=== PATIENT | female | born 1955 | race Caucasian/White ===

== ENCOUNTER 2016-12-20 12:43 | Inpatient (IN) | payer OTHER ==
[~2016-12-20] VITALS: Ht 162.6 cm; Wt 118.8 kg
[2016-12-20 13:57] VITALS: BP 135/78
[2016-12-20] MEDS ORDERED: BISACODYL 10 MG SUPP.RECT. PR PRN (14:45)
[2016-12-20] MEDS ORDERED: PROCHLORPERAZINE 10 MG/2 ML VIAL. IV PRN (14:45)
[2016-12-20] MEDS ORDERED: PIP/TAZO PER PHARMACY MC PRN (14:45)
[2016-12-20] MEDS ORDERED: PROCHLORPERAZINE 25 MG SUPP.RECT. PR PRN (14:45)
[2016-12-20] MEDS ORDERED: MAGNESIUM HYDROXIDE 2,400 MG/30 ML ORAL.SUSP. PO PRN (14:45)
[2016-12-20] MEDS ORDERED: ACETAMINOPHEN 325 MG SUPP.RECT. PR PRN (14:45)
[2016-12-20] MEDS ORDERED: ACETAMINOPHEN 325 MG TABLET. PO PRN (14:45)
[2016-12-20] MEDS ORDERED: MORPHINE SULFATE 4 MG/ML DISP.SYRIN. IV PRN (14:45)
--- NOTE | 2016-12-20 14:48 | PDOC1 ---
History and Physical Date of Admission Date of Admission DATE: 12/20/16 TIME: 14:43 Identification/Chief Complaint Chief Complaint abd pain Problems: Source Source: Caregiver, Chart review, Patient History of Present Illness History of Present Illness 61 y.o very pleasant Caucaisan female, obese, hx diverticulitis in past one episode, THAT DId NOT Need any hospitalization, abd pain RLQ few days, febrile at home, nausea but no emesis, went to PCP [facility], CT shows diverticulitis with 6m, abscess hence transferred here. WBC 16, BMP ok, was given flagyl and levaquin at [facility] decent after pain meds Past Medical History Cardiovascular: HTN Past Surgical History Past Surgical History: No pertinent history Family History Family History: No Significant Social History Smoke: No ALCOHOL: none Drugs: None Allergies Allergies: Coded Allergies: No Known Drug Allergies (Unverified , 12/20/16) ROS General: No: Chills, Night Sweats, Fatigue, Malaise, Appetite, Other (efevr) PSYCHOLOGICAL ROS: No: Anxiety, Behavioral Disorder, Concentration difficultie , Decreased libido, Depression, Disorientation, Hallucinations, Hostility, Irritablity, Memory difficulties, Mood Swings, Obsessive thoughts, Physical abuse, Sexual abuse, Sleep disturbances, Suicidal ideation, Other Eyes: No Blurry vision, No Decreased vision, No Double vision, No Dry eyes, No Excessive tearing, No Eye Pain, No Itchy Eyes, No Loss of vision, No Photophobia , No Scotomata, No Uses contacts, No Uses glasses, No Other HEENT: No: Heacaches, Visual Changes, Hearing change, Nasal congestion, Nasal discharge, Oral lesions, Sinus pain, Sore Throat, Epistaxis, Sneezing, Snoring, Tinnitus, Vertigo, Vocal changes, Other ALLERGY AND IMMUNOLOGY: No: Hives, Insect Bite Sensitivity, Itchy/Watery Eyes, Nasal Congestion, Post Nasal Drip, Seasonal Allergies, Other Hematological and Lymphatic: No: Bleeding Problems, Blood Clots, Blood Transfusions, Brusing, Night Sweats, Pallor, Swollen Lymph Nodes, Other ENDOCRINE: No: Breast Changes, Galactorrhea, Hair Pattern Changes, Hot Flashes , Malaise/lethargy, Mood Swings, Palpitations, Polydipsia/polyuria, Skin Changes , Temperature Intolerance, Unexpected Weight Changes, Other Breast: No New/Changing Breast Lumps, No Nipple changes, No Nipple discharge, No Other Respiratory: No: Cough, Hemoptysis, Orthopnea, Pleuritic Pain, Shortness of breath, SOB with excertion, Sputum Changes, Stridor, Tachypnea, Wheezing, Other Cardiovascular: No Chest Pain, No Palpitations, No Orthopnea, No Paroxysmal Noc. Dyspnea, No Edema, No Lt Headedness, No Other Gastrointestinal: Yes Nausea, Yes Vomiting, Yes Abdominal Pain Genitourinary: No Dysuria, No Frequency, No Incontinence, No Hematuria, No Retention, No Discharge, No Urgency, No Pain, No Flank Pain, No Other, No , No , No , No , No , No , No Musculoskeletal: No Gait Disturbance, No Joint Pain, No Joint Stiffness, No Joint Swelling, No Muscle Pain, No Muscular Weakness, No Pain In:, No Swelling In:, No Other Neurological: No Behavorial Changes, No Bowel/Bladder ControlChng, No Confusion , No Dizziness, No Gait Disturbance, No Headaches, No Impaired Coord/balance, No Memory Loss, No Numbness/Tingling, No Seizures, No Speech Problems, No Tremors, No Visual Changes, No Weakness, No Other Skin: No Dry Skin, No Eczema, No Hair Changes, No Lumps, No Mole Changes, No Mottling, No Nail Changes, No Pruritus, No Rash, No Skin Lesion Changes, No Other, No Acne Physical Exam General: Alert, Oriented X3, Cooperative, No acute distress HEENT: Atraumatic, PERRLA, EOMI Lungs: Clear to auscultation, Normal air movement Heart: S1S2, RRR, no thrills, no rubs, no gallops, no murmurs Cardiovascular: S1, S2 Breasts: Normal, Rt breast nml w/o mass, Lt breast nml w/o mass, Nipples normal Abdomen: Other (soft tender mostly RLQ area, no guarding, hypoactive bS) Rectal Exam: not examined PELVIC: Nml ext genitalia Extremities: No clubbing, No cyanosis, No edema, Normal pulses, No tenderness/ swelling Skin: No rashes, No breakdown, No significant lesion Neuro: Normal gait, Normal speech, Strength at 5/5 X4 ext, Normal tone, Sensation intact, Cranial nerves 3-12 NL, Reflexes 2+ Psych/Mental Status: Mental status NL, Mood NL Vitals Vitals Vital Signs Date Time Temp Pulse Resp B/P (MAP) Pulse Ox O2 Delivery O2 Flow Rate FiO2 12/20/16 13:57 97.9 74 18 135/78 (97) 99 Nasal Cannula 97.9 VTE Prophylaxis Ordered VTE Prophylaxis Devices: Yes VTE Pharmacological Prophylaxi: Yes Assessment/Plan Assessment/Plan 1. Sigmoid diverticultuis with [address] 2. SIRS no sepsis, infectious in etiology, no organ dysfcn 3. Leukocytosis 16 4. Obesity 5. HTN pLAN: Admit 2 mN NPO IVF IR consult for abscess drainage IV zosyn per pharmacy GI consult PPI IV while NPO Dw her my plan -agreeable ROSALINA SULLIVAN MD Dec 20, 2016 14:48
[2016-12-20 15:00] VITALS: BP 135/78
--- NOTE | 2016-12-20 15:28 | PDOC2 ---
GI CONSULT Reason For Consult: Diverticulitis with abcess. HPI: HPI: 61 y/o female admitted to [facility] on Wednesday with recurrent diverticulitis. Prior episode treated successfully as outpatient. On this occasion, worse with perisigmoid abcess on CT, hence transferred here. Afebrile currently, but with LLQ pain with motion. States prior colonoscopy >15 years ago, maybe with polyps and maybe done here. Typically no diarrhea, constipation or overt bleeding or melena. Wt/appetite stable. No N, V. Knows of no GIFH issues. No HB, dysphagia, PUD, GB, liver or pancreatic history. No tobacco use. Occasional alcohol. No ASA or NSAID use. No prior EGD. PMH: PMH: HTN, anxiety. No prior surgery. FH: Family History: DM, Hypertension Social History: Smoke: No ALCOHOL: occassional Drugs: None ROS: GEN: Denies fevers, chills, sweats HEENT: Denies blurred vision, sore throat CV: Denies chest pain RESP: Denies shortness of air, cough GI: Per HPI : Denies hematuria, dysuria ENDO: Denies weight changes NEURO: Denies confusion, dizziness MSK: Denies weakness, joint pain/swelling SKIN: Denies jaundice, pruritus Vitals: Vitals: Vital Signs Date Time Temp Pulse Resp B/P (MAP) Pulse Ox O2 Delivery O2 Flow Rate FiO2 12/20/16 13:57 97.9 74 18 135/78 (97) 99 Nasal Cannula 97.9 Labs: Labs: At [facility]: moderate leukocytosis, no anemia, Mildly elevated LFT's with normal bilirubin. Hyperglycemic. Allergies: Coded Allergies: No Known Drug Allergies (Unverified , 12/20/16) Imaging: Imaging: At [facility], diverticulitis with abcess, fatty liver on CT. PE: GEN: looks uncomfortable HEENT: Atraumatic, PERRLA LUNGS: CTAB HEART: RRR, no murmurs ABD: NABS, S/ND. Tender with peritoneal signs/referred pain to LLQ. No mass, organomegaly. EXTREMITY: No edema SKIN: No rashes, no jaundice NEURO/PSYCH: A & O 3 A/P: A/P: IMP: Diverticulitis complicated by perforation/abcess. H/o polyps? Abnormal LFT's; some may be NAFLD/GRIMALDO with contribution from infection. No obstruction by available imaging. REC: continue antibiotics. IR and surgical opinions. Not above clears po for now. May need re-imaging at some point. Thanks. SCHUYLER HERRERA MD Dec 20, 2016 15:28
[2016-12-20] MEDS: fentaNYL PF VIAL 100 MCG/2 ML VIAL IV PRN ×2 (15:30→20:16)
[2016-12-20 15:48] LABS: CALCIUM 9.1 mg/dL (8.5-10.1); CREATININE 0.7 mg/dL (0.6-1.0); GFR 85.4; POTASSIUM 4.5 mmol/L (3.5-5.1)
[2016-12-20] MEDS: IV RINGERS,LACTATED 1000ML 1,000 ML IV SCH (15:52)
[2016-12-20] MEDS ORDERED: ALPR0.25 PO (16:25)
[2016-12-20] MEDS ORDERED: PRAV10TA2 PO (16:25)
[2016-12-20] MEDS ORDERED: MONT10TA9 PO (16:25)
[2016-12-20] MEDS ORDERED: CITA20TA5 PO (16:25)
[2016-12-20] MEDS ORDERED: POTA20TA82 PO (16:25)
[2016-12-20] MEDS ORDERED: LEVO100T5 PO (16:25)
[2016-12-20] MEDS ORDERED: FURO-69 PO (16:25)
[2016-12-20] MEDS ORDERED: TRIA1TAB3 PO (16:25)
[2016-12-20] MEDS ORDERED: IBUP-1060 PO (16:25)
[2016-12-20] MEDS ORDERED: CALC667T PO (16:25)
[2016-12-20] MEDS ORDERED: CELE100C PO (16:25)
[2016-12-20] MEDS ORDERED: LEVO25TA4 PO (16:48)
[2016-12-20] MEDS ORDERED: CELE200C PO (16:50)
[2016-12-20] MEDS ORDERED: PRAV40TA2 PO (16:50)
[2016-12-20] MEDS ORDERED: FURO40TA4 PO (16:50)
[2016-12-20] MEDS: PIPERACILLIN/TAZO IV Push 3.375 GM VIAL. IVP SCH (18:05)
[2016-12-20 19:00] VITALS: BP 135/85
[2016-12-20] MEDS: DOCUSATE SODIUM 100 MG CAPSULE. PO SCH (20:05)
[2016-12-20] MEDS: ONDANSETRON PF 4 MG/2 ML VIAL. IV PRN (22:58)
[2016-12-20 23:00] VITALS: BP 152/96
[2016-12-21] VITALS (22 sets, daily range): BP systolic 138–193; BP diastolic 82–123
[2016-12-21] MEDS: PIPERACILLIN/TAZO IV Push 3.375 GM VIAL. IVP SCH ×4 (00:15→19:32)
[2016-12-21] MEDS: fentaNYL PF VIAL 100 MCG/2 ML VIAL IV PRN (00:23)
[2016-12-21] MEDS: IV RINGERS,LACTATED 1000ML 1,000 ML IV SCH ×3 (00:23→21:57)
[2016-12-21 05:25] LABS: BASO # 0.1 x10^3/uL (0.0-0.2); BASO % 1 % (0-3); EOS % 0 % (0-3); HEMOGLOBIN 11.6 g/dL (12.0-15.5); LYMPH # 0.8 x10^3/uL (1.0-4.8); LYMPH % 8 % (24-48); MEAN CORPUSCULAR HEMOGLOBIN 32 pg (25-35); MEAN CORPUSCULAR HGB CONC 33 g/dL (31-37); MEAN CORPUSCULAR VOLUME 98 fL (79-100); MONO % 6 % (0-9); NEUT % 85 % (31-73); PLATELET COUNT 332 x10^3/uL (140-400); RED BLOOD COUNT 3.59 x10^6/uL (3.50-5.40); RED CELL DISTRIBUTION WIDTH 13.7 % (11.5-14.5); WHITE BLOOD COUNT 10.2 x10^3/uL (4.0-11.0)
[2016-12-21 08:41] LABS: INR 1.2 (0.8-1.1); PROTHROMBIN TIME PATIENT 14.1 SEC (11.7-14.0)
[2016-12-21 08:44] LABS: MAGNESIUM 2.4 mg/dL (1.8-2.4); PHOSPHORUS 1.2 mg/dL (2.6-4.7)
[2016-12-21] MEDS: DOCUSATE SODIUM 100 MG CAPSULE. PO SCH ×2 (09:00→21:57)
[2016-12-21] MEDS: ALBUTEROL SULFATE 2.5 MG/3 ML NEBU. NEB PRN (09:37)
[2016-12-21 10:07] LABS: PLT ESTIMATE ADEQUATE (ADEQUATE)
[2016-12-21] MEDS ORDERED: LIDOCAINE 1% / SOD BICARB 8.4% 20 ML VIAL. IJ ONE ×2 (10:43→11:15)
[2016-12-21] MEDS ORDERED: fentaNYL PF VIAL 100 MCG/2 ML VIAL ONE (10:57)
[2016-12-21] MEDS ORDERED: MIDAZOLAM HCL/PF 2 MG/2 ML VIAL. ONE (10:57)
[2016-12-21] MEDS ORDERED: fentaNYL PF VIAL 100 MCG/2 ML VIAL IV ONE (11:15)
[2016-12-21] MEDS ORDERED: MIDAZOLAM HCL/PF 2 MG/2 ML VIAL. IV ONE (11:15)
[2016-12-21] MEDS ORDERED: SODIUM PHOSPHATE 20 MMOL in IV DEXTROSE 5% 250 ML IV ONE (12:00)
[2016-12-21] MEDS ORDERED: VANCOMYCIN 2 GM in IV DEXTROSE 5% 500 ML IV SCH (15:00)
[2016-12-21] MEDS: oxyCODONE IR 5 MG TABLET PO PRN ×2 (15:02→19:32)
--- NOTE | 2016-12-21 15:03 | PDOC ---
PROGRESS NOTES Chief Complaint Chief Complaint 1. Sigmoid diverticultuis with ?perforation with [address] post abscess drain on 12/21 2 sepsis 3. Leukocytosis 16 4. Obesity 5. HTN hypophophatemia plan: fu with gi, ir, sx post abscess drain on 12/21 cont some home meds, hold lasix ivf clear liquid diet pain control dvt ppx replete HA ADD vanco, zosyn ,fu cx labs tmr History of Present Illness History of Present Illness ROS: no fever, chills, sob or chest pain low ha IR today Vitals Vitals Vital Signs Date Time Temp Pulse Resp B/P (MAP) Pulse Ox O2 Delivery O2 Flow Rate FiO2 12/21/16 12:58 Nasal Cannula 3.0 12/21/16 12:15 16 12/21/16 12:00 97.7 85 147/86 (106) 81 97.7 Physical Exam General: Alert, Oriented X3, Cooperative, No acute distress Heart: Regular rate, Normal S1, Normal S2 Lungs: Clear Abdomen: Soft, Other Extremities: No clubbing, No cyanosis, No edema, Normal pulses, No tenderness/ swelling Skin: No rashes, No breakdown, No significant lesion Labs LABS Laboratory Tests Test 12/21/16 05:02 12/21/16 08:05 White Blood Count 10.2 x10^3/uL (4.0-11.0) Red Blood Count 3.59 x10^6/uL (3.50-5.40) Hemoglobin 11.6 g/dL (12.0-15.5) Hematocrit 35.0 % (36.0-47.0) Mean Corpuscular Volume 98 fL (79-100) Mean Corpuscular Hemoglobin 32 pg (25-35) Mean Corpuscular Hemoglobin Concent 33 g/dL (31-37) Red Cell Distribution Width 13.7 % (11.5-14.5) Platelet Count 332 x10^3/uL (140-400) Neutrophils (%) (Auto) 85 % (31-73) Lymphocytes (%) (Auto) 8 % (24-48) Monocytes (%) (Auto) 6 % (0-9) Eosinophils (%) (Auto) 0 % (0-3) Basophils (%) (Auto) 1 % (0-3) Neutrophils # (Auto) 8.7 x10^3uL (1.8-7.7) Lymphocytes # (Auto) 0.8 x10^3/uL (1.0-4.8) Monocytes # (Auto) 0.6 x10^3/uL (0.0-1.1) Eosinophils # (Auto) 0.0 x10^3/uL (0.0-0.7) Basophils # (Auto) 0.1 x10^3/uL (0.0-0.2) Segmented Neutrophils % 86 % (35-66) Band Neutrophils % 4 % (0-9) Lymphocytes % 9 % (24-48) Monocytes % 1 % (0-10) Platelet Estimate Adequate (ADEQUATE) Prothrombin Time 14.1 SEC (11.7-14.0) Prothromb Time International Ratio 1.2 (0.8-1.1) Phosphorus Level 1.2 mg/dL (2.6-4.7) Magnesium Level 2.4 mg/dL (1.8-2.4) Comment Review of Relevant I have reviewed the following items kevin (where applicable) has been applied. Labs Laboratory Tests Test 12/20/16 14:45 12/21/16 05:02 12/21/16 08:05 Sodium Level 137 mmol/L (136-145) Potassium Level 4.5 mmol/L (3.5-5.1) Chloride Level 103 mmol/L (98-107) Carbon Dioxide Level 29 mmol/L (21-32) Anion Gap 5 (6-14) Blood Urea Nitrogen 14 mg/dL (7-20) Creatinine 0.7 mg/dL (0.6-1.0) Estimated GFR (Cockcroft-Gault) 85.4 Glucose Level 92 mg/dL (70-99) Calcium Level 9.1 mg/dL (8.5-10.1) White Blood Count 10.2 x10^3/uL (4.0-11.0) Red Blood Count 3.59 x10^6/uL (3.50-5.40) Hemoglobin 11.6 g/dL (12.0-15.5) Hematocrit 35.0 % (36.0-47.0) Mean Corpuscular Volume 98 fL (79-100) Mean Corpuscular Hemoglobin 32 pg (25-35) Mean Corpuscular Hemoglobin Concent 33 g/dL (31-37) Red Cell Distribution Width 13.7 % (11.5-14.5) Platelet Count 332 x10^3/uL (140-400) Neutrophils (%) (Auto) 85 % (31-73) Lymphocytes (%) (Auto) 8 % (24-48) Monocytes (%) (Auto) 6 % (0-9) Eosinophils (%) (Auto) 0 % (0-3) Basophils (%) (Auto) 1 % (0-3) Neutrophils # (Auto) 8.7 x10^3uL (1.8-7.7) Lymphocytes # (Auto) 0.8 x10^3/uL (1.0-4.8) Monocytes # (Auto) 0.6 x10^3/uL (0.0-1.1) Eosinophils # (Auto) 0.0 x10^3/uL (0.0-0.7) Basophils # (Auto) 0.1 x10^3/uL (0.0-0.2) Segmented Neutrophils % 86 % (35-66) Band Neutrophils % 4 % (0-9) Lymphocytes % 9 % (24-48) Monocytes % 1 % (0-10) Platelet Estimate Adequate (ADEQUATE) Prothrombin Time 14.1 SEC (11.7-14.0) Prothromb Time International Ratio 1.2 (0.8-1.1) Phosphorus Level 1.2 mg/dL (2.6-4.7) Magnesium Level 2.4 mg/dL (1.8-2.4) Laboratory Tests Test 12/21/16 05:02 12/21/16 08:05 White Blood Count 10.2 x10^3/uL (4.0-11.0) Red Blood Count 3.59 x10^6/uL (3.50-5.40) Hemoglobin 11.6 g/dL (12.0-15.5) Hematocrit 35.0 % (36.0-47.0) Mean Corpuscular Volume 98 fL (79-100) Mean Corpuscular Hemoglobin 32 pg (25-35) Mean Corpuscular Hemoglobin Concent 33 g/dL (31-37) Red Cell Distribution Width 13.7 % (11.5-14.5) Platelet Count 332 x10^3/uL (140-400) Neutrophils (%) (Auto) 85 % (31-73) Lymphocytes (%) (Auto) 8 % (24-48) Monocytes (%) (Auto) 6 % (0-9) Eosinophils (%) (Auto) 0 % (0-3) Basophils (%) (Auto) 1 % (0-3) Neutrophils # (Auto) 8.7 x10^3uL (1.8-7.7) Lymphocytes # (Auto) 0.8 x10^3/uL (1.0-4.8) Monocytes # (Auto) 0.6 x10^3/uL (0.0-1.1) Eosinophils # (Auto) 0.0 x10^3/uL (0.0-0.7) Basophils # (Auto) 0.1 x10^3/uL (0.0-0.2) Segmented Neutrophils % 86 % (35-66) Band Neutrophils % 4 % (0-9) Lymphocytes % 9 % (24-48) Monocytes % 1 % (0-10) Platelet Estimate Adequate (ADEQUATE) Prothrombin Time 14.1 SEC (11.7-14.0) Prothromb Time International Ratio 1.2 (0.8-1.1) Phosphorus Level 1.2 mg/dL (2.6-4.7) Magnesium Level 2.4 mg/dL (1.8-2.4) Microbiology 12/21/16 Gram Stain - Final, Complete Medications Current Medications Ondansetron HCl (Zofran) 4 mg PRN Q6HRS PRN IV NAUSEA/VOMITING Last administered on 12/20/16t 22:58; Start 12/20/16 at 14:45 Prochlorperazine Edisylate (Compazine) 10 mg PRN Q6HRS PRN IV NAUSEA/VOMITING; Start 12/20/16 at 14:45 Prochlorperazine (Compazine) 25 mg PRN Q12HR PRN OR NAUSEA/VOMITING; Start 01/24 at 14:45 Oxycodone HCl (Roxicodone) 5 mg PRN Q3HRS PRN PO BREAKTHROUGH PAIN; Start 01/24 at 14:45 Morphine Sulfate 2 mg PRN Q2HR PRN IV PAIN; Start 12/20/16 at 14:45 Acetaminophen (Tylenol) 650 mg PRN Q6HRS PRN PO Headaches, Temp > 101.5F; Start 12/20/16 at 14:45 Docusate Sodium (Colace) 100 mg BID PO ; Start 12/20/16 at 21:00 Magnesium Hydroxide (Milk Of Magnesia) 2,400 mg PRN Q12HR PRN PO CONSTIPATION; Start 12/20/16 at 14:45 Bisacodyl (Dulcolax Supp) 10 mg PRN DAILY PRN OR CONSTIPATION; Start 12/20/16 at 14:45 Ringer's Solution 1,000 ml @ 100 mls/hr Q10H IV Last administered on 12:00; Start 12/20/16 at 16:00 Piperacillin Sod/ Tazobactam Sod (Zosyn Per Pharmacy) 1 each PRN DAILY PRN MC SEE COMMENTS; Start 12/20/16 at 14:45 Fentanyl Citrate (Fentanyl 2ml Vial) 50 mcg PRN Q2HR PRN IV PAIN Last administered on 12/21/16 00:23; Start 12/20/16 at 14:45 Acetaminophen (Tylenol) 325 mg PRN Q6HRS PRN OR MILD PAIN / TEMP Last administered on 12/20/16 20:16; Start 12/20/16 at 14:45 Piperacillin Sod/ Tazobactam Sod (Zosyn) 3.375 gm Q6HRS IVP Last administered on 12/21/16 12:00; Start 12/20/16 at 18:00 Albuterol Sulfate (Ventolin Neb Soln) 2.5 mg PRN Q2HR PRN NEB SHORTNESS OF BREATH Last administered on 12/21/16 09:37; Start 12/21/16 at 00:45 Lidocaine/Sodium Bicarbonate (Buffered Lidocaine 1%) 20 ml STK-MED ONCE IJ ; Start 12/21/16 at 10:43; Stop 12/21/16 at 10:44; Status DC Fentanyl Citrate (Fentanyl 2ml Vial) 100 mcg STK-MED ONCE .ROUTE ; Start at 10:57; Stop 12/21/16 at 10:58; Status DC Midazolam HCl (Versed) 2 mg STK-MED ONCE .ROUTE ; Start 12/21/16 at 10:57; Stop 12/21/16 at 10:58; Status DC Lidocaine/Sodium Bicarbonate (Buffered Lidocaine 1%) 20 ml 1X ONCE IJ Last administered on 12/21/16 11:44; Start 12/21/16 at 11:15; Stop 12/21/16 at 11 :16; Status DC Midazolam HCl (Versed) 2 mg 1X ONCE IV Last administered on 12/21/16 11:44; Start 12/21/16 at 11:15; Stop 12/21/16 at 11:16; Status DC Fentanyl Citrate (Fentanyl 2ml Vial) 100 mcg 1X ONCE IV Last administered on 12/21/16 11:45; Start 12/21/16 at 11:15; Stop 12/21/16 at 11:16; Status DC Sodium Phosphate 20 mmol/Dextrose 256.6667 ml @ 64.167 m... 1X ONCE IV Last administered on 12/21/16 12:00; Start 12/21/16 at 12:00; Stop 12/21/16 at 15 :59 Active Scripts Active Reported Pravastatin Sodium 40 Mg Tablet 1 Tab PO QHS Celebrex (Celecoxib) 200 Mg Capsule 1 Cap PO DAILY Furosemide 40 Mg Tablet 1 Tab PO DAILY Levothyroxine Sodium 25 Mcg Tablet 1 Tab PO DAILY Triamterene-Hctz 37.5-25 Mg Tb (Triamterene/Hydrochlorothiazid) 1 Each Tablet 1 Tab PO DAILY Potassium Chloride 20 Meq Tablet.er 20 Meq PO DAILY Citalopram Hbr (Citalopram Hydrobromide) 20 Mg Tablet 1 Tab PO DAILY Calcium Acetate 667 Mg Tablet 667 Mg PO DAILY Xanax (Alprazolam) 0.25 Mg Tablet 1 Tab PO PRN BID PRN Vitals/I & O Vital Sign - Last 24 Hours 12/20/16 12/20/16 12/20/16 12/20/16 15:30 19:00 20:00 20:16 Temp 97.2 97.2 Pulse 100 Resp 18 18 22 B/P (MAP) 135/85 (102) Pulse Ox 97 99 O2 Delivery Nasal Cannula Nasal Cannula Nasal Cannula Nasal Cannula O2 Flow Rate 3.0 2.0 2.0 3.0 12/20/16 12/21/16 12/21/16 12/21/16 23:00 00:23 01:00 03:00 Temp 97.3 97.8 97.3 97.8 Pulse 114 95 Resp 24 22 20 18 B/P (MAP) 152/96 (114) 158/85 (109) Pulse Ox 96 96 96 94 O2 Delivery Nasal Cannula Nasal Cannula Nasal Cannula Nasal Cannula O2 Flow Rate 2.0 2.0 2.0 2.0 12/21/16 12/21/16 12/21/16 12/21/16 07:00 09:40 10:55 11:12 Temp 97.5 97.5 Pulse 85 96 96 Resp 18 18 18 B/P (MAP) 152/86 (108) Pulse Ox 96 97 92 92 O2 Delivery Room Air Room Air Nasal Cannula Nasal Cannula O2 Flow Rate 3.0 3.0 12/21/16 12/21/16 12/21/16 12/21/16 11:16 11:25 11:32 11:36 Pulse 82 73 73 73 Resp 18 18 Pulse Ox 99 99 99 99 O2 Delivery Nasal Cannula Nasal Cannula Nasal Cannula Nasal Cannula O2 Flow Rate 3.0 3.0 3.0 3.0 12/21/16 12/21/16 12/21/16 12/21/16 11:39 11:45 12:00 12:15 Temp 97.7 97.7 Pulse 67 85 Resp 18 18 18 16 B/P (MAP) 147/86 (106) Pulse Ox 97 97 81 O2 Delivery Nasal Cannula Nasal Cannula Room Air Room Air O2 Flow Rate 3.0 3.0 12/21/16 12:58 O2 Delivery Nasal Cannula O2 Flow Rate 3.0 Intake and Output 12/20/16 12/20/16 12/21/16 14:59 22:59 06:59 Intake Total 1380 ml Output Total 1000 ml 550 ml Balance -1000 ml 830 ml XOCHILT SAXENA MD Dec 21, 2016 15:03
[2016-12-21] MEDS ORDERED: VANCOMYCIN 2 GM in IV DEXTROSE 5% 500 ML IV ONE (16:00)
--- NOTE | 2016-12-21 16:23 | PDOC2 ---
CONSULT Date of Consult Date of Consult DATE: 12/21/16 TIME: 16:22 Past Medical History Cardiovascular: HTN Past Surgical History Past Surgical History: No pertinent history Family History Family History: No Significant Social History No ALCOHOL: occassional Drugs: None Current Medications Current Medications Current Medications Ondansetron HCl (Zofran) 4 mg PRN Q6HRS PRN IV NAUSEA/VOMITING (1st Choice) Last administered on 12/20/16 22:58; Start 12/20/16 at 14:45 Prochlorperazine Edisylate (Compazine) 10 mg PRN Q6HRS PRN IV NAUSEA/VOMITING ( 2nd Choice); Start 12/20/16 at 14:45 Prochlorperazine (Compazine) 25 mg PRN Q12HR PRN OR NAUSEA/VOMITING; Start 01/24 at 14:45 Oxycodone HCl (Roxicodone) 5 mg PRN Q3HRS PRN PO BREAKTHROUGH PAIN Last administered on 12/21/16 15:02; Start 12/20/16 at 14:45 Morphine Sulfate 2 mg PRN Q2HR PRN IV PAIN; Start 12/20/16 at 14:45 Acetaminophen (Tylenol) 650 mg PRN Q6HRS PRN PO Headaches, Temp > 101.5F; Start 12/20/16 at 14:45 Docusate Sodium (Colace) 100 mg BID PO ; Start 12/20/16 at 21:00 Magnesium Hydroxide (Milk Of Magnesia) 2,400 mg PRN Q12HR PRN PO CONSTIPATION; Start 12/20/16 at 14:45 Bisacodyl (Dulcolax Supp) 10 mg PRN DAILY PRN OR CONSTIPATION; Start 12/20/16 at 14:45 Ringer's Solution 1,000 ml @ 100 mls/hr Q10H IV Last administered on 12:00; Start 12/20/16 at 16:00 Piperacillin Sod/ Tazobactam Sod (Zosyn Per Pharmacy) 1 each PRN DAILY PRN MC SEE COMMENTS; Start 12/20/16 at 14:45 Fentanyl Citrate (Fentanyl 2ml Vial) 50 mcg PRN Q2HR PRN IV PAIN Last administered on 12/21/16 00:23; Start 12/20/16 at 14:45 Acetaminophen (Tylenol) 325 mg PRN Q6HRS PRN OR MILD PAIN / TEMP Last administered on 12/20/16 20:16; Start 12/20/16 at 14:45 Piperacillin Sod/ Tazobactam Sod (Zosyn) 3.375 gm Q6HRS IVP Last administered on 12/21/16 12:00; Start 12/20/16 at 18:00 Albuterol Sulfate (Ventolin Neb Soln) 2.5 mg PRN Q2HR PRN NEB SHORTNESS OF BREATH Last administered on 12/21/16 09:37; Start 12/21/16 at 00:45 Lidocaine/Sodium Bicarbonate (Buffered Lidocaine 1%) 20 ml STK-MED ONCE IJ ; Start 12/21/16 at 10:43; Stop 12/21/16 at 10:44; Status DC Fentanyl Citrate (Fentanyl 2ml Vial) 100 mcg STK-MED ONCE .ROUTE ; Start at 10:57; Stop 12/21/16 at 10:58; Status DC Midazolam HCl (Versed) 2 mg STK-MED ONCE .ROUTE ; Start 12/21/16 at 10:57; Stop 12/21/16 at 10:58; Status DC Lidocaine/Sodium Bicarbonate (Buffered Lidocaine 1%) 20 ml 1X ONCE IJ Last administered on 12/21/16 11:44; Start 12/21/16 at 11:15; Stop 12/21/16 at 11 :16; Status DC Midazolam HCl (Versed) 2 mg 1X ONCE IV Last administered on 12/21/16 11:44; Start 12/21/16 at 11:15; Stop 12/21/16 at 11:16; Status DC Fentanyl Citrate (Fentanyl 2ml Vial) 100 mcg 1X ONCE IV Last administered on 12/21/16 11:45; Start 12/21/16 at 11:15; Stop 12/21/16 at 11:16; Status DC Sodium Phosphate 20 mmol/Dextrose 256.6667 ml @ 64.167 m... 1X ONCE IV Last administered on 12/21/16 12:00; Start 12/21/16 at 12:00; Stop 12/21/16 at 15 :59; Status DC Alprazolam (Xanax) 0.25 mg PRN BID PRN PO ANXIETY / AGITATION; Start 12/21/16 at 15:00 Citalopram Hydrobromide (CeleXA) 20 mg DAILY PO ; Start 12/21/16 at 16:00 Levothyroxine Sodium (Synthroid) 25 mcg DAILY07 PO ; Start 12/21/16 at 16:00 Atorvastatin Calcium (Lipitor) 10 mg QHS PO ; Start 12/21/16 at 21:00 Vancomycin HCl 2 gm/Dextrose 500 ml @ 250 mls/hr Q12H IV ; Start 12/21/16 at 15:00; Status UNV Vancomycin HCl (Vanco Per Pharmacy) 1 each PRN DAILY PRN MC SEE COMMENTS; Start 12/21/16 at 15:00 Heparin Sodium (Porcine) (Heparin Sq) 5,000 unit Q8HRS SQ ; Start 12/21/16 at 22:00 Vancomycin HCl 2 gm/Dextrose 500 ml @ 250 mls/hr 1X ONCE IV ; Start 12/21/16 at 16:00; Stop 12/21/16 at 17:59 Active Scripts Active Reported Pravastatin Sodium 40 Mg Tablet 1 Tab PO QHS Celebrex (Celecoxib) 200 Mg Capsule 1 Cap PO DAILY Furosemide 40 Mg Tablet 1 Tab PO DAILY Levothyroxine Sodium 25 Mcg Tablet 1 Tab PO DAILY Triamterene-Hctz 37.5-25 Mg Tb (Triamterene/Hydrochlorothiazid) 1 Each Tablet 1 Tab PO DAILY Potassium Chloride 20 Meq Tablet.er 20 Meq PO DAILY Citalopram Hbr (Citalopram Hydrobromide) 20 Mg Tablet 1 Tab PO DAILY Calcium Acetate 667 Mg Tablet 667 Mg PO DAILY Xanax (Alprazolam) 0.25 Mg Tablet 1 Tab PO PRN BID PRN Allergies Allergies: Coded Allergies: No Known Drug Allergies (Unverified , 12/20/16) Vitals VITALS Vital Signs Date Time Temp Pulse Resp B/P (MAP) Pulse Ox O2 Delivery O2 Flow Rate FiO2 12/21/16 15:02 16 Room Air 12/21/16 12:58 3.0 12/21/16 12:00 97.7 85 147/86 (106) 81 97.7 Labs Labs Laboratory Tests Test 12/20/16 14:45 12/21/16 05:02 12/21/16 08:05 Sodium Level 137 mmol/L (136-145) Potassium Level 4.5 mmol/L (3.5-5.1) Chloride Level 103 mmol/L (98-107) Carbon Dioxide Level 29 mmol/L (21-32) Anion Gap 5 (6-14) Blood Urea Nitrogen 14 mg/dL (7-20) Creatinine 0.7 mg/dL (0.6-1.0) Estimated GFR (Cockcroft-Gault) 85.4 Glucose Level 92 mg/dL (70-99) Calcium Level 9.1 mg/dL (8.5-10.1) White Blood Count 10.2 x10^3/uL (4.0-11.0) Red Blood Count 3.59 x10^6/uL (3.50-5.40) Hemoglobin 11.6 g/dL (12.0-15.5) Hematocrit 35.0 % (36.0-47.0) Mean Corpuscular Volume 98 fL (79-100) Mean Corpuscular Hemoglobin 32 pg (25-35) Mean Corpuscular Hemoglobin Concent 33 g/dL (31-37) Red Cell Distribution Width 13.7 % (11.5-14.5) Platelet Count 332 x10^3/uL (140-400) Neutrophils (%) (Auto) 85 % (31-73) Lymphocytes (%) (Auto) 8 % (24-48) Monocytes (%) (Auto) 6 % (0-9) Eosinophils (%) (Auto) 0 % (0-3) Basophils (%) (Auto) 1 % (0-3) Neutrophils # (Auto) 8.7 x10^3uL (1.8-7.7) Lymphocytes # (Auto) 0.8 x10^3/uL (1.0-4.8) Monocytes # (Auto) 0.6 x10^3/uL (0.0-1.1) Eosinophils # (Auto) 0.0 x10^3/uL (0.0-0.7) Basophils # (Auto) 0.1 x10^3/uL (0.0-0.2) Segmented Neutrophils % 86 % (35-66) Band Neutrophils % 4 % (0-9) Lymphocytes % 9 % (24-48) Monocytes % 1 % (0-10) Platelet Estimate Adequate (ADEQUATE) Prothrombin Time 14.1 SEC (11.7-14.0) Prothromb Time International Ratio 1.2 (0.8-1.1) Phosphorus Level 1.2 mg/dL (2.6-4.7) Magnesium Level 2.4 mg/dL (1.8-2.4) Laboratory Tests Test 12/21/16 05:02 12/21/16 08:05 White Blood Count 10.2 x10^3/uL (4.0-11.0) Red Blood Count 3.59 x10^6/uL (3.50-5.40) Hemoglobin 11.6 g/dL (12.0-15.5) Hematocrit 35.0 % (36.0-47.0) Mean Corpuscular Volume 98 fL (79-100) Mean Corpuscular Hemoglobin 32 pg (25-35) Mean Corpuscular Hemoglobin Concent 33 g/dL (31-37) Red Cell Distribution Width 13.7 % (11.5-14.5) Platelet Count 332 x10^3/uL (140-400) Neutrophils (%) (Auto) 85 % (31-73) Lymphocytes (%) (Auto) 8 % (24-48) Monocytes (%) (Auto) 6 % (0-9) Eosinophils (%) (Auto) 0 % (0-3) Basophils (%) (Auto) 1 % (0-3) Neutrophils # (Auto) 8.7 x10^3uL (1.8-7.7) Lymphocytes # (Auto) 0.8 x10^3/uL (1.0-4.8) Monocytes # (Auto) 0.6 x10^3/uL (0.0-1.1) Eosinophils # (Auto) 0.0 x10^3/uL (0.0-0.7) Basophils # (Auto) 0.1 x10^3/uL (0.0-0.2) Segmented Neutrophils % 86 % (35-66) Band Neutrophils % 4 % (0-9) Lymphocytes % 9 % (24-48) Monocytes % 1 % (0-10) Platelet Estimate Adequate (ADEQUATE) Prothrombin Time 14.1 SEC (11.7-14.0) Prothromb Time International Ratio 1.2 (0.8-1.1) Phosphorus Level 1.2 mg/dL (2.6-4.7) Magnesium Level 2.4 mg/dL (1.8-2.4) Assessment/Plan Assessment/Plan FNTBD Estella is s/p perc drainage looks comfortable will follow Thanks for consult BRISEIDA CANSECO MD Dec 21, 2016 16:23
[2016-12-21] MEDS: LEVOTHYROXINE 25 MCG TABLET. PO SCH (17:14)
[2016-12-21] MEDS: CITALOPRAM 20 MG TABLET. PO SCH (17:14)
--- NOTE | 2016-12-21 18:35 | PDOC ---
G I PROGRESS NOTE Reason for Follow-up Diverticulitis Subjective Pain improved S?P percutaneous drain Physical Exam Lungs decreased BS CV S1 S2 ABD + hypoactive BS, soft, LLQ tender to palpation Review of Relevant I have reviewed the following items kevin (where applicable) has been applied. Labs Laboratory Tests Test 12/20/16 14:45 12/21/16 05:02 12/21/16 08:05 Sodium Level 137 mmol/L (136-145) Potassium Level 4.5 mmol/L (3.5-5.1) Chloride Level 103 mmol/L (98-107) Carbon Dioxide Level 29 mmol/L (21-32) Anion Gap 5 (6-14) Blood Urea Nitrogen 14 mg/dL (7-20) Creatinine 0.7 mg/dL (0.6-1.0) Estimated GFR (Cockcroft-Gault) 85.4 Glucose Level 92 mg/dL (70-99) Calcium Level 9.1 mg/dL (8.5-10.1) White Blood Count 10.2 x10^3/uL (4.0-11.0) Red Blood Count 3.59 x10^6/uL (3.50-5.40) Hemoglobin 11.6 g/dL (12.0-15.5) Hematocrit 35.0 % (36.0-47.0) Mean Corpuscular Volume 98 fL (79-100) Mean Corpuscular Hemoglobin 32 pg (25-35) Mean Corpuscular Hemoglobin Concent 33 g/dL (31-37) Red Cell Distribution Width 13.7 % (11.5-14.5) Platelet Count 332 x10^3/uL (140-400) Neutrophils (%) (Auto) 85 % (31-73) Lymphocytes (%) (Auto) 8 % (24-48) Monocytes (%) (Auto) 6 % (0-9) Eosinophils (%) (Auto) 0 % (0-3) Basophils (%) (Auto) 1 % (0-3) Neutrophils # (Auto) 8.7 x10^3uL (1.8-7.7) Lymphocytes # (Auto) 0.8 x10^3/uL (1.0-4.8) Monocytes # (Auto) 0.6 x10^3/uL (0.0-1.1) Eosinophils # (Auto) 0.0 x10^3/uL (0.0-0.7) Basophils # (Auto) 0.1 x10^3/uL (0.0-0.2) Segmented Neutrophils % 86 % (35-66) Band Neutrophils % 4 % (0-9) Lymphocytes % 9 % (24-48) Monocytes % 1 % (0-10) Platelet Estimate Adequate (ADEQUATE) Prothrombin Time 14.1 SEC (11.7-14.0) Prothromb Time International Ratio 1.2 (0.8-1.1) Phosphorus Level 1.2 mg/dL (2.6-4.7) Magnesium Level 2.4 mg/dL (1.8-2.4) Laboratory Tests Test 12/21/16 05:02 12/21/16 08:05 White Blood Count 10.2 x10^3/uL (4.0-11.0) Red Blood Count 3.59 x10^6/uL (3.50-5.40) Hemoglobin 11.6 g/dL (12.0-15.5) Hematocrit 35.0 % (36.0-47.0) Mean Corpuscular Volume 98 fL (79-100) Mean Corpuscular Hemoglobin 32 pg (25-35) Mean Corpuscular Hemoglobin Concent 33 g/dL (31-37) Red Cell Distribution Width 13.7 % (11.5-14.5) Platelet Count 332 x10^3/uL (140-400) Neutrophils (%) (Auto) 85 % (31-73) Lymphocytes (%) (Auto) 8 % (24-48) Monocytes (%) (Auto) 6 % (0-9) Eosinophils (%) (Auto) 0 % (0-3) Basophils (%) (Auto) 1 % (0-3) Neutrophils # (Auto) 8.7 x10^3uL (1.8-7.7) Lymphocytes # (Auto) 0.8 x10^3/uL (1.0-4.8) Monocytes # (Auto) 0.6 x10^3/uL (0.0-1.1) Eosinophils # (Auto) 0.0 x10^3/uL (0.0-0.7) Basophils # (Auto) 0.1 x10^3/uL (0.0-0.2) Segmented Neutrophils % 86 % (35-66) Band Neutrophils % 4 % (0-9) Lymphocytes % 9 % (24-48) Monocytes % 1 % (0-10) Platelet Estimate Adequate (ADEQUATE) Prothrombin Time 14.1 SEC (11.7-14.0) Prothromb Time International Ratio 1.2 (0.8-1.1) Phosphorus Level 1.2 mg/dL (2.6-4.7) Magnesium Level 2.4 mg/dL (1.8-2.4) Microbiology 12/21/16 Gram Stain - Final, Complete Medications Current Medications Ondansetron HCl (Zofran) 4 mg PRN Q6HRS PRN IV NAUSEA/VOMITING (1st Choice) Last administered on 12/20/16 22:58; Start 12/20/16 at 14:45 Prochlorperazine Edisylate (Compazine) 10 mg PRN Q6HRS PRN IV NAUSEA/VOMITING ( 2nd Choice); Start 12/20/16 at 14:45 Prochlorperazine (Compazine) 25 mg PRN Q12HR PRN CA NAUSEA/VOMITING; Start 01/24 at 14:45 Oxycodone HCl (Roxicodone) 5 mg PRN Q3HRS PRN PO BREAKTHROUGH PAIN Last administered on 12/21/16 15:02; Start 12/20/16 at 14:45 Morphine Sulfate 2 mg PRN Q2HR PRN IV PAIN; Start 12/20/16 at 14:45 Acetaminophen (Tylenol) 650 mg PRN Q6HRS PRN PO Headaches, Temp > 101.5F; Start 12/20/16 at 14:45 Docusate Sodium (Colace) 100 mg BID PO ; Start 12/20/16 at 21:00 Magnesium Hydroxide (Milk Of Magnesia) 2,400 mg PRN Q12HR PRN PO CONSTIPATION; Start 12/20/16 at 14:45 Bisacodyl (Dulcolax Supp) 10 mg PRN DAILY PRN CA CONSTIPATION; Start 12/20/16 at 14:45 Ringer's Solution 1,000 ml @ 100 mls/hr Q10H IV Last administered on 12:00; Start 12/20/16 at 16:00 Piperacillin Sod/ Tazobactam Sod (Zosyn Per Pharmacy) 1 each PRN DAILY PRN MC SEE COMMENTS; Start 12/20/16 at 14:45 Fentanyl Citrate (Fentanyl 2ml Vial) 50 mcg PRN Q2HR PRN IV PAIN Last administered on 12/21/16 00:23; Start 12/20/16 at 14:45 Acetaminophen (Tylenol) 325 mg PRN Q6HRS PRN CA MILD PAIN / TEMP Last administered on 12/20/16 20:16; Start 12/20/16 at 14:45 Piperacillin Sod/ Tazobactam Sod (Zosyn) 3.375 gm Q6HRS IVP Last administered on 12/21/16 12:00; Start 12/20/16 at 18:00 Albuterol Sulfate (Ventolin Neb Soln) 2.5 mg PRN Q2HR PRN NEB SHORTNESS OF BREATH Last administered on 12/21/16 09:37; Start 12/21/16 at 00:45 Lidocaine/Sodium Bicarbonate (Buffered Lidocaine 1%) 20 ml STK-MED ONCE IJ ; Start 12/21/16 at 10:43; Stop 12/21/16 at 10:44; Status DC Fentanyl Citrate (Fentanyl 2ml Vial) 100 mcg STK-MED ONCE .ROUTE ; Start at 10:57; Stop 12/21/16 at 10:58; Status DC Midazolam HCl (Versed) 2 mg STK-MED ONCE .ROUTE ; Start 12/21/16 at 10:57; Stop 12/21/16 at 10:58; Status DC Lidocaine/Sodium Bicarbonate (Buffered Lidocaine 1%) 20 ml 1X ONCE IJ Last administered on 12/21/16 11:44; Start 12/21/16 at 11:15; Stop 12/21/16 at 11 :16; Status DC Midazolam HCl (Versed) 2 mg 1X ONCE IV Last administered on 12/21/16 11:44; Start 12/21/16 at 11:15; Stop 12/21/16 at 11:16; Status DC Fentanyl Citrate (Fentanyl 2ml Vial) 100 mcg 1X ONCE IV Last administered on 12/21/16 11:45; Start 12/21/16 at 11:15; Stop 12/21/16 at 11:16; Status DC Sodium Phosphate 20 mmol/Dextrose 256.6667 ml @ 64.167 m... 1X ONCE IV Last administered on 12/21/16 12:00; Start 12/21/16 at 12:00; Stop 12/21/16 at 15 :59; Status DC Alprazolam (Xanax) 0.25 mg PRN BID PRN PO ANXIETY / AGITATION; Start 12/21/16 at 15:00 Citalopram Hydrobromide (CeleXA) 20 mg DAILY PO Last administered on 17:14; Start 12/21/16 at 16:00 Levothyroxine Sodium (Synthroid) 25 mcg DAILY07 PO Last administered on 17:14; Start 12/21/16 at 16:00 Atorvastatin Calcium (Lipitor) 10 mg QHS PO ; Start 12/21/16 at 21:00 Vancomycin HCl 2 gm/Dextrose 500 ml @ 250 mls/hr Q12H IV ; Start 12/21/16 at 15:00; Status UNV Vancomycin HCl (Vanco Per Pharmacy) 1 each PRN DAILY PRN MC SEE COMMENTS; Start 12/21/16 at 15:00 Heparin Sodium (Porcine) (Heparin Sq) 5,000 unit Q8HRS SQ ; Start 12/21/16 at 22:00 Vancomycin HCl 2 gm/Dextrose 500 ml @ 250 mls/hr 1X ONCE IV Last administered on 12/21/16 17:15; Start 12/21/16 at 16:00; Stop 12/21/16 at 17 :59; Status DC Active Scripts Active Reported Pravastatin Sodium 40 Mg Tablet 1 Tab PO QHS Celebrex (Celecoxib) 200 Mg Capsule 1 Cap PO DAILY Furosemide 40 Mg Tablet 1 Tab PO DAILY Levothyroxine Sodium 25 Mcg Tablet 1 Tab PO DAILY Triamterene-Hctz 37.5-25 Mg Tb (Triamterene/Hydrochlorothiazid) 1 Each Tablet 1 Tab PO DAILY Potassium Chloride 20 Meq Tablet.er 20 Meq PO DAILY Citalopram Hbr (Citalopram Hydrobromide) 20 Mg Tablet 1 Tab PO DAILY Calcium Acetate 667 Mg Tablet 667 Mg PO DAILY Xanax (Alprazolam) 0.25 Mg Tablet 1 Tab PO PRN BID PRN Vitals/I & O Vital Sign - Last 24 Hours 12/20/16 12/20/16 12/20/16 12/20/16 19:00 20:00 20:16 23:00 Temp 97.2 97.3 97.2 97.3 Pulse 100 114 Resp 18 22 24 B/P (MAP) 135/85 (102) 152/96 (114) Pulse Ox 97 99 96 O2 Delivery Nasal Cannula Nasal Cannula Nasal Cannula Nasal Cannula O2 Flow Rate 2.0 2.0 3.0 2.0 12/21/16 12/21/16 12/21/16 12/21/16 00:23 01:00 03:00 07:00 Temp 97.8 97.5 97.8 97.5 Pulse 95 85 Resp 22 20 18 18 B/P (MAP) 158/85 (109) 152/86 (108) Pulse Ox 96 96 94 96 O2 Delivery Nasal Cannula Nasal Cannula Nasal Cannula Room Air O2 Flow Rate 2.0 2.0 2.0 12/21/16 12/21/16 12/21/16 12/21/16 09:40 10:55 11:12 11:16 Pulse 96 96 82 Resp 18 18 18 Pulse Ox 97 92 92 99 O2 Delivery Room Air Nasal Cannula Nasal Cannula Nasal Cannula O2 Flow Rate 3.0 3.0 3.0 12/21/16 12/21/16 12/21/16 12/21/16 11:25 11:32 11:36 11:39 Pulse 73 73 73 67 Resp 18 18 18 18 Pulse Ox 99 99 99 97 O2 Delivery Nasal Cannula Nasal Cannula Nasal Cannula Nasal Cannula O2 Flow Rate 3.0 3.0 3.0 3.0 12/21/16 12/21/16 12/21/16 12/21/16 11:45 12:00 12:15 12:58 Temp 97.7 97.7 Pulse 85 Resp 18 18 16 B/P (MAP) 147/86 (106) Pulse Ox 97 81 O2 Delivery Nasal Cannula Room Air Room Air Nasal Cannula O2 Flow Rate 3.0 3.0 12/21/16 12/21/16 15:02 16:15 Resp 16 18 O2 Delivery Room Air Room Air Intake and Output 12/20/16 12/20/16 12/21/16 15:00 23:00 07:00 Intake Total 1380 ml Output Total 1000 ml 550 ml Balance -1000 ml 830 ml Assessment LLQ abd pain- with diverticualr abscess, s/p drainage, CPM with antibiotics NORBERTO SANDERS MD Dec 21, 2016 18:35
[2016-12-21] MEDS: VANCOMYCIN PER PHARMACY MC PRN ×2 (18:39→18:45)
[2016-12-21] MEDS ORDERED: ATORVASTATIN CALCIUM 10 MG TABLET. PO SCH (21:00)
[2016-12-21] MEDS: HEPARIN PF for SUB-Q USE 5,000 UNIT/0.5 ML VIAL. SQ SCH (22:01)
[2016-12-22] MEDS: PIPERACILLIN/TAZO IV Push 3.375 GM VIAL. IVP SCH ×4 (00:03→20:11)
[2016-12-22 03:00] VITALS: BP 147/87
[2016-12-22 05:01] LABS: BASO % 0 % (0-3); EOS % 0 % (0-3); HEMATOCRIT 34.3 % (36.0-47.0); HEMOGLOBIN 11.4 g/dL (12.0-15.5); LYMPH # 0.9 x10^3/uL (1.0-4.8); LYMPH % 9 % (24-48); MEAN CORPUSCULAR HEMOGLOBIN 32 pg (25-35); MEAN CORPUSCULAR HGB CONC 33 g/dL (31-37); MEAN CORPUSCULAR VOLUME 97 fL (79-100); MONO % 10 % (0-9); NEUT % 81 % (31-73); PLATELET COUNT 328 x10^3/uL (140-400); RED BLOOD COUNT 3.55 x10^6/uL (3.50-5.40); RED CELL DISTRIBUTION WIDTH 13.9 % (11.5-14.5); WHITE BLOOD COUNT 11.1 x10^3/uL (4.0-11.0)
[2016-12-22] MEDS: VANCOMYCIN 2 GM in IV DEXTROSE 5% 500 ML IV SCH ×2 (05:23→20:10)
[2016-12-22 05:38] LABS: CALCIUM 8.8 mg/dL (8.5-10.1); GFR 56.6; PHOSPHORUS 2.3 mg/dL (2.6-4.7); POTASSIUM 3.4 mmol/L (3.5-5.1)
[2016-12-22 07:00] VITALS: BP 168/88
[2016-12-22] MEDS: LEVOTHYROXINE 25 MCG TABLET. PO SCH (07:45)
[2016-12-22] MEDS: HEPARIN PF for SUB-Q USE 5,000 UNIT/0.5 ML VIAL. SQ SCH ×3 (07:49→22:00)
[2016-12-22] MEDS: ALBUTEROL SULFATE 2.5 MG/3 ML NEBU. NEB PRN (08:02)
[2016-12-22] MEDS: CITALOPRAM 20 MG TABLET. PO SCH (08:44)
[2016-12-22] MEDS: fentaNYL PF VIAL 100 MCG/2 ML VIAL IV PRN ×3 (08:45→22:52)
[2016-12-22] MEDS: DOCUSATE SODIUM 100 MG CAPSULE. PO SCH ×2 (09:00→20:42)
--- NOTE | 2016-12-22 10:40 | PDOC ---
Subjective: Subjective: Drowsy, pain 4/10, on clears. Objective: Vital Signs: Vital Signs Date Time Temp Pulse Resp B/P (MAP) Pulse Ox O2 Delivery O2 Flow Rate FiO2 12/22/16 08:45 12 95 Room Air 12/22/16 07:00 98.4 99 168/88 (114) 98.4 12/21/16 12:58 3.0 Labs: Laboratory Tests Test 12/22/16 04:28 White Blood Count 11.1 x10^3/uL Red Blood Count 3.55 x10^6/uL Hemoglobin 11.4 g/dL Hematocrit 34.3 % Mean Corpuscular Volume 97 fL Mean Corpuscular Hemoglobin 32 pg Mean Corpuscular Hemoglobin Concent 33 g/dL Red Cell Distribution Width 13.9 % Platelet Count 328 x10^3/uL Neutrophils (%) (Auto) 81 % Lymphocytes (%) (Auto) 9 % Monocytes (%) (Auto) 10 % Eosinophils (%) (Auto) 0 % Basophils (%) (Auto) 0 % Neutrophils # (Auto) 9.0 x10^3uL Lymphocytes # (Auto) 0.9 x10^3/uL Monocytes # (Auto) 1.1 x10^3/uL Eosinophils # (Auto) 0.0 x10^3/uL Basophils # (Auto) 0.0 x10^3/uL Sodium Level 142 mmol/L Potassium Level 3.4 mmol/L Chloride Level 104 mmol/L Carbon Dioxide Level 31 mmol/L Anion Gap 7 Blood Urea Nitrogen 11 mg/dL Creatinine 1.0 mg/dL Estimated GFR (Cockcroft-Gault) 56.6 Glucose Level 106 mg/dL Calcium Level 8.8 mg/dL Phosphorus Level 2.3 mg/dL Magnesium Level 2.0 mg/dL PE: GEN: NAD, up to chair LUNGS: CTAB HEART: RRR ABD: quiet, drain purulent NEURO/PSYCH: was asleep, A & O 3 A/P: Perisigmoid abscess on CT -drain in place, on IV atbx -colonoscopy >15 years ago -- Continue same per GI. PACHECO JORGENSEN Dec 22, 2016 10:40
[2016-12-22 11:00] VITALS: BP 131/96
[2016-12-22] MEDS: IV RINGERS,LACTATED 1000ML 1,000 ML IV SCH ×2 (11:14→18:00)
--- NOTE | 2016-12-22 13:07 | PDOC ---
ZAC LEE ADMINISTRATION VICE PRESIDENT 12/22/16 1307: SURGICAL PROGRESS NOTE Subjective taking clears ok no n/v pain improved, does have pain at drain site Vital Signs Vital Signs Date Time Temp Pulse Resp B/P (MAP) Pulse Ox O2 Delivery O2 Flow Rate FiO2 12/22/16 09:15 12 93 Room Air 12/22/16 07:00 98.4 99 168/88 (114) 98.4 12/21/16 12:58 3.0 I&O Intake and Output 12/22/16 06:59 Intake Total 2646 ml Output Total 1900 ml Balance 746 ml Intake Oral 740 ml IV Total 1906 ml Output Urine Total 1800 ml Drainage Total 100 ml General: Alert, Oriented X3, Cooperative, No acute distress Abdomen: Soft, Other (drain in place, purulent) Labs Laboratory Tests Test 12/20/16 14:45 12/21/16 05:02 12/21/16 08:05 12/22/16 04:28 Sodium Level 137 mmol/L (136-145) 142 mmol/L (136-145) Potassium Level 4.5 mmol/L (3.5-5.1) 3.4 mmol/L (3.5-5.1) Chloride Level 103 mmol/L (98-107) 104 mmol/L (98-107) Carbon Dioxide Level 29 mmol/L (21-32) 31 mmol/L (21-32) Anion Gap 5 (6-14) 7 (6-14) Blood Urea Nitrogen 14 mg/dL (7-20) 11 mg/dL (7-20) Creatinine 0.7 mg/dL (0.6-1.0) 1.0 mg/dL (0.6-1.0) Estimated GFR (Cockcroft-Gault) 85.4 56.6 Glucose Level 92 mg/dL (70-99) 106 mg/dL (70-99) Calcium Level 9.1 mg/dL (8.5-10.1) 8.8 mg/dL (8.5-10.1) White Blood Count 10.2 x10^3/uL (4.0-11.0) 11.1 x10^3/uL (4.0-11.0) Red Blood Count 3.59 x10^6/uL (3.50-5.40) 3.55 x10^6/uL (3.50-5.40) Hemoglobin 11.6 g/dL (12.0-15.5) 11.4 g/dL (12.0-15.5) Hematocrit 35.0 % (36.0-47.0) 34.3 % (36.0-47.0) Mean Corpuscular Volume 98 fL (79-100) 97 fL (79-100) Mean Corpuscular Hemoglobin 32 pg (25-35) 32 pg (25-35) Mean Corpuscular Hemoglobin Concent 33 g/dL (31-37) 33 g/dL (31-37) Red Cell Distribution Width 13.7 % (11.5-14.5) 13.9 % (11.5-14.5) Platelet Count 332 x10^3/uL (140-400) 328 x10^3/uL (140-400) Neutrophils (%) (Auto) 85 % (31-73) 81 % (31-73) Lymphocytes (%) (Auto) 8 % (24-48) 9 % (24-48) Monocytes (%) (Auto) 6 % (0-9) 10 % (0-9) Eosinophils (%) (Auto) 0 % (0-3) 0 % (0-3) Basophils (%) (Auto) 1 % (0-3) 0 % (0-3) Neutrophils # (Auto) 8.7 x10^3uL (1.8-7.7) 9.0 x10^3uL (1.8-7.7) Lymphocytes # (Auto) 0.8 x10^3/uL (1.0-4.8) 0.9 x10^3/uL (1.0-4.8) Monocytes # (Auto) 0.6 x10^3/uL (0.0-1.1) 1.1 x10^3/uL (0.0-1.1) Eosinophils # (Auto) 0.0 x10^3/uL (0.0-0.7) 0.0 x10^3/uL (0.0-0.7) Basophils # (Auto) 0.1 x10^3/uL (0.0-0.2) 0.0 x10^3/uL (0.0-0.2) Segmented Neutrophils % 86 % (35-66) Band Neutrophils % 4 % (0-9) Lymphocytes % 9 % (24-48) Monocytes % 1 % (0-10) Platelet Estimate Adequate (ADEQUATE) Prothrombin Time 14.1 SEC (11.7-14.0) Prothromb Time International Ratio 1.2 (0.8-1.1) Phosphorus Level 1.2 mg/dL (2.6-4.7) 2.3 mg/dL (2.6-4.7) Magnesium Level 2.4 mg/dL (1.8-2.4) 2.0 mg/dL (1.8-2.4) Laboratory Tests Test 12/22/16 04:28 White Blood Count 11.1 x10^3/uL (4.0-11.0) Red Blood Count 3.55 x10^6/uL (3.50-5.40) Hemoglobin 11.4 g/dL (12.0-15.5) Hematocrit 34.3 % (36.0-47.0) Mean Corpuscular Volume 97 fL (79-100) Mean Corpuscular Hemoglobin 32 pg (25-35) Mean Corpuscular Hemoglobin Concent 33 g/dL (31-37) Red Cell Distribution Width 13.9 % (11.5-14.5) Platelet Count 328 x10^3/uL (140-400) Neutrophils (%) (Auto) 81 % (31-73) Lymphocytes (%) (Auto) 9 % (24-48) Monocytes (%) (Auto) 10 % (0-9) Eosinophils (%) (Auto) 0 % (0-3) Basophils (%) (Auto) 0 % (0-3) Neutrophils # (Auto) 9.0 x10^3uL (1.8-7.7) Lymphocytes # (Auto) 0.9 x10^3/uL (1.0-4.8) Monocytes # (Auto) 1.1 x10^3/uL (0.0-1.1) Eosinophils # (Auto) 0.0 x10^3/uL (0.0-0.7) Basophils # (Auto) 0.0 x10^3/uL (0.0-0.2) Sodium Level 142 mmol/L (136-145) Potassium Level 3.4 mmol/L (3.5-5.1) Chloride Level 104 mmol/L (98-107) Carbon Dioxide Level 31 mmol/L (21-32) Anion Gap 7 (6-14) Blood Urea Nitrogen 11 mg/dL (7-20) Creatinine 1.0 mg/dL (0.6-1.0) Estimated GFR (Cockcroft-Gault) 56.6 Glucose Level 106 mg/dL (70-99) Calcium Level 8.8 mg/dL (8.5-10.1) Phosphorus Level 2.3 mg/dL (2.6-4.7) Magnesium Level 2.0 mg/dL (1.8-2.4) Problem List diverticulitis, abscess, perc drain continue drain, abx Problems: BRISEIDA CANSECO MD 12/22/16 3924: SURGICAL PROGRESS NOTE Assessment/Plan pt seen and examined agree with above Dr Rojas to follow in my absence Problems: ZAC LEE APRN Dec 22, 2016 13:07 BRISEIDA CANSECO MD Dec 22, 2016 13:54
[2016-12-22] MEDS: POTASSIUM PHOSPHATE DIBASIC 10 MMOL in IV NORMAL SALINE 100ML 100 ML IV SCH ×2 (13:15→14:30)
[2016-12-22] MEDS: oxyCODONE IR 5 MG TABLET PO PRN (13:16)
[2016-12-22 15:00] VITALS: BP 156/83
--- NOTE | 2016-12-22 15:30 | PDOC ---
PROGRESS NOTES Chief Complaint Chief Complaint 1. Sigmoid diverticultuis with ?perforation with [address] post abscess drain on 12/21 2 sepsis 3. Leukocytosis 16 4. Obesity 5. HTN hypophophatemia hypokalemia plan: fu with gi, ir, sx post abscess drain on 12/21 cont some home meds, hold lasix ivf clear liquid diet pain control dvt ppx replete HA, K ADD vanco, zosyn ,fu cx labs tmr History of Present Illness History of Present Illness ROS: no fever, chills, sob or chest pain low ha IR for abscess drain 12/21 Vitals Vitals Vital Signs Date Time Temp Pulse Resp B/P (MAP) Pulse Ox O2 Delivery O2 Flow Rate FiO2 12/22/16 14:16 12 94 Room Air 12/22/16 07:00 98.4 99 168/88 (114) 98.4 12/21/16 12:58 3.0 Physical Exam General: Alert, Oriented X3, Cooperative, No acute distress Heart: Regular rate, Normal S1, Normal S2 Lungs: Clear Abdomen: Normal bowel sounds, Soft, Other (drain in place, purulent) Extremities: No clubbing, No cyanosis, No edema, Normal pulses, No tenderness/ swelling Skin: No rashes, No breakdown, No significant lesion Labs LABS Laboratory Tests Test 12/22/16 04:28 White Blood Count 11.1 x10^3/uL (4.0-11.0) Red Blood Count 3.55 x10^6/uL (3.50-5.40) Hemoglobin 11.4 g/dL (12.0-15.5) Hematocrit 34.3 % (36.0-47.0) Mean Corpuscular Volume 97 fL (79-100) Mean Corpuscular Hemoglobin 32 pg (25-35) Mean Corpuscular Hemoglobin Concent 33 g/dL (31-37) Red Cell Distribution Width 13.9 % (11.5-14.5) Platelet Count 328 x10^3/uL (140-400) Neutrophils (%) (Auto) 81 % (31-73) Lymphocytes (%) (Auto) 9 % (24-48) Monocytes (%) (Auto) 10 % (0-9) Eosinophils (%) (Auto) 0 % (0-3) Basophils (%) (Auto) 0 % (0-3) Neutrophils # (Auto) 9.0 x10^3uL (1.8-7.7) Lymphocytes # (Auto) 0.9 x10^3/uL (1.0-4.8) Monocytes # (Auto) 1.1 x10^3/uL (0.0-1.1) Eosinophils # (Auto) 0.0 x10^3/uL (0.0-0.7) Basophils # (Auto) 0.0 x10^3/uL (0.0-0.2) Sodium Level 142 mmol/L (136-145) Potassium Level 3.4 mmol/L (3.5-5.1) Chloride Level 104 mmol/L (98-107) Carbon Dioxide Level 31 mmol/L (21-32) Anion Gap 7 (6-14) Blood Urea Nitrogen 11 mg/dL (7-20) Creatinine 1.0 mg/dL (0.6-1.0) Estimated GFR (Cockcroft-Gault) 56.6 Glucose Level 106 mg/dL (70-99) Calcium Level 8.8 mg/dL (8.5-10.1) Phosphorus Level 2.3 mg/dL (2.6-4.7) Magnesium Level 2.0 mg/dL (1.8-2.4) Comment Review of Relevant I have reviewed the following items kevin (where applicable) has been applied. Labs Laboratory Tests Test 12/21/16 05:02 12/21/16 08:05 12/22/16 04:28 White Blood Count 10.2 x10^3/uL (4.0-11.0) 11.1 x10^3/uL (4.0-11.0) Red Blood Count 3.59 x10^6/uL (3.50-5.40) 3.55 x10^6/uL (3.50-5.40) Hemoglobin 11.6 g/dL (12.0-15.5) 11.4 g/dL (12.0-15.5) Hematocrit 35.0 % (36.0-47.0) 34.3 % (36.0-47.0) Mean Corpuscular Volume 98 fL (79-100) 97 fL (79-100) Mean Corpuscular Hemoglobin 32 pg (25-35) 32 pg (25-35) Mean Corpuscular Hemoglobin Concent 33 g/dL (31-37) 33 g/dL (31-37) Red Cell Distribution Width 13.7 % (11.5-14.5) 13.9 % (11.5-14.5) Platelet Count 332 x10^3/uL (140-400) 328 x10^3/uL (140-400) Neutrophils (%) (Auto) 85 % (31-73) 81 % (31-73) Lymphocytes (%) (Auto) 8 % (24-48) 9 % (24-48) Monocytes (%) (Auto) 6 % (0-9) 10 % (0-9) Eosinophils (%) (Auto) 0 % (0-3) 0 % (0-3) Basophils (%) (Auto) 1 % (0-3) 0 % (0-3) Neutrophils # (Auto) 8.7 x10^3uL (1.8-7.7) 9.0 x10^3uL (1.8-7.7) Lymphocytes # (Auto) 0.8 x10^3/uL (1.0-4.8) 0.9 x10^3/uL (1.0-4.8) Monocytes # (Auto) 0.6 x10^3/uL (0.0-1.1) 1.1 x10^3/uL (0.0-1.1) Eosinophils # (Auto) 0.0 x10^3/uL (0.0-0.7) 0.0 x10^3/uL (0.0-0.7) Basophils # (Auto) 0.1 x10^3/uL (0.0-0.2) 0.0 x10^3/uL (0.0-0.2) Segmented Neutrophils % 86 % (35-66) Band Neutrophils % 4 % (0-9) Lymphocytes % 9 % (24-48) Monocytes % 1 % (0-10) Platelet Estimate Adequate (ADEQUATE) Prothrombin Time 14.1 SEC (11.7-14.0) Prothromb Time International Ratio 1.2 (0.8-1.1) Phosphorus Level 1.2 mg/dL (2.6-4.7) 2.3 mg/dL (2.6-4.7) Magnesium Level 2.4 mg/dL (1.8-2.4) 2.0 mg/dL (1.8-2.4) Sodium Level 142 mmol/L (136-145) Potassium Level 3.4 mmol/L (3.5-5.1) Chloride Level 104 mmol/L (98-107) Carbon Dioxide Level 31 mmol/L (21-32) Anion Gap 7 (6-14) Blood Urea Nitrogen 11 mg/dL (7-20) Creatinine 1.0 mg/dL (0.6-1.0) Estimated GFR (Cockcroft-Gault) 56.6 Glucose Level 106 mg/dL (70-99) Calcium Level 8.8 mg/dL (8.5-10.1) Laboratory Tests Test 12/22/16 04:28 White Blood Count 11.1 x10^3/uL (4.0-11.0) Red Blood Count 3.55 x10^6/uL (3.50-5.40) Hemoglobin 11.4 g/dL (12.0-15.5) Hematocrit 34.3 % (36.0-47.0) Mean Corpuscular Volume 97 fL (79-100) Mean Corpuscular Hemoglobin 32 pg (25-35) Mean Corpuscular Hemoglobin Concent 33 g/dL (31-37) Red Cell Distribution Width 13.9 % (11.5-14.5) Platelet Count 328 x10^3/uL (140-400) Neutrophils (%) (Auto) 81 % (31-73) Lymphocytes (%) (Auto) 9 % (24-48) Monocytes (%) (Auto) 10 % (0-9) Eosinophils (%) (Auto) 0 % (0-3) Basophils (%) (Auto) 0 % (0-3) Neutrophils # (Auto) 9.0 x10^3uL (1.8-7.7) Lymphocytes # (Auto) 0.9 x10^3/uL (1.0-4.8) Monocytes # (Auto) 1.1 x10^3/uL (0.0-1.1) Eosinophils # (Auto) 0.0 x10^3/uL (0.0-0.7) Basophils # (Auto) 0.0 x10^3/uL (0.0-0.2) Sodium Level 142 mmol/L (136-145) Potassium Level 3.4 mmol/L (3.5-5.1) Chloride Level 104 mmol/L (98-107) Carbon Dioxide Level 31 mmol/L (21-32) Anion Gap 7 (6-14) Blood Urea Nitrogen 11 mg/dL (7-20) Creatinine 1.0 mg/dL (0.6-1.0) Estimated GFR (Cockcroft-Gault) 56.6 Glucose Level 106 mg/dL (70-99) Calcium Level 8.8 mg/dL (8.5-10.1) Phosphorus Level 2.3 mg/dL (2.6-4.7) Magnesium Level 2.0 mg/dL (1.8-2.4) Microbiology 12/21/16 Gram Stain - Final, Complete Medications Current Medications Ondansetron HCl (Zofran) 4 mg PRN Q6HRS PRN IV NAUSEA/VOMITING (1st Choice) Last administered on 12/20/16 22:58; Start 12/20/16 at 14:45 Prochlorperazine Edisylate (Compazine) 10 mg PRN Q6HRS PRN IV NAUSEA/VOMITING ( 2nd Choice); Start 12/20/16 at 14:45 Prochlorperazine (Compazine) 25 mg PRN Q12HR PRN NM NAUSEA/VOMITING; Start 01/24 at 14:45 Oxycodone HCl (Roxicodone) 5 mg PRN Q3HRS PRN PO BREAKTHROUGH PAIN Last administered on 12/22/16 13:16; Start 12/20/16 at 14:45 Morphine Sulfate 2 mg PRN Q2HR PRN IV PAIN; Start 12/20/16 at 14:45 Acetaminophen (Tylenol) 650 mg PRN Q6HRS PRN PO Headaches, Temp > 101.5F Last administered on 12/22/16 00:03; Start 12/20/16 at 14:45 Docusate Sodium (Colace) 100 mg BID PO Last administered on 12/21/16 21:57; Start 12/20/16 at 21:00 Magnesium Hydroxide (Milk Of Magnesia) 2,400 mg PRN Q12HR PRN PO CONSTIPATION; Start 12/20/16 at 14:45 Bisacodyl (Dulcolax Supp) 10 mg PRN DAILY PRN NM CONSTIPATION; Start 12/20/16 at 14:45 Ringer's Solution 1,000 ml @ 100 mls/hr Q10H IV Last administered on 11:14; Start 12/20/16 at 16:00 Piperacillin Sod/ Tazobactam Sod (Zosyn Per Pharmacy) 1 each PRN DAILY PRN MC SEE COMMENTS; Start 12/20/16 at 14:45 Fentanyl Citrate (Fentanyl 2ml Vial) 50 mcg PRN Q2HR PRN IV PAIN Last administered on 12/22/16 08:45; Start 12/20/16 at 14:45 Acetaminophen (Tylenol) 325 mg PRN Q6HRS PRN NM MILD PAIN / TEMP Last administered on 12/20/16 20:16; Start 12/20/16 at 14:45 Piperacillin Sod/ Tazobactam Sod (Zosyn) 3.375 gm Q6HRS IVP Last administered on 12/22/16 14:29; Start 12/20/16 at 18:00 Albuterol Sulfate (Ventolin Neb Soln) 2.5 mg PRN Q2HR PRN NEB SHORTNESS OF BREATH Last administered on 12/22/16 08:02; Start 12/21/16 at 00:45 Lidocaine/Sodium Bicarbonate (Buffered Lidocaine 1%) 20 ml STK-MED ONCE IJ ; Start 12/21/16 at 10:43; Stop 12/21/16 at 10:44; Status DC Fentanyl Citrate (Fentanyl 2ml Vial) 100 mcg STK-MED ONCE .ROUTE ; Start at 10:57; Stop 12/21/16 at 10:58; Status DC Midazolam HCl (Versed) 2 mg STK-MED ONCE .ROUTE ; Start 12/21/16 at 10:57; Stop 12/21/16 at 10:58; Status DC Lidocaine/Sodium Bicarbonate (Buffered Lidocaine 1%) 20 ml 1X ONCE IJ Last administered on 12/21/16 11:44; Start 12/21/16 at 11:15; Stop 12/21/16 at 11 :16; Status DC Midazolam HCl (Versed) 2 mg 1X ONCE IV Last administered on 12/21/16 11:44; Start 12/21/16 at 11:15; Stop 12/21/16 at 11:16; Status DC Fentanyl Citrate (Fentanyl 2ml Vial) 100 mcg 1X ONCE IV Last administered on 12/21/16 11:45; Start 12/21/16 at 11:15; Stop 12/21/16 at 11:16; Status DC Sodium Phosphate 20 mmol/Dextrose 256.6667 ml @ 64.167 m... 1X ONCE IV Last administered on 12/21/16 12:00; Start 12/21/16 at 12:00; Stop 12/21/16 at 15 :59; Status DC Alprazolam (Xanax) 0.25 mg PRN BID PRN PO ANXIETY / AGITATION; Start 12/21/16 at 15:00 Citalopram Hydrobromide (CeleXA) 20 mg DAILY PO Last administered on 08:44; Start 12/21/16 at 16:00 Levothyroxine Sodium (Synthroid) 25 mcg DAILY07 PO Last administered on 07:45; Start 12/21/16 at 16:00 Atorvastatin Calcium (Lipitor) 10 mg QHS PO ; Start 12/21/16 at 21:00; Stop at 22:04; Status DC Vancomycin HCl 2 gm/Dextrose 500 ml @ 250 mls/hr Q12H IV ; Start 12/21/16 at 15:00; Status UNV Vancomycin HCl (Vanco Per Pharmacy) 1 each PRN DAILY PRN MC SEE COMMENTS Last administered on 12/21/16 18:45; Start 12/21/16 at 15:00 Heparin Sodium (Porcine) (Heparin Sq) 5,000 unit Q8HRS SQ Last administered on 12/22/16 14:40; Start 12/21/16 at 22:00 Vancomycin HCl 2 gm/Dextrose 500 ml @ 250 mls/hr 1X ONCE IV Last administered on 12/21/16 17:15; Start 12/21/16 at 16:00; Stop 12/21/16 at 17 :59; Status DC Vancomycin HCl 2 gm/Dextrose 500 ml @ 250 mls/hr Q12H IV Last administered on 12/22/16 05:23; Start 12/22/16 at 05:00 Vancomycin HCl 1 each 1X ONCE MC ; Start 12/23/16 at 04:30; Stop 12/23/16 at 04:31 Potassium Phosphate 10 mmol/ Sodium Chloride 103.3333 ml @ 51.667 m... Q2H IV Last administered on 12/22/16t 14:30; Start 12/22/16 at 09:00; Stop 12/22/16 at 12:59; Status DC Active Scripts Active Reported Pravastatin Sodium 40 Mg Tablet 1 Tab PO QHS Celebrex (Celecoxib) 200 Mg Capsule 1 Cap PO DAILY Furosemide 40 Mg Tablet 1 Tab PO DAILY Levothyroxine Sodium 25 Mcg Tablet 1 Tab PO DAILY Triamterene-Hctz 37.5-25 Mg Tb (Triamterene/Hydrochlorothiazid) 1 Each Tablet 1 Tab PO DAILY Potassium Chloride 20 Meq Tablet.er 20 Meq PO DAILY Citalopram Hbr (Citalopram Hydrobromide) 20 Mg Tablet 1 Tab PO DAILY Calcium Acetate 667 Mg Tablet 667 Mg PO DAILY Xanax (Alprazolam) 0.25 Mg Tablet 1 Tab PO PRN BID PRN Vitals/I & O Vital Sign - Last 24 Hours 12/21/16 12/21/16 12/21/16 12/21/16 15:30 16:30 19:00 19:20 Temp 95.7 95.7 Pulse 70 88 92 Resp 18 18 18 B/P (MAP) 161/86 (111) 167/84 (111) 157/92 (113) Pulse Ox 94 97 95 O2 Delivery Room Air Room Air Room Air Room Air 12/21/16 12/21/16 12/22/16 12/22/16 19:32 23:00 03:00 07:00 Temp 97.5 96.6 98.4 97.5 96.6 98.4 Pulse 91 88 99 Resp 18 18 18 B/P (MAP) 162/85 (110) 147/87 (107) 168/88 (114) Pulse Ox 97 94 91 95 O2 Delivery Room Air Room Air Room Air Room Air 12/22/16 12/22/16 12/22/16 12/22/16 08:02 08:45 09:15 13:16 Resp 12 12 16 Pulse Ox 95 95 93 94 O2 Delivery Room Air Room Air Room Air Room Air 12/22/16 14:16 Resp 12 Pulse Ox 94 O2 Delivery Room Air Intake and Output 12/21/16 12/21/16 12/22/16 15:00 23:00 07:00 Intake Total 120 ml 2526 ml Output Total 360 ml 1540 ml Balance -240 ml 986 ml XOCHILT SAXENA MD Dec 22, 2016 15:30
[2016-12-22 19:00] VITALS: BP 143/84
[2016-12-22 23:00] VITALS: BP 144/80
[2016-12-23] MEDS: PIPERACILLIN/TAZO IV Push 3.375 GM VIAL. IVP SCH ×4 (00:20→17:59)
[2016-12-23] MEDS: oxyCODONE IR 5 MG TABLET PO PRN ×4 (00:59→13:35)
[2016-12-23 03:00] VITALS: BP 142/85
[2016-12-23] MEDS: IV RINGERS,LACTATED 1000ML 1,000 ML IV SCH ×2 (04:31→13:36)
[2016-12-23 04:44] LABS: BASO # 0.1 x10^3/uL (0.0-0.2); BASO % 1 % (0-3); EOS % 1 % (0-3); HEMATOCRIT 37.7 % (36.0-47.0); HEMOGLOBIN 12.9 g/dL (12.0-15.5); LYMPH # 1.2 x10^3/uL (1.0-4.8); LYMPH % 9 % (24-48); MEAN CORPUSCULAR HEMOGLOBIN 33 pg (25-35); MEAN CORPUSCULAR HGB CONC 34 g/dL (31-37); MEAN CORPUSCULAR VOLUME 95 fL (79-100); MONO % 7 % (0-9); NEUT % 83 % (31-73); PLATELET COUNT 369 x10^3/uL (140-400); RED BLOOD COUNT 3.95 x10^6/uL (3.50-5.40); RED CELL DISTRIBUTION WIDTH 14.2 % (11.5-14.5); WHITE BLOOD COUNT 12.8 x10^3/uL (4.0-11.0)
[2016-12-23 05:03] LABS: INR 1.2 (0.8-1.1); PROTHROMBIN TIME PATIENT 14.3 SEC (11.7-14.0)
[2016-12-23 05:09] LABS: CALCIUM 9.5 mg/dL (8.5-10.1); CREATININE 1.3 mg/dL (0.6-1.0); GFR 41.8; MAGNESIUM 2.1 mg/dL (1.8-2.4); PHOSPHORUS 3.1 mg/dL (2.6-4.7); POTASSIUM 3.1 mmol/L (3.5-5.1)
[2016-12-23] MEDS: HEPARIN PF for SUB-Q USE 5,000 UNIT/0.5 ML VIAL. SQ SCH ×3 (06:00→22:00)
[2016-12-23] MEDS: LEVOTHYROXINE 25 MCG TABLET. PO SCH (06:38)
[2016-12-23 07:00] VITALS: BP 139/81
[2016-12-23] MEDS ORDERED: POTASSIUM CHLORIDE 20 MEQ TABLET.ER. PO ONE (08:30)
--- NOTE | 2016-12-23 08:35 | RAD ---
CT-guided perirectal abscess drainage December 21, 2016 Indication: Perirectal abscess Discussion: The risks and benefits of the procedure discussed the patient. Informed consent was obtained. Timeout procedure was performed. The patient was placed in the prone position on CT table. CT imaging confirms a perirectal abscess the pelvis. Once an appropriate site for skin entry been selected 1% lidocaine without epinephrine was administered for local anesthesia. Using right-sided transgluteal approach, and intermittent CT guidance, a 17-gauge guiding needle was advanced into the collection. A guidewire was advanced through this needle into the collection over which, following dilatation, a 10 Syriac drain was advanced into the collection. Purulent aspirate was noted. The catheter was connected to bulb suction. Repeat imaging confirms drain placement within the abscess as well as significant decrease in abscess size following placement of drain. No immediate complications were identified. Procedures performed conscious sedation including continuous cardiopulmonary monitoring via dedicated sedation nurse. Sedation time: 40 minutes Impression: CT-guided drainage of perirectal abscess from a right transgluteal approach PQRS Compliance Statement: One or more of the following individualized dose reduction techniques were utilized for this examination: 1. Automated exposure control 2. Adjustment of the mA and/or kV according to patient size 3. Use of iterative reconstruction technique
[2016-12-23] MEDS: DOCUSATE SODIUM 100 MG CAPSULE. PO SCH ×2 (08:36→21:00)
[2016-12-23] MEDS: CITALOPRAM 20 MG TABLET. PO SCH (09:00)
[2016-12-23 11:00] VITALS: BP 118/75
--- NOTE | 2016-12-23 12:15 | PDOC ---
Infectious Disease Note ROS ROS Vital Sign Vital Signs Vital Signs Date Time Temp Pulse Resp B/P (MAP) Pulse Ox O2 Delivery O2 Flow Rate FiO2 12/23/16 09:45 Room Air 12/23/16 07:00 97.5 76 18 139/81 (100) 96 97.5 Labs Lab Laboratory Tests Test 12/23/16 04:30 White Blood Count 12.8 x10^3/uL (4.0-11.0) Red Blood Count 3.95 x10^6/uL (3.50-5.40) Hemoglobin 12.9 g/dL (12.0-15.5) Hematocrit 37.7 % (36.0-47.0) Mean Corpuscular Volume 95 fL (79-100) Mean Corpuscular Hemoglobin 33 pg (25-35) Mean Corpuscular Hemoglobin Concent 34 g/dL (31-37) Red Cell Distribution Width 14.2 % (11.5-14.5) Platelet Count 369 x10^3/uL (140-400) Neutrophils (%) (Auto) 83 % (31-73) Lymphocytes (%) (Auto) 9 % (24-48) Monocytes (%) (Auto) 7 % (0-9) Eosinophils (%) (Auto) 1 % (0-3) Basophils (%) (Auto) 1 % (0-3) Neutrophils # (Auto) 10.5 x10^3uL (1.8-7.7) Lymphocytes # (Auto) 1.2 x10^3/uL (1.0-4.8) Monocytes # (Auto) 0.9 x10^3/uL (0.0-1.1) Eosinophils # (Auto) 0.1 x10^3/uL (0.0-0.7) Basophils # (Auto) 0.1 x10^3/uL (0.0-0.2) Prothrombin Time 14.3 SEC (11.7-14.0) Prothromb Time International Ratio 1.2 (0.8-1.1) Sodium Level 141 mmol/L (136-145) Potassium Level 3.1 mmol/L (3.5-5.1) Chloride Level 103 mmol/L (98-107) Carbon Dioxide Level 31 mmol/L (21-32) Anion Gap 7 (6-14) Blood Urea Nitrogen 10 mg/dL (7-20) Creatinine 1.3 mg/dL (0.6-1.0) Estimated GFR (Cockcroft-Gault) 41.8 Glucose Level 116 mg/dL (70-99) Calcium Level 9.5 mg/dL (8.5-10.1) Phosphorus Level 3.1 mg/dL (2.6-4.7) Magnesium Level 2.1 mg/dL (1.8-2.4) Objective Assessment Abd abscess s/p drain 12/20 Strep species Leukocytosis MARVEL Plan Plan of Care Agree with Zyvox/Zosyn F/u labs and cults Thank you # [id number] WENDY ORELLANA MD Dec 23, 2016 12:15
--- NOTE | 2016-12-23 12:24 | PDOC ---
SURGICAL PROGRESS NOTE Subjective Pt reports feeling well, irene clears Vital Signs Vital Signs Date Time Temp Pulse Resp B/P (MAP) Pulse Ox O2 Delivery O2 Flow Rate FiO2 12/23/16 09:45 Room Air 12/23/16 07:00 97.5 76 18 139/81 (100) 96 97.5 I&O Intake and Output 12/23/16 07:00 Intake Total 4010 ml Output Total 2125 ml Balance 1885 ml Intake Oral 1830 ml IV Total 2180 ml Output Urine Total 2100 ml Drainage Total 25 ml # Voids 4 # Bowel Movements 2 General: Alert, Oriented X3, Cooperative, No acute distress Abdomen: Soft, No tenderness Labs Laboratory Tests Test 12/22/16 04:28 12/23/16 04:30 White Blood Count 11.1 x10^3/uL (4.0-11.0) 12.8 x10^3/uL (4.0-11.0) Red Blood Count 3.55 x10^6/uL (3.50-5.40) 3.95 x10^6/uL (3.50-5.40) Hemoglobin 11.4 g/dL (12.0-15.5) 12.9 g/dL (12.0-15.5) Hematocrit 34.3 % (36.0-47.0) 37.7 % (36.0-47.0) Mean Corpuscular Volume 97 fL (79-100) 95 fL (79-100) Mean Corpuscular Hemoglobin 32 pg (25-35) 33 pg (25-35) Mean Corpuscular Hemoglobin Concent 33 g/dL (31-37) 34 g/dL (31-37) Red Cell Distribution Width 13.9 % (11.5-14.5) 14.2 % (11.5-14.5) Platelet Count 328 x10^3/uL (140-400) 369 x10^3/uL (140-400) Neutrophils (%) (Auto) 81 % (31-73) 83 % (31-73) Lymphocytes (%) (Auto) 9 % (24-48) 9 % (24-48) Monocytes (%) (Auto) 10 % (0-9) 7 % (0-9) Eosinophils (%) (Auto) 0 % (0-3) 1 % (0-3) Basophils (%) (Auto) 0 % (0-3) 1 % (0-3) Neutrophils # (Auto) 9.0 x10^3uL (1.8-7.7) 10.5 x10^3uL (1.8-7.7) Lymphocytes # (Auto) 0.9 x10^3/uL (1.0-4.8) 1.2 x10^3/uL (1.0-4.8) Monocytes # (Auto) 1.1 x10^3/uL (0.0-1.1) 0.9 x10^3/uL (0.0-1.1) Eosinophils # (Auto) 0.0 x10^3/uL (0.0-0.7) 0.1 x10^3/uL (0.0-0.7) Basophils # (Auto) 0.0 x10^3/uL (0.0-0.2) 0.1 x10^3/uL (0.0-0.2) Sodium Level 142 mmol/L (136-145) 141 mmol/L (136-145) Potassium Level 3.4 mmol/L (3.5-5.1) 3.1 mmol/L (3.5-5.1) Chloride Level 104 mmol/L (98-107) 103 mmol/L (98-107) Carbon Dioxide Level 31 mmol/L (21-32) 31 mmol/L (21-32) Anion Gap 7 (6-14) 7 (6-14) Blood Urea Nitrogen 11 mg/dL (7-20) 10 mg/dL (7-20) Creatinine 1.0 mg/dL (0.6-1.0) 1.3 mg/dL (0.6-1.0) Estimated GFR (Cockcroft-Gault) 56.6 41.8 Glucose Level 106 mg/dL (70-99) 116 mg/dL (70-99) Calcium Level 8.8 mg/dL (8.5-10.1) 9.5 mg/dL (8.5-10.1) Phosphorus Level 2.3 mg/dL (2.6-4.7) 3.1 mg/dL (2.6-4.7) Magnesium Level 2.0 mg/dL (1.8-2.4) 2.1 mg/dL (1.8-2.4) Prothrombin Time 14.3 SEC (11.7-14.0) Prothromb Time International Ratio 1.2 (0.8-1.1) Laboratory Tests Test 12/23/16 04:30 White Blood Count 12.8 x10^3/uL (4.0-11.0) Red Blood Count 3.95 x10^6/uL (3.50-5.40) Hemoglobin 12.9 g/dL (12.0-15.5) Hematocrit 37.7 % (36.0-47.0) Mean Corpuscular Volume 95 fL (79-100) Mean Corpuscular Hemoglobin 33 pg (25-35) Mean Corpuscular Hemoglobin Concent 34 g/dL (31-37) Red Cell Distribution Width 14.2 % (11.5-14.5) Platelet Count 369 x10^3/uL (140-400) Neutrophils (%) (Auto) 83 % (31-73) Lymphocytes (%) (Auto) 9 % (24-48) Monocytes (%) (Auto) 7 % (0-9) Eosinophils (%) (Auto) 1 % (0-3) Basophils (%) (Auto) 1 % (0-3) Neutrophils # (Auto) 10.5 x10^3uL (1.8-7.7) Lymphocytes # (Auto) 1.2 x10^3/uL (1.0-4.8) Monocytes # (Auto) 0.9 x10^3/uL (0.0-1.1) Eosinophils # (Auto) 0.1 x10^3/uL (0.0-0.7) Basophils # (Auto) 0.1 x10^3/uL (0.0-0.2) Prothrombin Time 14.3 SEC (11.7-14.0) Prothromb Time International Ratio 1.2 (0.8-1.1) Sodium Level 141 mmol/L (136-145) Potassium Level 3.1 mmol/L (3.5-5.1) Chloride Level 103 mmol/L (98-107) Carbon Dioxide Level 31 mmol/L (21-32) Anion Gap 7 (6-14) Blood Urea Nitrogen 10 mg/dL (7-20) Creatinine 1.3 mg/dL (0.6-1.0) Estimated GFR (Cockcroft-Gault) 41.8 Glucose Level 116 mg/dL (70-99) Calcium Level 9.5 mg/dL (8.5-10.1) Phosphorus Level 3.1 mg/dL (2.6-4.7) Magnesium Level 2.1 mg/dL (1.8-2.4) Problem List diverticular abscess cont abx advance diet Problems: ANGELO AGGARWAL MD Dec 23, 2016 12:24
--- NOTE | 2016-12-23 13:30 | PDOC ---
PROGRESS NOTES Chief Complaint Chief Complaint 1. Sigmoid diverticultuis with ?perforation with [address] post abscess drain on 12/21 2 sepsis 3. Leukocytosis 4. Obesity 5. HTN hypophophatemia hypokalemia MARVEL, ATN vs. vasomotor plan: fu with gi, ir, sx post abscess drain on 12/21 cont some home meds, hold lasix cont ivf clear liquid diet advance to full liquid as per sx pain control dvt ppx replete JOAN, K dc vanco given Marvel, add zyvox, zosyn ,fu cx. ID consult labs tmr check cdiff History of Present Illness History of Present Illness ROS: no fever, chills, sob or chest pain low joan IR for abscess drain 12/21, ARMOND in, 25cc 24h now higher WBC, HIGHER Cr abd pain Rt side better, new left side abd pain diarrhea yesterday, loose Vitals Vitals Vital Signs Date Time Temp Pulse Resp B/P (MAP) Pulse Ox O2 Delivery O2 Flow Rate FiO2 12/23/16 09:45 Room Air 12/23/16 07:00 97.5 76 18 139/81 (100) 96 97.5 Physical Exam Physical Exam right flank 1 Armond with some sangeous fluid General: Alert, Oriented X3, Cooperative, No acute distress Heart: Regular rate, Normal S1, Normal S2 Lungs: Clear Abdomen: Soft, No tenderness Extremities: No clubbing, No cyanosis, No edema, Normal pulses, No tenderness/ swelling Skin: No rashes, No breakdown, No significant lesion Labs LABS Laboratory Tests Test 12/23/16 04:30 White Blood Count 12.8 x10^3/uL (4.0-11.0) Red Blood Count 3.95 x10^6/uL (3.50-5.40) Hemoglobin 12.9 g/dL (12.0-15.5) Hematocrit 37.7 % (36.0-47.0) Mean Corpuscular Volume 95 fL (79-100) Mean Corpuscular Hemoglobin 33 pg (25-35) Mean Corpuscular Hemoglobin Concent 34 g/dL (31-37) Red Cell Distribution Width 14.2 % (11.5-14.5) Platelet Count 369 x10^3/uL (140-400) Neutrophils (%) (Auto) 83 % (31-73) Lymphocytes (%) (Auto) 9 % (24-48) Monocytes (%) (Auto) 7 % (0-9) Eosinophils (%) (Auto) 1 % (0-3) Basophils (%) (Auto) 1 % (0-3) Neutrophils # (Auto) 10.5 x10^3uL (1.8-7.7) Lymphocytes # (Auto) 1.2 x10^3/uL (1.0-4.8) Monocytes # (Auto) 0.9 x10^3/uL (0.0-1.1) Eosinophils # (Auto) 0.1 x10^3/uL (0.0-0.7) Basophils # (Auto) 0.1 x10^3/uL (0.0-0.2) Prothrombin Time 14.3 SEC (11.7-14.0) Prothromb Time International Ratio 1.2 (0.8-1.1) Sodium Level 141 mmol/L (136-145) Potassium Level 3.1 mmol/L (3.5-5.1) Chloride Level 103 mmol/L (98-107) Carbon Dioxide Level 31 mmol/L (21-32) Anion Gap 7 (6-14) Blood Urea Nitrogen 10 mg/dL (7-20) Creatinine 1.3 mg/dL (0.6-1.0) Estimated GFR (Cockcroft-Gault) 41.8 Glucose Level 116 mg/dL (70-99) Calcium Level 9.5 mg/dL (8.5-10.1) Phosphorus Level 3.1 mg/dL (2.6-4.7) Magnesium Level 2.1 mg/dL (1.8-2.4) Comment Review of Relevant I have reviewed the following items kevin (where applicable) has been applied. Labs Laboratory Tests Test 12/22/16 04:28 12/23/16 04:30 White Blood Count 11.1 x10^3/uL (4.0-11.0) 12.8 x10^3/uL (4.0-11.0) Red Blood Count 3.55 x10^6/uL (3.50-5.40) 3.95 x10^6/uL (3.50-5.40) Hemoglobin 11.4 g/dL (12.0-15.5) 12.9 g/dL (12.0-15.5) Hematocrit 34.3 % (36.0-47.0) 37.7 % (36.0-47.0) Mean Corpuscular Volume 97 fL (79-100) 95 fL (79-100) Mean Corpuscular Hemoglobin 32 pg (25-35) 33 pg (25-35) Mean Corpuscular Hemoglobin Concent 33 g/dL (31-37) 34 g/dL (31-37) Red Cell Distribution Width 13.9 % (11.5-14.5) 14.2 % (11.5-14.5) Platelet Count 328 x10^3/uL (140-400) 369 x10^3/uL (140-400) Neutrophils (%) (Auto) 81 % (31-73) 83 % (31-73) Lymphocytes (%) (Auto) 9 % (24-48) 9 % (24-48) Monocytes (%) (Auto) 10 % (0-9) 7 % (0-9) Eosinophils (%) (Auto) 0 % (0-3) 1 % (0-3) Basophils (%) (Auto) 0 % (0-3) 1 % (0-3) Neutrophils # (Auto) 9.0 x10^3uL (1.8-7.7) 10.5 x10^3uL (1.8-7.7) Lymphocytes # (Auto) 0.9 x10^3/uL (1.0-4.8) 1.2 x10^3/uL (1.0-4.8) Monocytes # (Auto) 1.1 x10^3/uL (0.0-1.1) 0.9 x10^3/uL (0.0-1.1) Eosinophils # (Auto) 0.0 x10^3/uL (0.0-0.7) 0.1 x10^3/uL (0.0-0.7) Basophils # (Auto) 0.0 x10^3/uL (0.0-0.2) 0.1 x10^3/uL (0.0-0.2) Sodium Level 142 mmol/L (136-145) 141 mmol/L (136-145) Potassium Level 3.4 mmol/L (3.5-5.1) 3.1 mmol/L (3.5-5.1) Chloride Level 104 mmol/L (98-107) 103 mmol/L (98-107) Carbon Dioxide Level 31 mmol/L (21-32) 31 mmol/L (21-32) Anion Gap 7 (6-14) 7 (6-14) Blood Urea Nitrogen 11 mg/dL (7-20) 10 mg/dL (7-20) Creatinine 1.0 mg/dL (0.6-1.0) 1.3 mg/dL (0.6-1.0) Estimated GFR (Cockcroft-Gault) 56.6 41.8 Glucose Level 106 mg/dL (70-99) 116 mg/dL (70-99) Calcium Level 8.8 mg/dL (8.5-10.1) 9.5 mg/dL (8.5-10.1) Phosphorus Level 2.3 mg/dL (2.6-4.7) 3.1 mg/dL (2.6-4.7) Magnesium Level 2.0 mg/dL (1.8-2.4) 2.1 mg/dL (1.8-2.4) Prothrombin Time 14.3 SEC (11.7-14.0) Prothromb Time International Ratio 1.2 (0.8-1.1) Laboratory Tests Test 12/23/16 04:30 White Blood Count 12.8 x10^3/uL (4.0-11.0) Red Blood Count 3.95 x10^6/uL (3.50-5.40) Hemoglobin 12.9 g/dL (12.0-15.5) Hematocrit 37.7 % (36.0-47.0) Mean Corpuscular Volume 95 fL (79-100) Mean Corpuscular Hemoglobin 33 pg (25-35) Mean Corpuscular Hemoglobin Concent 34 g/dL (31-37) Red Cell Distribution Width 14.2 % (11.5-14.5) Platelet Count 369 x10^3/uL (140-400) Neutrophils (%) (Auto) 83 % (31-73) Lymphocytes (%) (Auto) 9 % (24-48) Monocytes (%) (Auto) 7 % (0-9) Eosinophils (%) (Auto) 1 % (0-3) Basophils (%) (Auto) 1 % (0-3) Neutrophils # (Auto) 10.5 x10^3uL (1.8-7.7) Lymphocytes # (Auto) 1.2 x10^3/uL (1.0-4.8) Monocytes # (Auto) 0.9 x10^3/uL (0.0-1.1) Eosinophils # (Auto) 0.1 x10^3/uL (0.0-0.7) Basophils # (Auto) 0.1 x10^3/uL (0.0-0.2) Prothrombin Time 14.3 SEC (11.7-14.0) Prothromb Time International Ratio 1.2 (0.8-1.1) Sodium Level 141 mmol/L (136-145) Potassium Level 3.1 mmol/L (3.5-5.1) Chloride Level 103 mmol/L (98-107) Carbon Dioxide Level 31 mmol/L (21-32) Anion Gap 7 (6-14) Blood Urea Nitrogen 10 mg/dL (7-20) Creatinine 1.3 mg/dL (0.6-1.0) Estimated GFR (Cockcroft-Gault) 41.8 Glucose Level 116 mg/dL (70-99) Calcium Level 9.5 mg/dL (8.5-10.1) Phosphorus Level 3.1 mg/dL (2.6-4.7) Magnesium Level 2.1 mg/dL (1.8-2.4) Microbiology 12/21/16 Gram Stain - Final, Complete Medications Current Medications Ondansetron HCl (Zofran) 4 mg PRN Q6HRS PRN IV NAUSEA/VOMITING (1st Choice) Last administered on 12/20/16t 22:58; Start 12/20/16 at 14:45 Prochlorperazine Edisylate (Compazine) 10 mg PRN Q6HRS PRN IV NAUSEA/VOMITING ( 2nd Choice); Start 12/20/16 at 14:45 Prochlorperazine (Compazine) 25 mg PRN Q12HR PRN MN NAUSEA/VOMITING; Start 01/24 at 14:45 Oxycodone HCl (Roxicodone) 5 mg PRN Q3HRS PRN PO BREAKTHROUGH PAIN Last administered on 12/23/16 08:44; Start 12/20/16 at 14:45 Morphine Sulfate 2 mg PRN Q2HR PRN IV PAIN; Start 12/20/16 at 14:45 Acetaminophen (Tylenol) 650 mg PRN Q6HRS PRN PO Headaches, Temp > 101.5F Last administered on 12/22/16 00:03; Start 12/20/16 at 14:45 Docusate Sodium (Colace) 100 mg BID PO Last administered on 12/21/16 21:57; Start 12/20/16 at 21:00 Magnesium Hydroxide (Milk Of Magnesia) 2,400 mg PRN Q12HR PRN PO CONSTIPATION; Start 12/20/16 at 14:45 Bisacodyl (Dulcolax Supp) 10 mg PRN DAILY PRN MN CONSTIPATION; Start 12/20/16 at 14:45 Ringer's Solution 1,000 ml @ 100 mls/hr Q10H IV Last administered on 04:31; Start 12/20/16 at 16:00 Piperacillin Sod/ Tazobactam Sod (Zosyn Per Pharmacy) 1 each PRN DAILY PRN MC SEE COMMENTS; Start 12/20/16 at 14:45 Fentanyl Citrate (Fentanyl 2ml Vial) 50 mcg PRN Q2HR PRN IV PAIN Last administered on 12/22/16 22:52; Start 12/20/16 at 14:45 Acetaminophen (Tylenol) 325 mg PRN Q6HRS PRN MN MILD PAIN / TEMP Last administered on 12/20/16 20:16; Start 12/20/16 at 14:45 Piperacillin Sod/ Tazobactam Sod (Zosyn) 3.375 gm Q6HRS IVP Last administered on 12/23/16 05:58; Start 12/20/16 at 18:00 Albuterol Sulfate (Ventolin Neb Soln) 2.5 mg PRN Q2HR PRN NEB SHORTNESS OF BREATH Last administered on 12/22/16 08:02; Start 12/21/16 at 00:45 Lidocaine/Sodium Bicarbonate (Buffered Lidocaine 1%) 20 ml STK-MED ONCE IJ ; Start 12/21/16 at 10:43; Stop 12/21/16 at 10:44; Status DC Fentanyl Citrate (Fentanyl 2ml Vial) 100 mcg STK-MED ONCE .ROUTE ; Start at 10:57; Stop 12/21/16 at 10:58; Status DC Midazolam HCl (Versed) 2 mg STK-MED ONCE .ROUTE ; Start 12/21/16 at 10:57; Stop 12/21/16 at 10:58; Status DC Lidocaine/Sodium Bicarbonate (Buffered Lidocaine 1%) 20 ml 1X ONCE IJ Last administered on 12/21/16 11:44; Start 12/21/16 at 11:15; Stop 12/21/16 at 11 :16; Status DC Midazolam HCl (Versed) 2 mg 1X ONCE IV Last administered on 12/21/16 11:44; Start 12/21/16 at 11:15; Stop 12/21/16 at 11:16; Status DC Fentanyl Citrate (Fentanyl 2ml Vial) 100 mcg 1X ONCE IV Last administered on 12/21/16 11:45; Start 12/21/16 at 11:15; Stop 12/21/16 at 11:16; Status DC Sodium Phosphate 20 mmol/Dextrose 256.6667 ml @ 64.167 m... 1X ONCE IV Last administered on 12/21/16 12:00; Start 12/21/16 at 12:00; Stop 12/21/16 at 15 :59; Status DC Alprazolam (Xanax) 0.25 mg PRN BID PRN PO ANXIETY / AGITATION; Start 12/21/16 at 15:00 Citalopram Hydrobromide (CeleXA) 20 mg DAILY PO Last administered on 09:00; Start 12/21/16 at 16:00 Levothyroxine Sodium (Synthroid) 25 mcg DAILY07 PO Last administered on 06:38; Start 12/21/16 at 16:00 Atorvastatin Calcium (Lipitor) 10 mg QHS PO ; Start 12/21/16 at 21:00; Stop at 22:04; Status DC Vancomycin HCl 2 gm/Dextrose 500 ml @ 250 mls/hr Q12H IV ; Start 12/21/16 at 15:00; Status UNV Vancomycin HCl (Vanco Per Pharmacy) 1 each PRN DAILY PRN MC SEE COMMENTS Last administered on 12/21/16 18:45; Start 12/21/16 at 15:00; Stop 12/23/16 at 09 :45; Status DC Heparin Sodium (Porcine) (Heparin Sq) 5,000 unit Q8HRS SQ Last administered on 12/22/16 14:40; Start 12/21/16 at 22:00 Vancomycin HCl 2 gm/Dextrose 500 ml @ 250 mls/hr 1X ONCE IV Last administered on 12/21/16 17:15; Start 12/21/16 at 16:00; Stop 12/21/16 at 17 :59; Status DC Vancomycin HCl 2 gm/Dextrose 500 ml @ 250 mls/hr Q12H IV Last administered on 12/22/16 20:10; Start 12/22/16 at 05:00; Stop 12/23/16 at 09:45; Status DC Vancomycin HCl 1 each 1X ONCE MC ; Start 12/23/16 at 09:30; Stop 12/23/16 at 09:31; Status DC Potassium Phosphate 10 mmol/ Sodium Chloride 103.3333 ml @ 51.667 m... Q2H IV Last administered on 12/22/16 14:30; Start 12/22/16 at 09:00; Stop 12/22/16 at 12:59; Status DC Potassium Chloride (Klor-Con) 40 meq 1X ONCE PO Last administered on 08:44; Start 12/23/16 at 08:30; Stop 12/23/16 at 08:31; Status DC Linezolid 300 ml @ 300 mls/hr Q12HR IV Last administered on 12/23/16 11:38; Start 12/23/16 at 10:00 Active Scripts Active Reported Pravastatin Sodium 40 Mg Tablet 1 Tab PO QHS Celebrex (Celecoxib) 200 Mg Capsule 1 Cap PO DAILY Furosemide 40 Mg Tablet 1 Tab PO DAILY Levothyroxine Sodium 25 Mcg Tablet 1 Tab PO DAILY Triamterene-Hctz 37.5-25 Mg Tb (Triamterene/Hydrochlorothiazid) 1 Each Tablet 1 Tab PO DAILY Potassium Chloride 20 Meq Tablet.er 20 Meq PO DAILY Citalopram Hbr (Citalopram Hydrobromide) 20 Mg Tablet 1 Tab PO DAILY Calcium Acetate 667 Mg Tablet 667 Mg PO DAILY Xanax (Alprazolam) 0.25 Mg Tablet 1 Tab PO PRN BID PRN Vitals/I & O Vital Sign - Last 24 Hours 12/22/16 12/22/16 12/22/16 12/22/16 14:16 15:00 19:00 20:10 Temp 97.9 98.3 97.9 98.3 Pulse 81 Resp 18 18 B/P (MAP) 156/83 (107) 143/84 (103) Pulse Ox 94 98 94 O2 Delivery Room Air Room Air Room Air 12/22/16 12/22/16 12/22/16 12/22/16 20:16 22:52 23:00 23:25 Temp 98.2 98.2 Pulse 82 Resp 16 16 18 14 B/P (MAP) 144/80 (101) Pulse Ox 98 O2 Delivery Room Air Room Air Room Air Room Air 12/23/16 12/23/16 12/23/16 12/23/16 00:59 03:00 04:32 05:32 Temp 98.2 98.2 Pulse 72 Resp 14 18 16 14 B/P (MAP) 142/85 (104) Pulse Ox 96 O2 Delivery Room Air Room Air Room Air 12/23/16 12/23/16 12/23/16 12/23/16 07:00 08:00 08:44 09:45 Temp 97.5 97.5 Pulse 76 Resp 18 B/P (MAP) 139/81 (100) Pulse Ox 96 O2 Delivery Room Air Room Air Room Air Room Air Intake and Output 12/22/16 12/22/16 12/23/16 14:59 22:59 06:59 Intake Total 400 ml 200 ml 3410 ml Output Total 1450 ml 675 ml Balance 400 ml -1250 ml 2735 ml XOCHILT SAXENA MD Dec 23, 2016 13:30
--- NOTE | 2016-12-23 13:48 | PDOC ---
Subjective: Subjective: Feeling better, pain 4/10, LLQ. Says passing gas and stool. Tolerating clears, plans to try advancing. Objective: Vital Signs: Vital Signs Date Time Temp Pulse Resp B/P (MAP) Pulse Ox O2 Delivery O2 Flow Rate FiO2 12/23/16 13:35 Room Air 12/23/16 11:00 97.5 79 16 118/75 (89) 96 97.5 Labs: Laboratory Tests Test 12/23/16 04:30 White Blood Count 12.8 x10^3/uL Red Blood Count 3.95 x10^6/uL Hemoglobin 12.9 g/dL Hematocrit 37.7 % Mean Corpuscular Volume 95 fL Mean Corpuscular Hemoglobin 33 pg Mean Corpuscular Hemoglobin Concent 34 g/dL Red Cell Distribution Width 14.2 % Platelet Count 369 x10^3/uL Neutrophils (%) (Auto) 83 % Lymphocytes (%) (Auto) 9 % Monocytes (%) (Auto) 7 % Eosinophils (%) (Auto) 1 % Basophils (%) (Auto) 1 % Neutrophils # (Auto) 10.5 x10^3uL Lymphocytes # (Auto) 1.2 x10^3/uL Monocytes # (Auto) 0.9 x10^3/uL Eosinophils # (Auto) 0.1 x10^3/uL Basophils # (Auto) 0.1 x10^3/uL Prothrombin Time 14.3 SEC Prothromb Time International Ratio 1.2 Sodium Level 141 mmol/L Potassium Level 3.1 mmol/L Chloride Level 103 mmol/L Carbon Dioxide Level 31 mmol/L Anion Gap 7 Blood Urea Nitrogen 10 mg/dL Creatinine 1.3 mg/dL Estimated GFR (Cockcroft-Gault) 41.8 Glucose Level 116 mg/dL Calcium Level 9.5 mg/dL Phosphorus Level 3.1 mg/dL Magnesium Level 2.1 mg/dL PE: GEN: NAD, up to chair LUNGS: CTAB HEART: RRR ABD: LLQ (mild) discomfort NEURO/PSYCH: A & O 3 A/P: Diverticular abscess (sigmoid) -drain in place, on IV atbx -colonoscopy >15 years ago Leukocytosis -- Continue atbx, plans to try full liquids. PACHECO JORGENSEN Dec 23, 2016 13:48
[2016-12-23 15:00] VITALS: BP 146/87
[2016-12-23 19:00] VITALS: BP 129/80
[2016-12-23 23:00] VITALS: BP 129/80
--- NOTE | 2016-12-24 00:22 | CONS ---
DATE OF CONSULTATION: 12/23/2016 INFECTIOUS DISEASE CONSULTATION LOCATION: The patient is in room 444. REQUESTING PHYSICIAN: Dr. Youngblood. REASON FOR CONSULTATION: Abdominal abscess. HISTORY OF PRESENT ILLNESS: The patient is a pleasant 61-year-old female with a history of obesity, does have a history of previous diverticulitis approximately 15 years ago. Recently, she has been taking antibiotics. I start her with Cipro and then levofloxacin for upper respiratory infection. She states several days after stopping the levofloxacin, she began to have abdominal pain that worsen over time. She had subjective fevers and chills and some nausea, but no emesis, no bloody diarrhea or loose stools at home. She presented to [facility] and underwent a CAT scan that showed a 6 cm abscess. She was given levofloxacin and Flagyl at [facility] and subsequently [facility] where she underwent drainage placement on 12/20/2016. Cultures were obtained. She was placed on vancomycin, Zosyn and vancomycin has been added, but her white blood cell count increased to 12.8. Cultures are now showing a potential strep species. Clinically, she is feeling somewhat better. She is still on clear liquids, but her white blood cell counts increasing. No active fevers or chills or sweats. No headaches. She has chronic sinus issues. She has no sore throat. Her cough is improved. No dysuria, frequency, urgency and drain is not causing too much discomfort. PAST MEDICAL HISTORY: Positive for previous diverticulitis and has a history of morbid obesity as well as history of hypertension. REVIEW OF SYSTEMS: Otherwise, negative except as mentioned above. ALLERGIES: Listed as ATORVASTATIN. SOCIAL HISTORY: Negative for any tobacco. Occasional alcohol. Has two dogs at home. FAMILY HISTORY: Noncontributory. CURRENT MEDICATIONS: Include Zyvox, vancomycin has been discontinued, Ventolin, Xanax, Celexa, Colace, fentanyl, Zosyn. Other meds are available and reviewed in the chart. PHYSICAL EXAMINATION: VITAL SIGNS: She is afebrile, temperature 97.5, pulse 76, respirations 18, blood pressure 139/81, satting 96% on room air. CONSTITUTIONAL: She is cooperative. She is in no acute distress. She is morbidly obese. She is sitting in a chair. HEENT: Pupils are equal and reactive. Normal conjunctivae. Oral cavity, pharynx is clear. NECK: Supple, no JVD. LUNGS: Clear to auscultation bilaterally. HEART: S1, S2. ABDOMEN: Morbidly obese, soft, positive bowel sounds. She has a drain in right buttock type area with some serous fluid. EXTREMITIES: Without clubbing, cyanosis, or trace edema. SKIN: Warm to touch without generalized signs of rash. NEUROLOGIC: She is nonfocal, moves all extremities. PSYCHIATRIC: Affect is appropriate. LABORATORY VALUES: White count of 12.8, hemoglobin 12.9, platelets of 369 with neutrophils of 83. Creatinine is 1.3, glucose 116, creatinine was 0.7 at presentation. Cultures reviewed in history of present illness. IMPRESSION: 1. Abdominal abscess, status post drain. 2. Streptococcal species. 3. Leukocytosis. 4. Acute kidney injury. RECOMMENDATIONS: Agree with the change to Zyvox given her acute kidney injury and continue the Zosyn. We will follow up on labs and cultures. Thank you for allowing me to participate in this patient's care. Should you have any further questions, please do not hesitate to contact me. WENDY ORELLANA MD DR: LEONOR/charanjit JOB#: [id number] / [id number]
[2016-12-24] MEDS: PIPERACILLIN/TAZO IV Push 3.375 GM VIAL. IVP SCH ×2 (00:30→06:27)
[2016-12-24] MEDS: oxyCODONE IR 5 MG TABLET PO PRN ×3 (00:54→20:02)
[2016-12-24] MEDS: IV RINGERS,LACTATED 1000ML 1,000 ML IV SCH ×3 (00:55→22:33)
[2016-12-24 03:00] VITALS: BP 126/77
[2016-12-24 05:21] LABS: BASO % 0 % (0-3); EOS % 2 % (0-3); HEMATOCRIT 35.4 % (36.0-47.0); LYMPH # 0.9 x10^3/uL (1.0-4.8); LYMPH % 8 % (24-48); MEAN CORPUSCULAR HEMOGLOBIN 33 pg (25-35); MEAN CORPUSCULAR HGB CONC 34 g/dL (31-37); MEAN CORPUSCULAR VOLUME 97 fL (79-100); MONO % 9 % (0-9); NEUT % 81 % (31-73); PLATELET COUNT 346 x10^3/uL (140-400); RED BLOOD COUNT 3.66 x10^6/uL (3.50-5.40); RED CELL DISTRIBUTION WIDTH 13.9 % (11.5-14.5); WHITE BLOOD COUNT 10.6 x10^3/uL (4.0-11.0)
[2016-12-24 05:57] LABS: CALCIUM 8.8 mg/dL (8.5-10.1); CREATININE 2.4 mg/dL (0.6-1.0); GFR 20.6
[2016-12-24] MEDS: LEVOTHYROXINE 25 MCG TABLET. PO SCH (06:26)
[2016-12-24] MEDS: HEPARIN PF for SUB-Q USE 5,000 UNIT/0.5 ML VIAL. SQ SCH ×3 (06:27→21:25)
[2016-12-24 07:00] VITALS: BP 116/84
[2016-12-24] MEDS ORDERED: POTASSIUM CHLORIDE 20 MEQ TABLET.ER. PO ONE (08:15)
[2016-12-24] MEDS: DOCUSATE SODIUM 100 MG CAPSULE. PO SCH ×2 (09:00→21:00)
--- NOTE | 2016-12-24 09:16 | PDOC ---
Infectious Disease Note Subjective Subjective Doing ok. Disappointed with renal function Diet advanced to fulls Loose stool ROS ROS GEN: Denies fevers, chills, sweats HEENT: Denies blurred vision, sore throat CV: Denies chest pain RESP: Denies shortness of air, cough GI: Denies n/v NEURO: Denies confusion, dizziness MSK: Denies weakness, joint pain/swelling Vital Sign Vital Signs Vital Signs Date Time Temp Pulse Resp B/P (MAP) Pulse Ox O2 Delivery O2 Flow Rate FiO2 12/24/16 03:00 97.7 68 16 126/77 (93) 99 Room Air 97.7 Physical Exam PHYSICAL EXAM GENERAL: NAD, Alert, in chair HEENT: PERRL, OC/OP -clear NECK: Supple, no JVD, no LN LUNGS: Clear HEART: S1S2, no gallop, no murmur ABD: Soft, NT, no organomegaly, no rebound, obese Right upper glut drain - clean EXT: 1 to 2 edema, no cyanosis HUMAN RESOURCES COORDINATOR: Alert, 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, no focal neurologic deficit SKIN: No rash IV: ok Labs Lab Laboratory Tests Test 12/24/16 03:55 White Blood Count 10.6 x10^3/uL (4.0-11.0) Red Blood Count 3.66 x10^6/uL (3.50-5.40) Hemoglobin 12.0 g/dL (12.0-15.5) Hematocrit 35.4 % (36.0-47.0) Mean Corpuscular Volume 97 fL (79-100) Mean Corpuscular Hemoglobin 33 pg (25-35) Mean Corpuscular Hemoglobin Concent 34 g/dL (31-37) Red Cell Distribution Width 13.9 % (11.5-14.5) Platelet Count 346 x10^3/uL (140-400) Neutrophils (%) (Auto) 81 % (31-73) Lymphocytes (%) (Auto) 8 % (24-48) Monocytes (%) (Auto) 9 % (0-9) Eosinophils (%) (Auto) 2 % (0-3) Basophils (%) (Auto) 0 % (0-3) Neutrophils # (Auto) 8.5 x10^3uL (1.8-7.7) Lymphocytes # (Auto) 0.9 x10^3/uL (1.0-4.8) Monocytes # (Auto) 0.9 x10^3/uL (0.0-1.1) Eosinophils # (Auto) 0.2 x10^3/uL (0.0-0.7) Basophils # (Auto) 0.0 x10^3/uL (0.0-0.2) Sodium Level 141 mmol/L (136-145) Potassium Level 3.0 mmol/L (3.5-5.1) Chloride Level 104 mmol/L (98-107) Carbon Dioxide Level 27 mmol/L (21-32) Anion Gap 10 (6-14) Blood Urea Nitrogen 13 mg/dL (7-20) Creatinine 2.4 mg/dL (0.6-1.0) Estimated GFR (Cockcroft-Gault) 20.6 Glucose Level 108 mg/dL (70-99) Calcium Level 8.8 mg/dL (8.5-10.1) Magnesium Level 2.2 mg/dL (1.8-2.4) Objective Assessment Abd abscess s/p drain 12/20 Enterococcus Avium - per micro this am (12/24) amp/Vanc sens Leukocytosis -better MARVEL - worse Plan Plan of Care D/c Zyvox Cont Zosyn - adjust dose F/u labs and cults Await Renal evWENDY Gama MD Dec 24, 2016 09:16
[2016-12-24] MEDS: CITALOPRAM 20 MG TABLET. PO SCH (10:12)
[2016-12-24 11:00] VITALS: BP 127/88
--- NOTE | 2016-12-24 11:37 | PDOC2 ---
CONSULT Date of Consult Date of Consult DATE: 12/24/16 TIME: 11:31 Reason for Consult Reason for Consult: MARVEL Referring Physician Referring Physician: LAURIE Identification/Chief Complaint Chief Complaint ABD PAIN Problems: Source Source: Chart review, Patient History of Present Illness Reason for Visit: THIS IS A 61 YR OLD ADMITTED WITH ABD PAIN. SHE HAS SINCE BEEN DIAGNOSED WITH A PERIRECTAL ABSCESS. SHE HAS HAD A DRAIN PLACED BY IR AND IS NOW ON ANTIBIOTICS. CR HAS INCREASED FROM 1.0 TO 2.4. STATES THAT SHE HAS NOT BEEN EATING WELL AND FOR THE LAST COUPLE DAYS SHE HAS HAD DIARRHEA ABOUT 3 TIMES A DAY. HOME MEDS INCLUDED A REYES 2 INHIBITOR, LASIX, KCL AND MAXZIDE. NO CKD HX IS NOTED. NO HX OF ANY KIDNEY OR BLADDER SURGERIES HEMATURIA DYSURIA OR FREQUENCY NOTED. NO FREQUENT UTI HX Past Medical History Cardiovascular: HTN Pulmonary: No pertinent hx GI: Constipation Heme/Onc: No pertinent hx Hepatobiliary: No pertinent hx Psych: No pertinent hx Rheumatologic: No pertinent hx Infectious disease: No pertinent hx ENT: No pertinent hx Renal/: No pertinent hx Endocrine: No pertinent hx Dermatology: No pertinent hx Past Surgical History Past Surgical History: No pertinent history Family History Family History: No Significant Social History No ALCOHOL: occassional Drugs: None Current Medications Current Medications Current Medications Ondansetron HCl (Zofran) 4 mg PRN Q6HRS PRN IV NAUSEA/VOMITING (1st Choice) Last administered on 12/20/16 22:58; Start 12/20/16 at 14:45 Prochlorperazine Edisylate (Compazine) 10 mg PRN Q6HRS PRN IV NAUSEA/VOMITING ( 2nd Choice); Start 12/20/16 at 14:45 Prochlorperazine (Compazine) 25 mg PRN Q12HR PRN PA NAUSEA/VOMITING; Start 01/24 at 14:45 Oxycodone HCl (Roxicodone) 5 mg PRN Q3HRS PRN PO BREAKTHROUGH PAIN Last administered on 12/24/16 10:17; Start 12/20/16 at 14:45 Morphine Sulfate 2 mg PRN Q2HR PRN IV PAIN; Start 12/20/16 at 14:45 Acetaminophen (Tylenol) 650 mg PRN Q6HRS PRN PO Headaches, Temp > 101.5F Last administered on 12/22/16 00:03; Start 12/20/16 at 14:45 Docusate Sodium (Colace) 100 mg BID PO Last administered on 12/21/16 21:57; Start 12/20/16 at 21:00 Magnesium Hydroxide (Milk Of Magnesia) 2,400 mg PRN Q12HR PRN PO CONSTIPATION; Start 12/20/16 at 14:45 Bisacodyl (Dulcolax Supp) 10 mg PRN DAILY PRN PA CONSTIPATION; Start 12/20/16 at 14:45 Ringer's Solution 1,000 ml @ 100 mls/hr Q10H IV Last administered on 00:55; Start 12/20/16 at 16:00 Piperacillin Sod/ Tazobactam Sod (Zosyn Per Pharmacy) 1 each PRN DAILY PRN MC SEE COMMENTS; Start 12/20/16 at 14:45 Fentanyl Citrate (Fentanyl 2ml Vial) 50 mcg PRN Q2HR PRN IV PAIN Last administered on 12/22/16 22:52; Start 12/20/16 at 14:45 Acetaminophen (Tylenol) 325 mg PRN Q6HRS PRN PA MILD PAIN / TEMP Last administered on 12/20/16 20:16; Start 12/20/16 at 14:45 Piperacillin Sod/ Tazobactam Sod (Zosyn) 3.375 gm Q6HRS IVP Last administered on 12/24/16 06:27; Start 12/20/16 at 18:00; Stop 12/24/16 at 09:25; Status DC Albuterol Sulfate (Ventolin Neb Soln) 2.5 mg PRN Q2HR PRN NEB SHORTNESS OF BREATH Last administered on 12/22/16 08:02; Start 12/21/16 at 00:45 Lidocaine/Sodium Bicarbonate (Buffered Lidocaine 1%) 20 ml STK-MED ONCE IJ ; Start 12/21/16 at 10:43; Stop 12/21/16 at 10:44; Status DC Fentanyl Citrate (Fentanyl 2ml Vial) 100 mcg STK-MED ONCE .ROUTE ; Start at 10:57; Stop 12/21/16 at 10:58; Status DC Midazolam HCl (Versed) 2 mg STK-MED ONCE .ROUTE ; Start 12/21/16 at 10:57; Stop 12/21/16 at 10:58; Status DC Lidocaine/Sodium Bicarbonate (Buffered Lidocaine 1%) 20 ml 1X ONCE IJ Last administered on 12/21/16 11:44; Start 12/21/16 at 11:15; Stop 12/21/16 at 11 :16; Status DC Midazolam HCl (Versed) 2 mg 1X ONCE IV Last administered on 12/21/16 11:44; Start 12/21/16 at 11:15; Stop 12/21/16 at 11:16; Status DC Fentanyl Citrate (Fentanyl 2ml Vial) 100 mcg 1X ONCE IV Last administered on 12/21/16 11:45; Start 12/21/16 at 11:15; Stop 12/21/16 at 11:16; Status DC Sodium Phosphate 20 mmol/Dextrose 256.6667 ml @ 64.167 m... 1X ONCE IV Last administered on 12/21/16 12:00; Start 12/21/16 at 12:00; Stop 12/21/16 at 15 :59; Status DC Alprazolam (Xanax) 0.25 mg PRN BID PRN PO ANXIETY / AGITATION; Start 12/21/16 at 15:00 Citalopram Hydrobromide (CeleXA) 20 mg DAILY PO Last administered on 10:12; Start 12/21/16 at 16:00 Levothyroxine Sodium (Synthroid) 25 mcg DAILY07 PO Last administered on 06:26; Start 12/21/16 at 16:00 Atorvastatin Calcium (Lipitor) 10 mg QHS PO ; Start 12/21/16 at 21:00; Stop at 22:04; Status DC Vancomycin HCl 2 gm/Dextrose 500 ml @ 250 mls/hr Q12H IV ; Start 12/21/16 at 15:00; Status UNV Vancomycin HCl (Vanco Per Pharmacy) 1 each PRN DAILY PRN MC SEE COMMENTS Last administered on 12/21/16 18:45; Start 12/21/16 at 15:00; Stop 12/23/16 at 09 :45; Status DC Heparin Sodium (Porcine) (Heparin Sq) 5,000 unit Q8HRS SQ Last administered on 12/22/16 14:40; Start 12/21/16 at 22:00 Vancomycin HCl 2 gm/Dextrose 500 ml @ 250 mls/hr 1X ONCE IV Last administered on 12/21/16 17:15; Start 12/21/16 at 16:00; Stop 12/21/16 at 17 :59; Status DC Vancomycin HCl 2 gm/Dextrose 500 ml @ 250 mls/hr Q12H IV Last administered on 12/22/16 20:10; Start 12/22/16 at 05:00; Stop 12/23/16 at 09:45; Status DC Vancomycin HCl 1 each 1X ONCE MC ; Start 12/23/16 at 09:30; Stop 12/23/16 at 09:31; Status DC Potassium Phosphate 10 mmol/ Sodium Chloride 103.3333 ml @ 51.667 m... Q2H IV Last administered on 12/22/16 14:30; Start 12/22/16 at 09:00; Stop 12/22/16 at 12:59; Status DC Potassium Chloride (Klor-Con) 40 meq 1X ONCE PO Last administered on 08:44; Start 12/23/16 at 08:30; Stop 12/23/16 at 08:31; Status DC Linezolid 300 ml @ 300 mls/hr Q12HR IV Last administered on 12/23/16 22:12; Start 12/23/16 at 10:00; Stop 12/24/16 at 09:25; Status DC Potassium Chloride (Klor-Con) 40 meq 1X ONCE PO Last administered on 10:13; Start 12/24/16 at 08:15; Stop 12/24/16 at 08:41; Status DC Piperacillin Sod/ Tazobactam Sod 2.25 gm/Dextrose 50 ml @ 100 mls/hr Q6HRS IV ; Start 12/24/16 at 12:00; Stop 12/24/16 at 12:00; Status DC Piperacillin Sod/ Tazobactam Sod (Zosyn) 2.25 gm Q6HRS IVP ; Start 12/24/16 at 12:00 Active Scripts Active Reported Pravastatin Sodium 40 Mg Tablet 1 Tab PO QHS Celebrex (Celecoxib) 200 Mg Capsule 1 Cap PO DAILY Furosemide 40 Mg Tablet 1 Tab PO DAILY Levothyroxine Sodium 25 Mcg Tablet 1 Tab PO DAILY Triamterene-Hctz 37.5-25 Mg Tb (Triamterene/Hydrochlorothiazid) 1 Each Tablet 1 Tab PO DAILY Potassium Chloride 20 Meq Tablet.er 20 Meq PO DAILY Citalopram Hbr (Citalopram Hydrobromide) 20 Mg Tablet 1 Tab PO DAILY Calcium Acetate 667 Mg Tablet 667 Mg PO DAILY Xanax (Alprazolam) 0.25 Mg Tablet 1 Tab PO PRN BID PRN Allergies Allergies: Coded Allergies: atorvastatin (Verified Allergy, Intermediate, 12/21/16) Pt refused. Give terrible body aches and cramps ROS General: YES: Fatigue, Malaise, Appetite PSYCHOLOGICAL ROS: YES: Anxiety Eyes: Yes Decreased vision HEENT: YES: Heacaches ALLERGY AND IMMUNOLOGY: YES: Nasal Congestion, Seasonal Allergies Respiratory: YES: Cough Gastrointestinal: Yes Abdominal Pain, Yes Diarrhea Genitourinary: YES Other (NOCTURIA) Musculoskeletal: Yes Muscular Weakness Neurological: Yes Weakness Skin: Yes Dry Skin Physical Exam General: Alert, Oriented X3, Cooperative, No acute distress HEENT: Atraumatic, PERRLA Lungs: Clear to auscultation Heart: Regular rate, Normal S1, Normal S2 Abdomen: Normal bowel sounds, Soft, No tenderness Extremities: No clubbing Skin: No breakdown Neuro: Normal speech, Cranial nerves 3-12 NL Psych/Mental Status: Mental status NL, Mood NL MUSCULOSKELETAL: No deformity, No swelling Vitals VITALS Vital Signs Date Time Temp Pulse Resp B/P (MAP) Pulse Ox O2 Delivery O2 Flow Rate FiO2 12/24/16 10:17 12 95 Room Air 12/24/16 07:00 97.7 82 116/84 (95) 97.7 Labs Labs Laboratory Tests Test 12/23/16 04:30 12/24/16 03:55 White Blood Count 12.8 x10^3/uL (4.0-11.0) 10.6 x10^3/uL (4.0-11.0) Red Blood Count 3.95 x10^6/uL (3.50-5.40) 3.66 x10^6/uL (3.50-5.40) Hemoglobin 12.9 g/dL (12.0-15.5) 12.0 g/dL (12.0-15.5) Hematocrit 37.7 % (36.0-47.0) 35.4 % (36.0-47.0) Mean Corpuscular Volume 95 fL (79-100) 97 fL (79-100) Mean Corpuscular Hemoglobin 33 pg (25-35) 33 pg (25-35) Mean Corpuscular Hemoglobin Concent 34 g/dL (31-37) 34 g/dL (31-37) Red Cell Distribution Width 14.2 % (11.5-14.5) 13.9 % (11.5-14.5) Platelet Count 369 x10^3/uL (140-400) 346 x10^3/uL (140-400) Neutrophils (%) (Auto) 83 % (31-73) 81 % (31-73) Lymphocytes (%) (Auto) 9 % (24-48) 8 % (24-48) Monocytes (%) (Auto) 7 % (0-9) 9 % (0-9) Eosinophils (%) (Auto) 1 % (0-3) 2 % (0-3) Basophils (%) (Auto) 1 % (0-3) 0 % (0-3) Neutrophils # (Auto) 10.5 x10^3uL (1.8-7.7) 8.5 x10^3uL (1.8-7.7) Lymphocytes # (Auto) 1.2 x10^3/uL (1.0-4.8) 0.9 x10^3/uL (1.0-4.8) Monocytes # (Auto) 0.9 x10^3/uL (0.0-1.1) 0.9 x10^3/uL (0.0-1.1) Eosinophils # (Auto) 0.1 x10^3/uL (0.0-0.7) 0.2 x10^3/uL (0.0-0.7) Basophils # (Auto) 0.1 x10^3/uL (0.0-0.2) 0.0 x10^3/uL (0.0-0.2) Prothrombin Time 14.3 SEC (11.7-14.0) Prothromb Time International Ratio 1.2 (0.8-1.1) Sodium Level 141 mmol/L (136-145) 141 mmol/L (136-145) Potassium Level 3.1 mmol/L (3.5-5.1) 3.0 mmol/L (3.5-5.1) Chloride Level 103 mmol/L (98-107) 104 mmol/L (98-107) Carbon Dioxide Level 31 mmol/L (21-32) 27 mmol/L (21-32) Anion Gap 7 (6-14) 10 (6-14) Blood Urea Nitrogen 10 mg/dL (7-20) 13 mg/dL (7-20) Creatinine 1.3 mg/dL (0.6-1.0) 2.4 mg/dL (0.6-1.0) Estimated GFR (Cockcroft-Gault) 41.8 20.6 Glucose Level 116 mg/dL (70-99) 108 mg/dL (70-99) Calcium Level 9.5 mg/dL (8.5-10.1) 8.8 mg/dL (8.5-10.1) Phosphorus Level 3.1 mg/dL (2.6-4.7) Magnesium Level 2.1 mg/dL (1.8-2.4) 2.2 mg/dL (1.8-2.4) Laboratory Tests Test 12/24/16 03:55 White Blood Count 10.6 x10^3/uL (4.0-11.0) Red Blood Count 3.66 x10^6/uL (3.50-5.40) Hemoglobin 12.0 g/dL (12.0-15.5) Hematocrit 35.4 % (36.0-47.0) Mean Corpuscular Volume 97 fL (79-100) Mean Corpuscular Hemoglobin 33 pg (25-35) Mean Corpuscular Hemoglobin Concent 34 g/dL (31-37) Red Cell Distribution Width 13.9 % (11.5-14.5) Platelet Count 346 x10^3/uL (140-400) Neutrophils (%) (Auto) 81 % (31-73) Lymphocytes (%) (Auto) 8 % (24-48) Monocytes (%) (Auto) 9 % (0-9) Eosinophils (%) (Auto) 2 % (0-3) Basophils (%) (Auto) 0 % (0-3) Neutrophils # (Auto) 8.5 x10^3uL (1.8-7.7) Lymphocytes # (Auto) 0.9 x10^3/uL (1.0-4.8) Monocytes # (Auto) 0.9 x10^3/uL (0.0-1.1) Eosinophils # (Auto) 0.2 x10^3/uL (0.0-0.7) Basophils # (Auto) 0.0 x10^3/uL (0.0-0.2) Sodium Level 141 mmol/L (136-145) Potassium Level 3.0 mmol/L (3.5-5.1) Chloride Level 104 mmol/L (98-107) Carbon Dioxide Level 27 mmol/L (21-32) Anion Gap 10 (6-14) Blood Urea Nitrogen 13 mg/dL (7-20) Creatinine 2.4 mg/dL (0.6-1.0) Estimated GFR (Cockcroft-Gault) 20.6 Glucose Level 108 mg/dL (70-99) Calcium Level 8.8 mg/dL (8.5-10.1) Magnesium Level 2.2 mg/dL (1.8-2.4) Assessment/Plan Assessment/Plan IMP MARVEL-ATN-NO CKD PERIRECTAL ABSCESS DEHYDRATION PLAN HOLD LASIX, CELEBREX, MAXZIDE AND KCL CONT WITH IVF'S CONT ANTIBIOTICS RENAL SONO DONE AT BEDSIDE REVIEWED-NO HYDRONEPHROSIS AND RENAL PARENCHYMA IS PRESERVED WILL ALSO CHECK HER UA ARINA LAUREANO MD Dec 24, 2016 11:37
[2016-12-24] MEDS ORDERED: PIPERACILLIN/TAZOBACTAM 2.25 GM in IV DEXTROSE 5% 50 ML IV SCH (12:00)
--- NOTE | 2016-12-24 12:36 | PDOC ---
SURGICAL PROGRESS NOTE Subjective Pt feels better, irene PO, passing stools Vital Signs Vital Signs Date Time Temp Pulse Resp B/P (MAP) Pulse Ox O2 Delivery O2 Flow Rate FiO2 12/24/16 10:17 12 95 Room Air 12/24/16 07:00 97.7 82 116/84 (95) 97.7 I&O Intake and Output 12/24/16 07:00 Intake Total 3900 ml Output Total 20 ml Balance 3880 ml Intake Oral 1200 ml IV Total 2700 ml Drainage Total 20 ml # Voids 6 General: Alert, Oriented X3, Cooperative, No acute distress Abdomen: Soft, No tenderness, Other (drain with bilious output, small amount) Labs Laboratory Tests Test 12/23/16 04:30 12/24/16 03:55 White Blood Count 12.8 x10^3/uL (4.0-11.0) 10.6 x10^3/uL (4.0-11.0) Red Blood Count 3.95 x10^6/uL (3.50-5.40) 3.66 x10^6/uL (3.50-5.40) Hemoglobin 12.9 g/dL (12.0-15.5) 12.0 g/dL (12.0-15.5) Hematocrit 37.7 % (36.0-47.0) 35.4 % (36.0-47.0) Mean Corpuscular Volume 95 fL (79-100) 97 fL (79-100) Mean Corpuscular Hemoglobin 33 pg (25-35) 33 pg (25-35) Mean Corpuscular Hemoglobin Concent 34 g/dL (31-37) 34 g/dL (31-37) Red Cell Distribution Width 14.2 % (11.5-14.5) 13.9 % (11.5-14.5) Platelet Count 369 x10^3/uL (140-400) 346 x10^3/uL (140-400) Neutrophils (%) (Auto) 83 % (31-73) 81 % (31-73) Lymphocytes (%) (Auto) 9 % (24-48) 8 % (24-48) Monocytes (%) (Auto) 7 % (0-9) 9 % (0-9) Eosinophils (%) (Auto) 1 % (0-3) 2 % (0-3) Basophils (%) (Auto) 1 % (0-3) 0 % (0-3) Neutrophils # (Auto) 10.5 x10^3uL (1.8-7.7) 8.5 x10^3uL (1.8-7.7) Lymphocytes # (Auto) 1.2 x10^3/uL (1.0-4.8) 0.9 x10^3/uL (1.0-4.8) Monocytes # (Auto) 0.9 x10^3/uL (0.0-1.1) 0.9 x10^3/uL (0.0-1.1) Eosinophils # (Auto) 0.1 x10^3/uL (0.0-0.7) 0.2 x10^3/uL (0.0-0.7) Basophils # (Auto) 0.1 x10^3/uL (0.0-0.2) 0.0 x10^3/uL (0.0-0.2) Prothrombin Time 14.3 SEC (11.7-14.0) Prothromb Time International Ratio 1.2 (0.8-1.1) Sodium Level 141 mmol/L (136-145) 141 mmol/L (136-145) Potassium Level 3.1 mmol/L (3.5-5.1) 3.0 mmol/L (3.5-5.1) Chloride Level 103 mmol/L (98-107) 104 mmol/L (98-107) Carbon Dioxide Level 31 mmol/L (21-32) 27 mmol/L (21-32) Anion Gap 7 (6-14) 10 (6-14) Blood Urea Nitrogen 10 mg/dL (7-20) 13 mg/dL (7-20) Creatinine 1.3 mg/dL (0.6-1.0) 2.4 mg/dL (0.6-1.0) Estimated GFR (Cockcroft-Gault) 41.8 20.6 Glucose Level 116 mg/dL (70-99) 108 mg/dL (70-99) Calcium Level 9.5 mg/dL (8.5-10.1) 8.8 mg/dL (8.5-10.1) Phosphorus Level 3.1 mg/dL (2.6-4.7) Magnesium Level 2.1 mg/dL (1.8-2.4) 2.2 mg/dL (1.8-2.4) Laboratory Tests Test 12/24/16 03:55 White Blood Count 10.6 x10^3/uL (4.0-11.0) Red Blood Count 3.66 x10^6/uL (3.50-5.40) Hemoglobin 12.0 g/dL (12.0-15.5) Hematocrit 35.4 % (36.0-47.0) Mean Corpuscular Volume 97 fL (79-100) Mean Corpuscular Hemoglobin 33 pg (25-35) Mean Corpuscular Hemoglobin Concent 34 g/dL (31-37) Red Cell Distribution Width 13.9 % (11.5-14.5) Platelet Count 346 x10^3/uL (140-400) Neutrophils (%) (Auto) 81 % (31-73) Lymphocytes (%) (Auto) 8 % (24-48) Monocytes (%) (Auto) 9 % (0-9) Eosinophils (%) (Auto) 2 % (0-3) Basophils (%) (Auto) 0 % (0-3) Neutrophils # (Auto) 8.5 x10^3uL (1.8-7.7) Lymphocytes # (Auto) 0.9 x10^3/uL (1.0-4.8) Monocytes # (Auto) 0.9 x10^3/uL (0.0-1.1) Eosinophils # (Auto) 0.2 x10^3/uL (0.0-0.7) Basophils # (Auto) 0.0 x10^3/uL (0.0-0.2) Sodium Level 141 mmol/L (136-145) Potassium Level 3.0 mmol/L (3.5-5.1) Chloride Level 104 mmol/L (98-107) Carbon Dioxide Level 27 mmol/L (21-32) Anion Gap 10 (6-14) Blood Urea Nitrogen 13 mg/dL (7-20) Creatinine 2.4 mg/dL (0.6-1.0) Estimated GFR (Cockcroft-Gault) 20.6 Glucose Level 108 mg/dL (70-99) Calcium Level 8.8 mg/dL (8.5-10.1) Magnesium Level 2.2 mg/dL (1.8-2.4) Problem List diverticular abscess, clinically improving cont drain and abx Problems: ANGELO AGGARWAL MD Dec 24, 2016 12:36
--- NOTE | 2016-12-24 12:52 | PDOC ---
Subjective: Subjective: Doing better, still some LLQ pain. Tolerating diet, passing stool. Objective: Objective: ANAEROBIC-AEROBIC CULTURE Final Final report ANAEROBIC RES 1 Final Comment Bacteroides species, B. fragilis group Light growth Studies at [facility] have confirmed the observations of others who have demonstrated that Bacteroides fragilis group are routinely susceptible to Cefoxitin, Chloramphenicol, and Metronidazole and are usually resistant to Penicillin, and variably in resistance to Clindamycin. AEROBIC CULT Final Final report AEROBIC RES 1 Final Enterococcus avium Heavy growth ANTIMICROBIAL SUSCEPTIBILITY Final Comment S = Susceptible; I = Intermediate; R = Resistant P = Positive; N = Negative MICS are expressed in micrograms per mL Antibiotic RSLT#1 RSLT#2 RSLT#3 RSLT#4 Penicillin S Vancomycin S Performed at: [address] [id number] Returned Goods Inspector: Mary Joyce MD, Phone: [phone] Vital Signs: Vital Signs Date Time Temp Pulse Resp B/P (MAP) Pulse Ox O2 Delivery O2 Flow Rate FiO2 12/24/16 10:17 12 95 Room Air 12/24/16 07:00 97.7 82 116/84 (95) 97.7 Labs: Laboratory Tests Test 12/24/16 03:55 White Blood Count 10.6 x10^3/uL Red Blood Count 3.66 x10^6/uL Hemoglobin 12.0 g/dL Hematocrit 35.4 % Mean Corpuscular Volume 97 fL Mean Corpuscular Hemoglobin 33 pg Mean Corpuscular Hemoglobin Concent 34 g/dL Red Cell Distribution Width 13.9 % Platelet Count 346 x10^3/uL Neutrophils (%) (Auto) 81 % Lymphocytes (%) (Auto) 8 % Monocytes (%) (Auto) 9 % Eosinophils (%) (Auto) 2 % Basophils (%) (Auto) 0 % Neutrophils # (Auto) 8.5 x10^3uL Lymphocytes # (Auto) 0.9 x10^3/uL Monocytes # (Auto) 0.9 x10^3/uL Eosinophils # (Auto) 0.2 x10^3/uL Basophils # (Auto) 0.0 x10^3/uL Sodium Level 141 mmol/L Potassium Level 3.0 mmol/L Chloride Level 104 mmol/L Carbon Dioxide Level 27 mmol/L Anion Gap 10 Blood Urea Nitrogen 13 mg/dL Creatinine 2.4 mg/dL Estimated GFR (Cockcroft-Gault) 20.6 Glucose Level 108 mg/dL Calcium Level 8.8 mg/dL Magnesium Level 2.2 mg/dL Imaging: Renal US PENDING PE: GEN: NAD, up to chair LUNGS: CTAB HEART: RRR ABD: LLQ discomfort NEURO/PSYCH: A & O 3 A/P: Diverticular abscess (sigmoid) s/p drain placement -colonoscopy >15 years ago Leukocytosis, MARVEL -- Continue atbx per ID. PACHECO JORGENSEN Dec 24, 2016 12:52 NORBERTO SANDERS MD Dec 24, 2016 13:25
--- NOTE | 2016-12-24 13:09 | PDOC ---
PROGRESS NOTES Chief Complaint Chief Complaint 1. Sigmoid diverticultuis with ?perforation with [address] post abscess drain on 12/21 2 sepsis 3. Leukocytosis 4. Obesity 5. HTN hypophophatemia hypokalemia MARVEL, ATN with contrast, vanco plan: fu with gi, ir, sx post abscess drain on 12/21 cont some home meds, hold lasix cont ivf clear liquid diet advance to full liquid as per sx pain control dvt ppx replete JOAN, K dc vanco given Marvel, dc zyvox, cont zosyn ,fu cx. ID consult labs tmr check cdiff renal consult renal US History of Present Illness History of Present Illness ROS: no fever, chills, sob or chest pain low joan IR for abscess drain 12/21, ARMOND in, 20cc 24h now higher WBC, then down to 10.6 today HIGHER Cr abd pain Rt side better, new left side abd pain also better diarrhea 12/22 loose abscess cx+ enteroccocus, bacteroids, sens to vanco , PCN Vitals Vitals Vital Signs Date Time Temp Pulse Resp B/P (MAP) Pulse Ox O2 Delivery O2 Flow Rate FiO2 12/24/16 10:17 12 95 Room Air 12/24/16 07:00 97.7 82 116/84 (95) 97.7 Physical Exam Physical Exam right flank 1 Armond with some sangeous fluid General: Alert, Oriented X3, Cooperative, No acute distress Heart: Regular rate, Normal S1, Normal S2 Lungs: Clear Abdomen: Soft, No tenderness, Other (drain with bilious output, small amount) Extremities: No clubbing Skin: No breakdown Labs LABS Laboratory Tests Test 12/24/16 03:55 White Blood Count 10.6 x10^3/uL (4.0-11.0) Red Blood Count 3.66 x10^6/uL (3.50-5.40) Hemoglobin 12.0 g/dL (12.0-15.5) Hematocrit 35.4 % (36.0-47.0) Mean Corpuscular Volume 97 fL (79-100) Mean Corpuscular Hemoglobin 33 pg (25-35) Mean Corpuscular Hemoglobin Concent 34 g/dL (31-37) Red Cell Distribution Width 13.9 % (11.5-14.5) Platelet Count 346 x10^3/uL (140-400) Neutrophils (%) (Auto) 81 % (31-73) Lymphocytes (%) (Auto) 8 % (24-48) Monocytes (%) (Auto) 9 % (0-9) Eosinophils (%) (Auto) 2 % (0-3) Basophils (%) (Auto) 0 % (0-3) Neutrophils # (Auto) 8.5 x10^3uL (1.8-7.7) Lymphocytes # (Auto) 0.9 x10^3/uL (1.0-4.8) Monocytes # (Auto) 0.9 x10^3/uL (0.0-1.1) Eosinophils # (Auto) 0.2 x10^3/uL (0.0-0.7) Basophils # (Auto) 0.0 x10^3/uL (0.0-0.2) Sodium Level 141 mmol/L (136-145) Potassium Level 3.0 mmol/L (3.5-5.1) Chloride Level 104 mmol/L (98-107) Carbon Dioxide Level 27 mmol/L (21-32) Anion Gap 10 (6-14) Blood Urea Nitrogen 13 mg/dL (7-20) Creatinine 2.4 mg/dL (0.6-1.0) Estimated GFR (Cockcroft-Gault) 20.6 Glucose Level 108 mg/dL (70-99) Calcium Level 8.8 mg/dL (8.5-10.1) Magnesium Level 2.2 mg/dL (1.8-2.4) Comment Review of Relevant I have reviewed the following items kevin (where applicable) has been applied. Labs Laboratory Tests Test 12/23/16 04:30 12/24/16 03:55 White Blood Count 12.8 x10^3/uL (4.0-11.0) 10.6 x10^3/uL (4.0-11.0) Red Blood Count 3.95 x10^6/uL (3.50-5.40) 3.66 x10^6/uL (3.50-5.40) Hemoglobin 12.9 g/dL (12.0-15.5) 12.0 g/dL (12.0-15.5) Hematocrit 37.7 % (36.0-47.0) 35.4 % (36.0-47.0) Mean Corpuscular Volume 95 fL (79-100) 97 fL (79-100) Mean Corpuscular Hemoglobin 33 pg (25-35) 33 pg (25-35) Mean Corpuscular Hemoglobin Concent 34 g/dL (31-37) 34 g/dL (31-37) Red Cell Distribution Width 14.2 % (11.5-14.5) 13.9 % (11.5-14.5) Platelet Count 369 x10^3/uL (140-400) 346 x10^3/uL (140-400) Neutrophils (%) (Auto) 83 % (31-73) 81 % (31-73) Lymphocytes (%) (Auto) 9 % (24-48) 8 % (24-48) Monocytes (%) (Auto) 7 % (0-9) 9 % (0-9) Eosinophils (%) (Auto) 1 % (0-3) 2 % (0-3) Basophils (%) (Auto) 1 % (0-3) 0 % (0-3) Neutrophils # (Auto) 10.5 x10^3uL (1.8-7.7) 8.5 x10^3uL (1.8-7.7) Lymphocytes # (Auto) 1.2 x10^3/uL (1.0-4.8) 0.9 x10^3/uL (1.0-4.8) Monocytes # (Auto) 0.9 x10^3/uL (0.0-1.1) 0.9 x10^3/uL (0.0-1.1) Eosinophils # (Auto) 0.1 x10^3/uL (0.0-0.7) 0.2 x10^3/uL (0.0-0.7) Basophils # (Auto) 0.1 x10^3/uL (0.0-0.2) 0.0 x10^3/uL (0.0-0.2) Prothrombin Time 14.3 SEC (11.7-14.0) Prothromb Time International Ratio 1.2 (0.8-1.1) Sodium Level 141 mmol/L (136-145) 141 mmol/L (136-145) Potassium Level 3.1 mmol/L (3.5-5.1) 3.0 mmol/L (3.5-5.1) Chloride Level 103 mmol/L (98-107) 104 mmol/L (98-107) Carbon Dioxide Level 31 mmol/L (21-32) 27 mmol/L (21-32) Anion Gap 7 (6-14) 10 (6-14) Blood Urea Nitrogen 10 mg/dL (7-20) 13 mg/dL (7-20) Creatinine 1.3 mg/dL (0.6-1.0) 2.4 mg/dL (0.6-1.0) Estimated GFR (Cockcroft-Gault) 41.8 20.6 Glucose Level 116 mg/dL (70-99) 108 mg/dL (70-99) Calcium Level 9.5 mg/dL (8.5-10.1) 8.8 mg/dL (8.5-10.1) Phosphorus Level 3.1 mg/dL (2.6-4.7) Magnesium Level 2.1 mg/dL (1.8-2.4) 2.2 mg/dL (1.8-2.4) Laboratory Tests Test 12/24/16 03:55 White Blood Count 10.6 x10^3/uL (4.0-11.0) Red Blood Count 3.66 x10^6/uL (3.50-5.40) Hemoglobin 12.0 g/dL (12.0-15.5) Hematocrit 35.4 % (36.0-47.0) Mean Corpuscular Volume 97 fL (79-100) Mean Corpuscular Hemoglobin 33 pg (25-35) Mean Corpuscular Hemoglobin Concent 34 g/dL (31-37) Red Cell Distribution Width 13.9 % (11.5-14.5) Platelet Count 346 x10^3/uL (140-400) Neutrophils (%) (Auto) 81 % (31-73) Lymphocytes (%) (Auto) 8 % (24-48) Monocytes (%) (Auto) 9 % (0-9) Eosinophils (%) (Auto) 2 % (0-3) Basophils (%) (Auto) 0 % (0-3) Neutrophils # (Auto) 8.5 x10^3uL (1.8-7.7) Lymphocytes # (Auto) 0.9 x10^3/uL (1.0-4.8) Monocytes # (Auto) 0.9 x10^3/uL (0.0-1.1) Eosinophils # (Auto) 0.2 x10^3/uL (0.0-0.7) Basophils # (Auto) 0.0 x10^3/uL (0.0-0.2) Sodium Level 141 mmol/L (136-145) Potassium Level 3.0 mmol/L (3.5-5.1) Chloride Level 104 mmol/L (98-107) Carbon Dioxide Level 27 mmol/L (21-32) Anion Gap 10 (6-14) Blood Urea Nitrogen 13 mg/dL (7-20) Creatinine 2.4 mg/dL (0.6-1.0) Estimated GFR (Cockcroft-Gault) 20.6 Glucose Level 108 mg/dL (70-99) Calcium Level 8.8 mg/dL (8.5-10.1) Magnesium Level 2.2 mg/dL (1.8-2.4) Microbiology 12/21/16 Gram Stain - Final, Complete Medications Current Medications Ondansetron HCl (Zofran) 4 mg PRN Q6HRS PRN IV NAUSEA/VOMITING (1st Choice) Last administered on 12/20/16 22:58; Start 12/20/16 at 14:45 Prochlorperazine Edisylate (Compazine) 10 mg PRN Q6HRS PRN IV NAUSEA/VOMITING ( 2nd Choice); Start 12/20/16 at 14:45 Prochlorperazine (Compazine) 25 mg PRN Q12HR PRN AL NAUSEA/VOMITING; Start 01/24 at 14:45 Oxycodone HCl (Roxicodone) 5 mg PRN Q3HRS PRN PO BREAKTHROUGH PAIN Last administered on 12/24/16 10:17; Start 12/20/16 at 14:45 Morphine Sulfate 2 mg PRN Q2HR PRN IV PAIN; Start 12/20/16 at 14:45 Acetaminophen (Tylenol) 650 mg PRN Q6HRS PRN PO Headaches, Temp > 101.5F Last administered on 12/22/16 00:03; Start 12/20/16 at 14:45 Docusate Sodium (Colace) 100 mg BID PO Last administered on 12/21/16 21:57; Start 12/20/16 at 21:00 Magnesium Hydroxide (Milk Of Magnesia) 2,400 mg PRN Q12HR PRN PO CONSTIPATION; Start 12/20/16 at 14:45 Bisacodyl (Dulcolax Supp) 10 mg PRN DAILY PRN AL CONSTIPATION; Start 12/20/16 at 14:45 Ringer's Solution 1,000 ml @ 100 mls/hr Q10H IV Last administered on 00:55; Start 12/20/16 at 16:00 Piperacillin Sod/ Tazobactam Sod (Zosyn Per Pharmacy) 1 each PRN DAILY PRN MC SEE COMMENTS; Start 12/20/16 at 14:45 Fentanyl Citrate (Fentanyl 2ml Vial) 50 mcg PRN Q2HR PRN IV PAIN Last administered on 12/22/16 22:52; Start 12/20/16 at 14:45 Acetaminophen (Tylenol) 325 mg PRN Q6HRS PRN AL MILD PAIN / TEMP Last administered on 12/20/16 20:16; Start 12/20/16 at 14:45 Piperacillin Sod/ Tazobactam Sod (Zosyn) 3.375 gm Q6HRS IVP Last administered on 12/24/16 06:27; Start 12/20/16 at 18:00; Stop 12/24/16 at 09:25; Status DC Albuterol Sulfate (Ventolin Neb Soln) 2.5 mg PRN Q2HR PRN NEB SHORTNESS OF BREATH Last administered on 12/22/16 08:02; Start 12/21/16 at 00:45 Lidocaine/Sodium Bicarbonate (Buffered Lidocaine 1%) 20 ml STK-MED ONCE IJ ; Start 12/21/16 at 10:43; Stop 12/21/16 at 10:44; Status DC Fentanyl Citrate (Fentanyl 2ml Vial) 100 mcg STK-MED ONCE .ROUTE ; Start at 10:57; Stop 12/21/16 at 10:58; Status DC Midazolam HCl (Versed) 2 mg STK-MED ONCE .ROUTE ; Start 12/21/16 at 10:57; Stop 12/21/16 at 10:58; Status DC Lidocaine/Sodium Bicarbonate (Buffered Lidocaine 1%) 20 ml 1X ONCE IJ Last administered on 12/21/16 11:44; Start 12/21/16 at 11:15; Stop 12/21/16 at 11 :16; Status DC Midazolam HCl (Versed) 2 mg 1X ONCE IV Last administered on 12/21/16 11:44; Start 12/21/16 at 11:15; Stop 12/21/16 at 11:16; Status DC Fentanyl Citrate (Fentanyl 2ml Vial) 100 mcg 1X ONCE IV Last administered on 12/21/16 11:45; Start 12/21/16 at 11:15; Stop 12/21/16 at 11:16; Status DC Sodium Phosphate 20 mmol/Dextrose 256.6667 ml @ 64.167 m... 1X ONCE IV Last administered on 12/21/16 12:00; Start 12/21/16 at 12:00; Stop 12/21/16 at 15 :59; Status DC Alprazolam (Xanax) 0.25 mg PRN BID PRN PO ANXIETY / AGITATION; Start 12/21/16 at 15:00 Citalopram Hydrobromide (CeleXA) 20 mg DAILY PO Last administered on 10:12; Start 12/21/16 at 16:00 Levothyroxine Sodium (Synthroid) 25 mcg DAILY07 PO Last administered on 06:26; Start 12/21/16 at 16:00 Atorvastatin Calcium (Lipitor) 10 mg QHS PO ; Start 12/21/16 at 21:00; Stop at 22:04; Status DC Vancomycin HCl 2 gm/Dextrose 500 ml @ 250 mls/hr Q12H IV ; Start 12/21/16 at 15:00; Status UNV Vancomycin HCl (Vanco Per Pharmacy) 1 each PRN DAILY PRN MC SEE COMMENTS Last administered on 12/21/16 18:45; Start 12/21/16 at 15:00; Stop 12/23/16 at 09 :45; Status DC Heparin Sodium (Porcine) (Heparin Sq) 5,000 unit Q8HRS SQ Last administered on 12/22/16 14:40; Start 12/21/16 at 22:00 Vancomycin HCl 2 gm/Dextrose 500 ml @ 250 mls/hr 1X ONCE IV Last administered on 12/21/16 17:15; Start 12/21/16 at 16:00; Stop 12/21/16 at 17 :59; Status DC Vancomycin HCl 2 gm/Dextrose 500 ml @ 250 mls/hr Q12H IV Last administered on 12/22/16 20:10; Start 12/22/16 at 05:00; Stop 12/23/16 at 09:45; Status DC Vancomycin HCl 1 each 1X ONCE MC ; Start 12/23/16 at 09:30; Stop 12/23/16 at 09:31; Status DC Potassium Phosphate 10 mmol/ Sodium Chloride 103.3333 ml @ 51.667 m... Q2H IV Last administered on 12/22/16 14:30; Start 12/22/16 at 09:00; Stop 12/22/16 at 12:59; Status DC Potassium Chloride (Klor-Con) 40 meq 1X ONCE PO Last administered on 08:44; Start 12/23/16 at 08:30; Stop 12/23/16 at 08:31; Status DC Linezolid 300 ml @ 300 mls/hr Q12HR IV Last administered on 12/23/16 22:12; Start 12/23/16 at 10:00; Stop 12/24/16 at 09:25; Status DC Potassium Chloride (Klor-Con) 40 meq 1X ONCE PO Last administered on 10:13; Start 12/24/16 at 08:15; Stop 12/24/16 at 08:41; Status DC Piperacillin Sod/ Tazobactam Sod 2.25 gm/Dextrose 50 ml @ 100 mls/hr Q6HRS IV ; Start 12/24/16 at 12:00; Stop 12/24/16 at 12:00; Status DC Piperacillin Sod/ Tazobactam Sod (Zosyn) 2.25 gm Q6HRS IVP ; Start 12/24/16 at 12:00 Active Scripts Active Reported Pravastatin Sodium 40 Mg Tablet 1 Tab PO QHS Celebrex (Celecoxib) 200 Mg Capsule 1 Cap PO DAILY Furosemide 40 Mg Tablet 1 Tab PO DAILY Levothyroxine Sodium 25 Mcg Tablet 1 Tab PO DAILY Triamterene-Hctz 37.5-25 Mg Tb (Triamterene/Hydrochlorothiazid) 1 Each Tablet 1 Tab PO DAILY Potassium Chloride 20 Meq Tablet.er 20 Meq PO DAILY Citalopram Hbr (Citalopram Hydrobromide) 20 Mg Tablet 1 Tab PO DAILY Calcium Acetate 667 Mg Tablet 667 Mg PO DAILY Xanax (Alprazolam) 0.25 Mg Tablet 1 Tab PO PRN BID PRN Vitals/I & O Vital Sign - Last 24 Hours 12/23/16 12/23/16 12/23/16 12/23/16 13:35 15:00 19:00 19:35 Temp 97.5 97.7 97.5 97.7 Pulse 74 81 Resp 16 16 B/P (MAP) 146/87 (106) 129/80 (96) Pulse Ox 96 96 O2 Delivery Room Air Room Air Room Air Room Air 12/23/16 12/24/16 12/24/16 12/24/16 23:00 00:54 01:55 03:00 Temp 97.7 97.7 97.7 97.7 Pulse 81 68 Resp 16 18 16 16 B/P (MAP) 129/80 (96) 126/77 (93) Pulse Ox 96 99 O2 Delivery Room Air Room Air Room Air Room Air 12/24/16 12/24/16 07:00 10:17 Temp 97.7 97.7 Pulse 82 Resp 18 12 B/P (MAP) 116/84 (95) Pulse Ox 96 95 O2 Delivery Room Air Room Air Intake and Output 12/23/16 12/23/16 12/24/16 15:00 23:00 07:00 Intake Total 360 ml 360 ml 3180 ml Output Total 20 ml Balance 360 ml 360 ml 3160 ml XOCHILT SAXENA MD Dec 24, 2016 13:09
--- NOTE | 2016-12-24 14:36 | RAD ---
Renal ultrasound, 12/24/2016: History: Acute renal insufficiency The right kidney measures 13.1 cm in length while the left kidney measures 11.5 cm. There is no evidence of hydronephrosis or a renal mass. The renal parenchymal echogenicity is within normal limits. No abnormal perinephric process is seen. Limited views of urinary bladder show no abnormality. IMPRESSION: No significant renal abnormality is detected.
[2016-12-24 15:00] VITALS: BP 142/88
[2016-12-24] MEDS: PIPERACILLIN/TAZO IV Push 2.25 GM VIAL. IVP SCH ×2 (16:30→20:02)
[2016-12-24 19:30] VITALS: BP 139/80
[2016-12-24] MEDS: ONDANSETRON PF 4 MG/2 ML VIAL. IV PRN (20:02)
[2016-12-24] MEDS: LACTOBACILLUS RHAMNOSUS GG 1 CAPSULE. PO SCH (21:25)
[2016-12-24 23:07] VITALS: BP 140/85
[2016-12-25 03:15] VITALS: BP 139/78
[2016-12-25 05:38] LABS: BASO # 0.1 x10^3/uL (0.0-0.2); BASO % 1 % (0-3); EOS % 3 % (0-3); HEMATOCRIT 35.7 % (36.0-47.0); LYMPH # 0.8 x10^3/uL (1.0-4.8); LYMPH % 8 % (24-48); MEAN CORPUSCULAR HEMOGLOBIN 33 pg (25-35); MEAN CORPUSCULAR HGB CONC 34 g/dL (31-37); MEAN CORPUSCULAR VOLUME 97 fL (79-100); MONO % 9 % (0-9); NEUT % 79 % (31-73); PLATELET COUNT 365 x10^3/uL (140-400); RED CELL DISTRIBUTION WIDTH 14.2 % (11.5-14.5); WHITE BLOOD COUNT 9.6 x10^3/uL (4.0-11.0)
[2016-12-25 05:55] LABS: CALCIUM 9.4 mg/dL (8.5-10.1); CREATININE 2.7 mg/dL (0.6-1.0); POTASSIUM 3.5 mmol/L (3.5-5.1)
[2016-12-25] MEDS: IV RINGERS,LACTATED 1000ML 1,000 ML IV SCH ×3 (06:00→18:17)
[2016-12-25] MEDS: HEPARIN PF for SUB-Q USE 5,000 UNIT/0.5 ML VIAL. SQ SCH ×3 (06:00→22:00)
[2016-12-25] MEDS: PIPERACILLIN/TAZO IV Push 2.25 GM VIAL. IVP SCH ×4 (06:32→17:26)
[2016-12-25] MEDS: LEVOTHYROXINE 25 MCG TABLET. PO SCH (06:32)
[2016-12-25 07:00] VITALS: BP 115/78
--- NOTE | 2016-12-25 08:30 | PDOC ---
SURGICAL PROGRESS NOTE Subjective Pt without c/o, irene PO well Vital Signs Vital Signs Date Time Temp Pulse Resp B/P (MAP) Pulse Ox O2 Delivery O2 Flow Rate FiO2 12/25/16 03:15 98.4 76 18 139/78 (98) 97 Room Air 98.4 12/24/16 08:00 3.0 I&O Intake and Output 12/25/16 07:00 Intake Total 450 ml Output Total 36 ml Balance 414 ml Intake Oral 450 ml Drainage Total 36 ml # Voids 9 # Bowel Movements 4 General: Alert, Oriented X3, Cooperative, No acute distress Abdomen: Soft, No tenderness, Other (GURVINDER with bilious output) Labs Laboratory Tests Test 12/24/16 03:55 12/25/16 04:28 White Blood Count 10.6 x10^3/uL (4.0-11.0) 9.6 x10^3/uL (4.0-11.0) Red Blood Count 3.66 x10^6/uL (3.50-5.40) 3.70 x10^6/uL (3.50-5.40) Hemoglobin 12.0 g/dL (12.0-15.5) 12.0 g/dL (12.0-15.5) Hematocrit 35.4 % (36.0-47.0) 35.7 % (36.0-47.0) Mean Corpuscular Volume 97 fL (79-100) 97 fL (79-100) Mean Corpuscular Hemoglobin 33 pg (25-35) 33 pg (25-35) Mean Corpuscular Hemoglobin Concent 34 g/dL (31-37) 34 g/dL (31-37) Red Cell Distribution Width 13.9 % (11.5-14.5) 14.2 % (11.5-14.5) Platelet Count 346 x10^3/uL (140-400) 365 x10^3/uL (140-400) Neutrophils (%) (Auto) 81 % (31-73) 79 % (31-73) Lymphocytes (%) (Auto) 8 % (24-48) 8 % (24-48) Monocytes (%) (Auto) 9 % (0-9) 9 % (0-9) Eosinophils (%) (Auto) 2 % (0-3) 3 % (0-3) Basophils (%) (Auto) 0 % (0-3) 1 % (0-3) Neutrophils # (Auto) 8.5 x10^3uL (1.8-7.7) 7.6 x10^3uL (1.8-7.7) Lymphocytes # (Auto) 0.9 x10^3/uL (1.0-4.8) 0.8 x10^3/uL (1.0-4.8) Monocytes # (Auto) 0.9 x10^3/uL (0.0-1.1) 0.9 x10^3/uL (0.0-1.1) Eosinophils # (Auto) 0.2 x10^3/uL (0.0-0.7) 0.3 x10^3/uL (0.0-0.7) Basophils # (Auto) 0.0 x10^3/uL (0.0-0.2) 0.1 x10^3/uL (0.0-0.2) Sodium Level 141 mmol/L (136-145) 146 mmol/L (136-145) Potassium Level 3.0 mmol/L (3.5-5.1) 3.5 mmol/L (3.5-5.1) Chloride Level 104 mmol/L (98-107) 108 mmol/L (98-107) Carbon Dioxide Level 27 mmol/L (21-32) 29 mmol/L (21-32) Anion Gap 10 (6-14) 9 (6-14) Blood Urea Nitrogen 13 mg/dL (7-20) 16 mg/dL (7-20) Creatinine 2.4 mg/dL (0.6-1.0) 2.7 mg/dL (0.6-1.0) Estimated GFR (Cockcroft-Gault) 20.6 18.0 Glucose Level 108 mg/dL (70-99) 88 mg/dL (70-99) Calcium Level 8.8 mg/dL (8.5-10.1) 9.4 mg/dL (8.5-10.1) Magnesium Level 2.2 mg/dL (1.8-2.4) Laboratory Tests Test 12/25/16 04:28 White Blood Count 9.6 x10^3/uL (4.0-11.0) Red Blood Count 3.70 x10^6/uL (3.50-5.40) Hemoglobin 12.0 g/dL (12.0-15.5) Hematocrit 35.7 % (36.0-47.0) Mean Corpuscular Volume 97 fL (79-100) Mean Corpuscular Hemoglobin 33 pg (25-35) Mean Corpuscular Hemoglobin Concent 34 g/dL (31-37) Red Cell Distribution Width 14.2 % (11.5-14.5) Platelet Count 365 x10^3/uL (140-400) Neutrophils (%) (Auto) 79 % (31-73) Lymphocytes (%) (Auto) 8 % (24-48) Monocytes (%) (Auto) 9 % (0-9) Eosinophils (%) (Auto) 3 % (0-3) Basophils (%) (Auto) 1 % (0-3) Neutrophils # (Auto) 7.6 x10^3uL (1.8-7.7) Lymphocytes # (Auto) 0.8 x10^3/uL (1.0-4.8) Monocytes # (Auto) 0.9 x10^3/uL (0.0-1.1) Eosinophils # (Auto) 0.3 x10^3/uL (0.0-0.7) Basophils # (Auto) 0.1 x10^3/uL (0.0-0.2) Sodium Level 146 mmol/L (136-145) Potassium Level 3.5 mmol/L (3.5-5.1) Chloride Level 108 mmol/L (98-107) Carbon Dioxide Level 29 mmol/L (21-32) Anion Gap 9 (6-14) Blood Urea Nitrogen 16 mg/dL (7-20) Creatinine 2.7 mg/dL (0.6-1.0) Estimated GFR (Cockcroft-Gault) 18.0 Glucose Level 88 mg/dL (70-99) Calcium Level 9.4 mg/dL (8.5-10.1) Problem List complicated diverticulitis cont abx and drain OK to d/c from surg POV, if cleared by others would send home with drain, given output consider output repeat CT to evaluate, but would hold for now given renal concerns Problems: ANGELO AGGARWAL MD Dec 25, 2016 08:30
[2016-12-25] MEDS: LACTOBACILLUS RHAMNOSUS GG 1 CAPSULE. PO SCH ×2 (08:36→22:00)
[2016-12-25] MEDS: CITALOPRAM 20 MG TABLET. PO SCH (08:36)
[2016-12-25] MEDS: DOCUSATE SODIUM 100 MG CAPSULE. PO SCH ×2 (08:37→21:00)
[2016-12-25 10:09] LABS: BILIRUBIN,URINE NEGATIVE (NEG); GLUCOSE,URINE NEGATIVE (NEG); NITRITE,URINE NEGATIVE (NEG); PROTEIN,URINE NEGATIVE (NEG-TRACE); UROBILINOGEN,URINE 0.2 mg/dL (0.2 mg/dL)
--- NOTE | 2016-12-25 10:36 | PDOC ---
Subjective: Subjective: No pain, wants to go home. Objective: Vital Signs: Vital Signs Date Time Temp Pulse Resp B/P (MAP) Pulse Ox O2 Delivery O2 Flow Rate FiO2 12/25/16 03:15 98.4 76 18 139/78 (98) 97 Room Air 98.4 12/24/16 08:00 3.0 Labs: Laboratory Tests Test 12/25/16 04:28 White Blood Count 9.6 x10^3/uL Red Blood Count 3.70 x10^6/uL Hemoglobin 12.0 g/dL Hematocrit 35.7 % Mean Corpuscular Volume 97 fL Mean Corpuscular Hemoglobin 33 pg Mean Corpuscular Hemoglobin Concent 34 g/dL Red Cell Distribution Width 14.2 % Platelet Count 365 x10^3/uL Neutrophils (%) (Auto) 79 % Lymphocytes (%) (Auto) 8 % Monocytes (%) (Auto) 9 % Eosinophils (%) (Auto) 3 % Basophils (%) (Auto) 1 % Neutrophils # (Auto) 7.6 x10^3uL Lymphocytes # (Auto) 0.8 x10^3/uL Monocytes # (Auto) 0.9 x10^3/uL Eosinophils # (Auto) 0.3 x10^3/uL Basophils # (Auto) 0.1 x10^3/uL Sodium Level 146 mmol/L Potassium Level 3.5 mmol/L Chloride Level 108 mmol/L Carbon Dioxide Level 29 mmol/L Anion Gap 9 Blood Urea Nitrogen 16 mg/dL Creatinine 2.7 mg/dL Estimated GFR (Cockcroft-Gault) 18.0 Glucose Level 88 mg/dL Calcium Level 9.4 mg/dL PE: GEN: NAD, up to chair LUNGS: CTAB HEART: RRR ABD: nontender NEURO/PSYCH: A & O 3 A/P: Diverticular abscess (sigmoid) s/p drain placement -colonoscopy >15 years ago MARVEL -- DC per primary, drain per surg. Discussion of repeat CT, currently holding w/ elevated Cr. PACHECO JORGENSEN Dec 25, 2016 10:36
[2016-12-25 11:00] VITALS: BP 160/84
[2016-12-25 11:21] LABS: BACTERIA,URINE 0 /HPF (0-FEW); RBC,URINE OCC /HPF (0-2); SQUAMOUS EPITHELIAL CELL,UR MOD /LPF
--- NOTE | 2016-12-25 11:48 | PDOC ---
Renal-Progress Notes Subjective Notes Notes FEELS WELL History of Present Illness Hx of present illness STABLE Vitals Vitals Vital Signs Date Time Temp Pulse Resp B/P (MAP) Pulse Ox O2 Delivery O2 Flow Rate FiO2 12/25/16 08:00 Room Air 12/25/16 07:00 96.6 86 18 115/78 (90) 93 96.6 12/24/16 08:00 3.0 Weight Weight [ ] I.O. Intake and Output Intake and Output 12/25/16 07:00 Intake Total 450 ml Output Total 36 ml Balance 414 ml Intake Oral 450 ml Drainage Total 36 ml # Voids 9 # Bowel Movements 4 Labs Labs Laboratory Tests Test 12/25/16 04:28 12/25/16 06:00 White Blood Count 9.6 x10^3/uL (4.0-11.0) Red Blood Count 3.70 x10^6/uL (3.50-5.40) Hemoglobin 12.0 g/dL (12.0-15.5) Hematocrit 35.7 % (36.0-47.0) Mean Corpuscular Volume 97 fL (79-100) Mean Corpuscular Hemoglobin 33 pg (25-35) Mean Corpuscular Hemoglobin Concent 34 g/dL (31-37) Red Cell Distribution Width 14.2 % (11.5-14.5) Platelet Count 365 x10^3/uL (140-400) Neutrophils (%) (Auto) 79 % (31-73) Lymphocytes (%) (Auto) 8 % (24-48) Monocytes (%) (Auto) 9 % (0-9) Eosinophils (%) (Auto) 3 % (0-3) Basophils (%) (Auto) 1 % (0-3) Neutrophils # (Auto) 7.6 x10^3uL (1.8-7.7) Lymphocytes # (Auto) 0.8 x10^3/uL (1.0-4.8) Monocytes # (Auto) 0.9 x10^3/uL (0.0-1.1) Eosinophils # (Auto) 0.3 x10^3/uL (0.0-0.7) Basophils # (Auto) 0.1 x10^3/uL (0.0-0.2) Sodium Level 146 mmol/L (136-145) Potassium Level 3.5 mmol/L (3.5-5.1) Chloride Level 108 mmol/L (98-107) Carbon Dioxide Level 29 mmol/L (21-32) Anion Gap 9 (6-14) Blood Urea Nitrogen 16 mg/dL (7-20) Creatinine 2.7 mg/dL (0.6-1.0) Estimated GFR (Cockcroft-Gault) 18.0 Glucose Level 88 mg/dL (70-99) Calcium Level 9.4 mg/dL (8.5-10.1) Urine Collection Type Unknown Urine Color Yellow Urine Clarity Clear Urine pH 6.0 Urine Specific [place] <=1.005 Urine Protein Negative mg/dL (NEG-TRACE) Urine Glucose (UA) Negative mg/dL (NEG) Urine Ketones (Stick) Negative mg/dL (NEG) Urine Blood Moderate (NEG) Urine Nitrite Negative (NEG) Urine Bilirubin Negative (NEG) Urine Urobilinogen Dipstick 0.2 mg/dL (0.2 mg/dL) Urine Leukocyte Esterase Negative (NEG) Urine RBC Occ /HPF (0-2) Urine WBC 1-4 /HPF (0-4) Urine Squamous Epithelial Cells Mod /LPF Urine Bacteria 0 /HPF (0-FEW) Micro Micro Microbiology 12/21/16 Gram Stain - Final, Complete Review of Systems Constitutional: yes: alert, oriented Ears/Nose/Throat: Yes: no symptom reported Eyes: Yes: no symptom reported Pulmonary: Yes no symptom reported Cardiovascular: Yes no symptom reported Gastrointestional: Yes: constipation Genitourinary: Yes: no symptom reported Musculoskeletal: Yes: muscle stiffness Skin: Yes no symptom reported Psychiatric/Neurological: Yes: no symptom reported Endocrine: Yes: no symptom reported Hematologic/Lymphatic: Yes: no symptom reported Physical Exam General Appearance: no apparent distress Skin: warm, dry Respiratory: bilateral CTA Heart: S1S2, RRR Abdomen: soft, bowel sounds present Genitourinary: bladder flat Extremities: pulses present, no edema Neurology: alert, oriented Assessment Assessment IMP PERIRECTAL ABSCESS S/P DRAIN BY IR MARVEL-ATN-CR UP TO 2.7-NO CKD HX HYPOKALEMIA - RESOLVED PLAN ANTIBIOTICS CONT WITH IVF'S UA NEG FOR NEPHRITIS ARINA LAUREANO MD Dec 25, 2016 11:48
[2016-12-25 15:00] VITALS: BP 158/85
--- NOTE | 2016-12-25 15:26 | PDOC ---
PROGRESS NOTES Chief Complaint Chief Complaint 1. Sigmoid diverticultuis with ?perforation with [address] post abscess drain on 12/21 2 sepsis 3. Leukocytosis 4. Obesity 5. HTN hypophophatemia hypokalemia MARVEL, ATN with contrast, vanco plan: fu with gi, ir, sx post abscess drain on 12/21 cont some home meds, hold lasix cont ivf clear liquid diet advance to full liquid as per sx pain control dvt ppx replete JOAN, K dc vanco given Marvel, dc zyvox, cont zosyn ,fu cx. ID consult labs tmr check cdiff renal consulted renal US normal dc when Cr better, keep ARMOND drainage as per sx History of Present Illness History of Present Illness ROS: no fever, chills, sob or chest pain low joan IR for abscess drain 12/21, ARMOND in, 20cc 24h now higher WBC, then down to 9.6 today HIGHER Cr from 1 to 2.7 now abd pain Rt side better, new left side abd pain also better diarrhea 12/22 loose abscess cx+ enteroccocus, bacteroids, sens to vanco , PCN Vitals Vitals Vital Signs Date Time Temp Pulse Resp B/P (MAP) Pulse Ox O2 Delivery O2 Flow Rate FiO2 12/25/16 11:00 98.1 86 18 160/84 (109) 92 Room Air 98.1 12/24/16 08:00 3.0 Physical Exam Physical Exam right flank 1 Armond with some sangeous fluid General: Alert, Oriented X3, Cooperative, No acute distress Heart: Regular rate, Normal S1, Normal S2 Lungs: Clear Abdomen: Soft, No tenderness, Other (ARMOND with bilious output) Extremities: No clubbing Skin: No breakdown Labs LABS Laboratory Tests Test 12/25/16 04:28 12/25/16 06:00 White Blood Count 9.6 x10^3/uL (4.0-11.0) Red Blood Count 3.70 x10^6/uL (3.50-5.40) Hemoglobin 12.0 g/dL (12.0-15.5) Hematocrit 35.7 % (36.0-47.0) Mean Corpuscular Volume 97 fL (79-100) Mean Corpuscular Hemoglobin 33 pg (25-35) Mean Corpuscular Hemoglobin Concent 34 g/dL (31-37) Red Cell Distribution Width 14.2 % (11.5-14.5) Platelet Count 365 x10^3/uL (140-400) Neutrophils (%) (Auto) 79 % (31-73) Lymphocytes (%) (Auto) 8 % (24-48) Monocytes (%) (Auto) 9 % (0-9) Eosinophils (%) (Auto) 3 % (0-3) Basophils (%) (Auto) 1 % (0-3) Neutrophils # (Auto) 7.6 x10^3uL (1.8-7.7) Lymphocytes # (Auto) 0.8 x10^3/uL (1.0-4.8) Monocytes # (Auto) 0.9 x10^3/uL (0.0-1.1) Eosinophils # (Auto) 0.3 x10^3/uL (0.0-0.7) Basophils # (Auto) 0.1 x10^3/uL (0.0-0.2) Sodium Level 146 mmol/L (136-145) Potassium Level 3.5 mmol/L (3.5-5.1) Chloride Level 108 mmol/L (98-107) Carbon Dioxide Level 29 mmol/L (21-32) Anion Gap 9 (6-14) Blood Urea Nitrogen 16 mg/dL (7-20) Creatinine 2.7 mg/dL (0.6-1.0) Estimated GFR (Cockcroft-Gault) 18.0 Glucose Level 88 mg/dL (70-99) Calcium Level 9.4 mg/dL (8.5-10.1) Urine Collection Type Unknown Urine Color Yellow Urine Clarity Clear Urine pH 6.0 Urine Specific [place] <=1.005 Urine Protein Negative mg/dL (NEG-TRACE) Urine Glucose (UA) Negative mg/dL (NEG) Urine Ketones (Stick) Negative mg/dL (NEG) Urine Blood Moderate (NEG) Urine Nitrite Negative (NEG) Urine Bilirubin Negative (NEG) Urine Urobilinogen Dipstick 0.2 mg/dL (0.2 mg/dL) Urine Leukocyte Esterase Negative (NEG) Urine RBC Occ /HPF (0-2) Urine WBC 1-4 /HPF (0-4) Urine Squamous Epithelial Cells Mod /LPF Urine Bacteria 0 /HPF (0-FEW) Comment Review of Relevant I have reviewed the following items kevin (where applicable) has been applied. Labs Laboratory Tests Test 12/24/16 03:55 12/25/16 04:28 12/25/16 06:00 White Blood Count 10.6 x10^3/uL (4.0-11.0) 9.6 x10^3/uL (4.0-11.0) Red Blood Count 3.66 x10^6/uL (3.50-5.40) 3.70 x10^6/uL (3.50-5.40) Hemoglobin 12.0 g/dL (12.0-15.5) 12.0 g/dL (12.0-15.5) Hematocrit 35.4 % (36.0-47.0) 35.7 % (36.0-47.0) Mean Corpuscular Volume 97 fL (79-100) 97 fL (79-100) Mean Corpuscular Hemoglobin 33 pg (25-35) 33 pg (25-35) Mean Corpuscular Hemoglobin Concent 34 g/dL (31-37) 34 g/dL (31-37) Red Cell Distribution Width 13.9 % (11.5-14.5) 14.2 % (11.5-14.5) Platelet Count 346 x10^3/uL (140-400) 365 x10^3/uL (140-400) Neutrophils (%) (Auto) 81 % (31-73) 79 % (31-73) Lymphocytes (%) (Auto) 8 % (24-48) 8 % (24-48) Monocytes (%) (Auto) 9 % (0-9) 9 % (0-9) Eosinophils (%) (Auto) 2 % (0-3) 3 % (0-3) Basophils (%) (Auto) 0 % (0-3) 1 % (0-3) Neutrophils # (Auto) 8.5 x10^3uL (1.8-7.7) 7.6 x10^3uL (1.8-7.7) Lymphocytes # (Auto) 0.9 x10^3/uL (1.0-4.8) 0.8 x10^3/uL (1.0-4.8) Monocytes # (Auto) 0.9 x10^3/uL (0.0-1.1) 0.9 x10^3/uL (0.0-1.1) Eosinophils # (Auto) 0.2 x10^3/uL (0.0-0.7) 0.3 x10^3/uL (0.0-0.7) Basophils # (Auto) 0.0 x10^3/uL (0.0-0.2) 0.1 x10^3/uL (0.0-0.2) Sodium Level 141 mmol/L (136-145) 146 mmol/L (136-145) Potassium Level 3.0 mmol/L (3.5-5.1) 3.5 mmol/L (3.5-5.1) Chloride Level 104 mmol/L (98-107) 108 mmol/L (98-107) Carbon Dioxide Level 27 mmol/L (21-32) 29 mmol/L (21-32) Anion Gap 10 (6-14) 9 (6-14) Blood Urea Nitrogen 13 mg/dL (7-20) 16 mg/dL (7-20) Creatinine 2.4 mg/dL (0.6-1.0) 2.7 mg/dL (0.6-1.0) Estimated GFR (Cockcroft-Gault) 20.6 18.0 Glucose Level 108 mg/dL (70-99) 88 mg/dL (70-99) Calcium Level 8.8 mg/dL (8.5-10.1) 9.4 mg/dL (8.5-10.1) Magnesium Level 2.2 mg/dL (1.8-2.4) Urine Collection Type Unknown Urine Color Yellow Urine Clarity Clear Urine pH 6.0 Urine Specific [place] <=1.005 Urine Protein Negative mg/dL (NEG-TRACE) Urine Glucose (UA) Negative mg/dL (NEG) Urine Ketones (Stick) Negative mg/dL (NEG) Urine Blood Moderate (NEG) Urine Nitrite Negative (NEG) Urine Bilirubin Negative (NEG) Urine Urobilinogen Dipstick 0.2 mg/dL (0.2 mg/dL) Urine Leukocyte Esterase Negative (NEG) Urine RBC Occ /HPF (0-2) Urine WBC 1-4 /HPF (0-4) Urine Squamous Epithelial Cells Mod /LPF Urine Bacteria 0 /HPF (0-FEW) Laboratory Tests Test 12/25/16 04:28 12/25/16 06:00 White Blood Count 9.6 x10^3/uL (4.0-11.0) Red Blood Count 3.70 x10^6/uL (3.50-5.40) Hemoglobin 12.0 g/dL (12.0-15.5) Hematocrit 35.7 % (36.0-47.0) Mean Corpuscular Volume 97 fL (79-100) Mean Corpuscular Hemoglobin 33 pg (25-35) Mean Corpuscular Hemoglobin Concent 34 g/dL (31-37) Red Cell Distribution Width 14.2 % (11.5-14.5) Platelet Count 365 x10^3/uL (140-400) Neutrophils (%) (Auto) 79 % (31-73) Lymphocytes (%) (Auto) 8 % (24-48) Monocytes (%) (Auto) 9 % (0-9) Eosinophils (%) (Auto) 3 % (0-3) Basophils (%) (Auto) 1 % (0-3) Neutrophils # (Auto) 7.6 x10^3uL (1.8-7.7) Lymphocytes # (Auto) 0.8 x10^3/uL (1.0-4.8) Monocytes # (Auto) 0.9 x10^3/uL (0.0-1.1) Eosinophils # (Auto) 0.3 x10^3/uL (0.0-0.7) Basophils # (Auto) 0.1 x10^3/uL (0.0-0.2) Sodium Level 146 mmol/L (136-145) Potassium Level 3.5 mmol/L (3.5-5.1) Chloride Level 108 mmol/L (98-107) Carbon Dioxide Level 29 mmol/L (21-32) Anion Gap 9 (6-14) Blood Urea Nitrogen 16 mg/dL (7-20) Creatinine 2.7 mg/dL (0.6-1.0) Estimated GFR (Cockcroft-Gault) 18.0 Glucose Level 88 mg/dL (70-99) Calcium Level 9.4 mg/dL (8.5-10.1) Urine Collection Type Unknown Urine Color Yellow Urine Clarity Clear Urine pH 6.0 Urine Specific [place] <=1.005 Urine Protein Negative mg/dL (NEG-TRACE) Urine Glucose (UA) Negative mg/dL (NEG) Urine Ketones (Stick) Negative mg/dL (NEG) Urine Blood Moderate (NEG) Urine Nitrite Negative (NEG) Urine Bilirubin Negative (NEG) Urine Urobilinogen Dipstick 0.2 mg/dL (0.2 mg/dL) Urine Leukocyte Esterase Negative (NEG) Urine RBC Occ /HPF (0-2) Urine WBC 1-4 /HPF (0-4) Urine Squamous Epithelial Cells Mod /LPF Urine Bacteria 0 /HPF (0-FEW) Microbiology 12/21/16 Gram Stain - Final, Complete Medications Current Medications Ondansetron HCl (Zofran) 4 mg PRN Q6HRS PRN IV NAUSEA/VOMITING (1st Choice) Last administered on 12/24/16 20:02; Start 12/20/16 at 14:45 Prochlorperazine Edisylate (Compazine) 10 mg PRN Q6HRS PRN IV NAUSEA/VOMITING ( 2nd Choice); Start 12/20/16 at 14:45 Prochlorperazine (Compazine) 25 mg PRN Q12HR PRN IN NAUSEA/VOMITING; Start 01/24 at 14:45 Oxycodone HCl (Roxicodone) 5 mg PRN Q3HRS PRN PO BREAKTHROUGH PAIN Last administered on 12/24/16 20:02; Start 12/20/16 at 14:45 Morphine Sulfate 2 mg PRN Q2HR PRN IV MODERATE PAIN; Start 12/20/16 at 14:45 Acetaminophen (Tylenol) 650 mg PRN Q6HRS PRN PO Headaches, Temp > 101.5F Last administered on 12/22/16 00:03; Start 12/20/16 at 14:45 Docusate Sodium (Colace) 100 mg BID PO Last administered on 12/21/16 21:57; Start 12/20/16 at 21:00 Magnesium Hydroxide (Milk Of Magnesia) 2,400 mg PRN Q12HR PRN PO CONSTIPATION; Start 12/20/16 at 14:45 Bisacodyl (Dulcolax Supp) 10 mg PRN DAILY PRN IN CONSTIPATION; Start 12/20/16 at 14:45 Ringer's Solution 1,000 ml @ 100 mls/hr Q10H IV Last administered on 08:37; Start 12/20/16 at 16:00 Piperacillin Sod/ Tazobactam Sod (Zosyn Per Pharmacy) 1 each PRN DAILY PRN MC SEE COMMENTS; Start 12/20/16 at 14:45 Fentanyl Citrate (Fentanyl 2ml Vial) 50 mcg PRN Q2HR PRN IV SEVERE PAIN Last administered on 12/22/16 22:52; Start 12/20/16 at 14:45 Acetaminophen (Tylenol) 325 mg PRN Q6HRS PRN IN MILD PAIN / TEMP Last administered on 12/20/16 20:16; Start 12/20/16 at 14:45 Piperacillin Sod/ Tazobactam Sod (Zosyn) 3.375 gm Q6HRS IVP Last administered on 12/24/16 06:27; Start 12/20/16 at 18:00; Stop 12/24/16 at 09:25; Status DC Albuterol Sulfate (Ventolin Neb Soln) 2.5 mg PRN Q2HR PRN NEB SHORTNESS OF BREATH Last administered on 12/22/16 08:02; Start 12/21/16 at 00:45 Lidocaine/Sodium Bicarbonate (Buffered Lidocaine 1%) 20 ml STK-MED ONCE IJ ; Start 12/21/16 at 10:43; Stop 12/21/16 at 10:44; Status DC Fentanyl Citrate (Fentanyl 2ml Vial) 100 mcg STK-MED ONCE .ROUTE ; Start at 10:57; Stop 12/21/16 at 10:58; Status DC Midazolam HCl (Versed) 2 mg STK-MED ONCE .ROUTE ; Start 12/21/16 at 10:57; Stop 12/21/16 at 10:58; Status DC Lidocaine/Sodium Bicarbonate (Buffered Lidocaine 1%) 20 ml 1X ONCE IJ Last administered on 12/21/16 11:44; Start 12/21/16 at 11:15; Stop 12/21/16 at 11 :16; Status DC Midazolam HCl (Versed) 2 mg 1X ONCE IV Last administered on 12/21/16 11:44; Start 12/21/16 at 11:15; Stop 12/21/16 at 11:16; Status DC Fentanyl Citrate (Fentanyl 2ml Vial) 100 mcg 1X ONCE IV Last administered on 12/21/16 11:45; Start 12/21/16 at 11:15; Stop 12/21/16 at 11:16; Status DC Sodium Phosphate 20 mmol/Dextrose 256.6667 ml @ 64.167 m... 1X ONCE IV Last administered on 12/21/16 12:00; Start 12/21/16 at 12:00; Stop 12/21/16 at 15 :59; Status DC Alprazolam (Xanax) 0.25 mg PRN BID PRN PO ANXIETY / AGITATION; Start 12/21/16 at 15:00 Citalopram Hydrobromide (CeleXA) 20 mg DAILY PO Last administered on 08:36; Start 12/21/16 at 16:00 Levothyroxine Sodium (Synthroid) 25 mcg DAILY07 PO Last administered on 06:32; Start 12/21/16 at 16:00 Atorvastatin Calcium (Lipitor) 10 mg QHS PO ; Start 12/21/16 at 21:00; Stop at 22:04; Status DC Vancomycin HCl 2 gm/Dextrose 500 ml @ 250 mls/hr Q12H IV ; Start 12/21/16 at 15:00; Status UNV Vancomycin HCl (Vanco Per Pharmacy) 1 each PRN DAILY PRN MC SEE COMMENTS Last administered on 12/21/16 18:45; Start 12/21/16 at 15:00; Stop 12/23/16 at 09 :45; Status DC Heparin Sodium (Porcine) (Heparin Sq) 5,000 unit Q8HRS SQ Last administered on 12/22/16 14:40; Start 12/21/16 at 22:00 Vancomycin HCl 2 gm/Dextrose 500 ml @ 250 mls/hr 1X ONCE IV Last administered on 12/21/16 17:15; Start 12/21/16 at 16:00; Stop 12/21/16 at 17 :59; Status DC Vancomycin HCl 2 gm/Dextrose 500 ml @ 250 mls/hr Q12H IV Last administered on 12/22/16 20:10; Start 12/22/16 at 05:00; Stop 12/23/16 at 09:45; Status DC Vancomycin HCl 1 each 1X ONCE MC ; Start 12/23/16 at 09:30; Stop 12/23/16 at 09:31; Status DC Potassium Phosphate 10 mmol/ Sodium Chloride 103.3333 ml @ 51.667 m... Q2H IV Last administered on 12/22/16 14:30; Start 12/22/16 at 09:00; Stop 12/22/16 at 12:59; Status DC Potassium Chloride (Klor-Con) 40 meq 1X ONCE PO Last administered on 08:44; Start 12/23/16 at 08:30; Stop 12/23/16 at 08:31; Status DC Linezolid 300 ml @ 300 mls/hr Q12HR IV Last administered on 12/23/16 22:12; Start 12/23/16 at 10:00; Stop 12/24/16 at 09:25; Status DC Potassium Chloride (Klor-Con) 40 meq 1X ONCE PO Last administered on 10:13; Start 12/24/16 at 08:15; Stop 12/24/16 at 08:41; Status DC Piperacillin Sod/ Tazobactam Sod 2.25 gm/Dextrose 50 ml @ 100 mls/hr Q6HRS IV ; Start 12/24/16 at 12:00; Stop 12/24/16 at 12:00; Status DC Piperacillin Sod/ Tazobactam Sod (Zosyn) 2.25 gm Q6HRS IVP Last administered on 12/25/16 12:28; Start 12/24/16 at 12:00 Lactobacillus Rhamnosus (Culturelle) 1 cap BID PO Last administered on 08:36; Start 12/24/16 at 21:00 Active Scripts Active Reported Pravastatin Sodium 40 Mg Tablet 1 Tab PO QHS Celebrex (Celecoxib) 200 Mg Capsule 1 Cap PO DAILY Furosemide 40 Mg Tablet 1 Tab PO DAILY Levothyroxine Sodium 25 Mcg Tablet 1 Tab PO DAILY Triamterene-Hctz 37.5-25 Mg Tb (Triamterene/Hydrochlorothiazid) 1 Each Tablet 1 Tab PO DAILY Potassium Chloride 20 Meq Tablet.er 20 Meq PO DAILY Citalopram Hbr (Citalopram Hydrobromide) 20 Mg Tablet 1 Tab PO DAILY Calcium Acetate 667 Mg Tablet 667 Mg PO DAILY Xanax (Alprazolam) 0.25 Mg Tablet 1 Tab PO PRN BID PRN Vitals/I & O Vital Sign - Last 24 Hours 12/24/16 12/24/16 12/24/16 12/24/16 15:57 19:30 20:02 20:30 Temp 97.7 97.7 Pulse 79 Resp 18 12 B/P (MAP) 139/80 (99) Pulse Ox 97 95 95 O2 Delivery Room Air Room Air Room Air Room Air 12/24/16 12/24/16 12/25/16 12/25/16 21:10 23:07 03:15 07:00 Temp 98.4 98.4 96.6 98.4 98.4 96.6 Pulse 88 76 86 Resp 18 18 18 18 B/P (MAP) 140/85 (103) 139/78 (98) 115/78 (90) Pulse Ox 95 96 97 93 O2 Delivery Room Air Room Air Room Air Room Air 12/25/16 12/25/16 08:00 11:00 Temp 98.1 98.1 Pulse 86 Resp 18 B/P (MAP) 160/84 (109) Pulse Ox 92 O2 Delivery Room Air Room Air Intake and Output 12/24/16 12/24/16 12/25/16 15:00 23:00 07:00 Intake Total 450 ml Output Total 35 ml 1 ml Balance -35 ml 449 ml XOCHILT SAXENA MD Dec 25, 2016 15:25
[2016-12-25 20:10] VITALS: BP 166/92
[2016-12-25 23:00] VITALS: BP 143/93
[2016-12-25] MEDS: ALPRAZolam 0.25 MG TABLET PO PRN (23:10)
[2016-12-26 03:00] VITALS: BP 162/89
[2016-12-26] MEDS: IV RINGERS,LACTATED 1000ML 1,000 ML IV SCH (03:44)
[2016-12-26] MEDS: PIPERACILLIN/TAZO IV Push 2.25 GM VIAL. IVP SCH ×4 (05:38→17:57)
[2016-12-26] MEDS: HEPARIN PF for SUB-Q USE 5,000 UNIT/0.5 ML VIAL. SQ SCH ×3 (05:40→22:00)
[2016-12-26 05:52] LABS: BASO % 1 % (0-3); EOS % 3 % (0-3); HEMATOCRIT 32.7 % (36.0-47.0); HEMOGLOBIN 10.9 g/dL (12.0-15.5); LYMPH # 0.8 x10^3/uL (1.0-4.8); LYMPH % 9 % (24-48); MEAN CORPUSCULAR HEMOGLOBIN 32 pg (25-35); MEAN CORPUSCULAR HGB CONC 33 g/dL (31-37); MEAN CORPUSCULAR VOLUME 96 fL (79-100); MONO % 9 % (0-9); NEUT % 79 % (31-73); PLATELET COUNT 329 x10^3/uL (140-400); RED CELL DISTRIBUTION WIDTH 13.8 % (11.5-14.5)
[2016-12-26] MEDS: LEVOTHYROXINE 25 MCG TABLET. PO SCH (06:06)
[2016-12-26 06:28] LABS: CALCIUM 9.2 mg/dL (8.5-10.1); CREATININE 3.1 mg/dL (0.6-1.0); GFR 15.3; POTASSIUM 3.3 mmol/L (3.5-5.1)
[2016-12-26 08:02] VITALS: BP 158/92
--- NOTE | 2016-12-26 08:34 | PDOC ---
ZAC LEE [employer] 12/26/16 0834: SURGICAL PROGRESS NOTE Subjective denies pain food bland Vital Signs Vital Signs Date Time Temp Pulse Resp B/P (MAP) Pulse Ox O2 Delivery O2 Flow Rate FiO2 12/26/16 08:02 98.1 67 16 158/92 (114) 95 Room Air 98.1 I&O Intake and Output 12/26/16 06:59 Intake Total 4671 ml Output Total 2815 ml Balance 1856 ml Intake Oral 3040 ml IV Total 1631 ml Output Urine Total 2800 ml Drainage Total 15 ml General: Alert, Oriented X3, Cooperative, No acute distress Abdomen: Soft, Other (drain purulent ) Labs Laboratory Tests Test 12/25/16 04:28 12/25/16 06:00 12/26/16 05:15 White Blood Count 9.6 x10^3/uL (4.0-11.0) 9.0 x10^3/uL (4.0-11.0) Red Blood Count 3.70 x10^6/uL (3.50-5.40) 3.40 x10^6/uL (3.50-5.40) Hemoglobin 12.0 g/dL (12.0-15.5) 10.9 g/dL (12.0-15.5) Hematocrit 35.7 % (36.0-47.0) 32.7 % (36.0-47.0) Mean Corpuscular Volume 97 fL (79-100) 96 fL (79-100) Mean Corpuscular Hemoglobin 33 pg (25-35) 32 pg (25-35) Mean Corpuscular Hemoglobin Concent 34 g/dL (31-37) 33 g/dL (31-37) Red Cell Distribution Width 14.2 % (11.5-14.5) 13.8 % (11.5-14.5) Platelet Count 365 x10^3/uL (140-400) 329 x10^3/uL (140-400) Neutrophils (%) (Auto) 79 % (31-73) 79 % (31-73) Lymphocytes (%) (Auto) 8 % (24-48) 9 % (24-48) Monocytes (%) (Auto) 9 % (0-9) 9 % (0-9) Eosinophils (%) (Auto) 3 % (0-3) 3 % (0-3) Basophils (%) (Auto) 1 % (0-3) 1 % (0-3) Neutrophils # (Auto) 7.6 x10^3uL (1.8-7.7) 7.0 x10^3uL (1.8-7.7) Lymphocytes # (Auto) 0.8 x10^3/uL (1.0-4.8) 0.8 x10^3/uL (1.0-4.8) Monocytes # (Auto) 0.9 x10^3/uL (0.0-1.1) 0.8 x10^3/uL (0.0-1.1) Eosinophils # (Auto) 0.3 x10^3/uL (0.0-0.7) 0.3 x10^3/uL (0.0-0.7) Basophils # (Auto) 0.1 x10^3/uL (0.0-0.2) 0.0 x10^3/uL (0.0-0.2) Sodium Level 146 mmol/L (136-145) 146 mmol/L (136-145) Potassium Level 3.5 mmol/L (3.5-5.1) 3.3 mmol/L (3.5-5.1) Chloride Level 108 mmol/L (98-107) 108 mmol/L (98-107) Carbon Dioxide Level 29 mmol/L (21-32) 29 mmol/L (21-32) Anion Gap 9 (6-14) 9 (6-14) Blood Urea Nitrogen 16 mg/dL (7-20) 17 mg/dL (7-20) Creatinine 2.7 mg/dL (0.6-1.0) 3.1 mg/dL (0.6-1.0) Estimated GFR (Cockcroft-Gault) 18.0 15.3 Glucose Level 88 mg/dL (70-99) 89 mg/dL (70-99) Calcium Level 9.4 mg/dL (8.5-10.1) 9.2 mg/dL (8.5-10.1) Urine Collection Type Unknown Urine Color Yellow Urine Clarity Clear Urine pH 6.0 Urine Specific [place] <=1.005 Urine Protein Negative mg/dL (NEG-TRACE) Urine Glucose (UA) Negative mg/dL (NEG) Urine Ketones (Stick) Negative mg/dL (NEG) Urine Blood Moderate (NEG) Urine Nitrite Negative (NEG) Urine Bilirubin Negative (NEG) Urine Urobilinogen Dipstick 0.2 mg/dL (0.2 mg/dL) Urine Leukocyte Esterase Negative (NEG) Urine RBC Occ /HPF (0-2) Urine WBC 1-4 /HPF (0-4) Urine Squamous Epithelial Cells Mod /LPF Urine Bacteria 0 /HPF (0-FEW) Laboratory Tests Test 12/26/16 05:15 White Blood Count 9.0 x10^3/uL (4.0-11.0) Red Blood Count 3.40 x10^6/uL (3.50-5.40) Hemoglobin 10.9 g/dL (12.0-15.5) Hematocrit 32.7 % (36.0-47.0) Mean Corpuscular Volume 96 fL (79-100) Mean Corpuscular Hemoglobin 32 pg (25-35) Mean Corpuscular Hemoglobin Concent 33 g/dL (31-37) Red Cell Distribution Width 13.8 % (11.5-14.5) Platelet Count 329 x10^3/uL (140-400) Neutrophils (%) (Auto) 79 % (31-73) Lymphocytes (%) (Auto) 9 % (24-48) Monocytes (%) (Auto) 9 % (0-9) Eosinophils (%) (Auto) 3 % (0-3) Basophils (%) (Auto) 1 % (0-3) Neutrophils # (Auto) 7.0 x10^3uL (1.8-7.7) Lymphocytes # (Auto) 0.8 x10^3/uL (1.0-4.8) Monocytes # (Auto) 0.8 x10^3/uL (0.0-1.1) Eosinophils # (Auto) 0.3 x10^3/uL (0.0-0.7) Basophils # (Auto) 0.0 x10^3/uL (0.0-0.2) Sodium Level 146 mmol/L (136-145) Potassium Level 3.3 mmol/L (3.5-5.1) Chloride Level 108 mmol/L (98-107) Carbon Dioxide Level 29 mmol/L (21-32) Anion Gap 9 (6-14) Blood Urea Nitrogen 17 mg/dL (7-20) Creatinine 3.1 mg/dL (0.6-1.0) Estimated GFR (Cockcroft-Gault) 15.3 Glucose Level 89 mg/dL (70-99) Calcium Level 9.2 mg/dL (8.5-10.1) Problem List abscess continue drain advance diet as per renal and medicine Problems: ANGELO AGGARWAL MD 12/26/16 1103: SURGICAL PROGRESS NOTE Problem List PT seen and examined. Agree with Ms. Lee's note Pt denies complaints abd soft, NTTP, drain with clearing green serous output cont abx and drain OK to d/c when cleared by others with drain and f/u CT Problems: ZAC LEE APRN Dec 26, 2016 08:34 ANGELO AGGARWAL MD Dec 26, 2016 11:03
[2016-12-26] MEDS: DOCUSATE SODIUM 100 MG CAPSULE. PO SCH ×2 (09:00→21:00)
[2016-12-26] MEDS: CITALOPRAM 20 MG TABLET. PO SCH (09:08)
[2016-12-26] MEDS: LACTOBACILLUS RHAMNOSUS GG 1 CAPSULE. PO SCH ×2 (09:09→21:00)
[2016-12-26 11:40] VITALS: BP 160/81
--- NOTE | 2016-12-26 11:42 | PDOC ---
SUBJECTIVE ROS MARVEL Feels good enough to go home CVS: no Orthopnea, no CP RESP: no SOB, no LEACH GI: no Nausea, no Vomiting : no Dysuria, no Urgency OBJECTIVE Vital Signs Vital Signs Date Time Temp Pulse Resp B/P (MAP) Pulse Ox O2 Delivery O2 Flow Rate FiO2 12/26/16 08:02 98.1 67 16 158/92 (114) 95 Room Air 98.1 I & 0 Intake and Output 12/26/16 06:59 Intake Total 4671 ml Output Total 2815 ml Balance 1856 ml Intake Oral 3040 ml IV Total 1631 ml Output Urine Total 2800 ml Drainage Total 15 ml PHYSICAL EXAM Physical Exam GEN: Awake, Oriented x 3, In no distress EYES: Vision Unchanged, Conjunctiva Normal EN: No EN Drainage, Mucous Membranes moist NECK: no JVD, no JVP, Supple, no Thyromegaly CVS: S1S2, no Murmur, No Gallop, No Rub,no pitting Edema RESP: no Rales, no Rhonchi,no Acc. Muscle Use GI: BS + ve, NO Bruit, Non Tender, Non Distended : n CVA tenderness, calli Suprapubic Tenderness DIAGNOSIS/ASSESSMENT Assessment & Plan MARVEL/ ATN: Current fluid and E-lyte status does not necessitate emergent need for dialysis. Will re-evaluate for dialysis in the am ? Oliguria as documented - pt claims sheis going more today - ct IVF ^ed Na - PPN added to make IVF hypotonic since I cannot order 0.45 NS due to national shortage Low k - Remains on replacment; check Mag Problems: COMMENT/RELEVANT DATA Meds Current Medications Medications (Trade) Dose Ordered Sig/Evert Start Time Stop Time Status Last Admin Dose Admin Acetaminophen (Tylenol) 325 mg PRN Q6HRS PRN 12/20/16 14:45 12/20/16 20:16 325 MG Albuterol Sulfate (Ventolin Neb Soln) 2.5 mg PRN Q2HR PRN 12/21/16 00:45 12/22/16 08:02 2.5 MG Alprazolam (Xanax) 0.25 mg PRN BID PRN 12/21/16 15:00 12/25/16 23:10 0.25 MG Atorvastatin Calcium (Lipitor) 10 mg QHS 12/21/16 21:00 12/21/16 22:04 DC Bisacodyl (Dulcolax Supp) 10 mg PRN DAILY PRN 12/20/16 14:45 Citalopram Hydrobromide (CeleXA) 20 mg DAILY 12/21/16 16:00 12/26/16 09:08 20 MG Docusate Sodium (Colace) 100 mg BID 12/20/16 21:00 12/21/16 21:57 100 MG Fentanyl Citrate (Fentanyl 2ml Vial) 100 mcg 1X ONCE 12/21/16 11:15 12/21/16 11:16 DC 12/21/16 11:45 100 MCG Heparin Sodium (Porcine) (Heparin Sq) 5,000 unit Q8HRS 12/21/16 22:00 12/22/16 14:40 5,000 UNIT Lactobacillus Rhamnosus (Culturelle) 1 cap BID 12/24/16 21:00 12/26/16 09:09 1 CAP Levothyroxine Sodium (Synthroid) 25 mcg DAILY07 12/21/16 16:00 12/26/16 06:06 25 MCG Lidocaine/Sodium Bicarbonate (Buffered Lidocaine 1%) 20 ml 1X ONCE 12/21/16 11:15 12/21/16 11:16 DC 12/21/16 11:44 20 ML Linezolid 300 ml @ 300 mls/hr Q12HR 12/23/16 10:00 12/24/16 09:25 DC 12/23/16 22:12 300 MLS/HR Magnesium Hydroxide (Milk Of Magnesia) 2,400 mg PRN Q12HR PRN 12/20/16 14:45 Midazolam HCl (Versed) 2 mg 1X ONCE 12/21/16 11:15 12/21/16 11:16 DC 12/21/16 11:44 2 MG Morphine Sulfate 2 mg PRN Q2HR PRN 12/20/16 14:45 Ondansetron HCl (Zofran) 4 mg PRN Q6HRS PRN 12/20/16 14:45 12/24/16 20:02 4 MG Oxycodone HCl (Roxicodone) 5 mg PRN Q3HRS PRN 12/20/16 14:45 12/24/16 20:02 5 MG Piperacillin Sod/ Tazobactam Sod (Zosyn Per Pharmacy) 1 each PRN DAILY PRN 12/20/16 14:45 Piperacillin Sod/ Tazobactam Sod (Zosyn) 2.25 gm Q6HRS 12/24/16 12:00 12/26/16 05:38 2.25 GM Piperacillin Sod/ Tazobactam Sod 2.25 gm/Dextrose 50 ml @ 100 mls/hr Q6HRS 12/24/16 12:00 12/24/16 12:00 DC Potassium Phosphate 10 mmol/ Sodium Chloride 103.3333 ml @ 51.667 m... Q2H 12/22/16 09:00 12/22/16 12:59 DC 12/22/16 14:30 51.667 MLS/HR Potassium Chloride (Klor-Con) 40 meq 1X ONCE 12/24/16 08:15 12/24/16 08:41 DC 12/24/16 10:13 40 MEQ Prochlorperazine (Compazine) 25 mg PRN Q12HR PRN 12/20/16 14:45 Prochlorperazine Edisylate (Compazine) 10 mg PRN Q6HRS PRN 12/20/16 14:45 Ringer's Solution 1,000 ml @ 100 mls/hr Q10H 12/20/16 16:00 12/26/16 03:44 100 MLS/HR Sodium Phosphate 20 mmol/Dextrose 256.6667 ml @ 64.167 m... 1X ONCE 12/21/16 12:00 12/21/16 15:59 DC 12/21/16 12:00 64.167 MLS/HR Vancomycin HCl 1 each 1X ONCE 12/23/16 09:30 12/23/16 09:31 DC Vancomycin HCl (Vanco Per Pharmacy) 1 each PRN DAILY PRN 12/21/16 15:00 12/23/16 09:45 DC 12/21/16 18:45 1 EACH Vancomycin HCl 2 gm/Dextrose 500 ml @ 250 mls/hr Q12H 12/22/16 05:00 12/23/16 09:45 DC 12/22/16 20:10 250 MLS/HR Lab Laboratory Tests Test 12/26/16 05:15 White Blood Count 9.0 x10^3/uL (4.0-11.0) Red Blood Count 3.40 x10^6/uL (3.50-5.40) Hemoglobin 10.9 g/dL (12.0-15.5) Hematocrit 32.7 % (36.0-47.0) Mean Corpuscular Volume 96 fL (79-100) Mean Corpuscular Hemoglobin 32 pg (25-35) Mean Corpuscular Hemoglobin Concent 33 g/dL (31-37) Red Cell Distribution Width 13.8 % (11.5-14.5) Platelet Count 329 x10^3/uL (140-400) Neutrophils (%) (Auto) 79 % (31-73) Lymphocytes (%) (Auto) 9 % (24-48) Monocytes (%) (Auto) 9 % (0-9) Eosinophils (%) (Auto) 3 % (0-3) Basophils (%) (Auto) 1 % (0-3) Neutrophils # (Auto) 7.0 x10^3uL (1.8-7.7) Lymphocytes # (Auto) 0.8 x10^3/uL (1.0-4.8) Monocytes # (Auto) 0.8 x10^3/uL (0.0-1.1) Eosinophils # (Auto) 0.3 x10^3/uL (0.0-0.7) Basophils # (Auto) 0.0 x10^3/uL (0.0-0.2) Sodium Level 146 mmol/L (136-145) Potassium Level 3.3 mmol/L (3.5-5.1) Chloride Level 108 mmol/L (98-107) Carbon Dioxide Level 29 mmol/L (21-32) Anion Gap 9 (6-14) Blood Urea Nitrogen 17 mg/dL (7-20) Creatinine 3.1 mg/dL (0.6-1.0) Estimated GFR (Cockcroft-Gault) 15.3 Glucose Level 89 mg/dL (70-99) Calcium Level 9.2 mg/dL (8.5-10.1) JOSIE HERNANDEZ MD Dec 26, 2016 11:41
[2016-12-26] MEDS ORDERED: MAGNESIUM SULFATE 2GM 50 ML IV PRN (11:45)
[2016-12-26] MEDS: AMINO AC 3%/ELECTROLYTE/GLYCER 1,000 ML IV SCH (12:25)
[2016-12-26] MEDS ORDERED: POTASSIUM CHLORIDE 20 MEQ TABLET.ER. PO ONE (12:30)
--- NOTE | 2016-12-26 12:47 | PDOC ---
Infectious Disease Note Subjective Subjective Tolerating regular diet, taking it slow though Denies pain, N/V/D ROS ROS GEN: Denies fevers, chills, sweats CV: Denies chest pain RESP: Denies shortness of air, cough Vital Sign Vital Signs Vital Signs Date Time Temp Pulse Resp B/P (MAP) Pulse Ox O2 Delivery O2 Flow Rate FiO2 12/26/16 11:40 97.9 74 16 160/81 (107) 95 Room Air 97.9 Physical Exam PHYSICAL EXAM GENERAL: Sitting in the chair, smiling LUNGS: Clear HEART: S1S2, no gallop, no murmur ABD: Obese, Soft, NT, BS active. Right gluteal GURVINDER intact EXT: BLE trace edema, no cyanosis [employer]ING [employer]ER: Alert, 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, no focal neurologic deficit SKIN: No rash IV: ok Labs Lab Laboratory Tests Test 12/26/16 05:15 White Blood Count 9.0 x10^3/uL (4.0-11.0) Red Blood Count 3.40 x10^6/uL (3.50-5.40) Hemoglobin 10.9 g/dL (12.0-15.5) Hematocrit 32.7 % (36.0-47.0) Mean Corpuscular Volume 96 fL (79-100) Mean Corpuscular Hemoglobin 32 pg (25-35) Mean Corpuscular Hemoglobin Concent 33 g/dL (31-37) Red Cell Distribution Width 13.8 % (11.5-14.5) Platelet Count 329 x10^3/uL (140-400) Neutrophils (%) (Auto) 79 % (31-73) Lymphocytes (%) (Auto) 9 % (24-48) Monocytes (%) (Auto) 9 % (0-9) Eosinophils (%) (Auto) 3 % (0-3) Basophils (%) (Auto) 1 % (0-3) Neutrophils # (Auto) 7.0 x10^3uL (1.8-7.7) Lymphocytes # (Auto) 0.8 x10^3/uL (1.0-4.8) Monocytes # (Auto) 0.8 x10^3/uL (0.0-1.1) Eosinophils # (Auto) 0.3 x10^3/uL (0.0-0.7) Basophils # (Auto) 0.0 x10^3/uL (0.0-0.2) Sodium Level 146 mmol/L (136-145) Potassium Level 3.3 mmol/L (3.5-5.1) Chloride Level 108 mmol/L (98-107) Carbon Dioxide Level 29 mmol/L (21-32) Anion Gap 9 (6-14) Blood Urea Nitrogen 17 mg/dL (7-20) Creatinine 3.1 mg/dL (0.6-1.0) Estimated GFR (Cockcroft-Gault) 15.3 Glucose Level 89 mg/dL (70-99) Calcium Level 9.2 mg/dL (8.5-10.1) Micro ANAEROBIC RES 1 Final Bacteroides species, B. fragilis group AEROBIC RES 1 Final Enterococcus avium Antibiotic RSLT#1 RSLT#2 Penicillin S Vancomycin S Objective Assessment Abd abscess s/p drain 12/20 Enterococcus Avium - amp/Vanc sens; bacteroides Leukocytosis -better MARVEL - worse Plan Plan of Care Zosyn F/u labs Supportive care KENNY VILCHIS APRN Dec 26, 2016 12:47
--- NOTE | 2016-12-26 12:57 | PDOC ---
PROGRESS NOTES Chief Complaint Chief Complaint 1. Sigmoid diverticultuis with perforation with [address] post abscess drain on 12/21 2. sepsis 3. Leukocytosis 4. Obesity 5. HTN hypophophatemia hypokalemia MARVEL, acute renal failure, w. ATN with contrast, vanco History of Present Illness History of Present Illness ROS: no fever, chills, sob or chest pain low ha IR for abscess drain 12/21, ARMOND in, 20cc 24h now higher WBC, then down to 9.6 today HIGHER Cr from 1 to 2.7 now abd pain Rt side better, new left side abd pain also better diarrhea 12/22 loose abscess cx+ enteroccocus, bacteroids, sens to vanco , PCN Vitals Vitals Vital Signs Date Time Temp Pulse Resp B/P (MAP) Pulse Ox O2 Delivery O2 Flow Rate FiO2 12/26/16 11:40 97.9 74 16 160/81 (107) 95 Room Air 97.9 Physical Exam Physical Exam right flank 1 Armond with some sanguinous fluid General: Alert, Oriented X3, Cooperative, No acute distress Heart: Regular rate, Normal S1, Normal S2 Lungs: Clear Abdomen: Soft, Other (drain purulent ) Extremities: No clubbing Skin: No breakdown Labs LABS Laboratory Tests Test 12/26/16 05:15 White Blood Count 9.0 x10^3/uL (4.0-11.0) Red Blood Count 3.40 x10^6/uL (3.50-5.40) Hemoglobin 10.9 g/dL (12.0-15.5) Hematocrit 32.7 % (36.0-47.0) Mean Corpuscular Volume 96 fL (79-100) Mean Corpuscular Hemoglobin 32 pg (25-35) Mean Corpuscular Hemoglobin Concent 33 g/dL (31-37) Red Cell Distribution Width 13.8 % (11.5-14.5) Platelet Count 329 x10^3/uL (140-400) Neutrophils (%) (Auto) 79 % (31-73) Lymphocytes (%) (Auto) 9 % (24-48) Monocytes (%) (Auto) 9 % (0-9) Eosinophils (%) (Auto) 3 % (0-3) Basophils (%) (Auto) 1 % (0-3) Neutrophils # (Auto) 7.0 x10^3uL (1.8-7.7) Lymphocytes # (Auto) 0.8 x10^3/uL (1.0-4.8) Monocytes # (Auto) 0.8 x10^3/uL (0.0-1.1) Eosinophils # (Auto) 0.3 x10^3/uL (0.0-0.7) Basophils # (Auto) 0.0 x10^3/uL (0.0-0.2) Sodium Level 146 mmol/L (136-145) Potassium Level 3.3 mmol/L (3.5-5.1) Chloride Level 108 mmol/L (98-107) Carbon Dioxide Level 29 mmol/L (21-32) Anion Gap 9 (6-14) Blood Urea Nitrogen 17 mg/dL (7-20) Creatinine 3.1 mg/dL (0.6-1.0) Estimated GFR (Cockcroft-Gault) 15.3 Glucose Level 89 mg/dL (70-99) Calcium Level 9.2 mg/dL (8.5-10.1) Review of Systems Review of Systems no Comment Review of Relevant I have reviewed the following items kevin (where applicable) has been applied. Labs Laboratory Tests Test 12/25/16 04:28 12/25/16 06:00 12/26/16 05:15 White Blood Count 9.6 x10^3/uL (4.0-11.0) 9.0 x10^3/uL (4.0-11.0) Red Blood Count 3.70 x10^6/uL (3.50-5.40) 3.40 x10^6/uL (3.50-5.40) Hemoglobin 12.0 g/dL (12.0-15.5) 10.9 g/dL (12.0-15.5) Hematocrit 35.7 % (36.0-47.0) 32.7 % (36.0-47.0) Mean Corpuscular Volume 97 fL (79-100) 96 fL (79-100) Mean Corpuscular Hemoglobin 33 pg (25-35) 32 pg (25-35) Mean Corpuscular Hemoglobin Concent 34 g/dL (31-37) 33 g/dL (31-37) Red Cell Distribution Width 14.2 % (11.5-14.5) 13.8 % (11.5-14.5) Platelet Count 365 x10^3/uL (140-400) 329 x10^3/uL (140-400) Neutrophils (%) (Auto) 79 % (31-73) 79 % (31-73) Lymphocytes (%) (Auto) 8 % (24-48) 9 % (24-48) Monocytes (%) (Auto) 9 % (0-9) 9 % (0-9) Eosinophils (%) (Auto) 3 % (0-3) 3 % (0-3) Basophils (%) (Auto) 1 % (0-3) 1 % (0-3) Neutrophils # (Auto) 7.6 x10^3uL (1.8-7.7) 7.0 x10^3uL (1.8-7.7) Lymphocytes # (Auto) 0.8 x10^3/uL (1.0-4.8) 0.8 x10^3/uL (1.0-4.8) Monocytes # (Auto) 0.9 x10^3/uL (0.0-1.1) 0.8 x10^3/uL (0.0-1.1) Eosinophils # (Auto) 0.3 x10^3/uL (0.0-0.7) 0.3 x10^3/uL (0.0-0.7) Basophils # (Auto) 0.1 x10^3/uL (0.0-0.2) 0.0 x10^3/uL (0.0-0.2) Sodium Level 146 mmol/L (136-145) 146 mmol/L (136-145) Potassium Level 3.5 mmol/L (3.5-5.1) 3.3 mmol/L (3.5-5.1) Chloride Level 108 mmol/L (98-107) 108 mmol/L (98-107) Carbon Dioxide Level 29 mmol/L (21-32) 29 mmol/L (21-32) Anion Gap 9 (6-14) 9 (6-14) Blood Urea Nitrogen 16 mg/dL (7-20) 17 mg/dL (7-20) Creatinine 2.7 mg/dL (0.6-1.0) 3.1 mg/dL (0.6-1.0) Estimated GFR (Cockcroft-Gault) 18.0 15.3 Glucose Level 88 mg/dL (70-99) 89 mg/dL (70-99) Calcium Level 9.4 mg/dL (8.5-10.1) 9.2 mg/dL (8.5-10.1) Urine Collection Type Unknown Urine Color Yellow Urine Clarity Clear Urine pH 6.0 Urine Specific [place] <=1.005 Urine Protein Negative mg/dL (NEG-TRACE) Urine Glucose (UA) Negative mg/dL (NEG) Urine Ketones (Stick) Negative mg/dL (NEG) Urine Blood Moderate (NEG) Urine Nitrite Negative (NEG) Urine Bilirubin Negative (NEG) Urine Urobilinogen Dipstick 0.2 mg/dL (0.2 mg/dL) Urine Leukocyte Esterase Negative (NEG) Urine RBC Occ /HPF (0-2) Urine WBC 1-4 /HPF (0-4) Urine Squamous Epithelial Cells Mod /LPF Urine Bacteria 0 /HPF (0-FEW) Laboratory Tests Test 12/26/16 05:15 White Blood Count 9.0 x10^3/uL (4.0-11.0) Red Blood Count 3.40 x10^6/uL (3.50-5.40) Hemoglobin 10.9 g/dL (12.0-15.5) Hematocrit 32.7 % (36.0-47.0) Mean Corpuscular Volume 96 fL (79-100) Mean Corpuscular Hemoglobin 32 pg (25-35) Mean Corpuscular Hemoglobin Concent 33 g/dL (31-37) Red Cell Distribution Width 13.8 % (11.5-14.5) Platelet Count 329 x10^3/uL (140-400) Neutrophils (%) (Auto) 79 % (31-73) Lymphocytes (%) (Auto) 9 % (24-48) Monocytes (%) (Auto) 9 % (0-9) Eosinophils (%) (Auto) 3 % (0-3) Basophils (%) (Auto) 1 % (0-3) Neutrophils # (Auto) 7.0 x10^3uL (1.8-7.7) Lymphocytes # (Auto) 0.8 x10^3/uL (1.0-4.8) Monocytes # (Auto) 0.8 x10^3/uL (0.0-1.1) Eosinophils # (Auto) 0.3 x10^3/uL (0.0-0.7) Basophils # (Auto) 0.0 x10^3/uL (0.0-0.2) Sodium Level 146 mmol/L (136-145) Potassium Level 3.3 mmol/L (3.5-5.1) Chloride Level 108 mmol/L (98-107) Carbon Dioxide Level 29 mmol/L (21-32) Anion Gap 9 (6-14) Blood Urea Nitrogen 17 mg/dL (7-20) Creatinine 3.1 mg/dL (0.6-1.0) Estimated GFR (Cockcroft-Gault) 15.3 Glucose Level 89 mg/dL (70-99) Calcium Level 9.2 mg/dL (8.5-10.1) Microbiology 12/21/16 Gram Stain - Final, Complete Medications Current Medications Ondansetron HCl (Zofran) 4 mg PRN Q6HRS PRN IV NAUSEA/VOMITING (1st Choice) Last administered on 12/24/16 20:02; Start 12/20/16 at 14:45 Prochlorperazine Edisylate (Compazine) 10 mg PRN Q6HRS PRN IV NAUSEA/VOMITING ( 2nd Choice); Start 12/20/16 at 14:45 Prochlorperazine (Compazine) 25 mg PRN Q12HR PRN TN NAUSEA/VOMITING; Start 01/24 at 14:45 Oxycodone HCl (Roxicodone) 5 mg PRN Q3HRS PRN PO BREAKTHROUGH PAIN Last administered on 12/24/16 20:02; Start 12/20/16 at 14:45 Morphine Sulfate 2 mg PRN Q2HR PRN IV MODERATE PAIN; Start 12/20/16 at 14:45 Acetaminophen (Tylenol) 650 mg PRN Q6HRS PRN PO Headaches, Temp > 101.5F Last administered on 12/22/16 00:03; Start 12/20/16 at 14:45 Docusate Sodium (Colace) 100 mg BID PO Last administered on 12/21/16 21:57; Start 12/20/16 at 21:00 Magnesium Hydroxide (Milk Of Magnesia) 2,400 mg PRN Q12HR PRN PO CONSTIPATION; Start 12/20/16 at 14:45 Bisacodyl (Dulcolax Supp) 10 mg PRN DAILY PRN TN CONSTIPATION; Start 12/20/16 at 14:45 Ringer's Solution 1,000 ml @ 70 mls/hr [id number] IV Last administered on 03:44; Start 12/20/16 at 16:00 Piperacillin Sod/ Tazobactam Sod (Zosyn Per Pharmacy) 1 each PRN DAILY PRN MC SEE COMMENTS; Start 12/20/16 at 14:45 Fentanyl Citrate (Fentanyl 2ml Vial) 50 mcg PRN Q2HR PRN IV SEVERE PAIN Last administered on 12/22/16 22:52; Start 12/20/16 at 14:45 Acetaminophen (Tylenol) 325 mg PRN Q6HRS PRN TN MILD PAIN / TEMP Last administered on 12/20/16 20:16; Start 12/20/16 at 14:45 Piperacillin Sod/ Tazobactam Sod (Zosyn) 3.375 gm Q6HRS IVP Last administered on 12/24/16 06:27; Start 12/20/16 at 18:00; Stop 12/24/16 at 09:25; Status DC Albuterol Sulfate (Ventolin Neb Soln) 2.5 mg PRN Q2HR PRN NEB SHORTNESS OF BREATH Last administered on 12/22/16 08:02; Start 12/21/16 at 00:45 Lidocaine/Sodium Bicarbonate (Buffered Lidocaine 1%) 20 ml STK-MED ONCE IJ ; Start 12/21/16 at 10:43; Stop 12/21/16 at 10:44; Status DC Fentanyl Citrate (Fentanyl 2ml Vial) 100 mcg STK-MED ONCE .ROUTE ; Start at 10:57; Stop 12/21/16 at 10:58; Status DC Midazolam HCl (Versed) 2 mg STK-MED ONCE .ROUTE ; Start 12/21/16 at 10:57; Stop 12/21/16 at 10:58; Status DC Lidocaine/Sodium Bicarbonate (Buffered Lidocaine 1%) 20 ml 1X ONCE IJ Last administered on 12/21/16 11:44; Start 12/21/16 at 11:15; Stop 12/21/16 at 11 :16; Status DC Midazolam HCl (Versed) 2 mg 1X ONCE IV Last administered on 12/21/16 11:44; Start 12/21/16 at 11:15; Stop 12/21/16 at 11:16; Status DC Fentanyl Citrate (Fentanyl 2ml Vial) 100 mcg 1X ONCE IV Last administered on 12/21/16 11:45; Start 12/21/16 at 11:15; Stop 12/21/16 at 11:16; Status DC Sodium Phosphate 20 mmol/Dextrose 256.6667 ml @ 64.167 m... 1X ONCE IV Last administered on 12/21/16 12:00; Start 12/21/16 at 12:00; Stop 12/21/16 at 15 :59; Status DC Alprazolam (Xanax) 0.25 mg PRN BID PRN PO ANXIETY / AGITATION Last administered on 12/25/16 23:10; Start 12/21/16 at 15:00 Citalopram Hydrobromide (CeleXA) 20 mg DAILY PO Last administered on 09:08; Start 12/21/16 at 16:00 Levothyroxine Sodium (Synthroid) 25 mcg DAILY07 PO Last administered on 06:06; Start 12/21/16 at 16:00 Atorvastatin Calcium (Lipitor) 10 mg QHS PO ; Start 12/21/16 at 21:00; Stop at 22:04; Status DC Vancomycin HCl 2 gm/Dextrose 500 ml @ 250 mls/hr Q12H IV ; Start 12/21/16 at 15:00; Status UNV Vancomycin HCl (Vanco Per Pharmacy) 1 each PRN DAILY PRN MC SEE COMMENTS Last administered on 12/21/16 18:45; Start 12/21/16 at 15:00; Stop 12/23/16 at 09 :45; Status DC Heparin Sodium (Porcine) (Heparin Sq) 5,000 unit Q8HRS SQ Last administered on 12/22/16 14:40; Start 12/21/16 at 22:00 Vancomycin HCl 2 gm/Dextrose 500 ml @ 250 mls/hr 1X ONCE IV Last administered on 12/21/16 17:15; Start 12/21/16 at 16:00; Stop 12/21/16 at 17 :59; Status DC Vancomycin HCl 2 gm/Dextrose 500 ml @ 250 mls/hr Q12H IV Last administered on 12/22/16 20:10; Start 12/22/16 at 05:00; Stop 12/23/16 at 09:45; Status DC Vancomycin HCl 1 each 1X ONCE MC ; Start 12/23/16 at 09:30; Stop 12/23/16 at 09:31; Status DC Potassium Phosphate 10 mmol/ Sodium Chloride 103.3333 ml @ 51.667 m... Q2H IV Last administered on 12/22/16 14:30; Start 12/22/16 at 09:00; Stop 12/22/16 at 12:59; Status DC Potassium Chloride (Klor-Con) 40 meq 1X ONCE PO Last administered on 08:44; Start 12/23/16 at 08:30; Stop 12/23/16 at 08:31; Status DC Linezolid 300 ml @ 300 mls/hr Q12HR IV Last administered on 12/23/16 22:12; Start 12/23/16 at 10:00; Stop 12/24/16 at 09:25; Status DC Potassium Chloride (Klor-Con) 40 meq 1X ONCE PO Last administered on 10:13; Start 12/24/16 at 08:15; Stop 12/24/16 at 08:41; Status DC Piperacillin Sod/ Tazobactam Sod 2.25 gm/Dextrose 50 ml @ 100 mls/hr Q6HRS IV ; Start 12/24/16 at 12:00; Stop 12/24/16 at 12:00; Status DC Piperacillin Sod/ Tazobactam Sod (Zosyn) 2.25 gm Q6HRS IVP Last administered on 12/26/16 12:25; Start 12/24/16 at 12:00 Lactobacillus Rhamnosus (Culturelle) 1 cap BID PO Last administered on 09:09; Start 12/24/16 at 21:00 Amino Acids/ Glycerin/ Electrolytes 1,000 ml @ 80 mls/hr [id number] IV Last administered on 12/26/16 12:25; Start 12/26/16 at 11:45 Magnesium Sulfate/ Dextrose 50 ml @ 25 mls/hr PRN DAILY PRN IV for Mag < 1.7 on am labs; Start 12/26/16 at 11:45 Potassium Chloride (Klor-Con) 40 meq 1X ONCE PO Last administered on t 12:21; Start 12/26/16 at 12:30; Stop 12/26/16 at 12:31; Status DC Active Scripts Active Reported Pravastatin Sodium 40 Mg Tablet 1 Tab PO QHS Celebrex (Celecoxib) 200 Mg Capsule 1 Cap PO DAILY Furosemide 40 Mg Tablet 1 Tab PO DAILY Levothyroxine Sodium 25 Mcg Tablet 1 Tab PO DAILY Triamterene-Hctz 37.5-25 Mg Tb (Triamterene/Hydrochlorothiazid) 1 Each Tablet 1 Tab PO DAILY Potassium Chloride 20 Meq Tablet.er 20 Meq PO DAILY Citalopram Hbr (Citalopram Hydrobromide) 20 Mg Tablet 1 Tab PO DAILY Calcium Acetate 667 Mg Tablet 667 Mg PO DAILY Xanax (Alprazolam) 0.25 Mg Tablet 1 Tab PO PRN BID PRN Vitals/I & O Vital Sign - Last 24 Hours 12/25/16 12/25/16 12/25/16 12/25/16 15:00 19:00 19:15 20:10 Temp 98.1 98.4 98.1 98.4 Pulse 67 76 Resp 18 16 B/P (MAP) 158/85 (109) 166/92 (116) Pulse Ox 96 96 O2 Delivery Room Air Room Air Room Air Room Air 12/25/16 12/26/16 12/26/16 12/26/16 23:00 03:00 08:02 11:40 Temp 98.7 97.9 98.1 97.9 98.7 97.9 98.1 97.9 Pulse 78 66 67 74 Resp 16 18 16 B/P (MAP) 143/93 (110) 162/89 (113) 158/92 (114) 160/81 (107) Pulse Ox 95 94 95 95 O2 Delivery Room Air Room Air Room Air Room Air Intake and Output 12/25/16 12/25/16 12/26/16 15:00 23:00 07:00 Intake Total 120 ml 2136 ml 2415 ml Output Total 1400 ml 1415 ml Balance 120 ml 736 ml 1000 ml YAZMIN OCONNOR MD Dec 26, 2016 12:57
[2016-12-26] MEDS: NYSTATIN 100,000 UNITS/ML 5 ML ORAL.SUSP. SWSW SCH ×3 (14:37→21:28)
[2016-12-26 15:19] VITALS: BP 144/82
[2016-12-26 19:30] VITALS: BP 157/76
[2016-12-26] MEDS: ALPRAZolam 0.25 MG TABLET PO PRN (22:29)
[2016-12-26 23:19] VITALS: BP 138/77
[2016-12-27] VITALS (9 sets, daily range): BP systolic 142–188; BP diastolic 74–100
[2016-12-27] MEDS: AMINO AC 3%/ELECTROLYTE/GLYCER 1,000 ML IV SCH ×2 (00:06→12:34)
[2016-12-27] MEDS: IV RINGERS,LACTATED 1000ML 1,000 ML IV SCH (02:17)
[2016-12-27] MEDS: HEPARIN PF for SUB-Q USE 5,000 UNIT/0.5 ML VIAL. SQ SCH ×3 (05:54→22:00)
[2016-12-27] MEDS: PIPERACILLIN/TAZO IV Push 2.25 GM VIAL. IVP SCH ×4 (06:00→17:42)
[2016-12-27] MEDS: LEVOTHYROXINE 25 MCG TABLET. PO SCH (06:18)
[2016-12-27 06:19] LABS: ALBUMIN 2.2 g/dL (3.4-5.0); CALCIUM 8.9 mg/dL (8.5-10.1); CREATININE 3.3 mg/dL (0.6-1.0); GFR 14.3; PHOSPHORUS 3.9 mg/dL (2.6-4.7); POTASSIUM 3.6 mmol/L (3.5-5.1)
--- NOTE | 2016-12-27 08:45 | PDOC ---
ZAC LEE APPLIANCE SERVICE REPRESENTATIVE 12/27/16 0844: SURGICAL PROGRESS NOTE Subjective no complaints of pain tolerating diet Vital Signs Vital Signs Date Time Temp Pulse Resp B/P (MAP) Pulse Ox O2 Delivery O2 Flow Rate FiO2 12/27/16 07:25 Room Air 12/27/16 03:05 98.5 68 18 142/95 (111) 94 98.5 I&O Intake and Output 12/27/16 07:00 Intake Total 4140 ml Output Total 5561 ml Balance -1421 ml Intake Oral 2220 ml IV Total 960 ml Other 960 ml Output Urine Total 5550 ml Drainage Total 11 ml # Bowel Movements 3 General: Alert, Oriented X3, Cooperative, No acute distress Abdomen: Soft, Other (scant drainage in drain) Labs Laboratory Tests Test 12/26/16 05:15 12/27/16 05:25 White Blood Count 9.0 x10^3/uL (4.0-11.0) Red Blood Count 3.40 x10^6/uL (3.50-5.40) Hemoglobin 10.9 g/dL (12.0-15.5) 11.3 g/dL (12.0-15.5) Hematocrit 32.7 % (36.0-47.0) Mean Corpuscular Volume 96 fL (79-100) Mean Corpuscular Hemoglobin 32 pg (25-35) Mean Corpuscular Hemoglobin Concent 33 g/dL (31-37) Red Cell Distribution Width 13.8 % (11.5-14.5) Platelet Count 329 x10^3/uL (140-400) Neutrophils (%) (Auto) 79 % (31-73) Lymphocytes (%) (Auto) 9 % (24-48) Monocytes (%) (Auto) 9 % (0-9) Eosinophils (%) (Auto) 3 % (0-3) Basophils (%) (Auto) 1 % (0-3) Neutrophils # (Auto) 7.0 x10^3uL (1.8-7.7) Lymphocytes # (Auto) 0.8 x10^3/uL (1.0-4.8) Monocytes # (Auto) 0.8 x10^3/uL (0.0-1.1) Eosinophils # (Auto) 0.3 x10^3/uL (0.0-0.7) Basophils # (Auto) 0.0 x10^3/uL (0.0-0.2) Sodium Level 146 mmol/L (136-145) 142 mmol/L (136-145) Potassium Level 3.3 mmol/L (3.5-5.1) 3.6 mmol/L (3.5-5.1) Chloride Level 108 mmol/L (98-107) 105 mmol/L (98-107) Carbon Dioxide Level 29 mmol/L (21-32) 28 mmol/L (21-32) Anion Gap 9 (6-14) 9 (6-14) Blood Urea Nitrogen 17 mg/dL (7-20) 21 mg/dL (7-20) Creatinine 3.1 mg/dL (0.6-1.0) 3.3 mg/dL (0.6-1.0) Estimated GFR (Cockcroft-Gault) 15.3 14.3 Glucose Level 89 mg/dL (70-99) 91 mg/dL (70-99) Calcium Level 9.2 mg/dL (8.5-10.1) 8.9 mg/dL (8.5-10.1) Phosphorus Level 3.9 mg/dL (2.6-4.7) Magnesium Level 2.4 mg/dL (1.8-2.4) Creatine Kinase 25 U/L (26-192) Albumin 2.2 g/dL (3.4-5.0) Laboratory Tests Test 12/27/16 05:25 Hemoglobin 11.3 g/dL (12.0-15.5) Sodium Level 142 mmol/L (136-145) Potassium Level 3.6 mmol/L (3.5-5.1) Chloride Level 105 mmol/L (98-107) Carbon Dioxide Level 28 mmol/L (21-32) Anion Gap 9 (6-14) Blood Urea Nitrogen 21 mg/dL (7-20) Creatinine 3.3 mg/dL (0.6-1.0) Estimated GFR (Cockcroft-Gault) 14.3 Glucose Level 91 mg/dL (70-99) Calcium Level 8.9 mg/dL (8.5-10.1) Phosphorus Level 3.9 mg/dL (2.6-4.7) Magnesium Level 2.4 mg/dL (1.8-2.4) Creatine Kinase 25 U/L (26-192) Albumin 2.2 g/dL (3.4-5.0) Problem List abscess renal following continue drain, FU CT when cr stable Problems: ANGELO AGGARWAL MD 12/27/16 1419: SURGICAL PROGRESS NOTE Assessment/Plan Pt seen and examined. Agree with Ms. Lee's note Pt reports doing well abd soft, GURVINDER with green tinge cont drain and abx will need repeat imaging at some point Problems: ZAC LEE APRN Dec 27, 2016 08:44 ANGELO AGGARWAL MD Dec 27, 2016 14:19
[2016-12-27] MEDS: DOCUSATE SODIUM 100 MG CAPSULE. PO SCH ×2 (09:00→20:46)
[2016-12-27] MEDS: LACTOBACILLUS RHAMNOSUS GG 1 CAPSULE. PO SCH ×2 (09:09→20:41)
[2016-12-27] MEDS: NYSTATIN 100,000 UNITS/ML 5 ML ORAL.SUSP. SWSW SCH ×4 (09:09→20:41)
[2016-12-27] MEDS: CITALOPRAM 20 MG TABLET. PO SCH (09:10)
--- NOTE | 2016-12-27 10:52 | PDOC ---
PROGRESS NOTES Chief Complaint Chief Complaint Acute renal failure 1. Sigmoid diverticultuis with perforation with [address] post abscess drain on 12/21 2. sepsis 3. Leukocytosis 4. Obesity, morbid BMI 47 5. HTN 6. hypophophatemia 7. hypokalemia 8. MARVEL, acute renal failure, w. ATN s/p IV contrast, vanco History of Present Illness History of Present Illness ROS: no fever, chills, sob or chest pain low ha IR for abscess drain 12/21, ARMOND in, 20cc 24h now higher WBC, then down to 9.6 today HIGHER Cr from 1 to 2.7 now abd pain Rt side better, new left side abd pain also better diarrhea 12/22 loose abscess cx+ enteroccocus, bacteroids, sens to vanco , PCN Vitals Vitals Vital Signs Date Time Temp Pulse Resp B/P (MAP) Pulse Ox O2 Delivery O2 Flow Rate FiO2 12/27/16 07:59 97.9 75 18 158/93 (114) 97 Room Air 97.9 Physical Exam Physical Exam right flank 1 Armond with some sanguinous fluid General: Alert, Oriented X3, Cooperative, No acute distress Heart: Regular rate, Normal S1, Normal S2 Lungs: Clear Abdomen: Soft, Other (scant drainage in drain) Extremities: No clubbing Skin: No breakdown Labs LABS Laboratory Tests Test 12/27/16 05:25 Hemoglobin 11.3 g/dL (12.0-15.5) Sodium Level 142 mmol/L (136-145) Potassium Level 3.6 mmol/L (3.5-5.1) Chloride Level 105 mmol/L (98-107) Carbon Dioxide Level 28 mmol/L (21-32) Anion Gap 9 (6-14) Blood Urea Nitrogen 21 mg/dL (7-20) Creatinine 3.3 mg/dL (0.6-1.0) Estimated GFR (Cockcroft-Gault) 14.3 Glucose Level 91 mg/dL (70-99) Calcium Level 8.9 mg/dL (8.5-10.1) Phosphorus Level 3.9 mg/dL (2.6-4.7) Magnesium Level 2.4 mg/dL (1.8-2.4) Creatine Kinase 25 U/L (26-192) Albumin 2.2 g/dL (3.4-5.0) Review of Systems Review of Systems non n.v some loose stools overnight, improving some no pain LE edema is worse, she normally wears ROSA hose at home Assessment and Plan Assessmemt and Plan ROSA hose echo cont current IV fluid, abx Problems: Comment Review of Relevant I have reviewed the following items kevin (where applicable) has been applied. Labs Laboratory Tests Test 12/26/16 05:15 12/27/16 05:25 White Blood Count 9.0 x10^3/uL (4.0-11.0) Red Blood Count 3.40 x10^6/uL (3.50-5.40) Hemoglobin 10.9 g/dL (12.0-15.5) 11.3 g/dL (12.0-15.5) Hematocrit 32.7 % (36.0-47.0) Mean Corpuscular Volume 96 fL (79-100) Mean Corpuscular Hemoglobin 32 pg (25-35) Mean Corpuscular Hemoglobin Concent 33 g/dL (31-37) Red Cell Distribution Width 13.8 % (11.5-14.5) Platelet Count 329 x10^3/uL (140-400) Neutrophils (%) (Auto) 79 % (31-73) Lymphocytes (%) (Auto) 9 % (24-48) Monocytes (%) (Auto) 9 % (0-9) Eosinophils (%) (Auto) 3 % (0-3) Basophils (%) (Auto) 1 % (0-3) Neutrophils # (Auto) 7.0 x10^3uL (1.8-7.7) Lymphocytes # (Auto) 0.8 x10^3/uL (1.0-4.8) Monocytes # (Auto) 0.8 x10^3/uL (0.0-1.1) Eosinophils # (Auto) 0.3 x10^3/uL (0.0-0.7) Basophils # (Auto) 0.0 x10^3/uL (0.0-0.2) Sodium Level 146 mmol/L (136-145) 142 mmol/L (136-145) Potassium Level 3.3 mmol/L (3.5-5.1) 3.6 mmol/L (3.5-5.1) Chloride Level 108 mmol/L (98-107) 105 mmol/L (98-107) Carbon Dioxide Level 29 mmol/L (21-32) 28 mmol/L (21-32) Anion Gap 9 (6-14) 9 (6-14) Blood Urea Nitrogen 17 mg/dL (7-20) 21 mg/dL (7-20) Creatinine 3.1 mg/dL (0.6-1.0) 3.3 mg/dL (0.6-1.0) Estimated GFR (Cockcroft-Gault) 15.3 14.3 Glucose Level 89 mg/dL (70-99) 91 mg/dL (70-99) Calcium Level 9.2 mg/dL (8.5-10.1) 8.9 mg/dL (8.5-10.1) Phosphorus Level 3.9 mg/dL (2.6-4.7) Magnesium Level 2.4 mg/dL (1.8-2.4) Creatine Kinase 25 U/L (26-192) Albumin 2.2 g/dL (3.4-5.0) Laboratory Tests Test 12/27/16 05:25 Hemoglobin 11.3 g/dL (12.0-15.5) Sodium Level 142 mmol/L (136-145) Potassium Level 3.6 mmol/L (3.5-5.1) Chloride Level 105 mmol/L (98-107) Carbon Dioxide Level 28 mmol/L (21-32) Anion Gap 9 (6-14) Blood Urea Nitrogen 21 mg/dL (7-20) Creatinine 3.3 mg/dL (0.6-1.0) Estimated GFR (Cockcroft-Gault) 14.3 Glucose Level 91 mg/dL (70-99) Calcium Level 8.9 mg/dL (8.5-10.1) Phosphorus Level 3.9 mg/dL (2.6-4.7) Magnesium Level 2.4 mg/dL (1.8-2.4) Creatine Kinase 25 U/L (26-192) Albumin 2.2 g/dL (3.4-5.0) Microbiology 12/21/16 Gram Stain - Final, Complete Medications Current Medications Ondansetron HCl (Zofran) 4 mg PRN Q6HRS PRN IV NAUSEA/VOMITING (1st Choice) Last administered on 12/24/16t 20:02; Start 12/20/16 at 14:45 Prochlorperazine Edisylate (Compazine) 10 mg PRN Q6HRS PRN IV NAUSEA/VOMITING ( 2nd Choice); Start 12/20/16 at 14:45 Prochlorperazine (Compazine) 25 mg PRN Q12HR PRN [place] NAUSEA/VOMITING; Start 01/24 at 14:45 Oxycodone HCl (Roxicodone) 5 mg PRN Q3HRS PRN PO BREAKTHROUGH PAIN Last administered on 12/24/16 20:02; Start 12/20/16 at 14:45 Morphine Sulfate 2 mg PRN Q2HR PRN IV MODERATE PAIN; Start 12/20/16 at 14:45 Acetaminophen (Tylenol) 650 mg PRN Q6HRS PRN PO Headaches, Temp > 101.5F Last administered on 12/22/16 00:03; Start 12/20/16 at 14:45 Docusate Sodium (Colace) 100 mg BID PO Last administered on 12/21/16 21:57; Start 12/20/16 at 21:00 Magnesium Hydroxide (Milk Of Magnesia) 2,400 mg PRN Q12HR PRN PO CONSTIPATION; Start 12/20/16 at 14:45 Bisacodyl (Dulcolax Supp) 10 mg PRN DAILY PRN [place] CONSTIPATION; Start 12/20/16 at 14:45 Ringer's Solution 1,000 ml @ 70 mls/hr [id number] IV Last administered on 03:44; Start 12/20/16 at 16:00 Piperacillin Sod/ Tazobactam Sod (Zosyn Per Pharmacy) 1 each PRN DAILY PRN MC SEE COMMENTS; Start 12/20/16 at 14:45 Fentanyl Citrate (Fentanyl 2ml Vial) 50 mcg PRN Q2HR PRN IV SEVERE PAIN Last administered on 12/22/16 22:52; Start 12/20/16 at 14:45 Acetaminophen (Tylenol) 325 mg PRN Q6HRS PRN [place] MILD PAIN / TEMP Last administered on 12/20/16 20:16; Start 12/20/16 at 14:45 Piperacillin Sod/ Tazobactam Sod (Zosyn) 3.375 gm Q6HRS IVP Last administered on 12/24/16 06:27; Start 12/20/16 at 18:00; Stop 12/24/16 at 09:25; Status DC Albuterol Sulfate (Ventolin Neb Soln) 2.5 mg PRN Q2HR PRN NEB SHORTNESS OF BREATH Last administered on 12/22/16 08:02; Start 12/21/16 at 00:45 Lidocaine/Sodium Bicarbonate (Buffered Lidocaine 1%) 20 ml STK-MED ONCE IJ ; Start 12/21/16 at 10:43; Stop 12/21/16 at 10:44; Status DC Fentanyl Citrate (Fentanyl 2ml Vial) 100 mcg STK-MED ONCE .ROUTE ; Start at 10:57; Stop 12/21/16 at 10:58; Status DC Midazolam HCl (Versed) 2 mg STK-MED ONCE .ROUTE ; Start 12/21/16 at 10:57; Stop 12/21/16 at 10:58; Status DC Lidocaine/Sodium Bicarbonate (Buffered Lidocaine 1%) 20 ml 1X ONCE IJ Last administered on 12/21/16 11:44; Start 12/21/16 at 11:15; Stop 12/21/16 at 11 :16; Status DC Midazolam HCl (Versed) 2 mg 1X ONCE IV Last administered on 12/21/16 11:44; Start 12/21/16 at 11:15; Stop 12/21/16 at 11:16; Status DC Fentanyl Citrate (Fentanyl 2ml Vial) 100 mcg 1X ONCE IV Last administered on 12/21/16 11:45; Start 12/21/16 at 11:15; Stop 12/21/16 at 11:16; Status DC Sodium Phosphate 20 mmol/Dextrose 256.6667 ml @ 64.167 m... 1X ONCE IV Last administered on 12/21/16 12:00; Start 12/21/16 at 12:00; Stop 12/21/16 at 15 :59; Status DC Alprazolam (Xanax) 0.25 mg PRN BID PRN PO ANXIETY / AGITATION Last administered on 12/26/16 22:29; Start 12/21/16 at 15:00 Citalopram Hydrobromide (CeleXA) 20 mg DAILY PO Last administered on 09:10; Start 12/21/16 at 16:00 Levothyroxine Sodium (Synthroid) 25 mcg DAILY07 PO Last administered on 06:18; Start 12/21/16 at 16:00 Atorvastatin Calcium (Lipitor) 10 mg QHS PO ; Start 12/21/16 at 21:00; Stop at 22:04; Status DC Vancomycin HCl 2 gm/Dextrose 500 ml @ 250 mls/hr Q12H IV ; Start 12/21/16 at 15:00; Status UNV Vancomycin HCl (Vanco Per Pharmacy) 1 each PRN DAILY PRN MC SEE COMMENTS Last administered on 12/21/16 18:45; Start 12/21/16 at 15:00; Stop 12/23/16 at 09 :45; Status DC Heparin Sodium (Porcine) (Heparin Sq) 5,000 unit Q8HRS SQ Last administered on 12/22/16 14:40; Start 12/21/16 at 22:00 Vancomycin HCl 2 gm/Dextrose 500 ml @ 250 mls/hr 1X ONCE IV Last administered on 12/21/16 17:15; Start 12/21/16 at 16:00; Stop 12/21/16 at 17 :59; Status DC Vancomycin HCl 2 gm/Dextrose 500 ml @ 250 mls/hr Q12H IV Last administered on 12/22/16 20:10; Start 12/22/16 at 05:00; Stop 12/23/16 at 09:45; Status DC Vancomycin HCl 1 each 1X ONCE MC ; Start 12/23/16 at 09:30; Stop 12/23/16 at 09:31; Status DC Potassium Phosphate 10 mmol/ Sodium Chloride 103.3333 ml @ 51.667 m... Q2H IV Last administered on 12/22/16 14:30; Start 12/22/16 at 09:00; Stop 12/22/16 at 12:59; Status DC Potassium Chloride (Klor-Con) 40 meq 1X ONCE PO Last administered on 08:44; Start 12/23/16 at 08:30; Stop 12/23/16 at 08:31; Status DC Linezolid 300 ml @ 300 mls/hr Q12HR IV Last administered on 12/23/16 22:12; Start 12/23/16 at 10:00; Stop 12/24/16 at 09:25; Status DC Potassium Chloride (Klor-Con) 40 meq 1X ONCE PO Last administered on 10:13; Start 12/24/16 at 08:15; Stop 12/24/16 at 08:41; Status DC Piperacillin Sod/ Tazobactam Sod 2.25 gm/Dextrose 50 ml @ 100 mls/hr Q6HRS IV ; Start 12/24/16 at 12:00; Stop 12/24/16 at 12:00; Status DC Piperacillin Sod/ Tazobactam Sod (Zosyn) 2.25 gm Q6HRS IVP Last administered on 12/27/16 06:00; Start 12/24/16 at 12:00 Lactobacillus Rhamnosus (Culturelle) 1 cap BID PO Last administered on 09:09; Start 12/24/16 at 21:00 Amino Acids/ Glycerin/ Electrolytes 1,000 ml @ 80 mls/hr [id number] IV Last administered on 12/27/16 00:06; Start 12/26/16 at 11:45 Magnesium Sulfate/ Dextrose 50 ml @ 25 mls/hr PRN DAILY PRN IV for Mag < 1.7 on am labs; Start 12/26/16 at 11:45 Potassium Chloride (Klor-Con) 40 meq 1X ONCE PO Last administered on 12:21; Start 12/26/16 at 12:30; Stop 12/26/16 at 12:31; Status DC Nystatin 5 ml [id number] Last administered on 12/27/16 09:09; Start at 13:00 Active Scripts Active Reported Pravastatin Sodium 40 Mg Tablet 1 Tab PO QHS Celebrex (Celecoxib) 200 Mg Capsule 1 Cap PO DAILY Furosemide 40 Mg Tablet 1 Tab PO DAILY Levothyroxine Sodium 25 Mcg Tablet 1 Tab PO DAILY Triamterene-Hctz 37.5-25 Mg Tb (Triamterene/Hydrochlorothiazid) 1 Each Tablet 1 Tab PO DAILY Potassium Chloride 20 Meq Tablet.er 20 Meq PO DAILY Citalopram Hbr (Citalopram Hydrobromide) 20 Mg Tablet 1 Tab PO DAILY Calcium Acetate 667 Mg Tablet 667 Mg PO DAILY Xanax (Alprazolam) 0.25 Mg Tablet 1 Tab PO PRN BID PRN Vitals/I & O Vital Sign - Last 24 Hours 12/26/16 12/26/16 12/26/16 12/26/16 11:40 15:19 19:30 20:10 Temp 97.9 98.4 98.7 97.9 98.4 98.7 Pulse 74 70 74 Resp 16 18 18 B/P (MAP) 160/81 (107) 144/82 (102) 157/76 (103) Pulse Ox 95 96 97 O2 Delivery Room Air Room Air Room Air Room Air 12/26/16 12/27/16 12/27/16 12/27/16 23:19 03:05 07:25 07:59 Temp 98.3 98.5 97.9 98.3 98.5 97.9 Pulse 74 68 75 Resp 18 B/P (MAP) 138/77 (97) 142/95 (111) 158/93 (114) Pulse Ox 94 94 97 O2 Delivery Room Air Room Air Room Air Room Air Intake and Output 12/26/16 12/26/16 12/27/16 15:00 23:00 07:00 Intake Total 120 ml 980 ml 3040 ml Output Total 1000 ml 1110 ml 3451 ml Balance -880 ml -130 ml -411 ml YAZMIN OCONNOR MD Dec 27, 2016 10:52
[2016-12-27] MEDS ORDERED: NYSTATIN TOPICAL POWDER 15GM BOTTLE. TP SCH (12:00)
[2016-12-27] MEDS: LABETALOL 20 MG/4 ML DISP.SYRIN. IVP PRN (12:52)
--- NOTE | 2016-12-27 14:38 | PDOC ---
Infectious Disease Note Subjective Subjective Tolerating regular diet, taking it slow though Denies pain, N/V/D ROS ROS GEN: Denies fevers, chills, sweats HEENT: Denies blurred vision, sore throat CV: Denies chest pain RESP: Denies shortness of air, cough GI: Denies n/v/d NEURO: Denies confusion, dizziness MSK: Denies weakness, joint pain/swelling Vital Sign Vital Signs Vital Signs Date Time Temp Pulse Resp B/P (MAP) Pulse Ox O2 Delivery O2 Flow Rate FiO2 12/27/16 12:52 79 173/81 12/27/16 12:03 97.5 20 96 Room Air 97.5 Physical Exam PHYSICAL EXAM GENERAL: Sitting in the chair, NAD LUNGS: Clear HEART: S1S2, no gallop, no murmur ABD: Obese, Soft, NT, BS active. Right gluteal GURVINDER intact EXT: Generalized edema, no cyanosis COWLMAN: Alert, 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, no focal neurologic deficit SKIN: No rash IV: ok Labs Lab Laboratory Tests Test 12/27/16 05:25 Hemoglobin 11.3 g/dL (12.0-15.5) Sodium Level 142 mmol/L (136-145) Potassium Level 3.6 mmol/L (3.5-5.1) Chloride Level 105 mmol/L (98-107) Carbon Dioxide Level 28 mmol/L (21-32) Anion Gap 9 (6-14) Blood Urea Nitrogen 21 mg/dL (7-20) Creatinine 3.3 mg/dL (0.6-1.0) Estimated GFR (Cockcroft-Gault) 14.3 Glucose Level 91 mg/dL (70-99) Calcium Level 8.9 mg/dL (8.5-10.1) Phosphorus Level 3.9 mg/dL (2.6-4.7) Magnesium Level 2.4 mg/dL (1.8-2.4) Creatine Kinase 25 U/L (26-192) Albumin 2.2 g/dL (3.4-5.0) Micro ANAEROBIC RES 1 Final Bacteroides species, B. 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
--- NOTE | 2016-12-27 15:16 | PDOC ---
SUBJECTIVE ROS MARVEL "I feel fine" CVS: no Orthopnea, no CP RESP: no SOB, no LEACH GI: no Nausea, n Vomiting : no Dysuria, no Urgency OBJECTIVE Vital Signs Vital Signs Date Time Temp Pulse Resp B/P (MAP) Pulse Ox O2 Delivery O2 Flow Rate FiO2 12/27/16 12:52 79 173/81 12/27/16 12:03 97.5 20 96 Room Air 97.5 I & 0 Intake and Output 12/27/16 07:00 Intake Total 4140 ml Output Total 5561 ml Balance -1421 ml Intake Oral 2220 ml IV Total 960 ml Other 960 ml Output Urine Total 5550 ml Drainage Total 11 ml # Bowel Movements 3 PHYSICAL EXAM Physical Exam GEN: Awake, Oriented x 3, In no distress EYES: Vision Unchanged, Conjunctiva Normal EN: No EN Drainage, Mucous Membranes moist NECK: no JVD, no JVP, Supple, no Thyromegaly CVS: S1S2, no Murmur, No Gallop, No Rub,no pitting Edema RESP: no Rales, no Rhonchi,no Acc. Muscle Use GI: BS + ve, NO Bruit, Non Tender, Non Distended : n CVA tenderness, calli Suprapubic Tenderness DIAGNOSIS/ASSESSMENT Assessment & Plan MARVEL/ ATN: Current fluid and E-lyte status does not necessitate emergent need for dialysis. Will re-evaluate for dialysis in the am. Discussed potential need for HD. She claims she feels fine ? Oliguria - now resolved ^ed Na - resolved with PPN as added; watch off of IVF Low k - Remains on replacement; Mag is OK COMMENT/RELEVANT DATA Meds Current Medications Medications (Trade) Dose Ordered Sig/Evert Start Time Stop Time Status Last Admin Dose Admin Acetaminophen (Tylenol) 325 mg PRN Q6HRS PRN 12/20/16 14:45 12/20/16 20:16 325 MG Albuterol Sulfate (Ventolin Neb Soln) 2.5 mg PRN Q2HR PRN 12/21/16 00:45 12/22/16 08:02 2.5 MG Alprazolam (Xanax) 0.25 mg PRN BID PRN 12/21/16 15:00 12/26/16 22:29 0.25 MG Amino Acids/ Glycerin/ Electrolytes 1,000 ml @ 80 mls/hr [id number] 12/26/16 11:45 12/27/16 12:34 80 MLS/HR Atorvastatin Calcium (Lipitor) 10 mg QHS 12/21/16 21:00 12/21/16 22:04 DC Bisacodyl (Dulcolax Supp) 10 mg PRN DAILY PRN 12/20/16 14:45 Citalopram Hydrobromide (CeleXA) 20 mg DAILY 12/21/16 16:00 12/27/16 09:10 20 MG Docusate Sodium (Colace) 100 mg BID 12/20/16 21:00 12/21/16 21:57 100 MG Fentanyl Citrate (Fentanyl 2ml Vial) 100 mcg 1X ONCE 12/21/16 11:15 12/21/16 11:16 DC 12/21/16 11:45 100 MCG Heparin Sodium (Porcine) (Heparin Sq) 5,000 unit Q8HRS 12/21/16 22:00 12/22/16 14:40 5,000 UNIT Labetalol HCl (Normodyne) 20 mg PRN Q2HR PRN 12/27/16 11:00 12/27/16 12:52 20 MG Lactobacillus Rhamnosus (Culturelle) 1 cap BID 12/24/16 21:00 12/27/16 09:09 1 CAP Levothyroxine Sodium (Synthroid) 25 mcg DAILY07 12/21/16 16:00 12/27/16 06:18 25 MCG Lidocaine/Sodium Bicarbonate (Buffered Lidocaine 1%) 20 ml 1X ONCE 12/21/16 11:15 12/21/16 11:16 DC 12/21/16 11:44 20 ML Linezolid 300 ml @ 300 mls/hr Q12HR 12/23/16 10:00 12/24/16 09:25 DC 12/23/16 22:12 300 MLS/HR Magnesium Hydroxide (Milk Of Magnesia) 2,400 mg PRN Q12HR PRN 12/20/16 14:45 Magnesium Sulfate/ Dextrose 50 ml @ 25 mls/hr PRN DAILY PRN 12/26/16 11:45 Midazolam HCl (Versed) 2 mg 1X ONCE 12/21/16 11:15 12/21/16 11:16 DC 12/21/16 11:44 2 MG Morphine Sulfate 2 mg PRN Q2HR PRN 12/20/16 14:45 Nystatin (Nystop) 1 tierra BID 12/27/16 12:00 12/27/16 12:32 1 TIERRA Ondansetron HCl (Zofran) 4 mg PRN Q6HRS PRN 12/20/16 14:45 12/24/16 20:02 4 MG Oxycodone HCl (Roxicodone) 5 mg PRN Q3HRS PRN 12/20/16 14:45 12/24/16 20:02 5 MG Piperacillin Sod/ Tazobactam Sod (Zosyn Per Pharmacy) 1 each PRN DAILY PRN 12/20/16 14:45 Piperacillin Sod/ Tazobactam Sod (Zosyn) 2.25 gm Q6HRS 12/24/16 12:00 12/27/16 12:34 2.25 GM Piperacillin Sod/ Tazobactam Sod 2.25 gm/Dextrose 50 ml @ 100 mls/hr Q6HRS 12/24/16 12:00 12/24/16 12:00 DC Potassium Phosphate 10 mmol/ Sodium Chloride 103.3333 ml @ 51.667 m... Q2H 12/22/16 09:00 12/22/16 12:59 DC 12/22/16 14:30 51.667 MLS/HR Potassium Chloride (Klor-Con) 40 meq 1X ONCE 12/26/16 12:30 12/26/16 12:31 DC 12/26/16 12:21 40 MEQ Prochlorperazine (Compazine) 25 mg PRN Q12HR PRN 12/20/16 14:45 Prochlorperazine Edisylate (Compazine) 10 mg PRN Q6HRS PRN 12/20/16 14:45 Ringer's Solution 1,000 ml @ 70 mls/hr [id number] 12/20/16 16:00 12/27/16 13:00 DC 12/26/16 03:44 100 MLS/HR Sodium Phosphate 20 mmol/Dextrose 256.6667 ml @ 64.167 m... 1X ONCE 12/21/16 12:00 12/21/16 15:59 DC 12/21/16 12:00 64.167 MLS/HR Vancomycin HCl 1 each 1X ONCE 12/23/16 09:30 12/23/16 09:31 DC Vancomycin HCl (Vanco Per Pharmacy) 1 each PRN DAILY PRN 12/21/16 15:00 12/23/16 09:45 DC 12/21/16 18:45 1 EACH Vancomycin HCl 2 gm/Dextrose 500 ml @ 250 mls/hr Q12H 12/22/16 05:00 12/23/16 09:45 DC 12/22/16 20:10 250 MLS/HR Lab Laboratory Tests Test 12/27/16 05:25 Hemoglobin 11.3 g/dL (12.0-15.5) Sodium Level 142 mmol/L (136-145) Potassium Level 3.6 mmol/L (3.5-5.1) Chloride Level 105 mmol/L (98-107) Carbon Dioxide Level 28 mmol/L (21-32) Anion Gap 9 (6-14) Blood Urea Nitrogen 21 mg/dL (7-20) Creatinine 3.3 mg/dL (0.6-1.0) Estimated GFR (Cockcroft-Gault) 14.3 Glucose Level 91 mg/dL (70-99) Calcium Level 8.9 mg/dL (8.5-10.1) Phosphorus Level 3.9 mg/dL (2.6-4.7) Magnesium Level 2.4 mg/dL (1.8-2.4) Creatine Kinase 25 U/L (26-192) Albumin 2.2 g/dL (3.4-5.0) JOSIE HERNANDEZ MD Dec 27, 2016 15:16
[2016-12-28 03:38] VITALS: BP 150/79
[2016-12-28 05:30] LABS: ALBUMIN 2.3 g/dL (3.4-5.0); CALCIUM 9.4 mg/dL (8.5-10.1); CREATININE 3.5 mg/dL (0.6-1.0); GFR 13.3; MAGNESIUM 2.5 mg/dL (1.8-2.4); PHOSPHORUS 4.8 mg/dL (2.6-4.7); POTASSIUM 3.5 mmol/L (3.5-5.1)
[2016-12-28] MEDS: HEPARIN PF for SUB-Q USE 5,000 UNIT/0.5 ML VIAL. SQ SCH ×3 (05:54→20:24)
[2016-12-28] MEDS: PIPERACILLIN/TAZO IV Push 2.25 GM VIAL. IVP SCH ×4 (06:00→18:08)
[2016-12-28] MEDS: LEVOTHYROXINE 25 MCG TABLET. PO SCH (06:01)
[2016-12-28 07:15] VITALS: BP 161/82
[2016-12-28] MEDS: NYSTATIN 100,000 UNITS/ML 5 ML ORAL.SUSP. SWSW SCH ×4 (08:20→20:24)
[2016-12-28] MEDS: CITALOPRAM 20 MG TABLET. PO SCH (08:20)
[2016-12-28] MEDS: DOCUSATE SODIUM 100 MG CAPSULE. PO SCH ×2 (08:20→20:24)
[2016-12-28] MEDS: LACTOBACILLUS RHAMNOSUS GG 1 CAPSULE. PO SCH ×2 (08:20→21:07)
[2016-12-28] MEDS: LABETALOL 20 MG/4 ML DISP.SYRIN. IVP PRN (08:22)
--- NOTE | 2016-12-28 09:20 | PDOC ---
SURGICAL PROGRESS NOTE Subjective hoping to go home soon loose stools Vital Signs Vital Signs Date Time Temp Pulse Resp B/P (MAP) Pulse Ox O2 Delivery O2 Flow Rate FiO2 12/28/16 08:22 92 161/82 12/28/16 07:15 97.7 18 97 Room Air 97.7 I&O Intake and Output 12/28/16 07:00 Intake Total 3330 ml Output Total 5435 ml Balance -2105 ml Intake Oral 3330 ml Output Urine Total 5425 ml Drainage Total 10 ml # Bowel Movements 1 General: Alert, Oriented X3, Cooperative, No acute distress Abdomen: Soft, Other (drain scant greenish drainage) Labs Laboratory Tests Test 12/26/16 18:10 12/27/16 05:25 12/28/16 04:00 Clostridium difficile Toxin (PCR) Negative (Negative) Hemoglobin 11.3 g/dL (12.0-15.5) Sodium Level 142 mmol/L (136-145) 146 mmol/L (136-145) Potassium Level 3.6 mmol/L (3.5-5.1) 3.5 mmol/L (3.5-5.1) Chloride Level 105 mmol/L (98-107) 107 mmol/L (98-107) Carbon Dioxide Level 28 mmol/L (21-32) 29 mmol/L (21-32) Anion Gap 9 (6-14) 10 (6-14) Blood Urea Nitrogen 21 mg/dL (7-20) 24 mg/dL (7-20) Creatinine 3.3 mg/dL (0.6-1.0) 3.5 mg/dL (0.6-1.0) Estimated GFR (Cockcroft-Gault) 14.3 13.3 Glucose Level 91 mg/dL (70-99) 90 mg/dL (70-99) Calcium Level 8.9 mg/dL (8.5-10.1) 9.4 mg/dL (8.5-10.1) Phosphorus Level 3.9 mg/dL (2.6-4.7) 4.8 mg/dL (2.6-4.7) Magnesium Level 2.4 mg/dL (1.8-2.4) 2.5 mg/dL (1.8-2.4) Creatine Kinase 25 U/L (26-192) 17 U/L (26-192) Albumin 2.2 g/dL (3.4-5.0) 2.3 g/dL (3.4-5.0) Laboratory Tests Test 12/28/16 04:00 Sodium Level 146 mmol/L (136-145) Potassium Level 3.5 mmol/L (3.5-5.1) Chloride Level 107 mmol/L (98-107) Carbon Dioxide Level 29 mmol/L (21-32) Anion Gap 10 (6-14) Blood Urea Nitrogen 24 mg/dL (7-20) Creatinine 3.5 mg/dL (0.6-1.0) Estimated GFR (Cockcroft-Gault) 13.3 Glucose Level 90 mg/dL (70-99) Calcium Level 9.4 mg/dL (8.5-10.1) Phosphorus Level 4.8 mg/dL (2.6-4.7) Magnesium Level 2.5 mg/dL (1.8-2.4) Creatine Kinase 17 U/L (26-192) Albumin 2.3 g/dL (3.4-5.0) Problem List abscess renal following continue drain/abx-- FU CT when cr stable if working toward discharge can go with drain and FU in clinic next week with Dr Flores Problems: ZAC LEE APRN Dec 28, 2016 09:20
--- NOTE | 2016-12-28 09:31 | PDOC ---
Infectious Disease Note Subjective Subjective Tolerating regular diet, feeling good, swelling of legs is the only complaint Denies pain, N/V/D ROS ROS GEN: Denies fevers, chills, sweats HEENT: Denies blurred vision, sore throat CV: Denies chest pain RESP: Denies shortness of air, cough GI: Denies n/v/d NEURO: Denies confusion, dizziness MSK: Denies weakness, joint pain/swelling Vital Sign Vital Signs Vital Signs Date Time Temp Pulse Resp B/P (MAP) Pulse Ox O2 Delivery O2 Flow Rate FiO2 12/28/16 08:22 92 161/82 12/28/16 07:15 97.7 18 97 Room Air 97.7 Physical Exam PHYSICAL EXAM GENERAL: NAD, Alert HEENT: PERRL, OC/OP NECK: Supple, no JVD, no LN LUNGS: Clear HEART: S1S2, no gallop, no murmur ABD: Soft, NT, no organomegaly, no rebound EXT: 2 + edema, no cyanosis 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, 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, no focal neurologic deficit SKIN: No rash IV: ok Labs Lab Laboratory Tests Test 12/28/16 04:00 Sodium Level 146 mmol/L (136-145) Potassium Level 3.5 mmol/L (3.5-5.1) Chloride Level 107 mmol/L (98-107) Carbon Dioxide Level 29 mmol/L (21-32) Anion Gap 10 (6-14) Blood Urea Nitrogen 24 mg/dL (7-20) Creatinine 3.5 mg/dL (0.6-1.0) Estimated GFR (Cockcroft-Gault) 13.3 Glucose Level 90 mg/dL (70-99) Calcium Level 9.4 mg/dL (8.5-10.1) Phosphorus Level 4.8 mg/dL (2.6-4.7) Magnesium Level 2.5 mg/dL (1.8-2.4) Creatine Kinase 17 U/L (26-192) Albumin 2.3 g/dL (3.4-5.0) Objective Assessment Abd abscess s/p drain 12/20 Enterococcus Avium - amp/Vanc sens; bacteroides Leukocytosis -better MARVEL - worse Plan Plan of Care Zosyn F/u labs Supportive care leg elevation pt/ot VAHID HERNANDEZ MD Dec 28, 2016 09:31
--- NOTE | 2016-12-28 09:37 | PDOC ---
PROGRESS NOTES Chief Complaint Chief Complaint Acute renal failure 1. Sigmoid diverticultuis with perforation with [address] post abscess drain on 12/21 2. sepsis 3. Leukocytosis 4. Obesity, morbid BMI 47 5. HTN 6. hypophophatemia 7. hypokalemia 8. MARVEL, acute renal failure, w. ATN s/p IV contrast, vanco History of Present Illness History of Present Illness Creat 3.5 from 3.3 Good UO FEels well ARMOND drain clear, maybe 10-20cc only GS mentions need for re imaging at some point could be done as OP or in house, when creat better PLAN:Await Renal rounds NO nephrotoxins Renal panel daily Dw her and John Vitals Vitals Vital Signs Date Time Temp Pulse Resp B/P (MAP) Pulse Ox O2 Delivery O2 Flow Rate FiO2 12/28/16 08:22 92 161/82 12/28/16 07:15 97.7 18 97 Room Air 97.7 Physical Exam Physical Exam right flank 1 Armond with some sanguinous fluid General: Alert, Oriented X3, Cooperative, No acute distress Heart: Regular rate, Normal S1, Normal S2 Lungs: Clear Abdomen: Soft, Other (drain scant greenish drainage) Extremities: No clubbing Skin: No breakdown Labs LABS Laboratory Tests Test 12/28/16 04:00 Sodium Level 146 mmol/L (136-145) Potassium Level 3.5 mmol/L (3.5-5.1) Chloride Level 107 mmol/L (98-107) Carbon Dioxide Level 29 mmol/L (21-32) Anion Gap 10 (6-14) Blood Urea Nitrogen 24 mg/dL (7-20) Creatinine 3.5 mg/dL (0.6-1.0) Estimated GFR (Cockcroft-Gault) 13.3 Glucose Level 90 mg/dL (70-99) Calcium Level 9.4 mg/dL (8.5-10.1) Phosphorus Level 4.8 mg/dL (2.6-4.7) Magnesium Level 2.5 mg/dL (1.8-2.4) Creatine Kinase 17 U/L (26-192) Albumin 2.3 g/dL (3.4-5.0) Review of Systems Review of Systems denies 14 pt reviewed Comment Review of Relevant I have reviewed the following items kevin (where applicable) has been applied. Labs Laboratory Tests Test 12/26/16 18:10 12/27/16 05:25 12/28/16 04:00 Clostridium difficile Toxin (PCR) Negative (Negative) Hemoglobin 11.3 g/dL (12.0-15.5) Sodium Level 142 mmol/L (136-145) 146 mmol/L (136-145) Potassium Level 3.6 mmol/L (3.5-5.1) 3.5 mmol/L (3.5-5.1) Chloride Level 105 mmol/L (98-107) 107 mmol/L (98-107) Carbon Dioxide Level 28 mmol/L (21-32) 29 mmol/L (21-32) Anion Gap 9 (6-14) 10 (6-14) Blood Urea Nitrogen 21 mg/dL (7-20) 24 mg/dL (7-20) Creatinine 3.3 mg/dL (0.6-1.0) 3.5 mg/dL (0.6-1.0) Estimated GFR (Cockcroft-Gault) 14.3 13.3 Glucose Level 91 mg/dL (70-99) 90 mg/dL (70-99) Calcium Level 8.9 mg/dL (8.5-10.1) 9.4 mg/dL (8.5-10.1) Phosphorus Level 3.9 mg/dL (2.6-4.7) 4.8 mg/dL (2.6-4.7) Magnesium Level 2.4 mg/dL (1.8-2.4) 2.5 mg/dL (1.8-2.4) Creatine Kinase 25 U/L (26-192) 17 U/L (26-192) Albumin 2.2 g/dL (3.4-5.0) 2.3 g/dL (3.4-5.0) Laboratory Tests Test 12/28/16 04:00 Sodium Level 146 mmol/L (136-145) Potassium Level 3.5 mmol/L (3.5-5.1) Chloride Level 107 mmol/L (98-107) Carbon Dioxide Level 29 mmol/L (21-32) Anion Gap 10 (6-14) Blood Urea Nitrogen 24 mg/dL (7-20) Creatinine 3.5 mg/dL (0.6-1.0) Estimated GFR (Cockcroft-Gault) 13.3 Glucose Level 90 mg/dL (70-99) Calcium Level 9.4 mg/dL (8.5-10.1) Phosphorus Level 4.8 mg/dL (2.6-4.7) Magnesium Level 2.5 mg/dL (1.8-2.4) Creatine Kinase 17 U/L (26-192) Albumin 2.3 g/dL (3.4-5.0) Microbiology 12/21/16 Gram Stain - Final, Complete Medications Current Medications Ondansetron HCl (Zofran) 4 mg PRN Q6HRS PRN IV NAUSEA/VOMITING (1st Choice) Last administered on 12/24/16 20:02; Start 12/20/16 at 14:45 Prochlorperazine Edisylate (Compazine) 10 mg PRN Q6HRS PRN IV NAUSEA/VOMITING ( 2nd Choice); Start 12/20/16 at 14:45 Prochlorperazine (Compazine) 25 mg PRN Q12HR PRN TX NAUSEA/VOMITING; Start 01/24 at 14:45 Oxycodone HCl (Roxicodone) 5 mg PRN Q3HRS PRN PO BREAKTHROUGH PAIN Last administered on 12/24/16 20:02; Start 12/20/16 at 14:45 Morphine Sulfate 2 mg PRN Q2HR PRN IV MODERATE PAIN; Start 12/20/16 at 14:45 Acetaminophen (Tylenol) 650 mg PRN Q6HRS PRN PO Headaches, Temp > 101.5F Last administered on 12/22/16 00:03; Start 12/20/16 at 14:45 Docusate Sodium (Colace) 100 mg BID PO Last administered on 12/21/16 21:57; Start 12/20/16 at 21:00 Magnesium Hydroxide (Milk Of Magnesia) 2,400 mg PRN Q12HR PRN PO CONSTIPATION; Start 12/20/16 at 14:45 Bisacodyl (Dulcolax Supp) 10 mg PRN DAILY PRN [place] CONSTIPATION; Start 12/20/16 at 14:45 Ringer's Solution 1,000 ml @ 70 mls/hr [id number] IV Last administered on 03:44; Start 12/20/16 at 16:00; Stop 12/27/16 at 13:00; Status DC Piperacillin Sod/ Tazobactam Sod (Zosyn Per Pharmacy) 1 each PRN DAILY PRN MC SEE COMMENTS; Start 12/20/16 at 14:45 Fentanyl Citrate (Fentanyl 2ml Vial) 50 mcg PRN Q2HR PRN IV SEVERE PAIN Last administered on 12/22/16 22:52; Start 12/20/16 at 14:45 Acetaminophen (Tylenol) 325 mg PRN Q6HRS PRN TX MILD PAIN / TEMP Last administered on 12/20/16 20:16; Start 12/20/16 at 14:45 Piperacillin Sod/ Tazobactam Sod (Zosyn) 3.375 gm Q6HRS IVP Last administered on 12/24/16 06:27; Start 12/20/16 at 18:00; Stop 12/24/16 at 09:25; Status DC Albuterol Sulfate (Ventolin Neb Soln) 2.5 mg PRN Q2HR PRN NEB SHORTNESS OF BREATH Last administered on 12/22/16 08:02; Start 12/21/16 at 00:45 Lidocaine/Sodium Bicarbonate (Buffered Lidocaine 1%) 20 ml STK-MED ONCE IJ ; Start 12/21/16 at 10:43; Stop 12/21/16 at 10:44; Status DC Fentanyl Citrate (Fentanyl 2ml Vial) 100 mcg STK-MED ONCE .ROUTE ; Start at 10:57; Stop 12/21/16 at 10:58; Status DC Midazolam HCl (Versed) 2 mg STK-MED ONCE .ROUTE ; Start 12/21/16 at 10:57; Stop 12/21/16 at 10:58; Status DC Lidocaine/Sodium Bicarbonate (Buffered Lidocaine 1%) 20 ml 1X ONCE IJ Last administered on 12/21/16 11:44; Start 12/21/16 at 11:15; Stop 12/21/16 at 11 :16; Status DC Midazolam HCl (Versed) 2 mg 1X ONCE IV Last administered on 12/21/16 11:44; Start 12/21/16 at 11:15; Stop 12/21/16 at 11:16; Status DC Fentanyl Citrate (Fentanyl 2ml Vial) 100 mcg 1X ONCE IV Last administered on 12/21/16 11:45; Start 12/21/16 at 11:15; Stop 12/21/16 at 11:16; Status DC Sodium Phosphate 20 mmol/Dextrose 256.6667 ml @ 64.167 m... 1X ONCE IV Last administered on 12/21/16 12:00; Start 12/21/16 at 12:00; Stop 12/21/16 at 15 :59; Status DC Alprazolam (Xanax) 0.25 mg PRN BID PRN PO ANXIETY / AGITATION Last administered on 12/26/16 22:29; Start 12/21/16 at 15:00 Citalopram Hydrobromide (CeleXA) 20 mg DAILY PO Last administered on 08:20; Start 12/21/16 at 16:00 Levothyroxine Sodium (Synthroid) 25 mcg DAILY07 PO Last administered on 06:01; Start 12/21/16 at 16:00 Atorvastatin Calcium (Lipitor) 10 mg QHS PO ; Start 12/21/16 at 21:00; Stop at 22:04; Status DC Vancomycin HCl 2 gm/Dextrose 500 ml @ 250 mls/hr Q12H IV ; Start 12/21/16 at 15:00; Status UNV Vancomycin HCl (Vanco Per Pharmacy) 1 each PRN DAILY PRN MC SEE COMMENTS Last administered on 12/21/16 18:45; Start 12/21/16 at 15:00; Stop 12/23/16 at 09 :45; Status DC Heparin Sodium (Porcine) (Heparin Sq) 5,000 unit Q8HRS SQ Last administered on 12/22/16 14:40; Start 12/21/16 at 22:00 Vancomycin HCl 2 gm/Dextrose 500 ml @ 250 mls/hr 1X ONCE IV Last administered on 12/21/16 17:15; Start 12/21/16 at 16:00; Stop 12/21/16 at 17 :59; Status DC Vancomycin HCl 2 gm/Dextrose 500 ml @ 250 mls/hr Q12H IV Last administered on 12/22/16 20:10; Start 12/22/16 at 05:00; Stop 12/23/16 at 09:45; Status DC Vancomycin HCl 1 each 1X ONCE MC ; Start 12/23/16 at 09:30; Stop 12/23/16 at 09:31; Status DC Potassium Phosphate 10 mmol/ Sodium Chloride 103.3333 ml @ 51.667 m... Q2H IV Last administered on 12/22/16 14:30; Start 12/22/16 at 09:00; Stop 12/22/16 at 12:59; Status DC Potassium Chloride (Klor-Con) 40 meq 1X ONCE PO Last administered on 08:44; Start 12/23/16 at 08:30; Stop 12/23/16 at 08:31; Status DC Linezolid 300 ml @ 300 mls/hr Q12HR IV Last administered on 12/23/16 22:12; Start 12/23/16 at 10:00; Stop 12/24/16 at 09:25; Status DC Potassium Chloride (Klor-Con) 40 meq 1X ONCE PO Last administered on 10:13; Start 12/24/16 at 08:15; Stop 12/24/16 at 08:41; Status DC Piperacillin Sod/ Tazobactam Sod 2.25 gm/Dextrose 50 ml @ 100 mls/hr Q6HRS IV ; Start 12/24/16 at 12:00; Stop 12/24/16 at 12:00; Status DC Piperacillin Sod/ Tazobactam Sod (Zosyn) 2.25 gm Q6HRS IVP Last administered on 12/28/16 06:00; Start 12/24/16 at 12:00 Lactobacillus Rhamnosus (Culturelle) 1 cap BID PO Last administered on 08:20; Start 12/24/16 at 21:00 Amino Acids/ Glycerin/ Electrolytes 1,000 ml @ 80 mls/hr [id number] IV Last administered on 12/27/16 12:34; Start 12/26/16 at 11:45; Stop 12/27/16 at 15 :41; Status DC Magnesium Sulfate/ Dextrose 50 ml @ 25 mls/hr PRN DAILY PRN IV for Mag < 1.7 on am labs; Start 12/26/16 at 11:45 Potassium Chloride (Klor-Con) 40 meq 1X ONCE PO Last administered on 12:21; Start 12/26/16 at 12:30; Stop 12/26/16 at 12:31; Status DC Nystatin 5 ml [id number] Last administered on 12/28/16 08:20; Start at 13:00 Nystatin (Nystop) 1 tierra BID TP Last administered on 12/27/16 12:32; Start at 12:00; Stop 12/27/16 at 17:03; Status DC Labetalol HCl (Normodyne) 20 mg PRN Q2HR PRN IVP HYPERTENSION, SEE COMMENTS Last administered on 12/28/16 08:22; Start 12/27/16 at 11:00 Nystatin (Nystop) 1 tierra PRN BID PRN TP RASH; Start 12/28/16 at 12:00 Active Scripts Active Reported Pravastatin Sodium 40 Mg Tablet 1 Tab PO QHS Celebrex (Celecoxib) 200 Mg Capsule 1 Cap PO DAILY Furosemide 40 Mg Tablet 1 Tab PO DAILY Levothyroxine Sodium 25 Mcg Tablet 1 Tab PO DAILY Triamterene-Hctz 37.5-25 Mg Tb (Triamterene/Hydrochlorothiazid) 1 Each Tablet 1 Tab PO DAILY Potassium Chloride 20 Meq Tablet.er 20 Meq PO DAILY Citalopram Hbr (Citalopram Hydrobromide) 20 Mg Tablet 1 Tab PO DAILY Calcium Acetate 667 Mg Tablet 667 Mg PO DAILY Xanax (Alprazolam) 0.25 Mg Tablet 1 Tab PO PRN BID PRN Vitals/I & O Vital Sign - Last 24 Hours 12/27/16 12/27/16 12/27/16 12/27/16 12:03 12:05 12:52 15:00 Temp 97.5 98.1 97.5 98.1 Pulse 79 79 72 Resp 20 16 B/P (MAP) 188/91 (123) 173/83 (113) 173/81 177/81 (113) Pulse Ox 96 97 O2 Delivery Room Air Room Air 12/27/16 12/27/16 12/27/16 12/27/16 17:59 19:00 20:10 23:33 Temp 98.3 98.0 98.3 98.0 Pulse 77 70 80 Resp 20 20 B/P (MAP) 152/74 (100) 143/100 (114) 146/84 (104) Pulse Ox 97 95 O2 Delivery Room Air Room Air Room Air 12/28/16 12/28/1612/28/17 03:38 07:15 08:22 Temp 98.0 97.7 98.0 97.7 Pulse 71 92 92 Resp 20 18 B/P (MAP) 150/79 (102) 161/82 (108) 161/82 Pulse Ox 94 97 O2 Delivery Room Air Room Air Intake and Output 12/27/16 12/27/16 12/28/16 14:59 22:59 06:59 Intake Total 120 ml 1150 ml 2060 ml Output Total 1700 ml 710 ml 3025 ml Balance -1580 ml 440 ml -965 ml ROSALINA SULLIVAN MD Dec 28, 2016 09:37
--- NOTE | 2016-12-28 10:14 | PDOC ---
Objective: Objective: Out of room for echo, having leg swelling. Per RN - no abd pain, having loose stools. Vital Signs: Vital Signs Date Time Temp Pulse Resp B/P (MAP) Pulse Ox O2 Delivery O2 Flow Rate FiO2 12/28/16 08:22 92 161/82 12/28/16 07:15 97.7 18 97 Room Air 97.7 Labs: Laboratory Tests Test 12/28/16 04:00 Sodium Level 146 mmol/L Potassium Level 3.5 mmol/L Chloride Level 107 mmol/L Carbon Dioxide Level 29 mmol/L Anion Gap 10 Blood Urea Nitrogen 24 mg/dL Creatinine 3.5 mg/dL Estimated GFR (Cockcroft-Gault) 13.3 Glucose Level 90 mg/dL Calcium Level 9.4 mg/dL Phosphorus Level 4.8 mg/dL Magnesium Level 2.5 mg/dL Creatine Kinase 17 U/L Albumin 2.3 g/dL C diff neg. PE: no exam A/P: Diverticular abscess s/p drain placement MARVEL - Cr worse -- Continue per renal, ID, surg. PACHECO JORGENSEN Dec 28, 2016 10:14
--- NOTE | 2016-12-28 10:36 | CARD ---
APPROVED REPORT EXAM: Two-dimensional and M-mode echocardiogram with Doppler and color Doppler. Other Information Quality : Good INDICATION Dyspnea 2D DIMENSIONS Left Atrium(2D)3.8 (1.6-4.0cm)IVSd1.3 (0.7-1.1cm) Aortic Root(2D)3.0 (2.0-3.7cm)LVDd4.1 (3.9-5.9cm) LVOT Diameter2.0 (1.8-2.4cm)PWd1.2 (0.7-1.1cm) LVDs2.9 (2.5-4.0cm)FS (%) 28.5 % SV41.3 mlLVEF(%)55.4 (>50%) Aortic Valve AoV Peak Tani.149.1cm/sAoV VTI31.8cm AO Peak GR.8.9mmHgLVOT Peak Tani.140.8cm/s AO Mean GR.5mmHgAVA (VMAX)2.97cm2 DESIREE (VTI)2.90cm2 Mitral Valve MV E Xgtxucto136.2cm/sMV DECEL [id number] MV A Ltuftknj75.5cm/sE/A Ratio1.4 Tricuspid Valve TR P. [id number]/sRAP GRFLNYEL4lbLo TR Peak Gr.12hrCrUUSR57sbFg LEFT VENTRICLE The left ventricle is normal size. There is mild concentric left ventricular hypertrophy. The left ve ntricular systolic function is normal. The ejection fraction is estimated at 60%. There is normal LV segmental wall motion. The left ventricular diastolic function and filling is normal for age. RIGHT VENTRICLE The right ventricle is normal size. The right ventricular systolic function is normal. ATRIA The left atrium size is normal. The right atrium size is normal. The interatrial septum is intact wit h no evidence for an atrial septal defect or patent foramen ovale as noted on 2-D or Doppler imaging. AORTIC VALVE The aortic valve is normal in structure and function. Doppler and Color Flow revealed no significant aortic regurgitation. There is no significant aortic valvular stenosis. MITRAL VALVE The mitral valve is mildly thickened. There is no evidence of mitral valve prolapse. There is no mitr al valve stenosis. Doppler and Color-flow revealed trace mitral regurgitation. TRICUSPID VALVE The tricuspid valve is normal in structure. Doppler and Color Flow revealed mild tricuspid regurgitat ion. There is no pulmonary hypertension. The PA pressure was estimated at 25 mmHg. There is no tricus pid valve prolapse or vegetation. There is no tricuspid valve stenosis. PULMONIC VALVE The pulmonary valve is normal in structure and function. Doppler and Color Flow revealed no pulmonic valvular regurgitation. There is no pulmonic valvular stenosis. GREAT VESSELS The aortic root is normal in size. The ascending aorta is normal in size. The IVC is normal in size a nd collapses >50% with inspiration. PERICARDIAL EFFUSION There is no pleural effusion. There is no evidence of significant pericardial effusion. Critical Notification Critical Value: No <Conclusion> The left ventricular systolic function is normal. The ejection fraction is estimated at 60%. There is normal LV segmental wall motion. Trace mitral regurgitation. Mild tricuspid regurgitation. The PA pressure was estimated at 25 mmHg. There is no evidence of significant pericardial effusion.
[2016-12-28 11:00] VITALS: BP 162/79
[2016-12-28] MEDS ORDERED: NYSTATIN TOPICAL POWDER 15GM BOTTLE. TP PRN (12:00)
--- NOTE | 2016-12-28 12:24 | PDOC ---
SUBJECTIVE ROS MARVEL/ ATN Doing OK overall CVS: no Orthopnea, no CP RESP: no SOB, no LEACH GI: no Nausea, no Vomiting : no Dysuria, no Urgency OBJECTIVE Vital Signs Vital Signs Date Time Temp Pulse Resp B/P (MAP) Pulse Ox O2 Delivery O2 Flow Rate FiO2 12/28/16 11:20 Room Air 12/28/16 08:22 92 161/82 12/28/16 07:15 97.7 18 97 97.7 I & 0 Intake and Output 12/28/16 06:59 Intake Total 3330 ml Output Total 5435 ml Balance -2105 ml Intake Oral 3330 ml Output Urine Total 5425 ml Drainage Total 10 ml # Bowel Movements 1 PHYSICAL EXAM Physical Exam GEN: Awake, Oriented x 3, In no distress EYES: Vision Unchanged, Conjunctiva Normal EN: No EN Drainage, Mucous Membranes moist NECK: no JVD, no JVP, Supple, no Thyromegaly CVS: S1S2, no Murmur, No Gallop, No Rub,no pitting Edema RESP: no Rales, no Rhonchi,no Acc. Muscle Use GI: BS + ve, NO Bruit, Non Tender, Non Distended : n CVA tenderness, calli Suprapubic Tenderness DIAGNOSIS/ASSESSMENT Assessment & Plan MARVEL/ ATN: Creat worse. Current fluid and E-lyte status does not necessitate emergent need for dialysis. Will re-evaluate for dialysis in the am. Discussed potential need for HD. She claims she feels fine. Discussed option of Kidney Bx to ascertain etio and she declined. Wants to hold off of HD unless she " feels bad" ? Oliguria - now resolved; infact she is now polyuric - ? from recovering ATN ^ed Na - ^ free water intake encouraged Low k - Remains on replacement . will be cautious with rising creat COMMENT/RELEVANT DATA Meds Current Medications Medications (Trade) Dose Ordered Sig/Evert Start Time Stop Time Status Last Admin Dose Admin Acetaminophen (Tylenol) 325 mg PRN Q6HRS PRN 12/20/16 14:45 12/20/16 20:16 325 MG Albuterol Sulfate (Ventolin Neb Soln) 2.5 mg PRN Q2HR PRN 12/21/16 00:45 12/22/16 08:02 2.5 MG Alprazolam (Xanax) 0.25 mg PRN BID PRN 12/21/16 15:00 12/26/16 22:29 0.25 MG Amino Acids/ Glycerin/ Electrolytes 1,000 ml @ 80 mls/hr [id number] 12/26/16 11:45 12/27/16 15:41 DC 12/27/16 12:34 80 MLS/HR Atorvastatin Calcium (Lipitor) 10 mg QHS 12/21/16 21:00 12/21/16 22:04 DC Bisacodyl (Dulcolax Supp) 10 mg PRN DAILY PRN 12/20/16 14:45 Citalopram Hydrobromide (CeleXA) 20 mg DAILY 12/21/16 16:00 12/28/16 08:20 20 MG Docusate Sodium (Colace) 100 mg BID 12/20/16 21:00 12/21/16 21:57 100 MG Fentanyl Citrate (Fentanyl 2ml Vial) 100 mcg 1X ONCE 12/21/16 11:15 12/21/16 11:16 DC 12/21/16 11:45 100 MCG Heparin Sodium (Porcine) (Heparin Sq) 5,000 unit Q8HRS 12/21/16 22:00 12/22/16 14:40 5,000 UNIT Labetalol HCl (Normodyne) 20 mg PRN Q2HR PRN 12/27/16 11:00 12/28/16 08:22 20 MG Lactobacillus Rhamnosus (Culturelle) 1 cap BID 12/24/16 21:00 12/28/16 08:20 1 CAP Levothyroxine Sodium (Synthroid) 25 mcg DAILY07 12/21/16 16:00 12/28/16 06:01 25 MCG Lidocaine/Sodium Bicarbonate (Buffered Lidocaine 1%) 20 ml 1X ONCE 12/21/16 11:15 12/21/16 11:16 DC 12/21/16 11:44 20 ML Linezolid 300 ml @ 300 mls/hr Q12HR 12/23/16 10:00 12/24/16 09:25 DC 12/23/16 22:12 300 MLS/HR Magnesium Hydroxide (Milk Of Magnesia) 2,400 mg PRN Q12HR PRN 12/20/16 14:45 Magnesium Sulfate/ Dextrose 50 ml @ 25 mls/hr PRN DAILY PRN 12/26/16 11:45 Midazolam HCl (Versed) 2 mg 1X ONCE 12/21/16 11:15 12/21/16 11:16 DC 12/21/16 11:44 2 MG Morphine Sulfate 2 mg PRN Q2HR PRN 12/20/16 14:45 Nystatin (Nystop) 1 tierra PRN BID PRN 12/28/16 12:00 Ondansetron HCl (Zofran) 4 mg PRN Q6HRS PRN 12/20/16 14:45 12/24/16 20:02 4 MG Oxycodone HCl (Roxicodone) 5 mg PRN Q3HRS PRN 12/20/16 14:45 12/24/16 20:02 5 MG Piperacillin Sod/ Tazobactam Sod (Zosyn Per Pharmacy) 1 each PRN DAILY PRN 12/20/16 14:45 Piperacillin Sod/ Tazobactam Sod (Zosyn) 2.25 gm Q6HRS 12/24/16 12:00 12/28/16 06:00 2.25 GM Piperacillin Sod/ Tazobactam Sod 2.25 gm/Dextrose 50 ml @ 100 mls/hr Q6HRS 12/24/16 12:00 12/24/16 12:00 DC Potassium Phosphate 10 mmol/ Sodium Chloride 103.3333 ml @ 51.667 m... Q2H 12/22/16 09:00 12/22/16 12:59 DC 12/22/16 14:30 51.667 MLS/HR Potassium Chloride (Klor-Con) 40 meq 1X ONCE 12/26/16 12:30 12/26/16 12:31 DC 12/26/16 12:21 40 MEQ Prochlorperazine (Compazine) 25 mg PRN Q12HR PRN 12/20/16 14:45 Prochlorperazine Edisylate (Compazine) 10 mg PRN Q6HRS PRN 12/20/16 14:45 Ringer's Solution 1,000 ml @ 70 mls/hr [id number] 12/20/16 16:00 12/27/16 13:00 DC 12/26/16 03:44 100 MLS/HR Sodium Phosphate 20 mmol/Dextrose 256.6667 ml @ 64.167 m... 1X ONCE 12/21/16 12:00 12/21/16 15:59 DC 12/21/16 12:00 64.167 MLS/HR Vancomycin HCl 1 each 1X ONCE 12/23/16 09:30 12/23/16 09:31 DC Vancomycin HCl (Vanco Per Pharmacy) 1 each PRN DAILY PRN 12/21/16 15:00 12/23/16 09:45 DC 12/21/16 18:45 1 EACH Vancomycin HCl 2 gm/Dextrose 500 ml @ 250 mls/hr Q12H 12/22/16 05:00 12/23/16 09:45 DC 12/22/16 20:10 250 MLS/HR Lab Laboratory Tests Test 12/28/16 04:00 Sodium Level 146 mmol/L (136-145) Potassium Level 3.5 mmol/L (3.5-5.1) Chloride Level 107 mmol/L (98-107) Carbon Dioxide Level 29 mmol/L (21-32) Anion Gap 10 (6-14) Blood Urea Nitrogen 24 mg/dL (7-20) Creatinine 3.5 mg/dL (0.6-1.0) Estimated GFR (Cockcroft-Gault) 13.3 Glucose Level 90 mg/dL (70-99) Calcium Level 9.4 mg/dL (8.5-10.1) Phosphorus Level 4.8 mg/dL (2.6-4.7) Magnesium Level 2.5 mg/dL (1.8-2.4) Creatine Kinase 17 U/L (26-192) Albumin 2.3 g/dL (3.4-5.0) JOSIE HERNANDEZ MD Dec 28, 2016 12:24
[2016-12-28 15:00] VITALS: BP 169/90
[2016-12-28 19:00] VITALS: BP 157/85
[2016-12-28] MEDS: ALPRAZolam 0.25 MG TABLET PO PRN (21:07)
[2016-12-28 23:00] VITALS: BP 151/96
[2016-12-29] MEDS: HEPARIN PF for SUB-Q USE 5,000 UNIT/0.5 ML VIAL. SQ SCH ×3 (00:01→20:40)
[2016-12-29] MEDS: PIPERACILLIN/TAZO IV Push 2.25 GM VIAL. IVP SCH ×4 (00:07→20:17)
[2016-12-29 03:00] VITALS: BP 158/89
[2016-12-29 05:49] LABS: ALBUMIN 2.4 g/dL (3.4-5.0); CALCIUM 8.9 mg/dL (8.5-10.1); CREATININE 3.6 mg/dL (0.6-1.0); GFR 12.9; MAGNESIUM 2.3 mg/dL (1.8-2.4); PHOSPHORUS 4.8 mg/dL (2.6-4.7); POTASSIUM 3.2 mmol/L (3.5-5.1)
[2016-12-29] MEDS: LEVOTHYROXINE 25 MCG TABLET. PO SCH (05:52)
[2016-12-29 07:00] VITALS: BP 166/81
[2016-12-29] MEDS: NYSTATIN 100,000 UNITS/ML 5 ML ORAL.SUSP. SWSW SCH ×4 (09:00→20:39)
[2016-12-29] MEDS: LACTOBACILLUS RHAMNOSUS GG 1 CAPSULE. PO SCH ×2 (09:00→21:52)
[2016-12-29] MEDS: DOCUSATE SODIUM 100 MG CAPSULE. PO SCH ×2 (09:00→20:39)
[2016-12-29] MEDS: CITALOPRAM 20 MG TABLET. PO SCH (09:00)
[2016-12-29] MEDS ORDERED: IOHEXOL 240 MG/ML 50ML VIAL. PO ONE (09:45)
[2016-12-29] MEDS ORDERED: CONTRAST GIVEN MC PRN (09:45)
--- NOTE | 2016-12-29 10:27 | PDOC ---
Infectious Disease Note Subjective Subjective Tolerating regular diet, feeling good, swelling of legs is the only complaint Denies pain, N/V/D ROS ROS GEN: Denies fevers, chills, sweats HEENT: Denies blurred vision, sore throat CV: Denies chest pain RESP: Denies shortness of air, cough GI: Denies n/v/d NEURO: Denies confusion, dizziness MSK: Denies weakness, joint pain/swelling Vital Sign Vital Signs Vital Signs Date Time Temp Pulse Resp B/P (MAP) Pulse Ox O2 Delivery O2 Flow Rate FiO2 12/29/16 07:00 97.9 56 18 166/81 (109) 93 Room Air 97.9 Physical Exam PHYSICAL EXAM GENERAL: NAD, Alert HEENT: PERRL, OC/OP NECK: Supple, no JVD, no LN LUNGS: Clear HEART: S1S2, no gallop, no murmur ABD: Soft, NT, no organomegaly, no rebound EXT: No edema, no cyanosis 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, 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, no focal neurologic deficit SKIN: No rash IV: ok Labs Lab Laboratory Tests Test 12/29/16 04:50 Sodium Level 145 mmol/L (136-145) Potassium Level 3.2 mmol/L (3.5-5.1) Chloride Level 108 mmol/L (98-107) Carbon Dioxide Level 29 mmol/L (21-32) Anion Gap 8 (6-14) Blood Urea Nitrogen 21 mg/dL (7-20) Creatinine 3.6 mg/dL (0.6-1.0) Estimated GFR (Cockcroft-Gault) 12.9 Glucose Level 88 mg/dL (70-99) Calcium Level 8.9 mg/dL (8.5-10.1) Phosphorus Level 4.8 mg/dL (2.6-4.7) Magnesium Level 2.3 mg/dL (1.8-2.4) Creatine Kinase 15 U/L (26-192) Albumin 2.4 g/dL (3.4-5.0) Objective Assessment Abd abscess s/p drain 12/20 Enterococcus Avium - amp/Vanc sens; bacteroides Leukocytosis -better MARVEL - worse Plan Plan of Care Zosyn F/u labs Supportive care leg elevation pt/ot ct today VAHID HERNANDEZ MD Dec 29, 2016 10:27
--- NOTE | 2016-12-29 10:59 | PDOC ---
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 1059: SURGICAL PROGRESS NOTE Subjective drinking contrast for CT no complaints Vital Signs Vital Signs Date Time Temp Pulse Resp B/P (MAP) Pulse Ox O2 Delivery O2 Flow Rate FiO2 12/29/16 07:00 97.9 56 18 166/81 (109) 93 Room Air 97.9 I&O Intake and Output 12/29/16 07:00 Intake Total 3550 ml Output Total 5730 ml Balance -2180 ml Intake Oral 3550 ml Output Urine Total 5700 ml Drainage Total 30 ml General: Alert, Oriented X3, Cooperative, No acute distress Abdomen: Soft, Other (drain scant greenish drainage) Labs Laboratory Tests Test 12/28/16 04:00 12/29/16 04:50 Sodium Level 146 mmol/L (136-145) 145 mmol/L (136-145) Potassium Level 3.5 mmol/L (3.5-5.1) 3.2 mmol/L (3.5-5.1) Chloride Level 107 mmol/L (98-107) 108 mmol/L (98-107) Carbon Dioxide Level 29 mmol/L (21-32) 29 mmol/L (21-32) Anion Gap 10 (6-14) 8 (6-14) Blood Urea Nitrogen 24 mg/dL (7-20) 21 mg/dL (7-20) Creatinine 3.5 mg/dL (0.6-1.0) 3.6 mg/dL (0.6-1.0) Estimated GFR (Cockcroft-Gault) 13.3 12.9 Glucose Level 90 mg/dL (70-99) 88 mg/dL (70-99) Calcium Level 9.4 mg/dL (8.5-10.1) 8.9 mg/dL (8.5-10.1) Phosphorus Level 4.8 mg/dL (2.6-4.7) 4.8 mg/dL (2.6-4.7) Magnesium Level 2.5 mg/dL (1.8-2.4) 2.3 mg/dL (1.8-2.4) Creatine Kinase 17 U/L (26-192) 15 U/L (26-192) Albumin 2.3 g/dL (3.4-5.0) 2.4 g/dL (3.4-5.0) Laboratory Tests Test 12/29/16 04:50 Sodium Level 145 mmol/L (136-145) Potassium Level 3.2 mmol/L (3.5-5.1) Chloride Level 108 mmol/L (98-107) Carbon Dioxide Level 29 mmol/L (21-32) Anion Gap 8 (6-14) Blood Urea Nitrogen 21 mg/dL (7-20) Creatinine 3.6 mg/dL (0.6-1.0) Estimated GFR (Cockcroft-Gault) 12.9 Glucose Level 88 mg/dL (70-99) Calcium Level 8.9 mg/dL (8.5-10.1) Phosphorus Level 4.8 mg/dL (2.6-4.7) Magnesium Level 2.3 mg/dL (1.8-2.4) Creatine Kinase 15 U/L (26-192) Albumin 2.4 g/dL (3.4-5.0) Problem List ct today Problems: BRISEIDA CANSECO MD 12/29/16 1700: SURGICAL PROGRESS NOTE Assessment/Plan pt seen and examined CT reviewed could have drain out and go home from surgery standpoint will follow Problems: ZAC LEE APRN Dec 29, 2016 10:59 BRISEIDA CANSECO MD Dec 29, 2016 17:00
[2016-12-29 11:00] VITALS: BP 167/86
--- NOTE | 2016-12-29 11:30 | PDOC ---
Subjective: Subjective: No GI complaints. Objective: Vital Signs: Vital Signs Date Time Temp Pulse Resp B/P (MAP) Pulse Ox O2 Delivery O2 Flow Rate FiO2 12/29/16 07:00 97.9 56 18 166/81 (109) 93 Room Air 97.9 Labs: Laboratory Tests Test 12/29/16 04:50 Sodium Level 145 mmol/L Potassium Level 3.2 mmol/L Chloride Level 108 mmol/L Carbon Dioxide Level 29 mmol/L Anion Gap 8 Blood Urea Nitrogen 21 mg/dL Creatinine 3.6 mg/dL Estimated GFR (Cockcroft-Gault) 12.9 Glucose Level 88 mg/dL Calcium Level 8.9 mg/dL Phosphorus Level 4.8 mg/dL Magnesium Level 2.3 mg/dL Creatine Kinase 15 U/L Albumin 2.4 g/dL Imaging: CT A/P PENDING Echo <Conclusion> The left ventricular systolic function is normal. The ejection fraction is estimated at 60%. There is normal LV segmental wall motion. Trace mitral regurgitation. Mild tricuspid regurgitation. The PA pressure was estimated at 25 mmHg. There is no evidence of significant pericardial effusion. PE: GEN: NAD, up to chair LUNGS: clear HEART: bradycardic ABD: non-tender EXTREMITY: BLE edema NEURO/PSYCH: A & O 3, smiling A/P: Diverticular abscess (drain in place), MARVEL -- Await interval CT. PACHECO JORGENSEN Dec 29, 2016 11:30
--- NOTE | 2016-12-29 12:03 | PDOC ---
SUBJECTIVE ROS MARVEL/ ATN feels OK CVS: no Orthopnea, no CP RESP: no SOB, no LEACH GI: no Nausea, no Vomiting : no Dysuria, no Urgency OBJECTIVE Vital Signs Vital Signs Date Time Temp Pulse Resp B/P (MAP) Pulse Ox O2 Delivery O2 Flow Rate FiO2 12/29/16 07:00 97.9 56 18 166/81 (109) 93 Room Air 97.9 I & 0 Intake and Output 12/29/16 07:00 Intake Total 3550 ml Output Total 5730 ml Balance -2180 ml Intake Oral 3550 ml Output Urine Total 5700 ml Drainage Total 30 ml PHYSICAL EXAM Physical Exam GEN: Awake, Oriented x 3, In no distress EYES: Vision Unchanged, Conjunctiva Normal EN: No EN Drainage, Mucous Membranes moist NECK: no JVD, no JVP, Supple, no Thyromegaly CVS: S1S2, no Murmur, No Gallop, No Rub,no pitting Edema RESP: no Rales, no Rhonchi,no Acc. Muscle Use GI: BS + ve, NO Bruit, Non Tender, Non Distended : n CVA tenderness, calli Suprapubic Tenderness DIAGNOSIS/ASSESSMENT Assessment & Plan MARVEL/ ATN: Creat worse but rate of rise is min currently. Current fluid and E- lyte status does not necessitate emergent need for dialysis. Will re-evaluate for dialysis in the am. Discussed potential need for HD. She claims she feels fine. polyuria - ? from recovering ATN ^ed Na - better after ^ free water intake as encouraged Low k - Remains on replacement . will be cautious with rising creat; mag is OK COMMENT/RELEVANT DATA Meds Current Medications Medications (Trade) Dose Ordered Sig/Evert Start Time Stop Time Status Last Admin Dose Admin Acetaminophen (Tylenol) 325 mg PRN Q6HRS PRN 12/20/16 14:45 12/20/16 20:16 325 MG Albuterol Sulfate (Ventolin Neb Soln) 2.5 mg PRN Q2HR PRN 12/21/16 00:45 12/22/16 08:02 2.5 MG Alprazolam (Xanax) 0.25 mg PRN BID PRN 12/21/16 15:00 12/28/16 21:07 0.25 MG Amino Acids/ Glycerin/ Electrolytes 1,000 ml @ 80 mls/hr [id number] 12/26/16 11:45 12/27/16 15:41 DC 12/27/16 12:34 80 MLS/HR Atorvastatin Calcium (Lipitor) 10 mg QHS 12/21/16 21:00 12/21/16 22:04 DC Bisacodyl (Dulcolax Supp) 10 mg PRN DAILY PRN 12/20/16 14:45 Citalopram Hydrobromide (CeleXA) 20 mg DAILY 12/21/16 16:00 12/28/16 08:20 20 MG Docusate Sodium (Colace) 100 mg BID 12/20/16 21:00 12/21/16 21:57 100 MG Fentanyl Citrate (Fentanyl 2ml Vial) 100 mcg 1X ONCE 12/21/16 11:15 12/21/16 11:16 DC 12/21/16 11:45 100 MCG Heparin Sodium (Porcine) (Heparin Sq) 5,000 unit Q8HRS 12/21/16 22:00 12/22/16 14:40 5,000 UNIT Info (Do NOT chart on this entry -- for MONITORING) 1 each PRN DAILY PRN 12/29/16 09:45 12/31/16 09:44 Iohexol (Omnipaque 240 Mg/ml) 30 ml 1X ONCE 12/29/16 09:45 12/29/16 09:46 DC 12/29/16 11:19 30 ML Labetalol HCl (Normodyne) 20 mg PRN Q2HR PRN 12/27/16 11:00 12/28/16 08:22 20 MG Lactobacillus Rhamnosus (Culturelle) 1 cap BID 12/24/16 21:00 12/28/16 21:07 1 CAP Levothyroxine Sodium (Synthroid) 25 mcg DAILY07 12/21/16 16:00 12/29/16 05:52 25 MCG Lidocaine/Sodium Bicarbonate (Buffered Lidocaine 1%) 20 ml 1X ONCE 12/21/16 11:15 12/21/16 11:16 DC 12/21/16 11:44 20 ML Linezolid 300 ml @ 300 mls/hr Q12HR 12/23/16 10:00 12/24/16 09:25 DC 12/23/16 22:12 300 MLS/HR Magnesium Hydroxide (Milk Of Magnesia) 2,400 mg PRN Q12HR PRN 12/20/16 14:45 Magnesium Sulfate/ Dextrose 50 ml @ 25 mls/hr PRN DAILY PRN 12/26/16 11:45 Midazolam HCl (Versed) 2 mg 1X ONCE 12/21/16 11:15 12/21/16 11:16 DC 12/21/16 11:44 2 MG Morphine Sulfate 2 mg PRN Q2HR PRN 12/20/16 14:45 Nystatin (Nystop) 1 tierra PRN BID PRN 12/28/16 12:00 Ondansetron HCl (Zofran) 4 mg PRN Q6HRS PRN 12/20/16 14:45 12/24/16 20:02 4 MG Oxycodone HCl (Roxicodone) 5 mg PRN Q3HRS PRN 12/20/16 14:45 12/24/16 20:02 5 MG Piperacillin Sod/ Tazobactam Sod (Zosyn Per Pharmacy) 1 each PRN DAILY PRN 12/20/16 14:45 Piperacillin Sod/ Tazobactam Sod (Zosyn) 2.25 gm Q6HRS 12/24/16 12:00 12/29/16 05:52 2.25 GM Piperacillin Sod/ Tazobactam Sod 2.25 gm/Dextrose 50 ml @ 100 mls/hr Q6HRS 12/24/16 12:00 12/24/16 12:00 DC Potassium Phosphate 10 mmol/ Sodium Chloride 103.3333 ml @ 51.667 m... Q2H 12/22/16 09:00 12/22/16 12:59 DC 12/22/16 14:30 51.667 MLS/HR Potassium Chloride (Klor-Con) 40 meq 1X ONCE 12/26/16 12:30 12/26/16 12:31 DC 12/26/16 12:21 40 MEQ Prochlorperazine (Compazine) 25 mg PRN Q12HR PRN 12/20/16 14:45 Prochlorperazine Edisylate (Compazine) 10 mg PRN Q6HRS PRN 12/20/16 14:45 Ringer's Solution 1,000 ml @ 70 mls/hr [id number] 12/20/16 16:00 12/27/16 13:00 DC 12/26/16 03:44 100 MLS/HR Sodium Phosphate 20 mmol/Dextrose 256.6667 ml @ 64.167 m... 1X ONCE 12/21/16 12:00 12/21/16 15:59 DC 12/21/16 12:00 64.167 MLS/HR Vancomycin HCl 1 each 1X ONCE 12/23/16 09:30 12/23/16 09:31 DC Vancomycin HCl (Vanco Per Pharmacy) 1 each PRN DAILY PRN 12/21/16 15:00 12/23/16 09:45 DC 12/21/16 18:45 1 EACH Vancomycin HCl 2 gm/Dextrose 500 ml @ 250 mls/hr Q12H 12/22/16 05:00 12/23/16 09:45 DC 12/22/16 20:10 250 MLS/HR Lab Laboratory Tests Test 12/29/16 04:50 Sodium Level 145 mmol/L (136-145) Potassium Level 3.2 mmol/L (3.5-5.1) Chloride Level 108 mmol/L (98-107) Carbon Dioxide Level 29 mmol/L (21-32) Anion Gap 8 (6-14) Blood Urea Nitrogen 21 mg/dL (7-20) Creatinine 3.6 mg/dL (0.6-1.0) Estimated GFR (Cockcroft-Gault) 12.9 Glucose Level 88 mg/dL (70-99) Calcium Level 8.9 mg/dL (8.5-10.1) Phosphorus Level 4.8 mg/dL (2.6-4.7) Magnesium Level 2.3 mg/dL (1.8-2.4) Creatine Kinase 15 U/L (26-192) Albumin 2.4 g/dL (3.4-5.0) JOSIE HERNANDEZ MD Dec 29, 2016 12:03
--- NOTE | 2016-12-29 13:12 | PDOC ---
PROGRESS NOTES Chief Complaint Chief Complaint Acute renal failure 1. Sigmoid diverticultuis with perforation with [address] post abscess drain on 12/21 2. sepsis 3. Leukocytosis 4. Obesity, morbid BMI 47 5. HTN 6. hypophophatemia 7. hypokalemia 8. MARVEL, acute renal failure, w. ATN s/p IV contrast, vanco History of Present Illness History of Present Illness Creat 3.6 from 3.5 Good UO FEels well ARMOND drain clear, maybe 10-cc only JUst had CT scan today PLAN:Await CTresults NO nephrotoxins Renal panel daily Dw her and John Vitals Vitals Vital Signs Date Time Temp Pulse Resp B/P (MAP) Pulse Ox O2 Delivery O2 Flow Rate FiO2 12/29/16 11:00 97.5 65 18 167/86 (113) 94 Room Air 97.5 Physical Exam Physical Exam right flank 1 Armond with some sanguinous fluid General: Alert, Oriented X3, Cooperative, No acute distress Heart: Regular rate, Normal S1, Normal S2 Lungs: Clear Abdomen: Soft, Other (drain scant greenish drainage) Extremities: No clubbing Skin: No breakdown Labs LABS Laboratory Tests Test 12/29/16 04:50 Sodium Level 145 mmol/L (136-145) Potassium Level 3.2 mmol/L (3.5-5.1) Chloride Level 108 mmol/L (98-107) Carbon Dioxide Level 29 mmol/L (21-32) Anion Gap 8 (6-14) Blood Urea Nitrogen 21 mg/dL (7-20) Creatinine 3.6 mg/dL (0.6-1.0) Estimated GFR (Cockcroft-Gault) 12.9 Glucose Level 88 mg/dL (70-99) Calcium Level 8.9 mg/dL (8.5-10.1) Phosphorus Level 4.8 mg/dL (2.6-4.7) Magnesium Level 2.3 mg/dL (1.8-2.4) Creatine Kinase 15 U/L (26-192) Albumin 2.4 g/dL (3.4-5.0) Review of Systems Review of Systems neg 14 pt reviewed Comment Review of Relevant I have reviewed the following items kevin (where applicable) has been applied. Labs Laboratory Tests Test 12/28/16 04:00 12/29/16 04:50 Sodium Level 146 mmol/L (136-145) 145 mmol/L (136-145) Potassium Level 3.5 mmol/L (3.5-5.1) 3.2 mmol/L (3.5-5.1) Chloride Level 107 mmol/L (98-107) 108 mmol/L (98-107) Carbon Dioxide Level 29 mmol/L (21-32) 29 mmol/L (21-32) Anion Gap 10 (6-14) 8 (6-14) Blood Urea Nitrogen 24 mg/dL (7-20) 21 mg/dL (7-20) Creatinine 3.5 mg/dL (0.6-1.0) 3.6 mg/dL (0.6-1.0) Estimated GFR (Cockcroft-Gault) 13.3 12.9 Glucose Level 90 mg/dL (70-99) 88 mg/dL (70-99) Calcium Level 9.4 mg/dL (8.5-10.1) 8.9 mg/dL (8.5-10.1) Phosphorus Level 4.8 mg/dL (2.6-4.7) 4.8 mg/dL (2.6-4.7) Magnesium Level 2.5 mg/dL (1.8-2.4) 2.3 mg/dL (1.8-2.4) Creatine Kinase 17 U/L (26-192) 15 U/L (26-192) Albumin 2.3 g/dL (3.4-5.0) 2.4 g/dL (3.4-5.0) Laboratory Tests Test 12/29/16 04:50 Sodium Level 145 mmol/L (136-145) Potassium Level 3.2 mmol/L (3.5-5.1) Chloride Level 108 mmol/L (98-107) Carbon Dioxide Level 29 mmol/L (21-32) Anion Gap 8 (6-14) Blood Urea Nitrogen 21 mg/dL (7-20) Creatinine 3.6 mg/dL (0.6-1.0) Estimated GFR (Cockcroft-Gault) 12.9 Glucose Level 88 mg/dL (70-99) Calcium Level 8.9 mg/dL (8.5-10.1) Phosphorus Level 4.8 mg/dL (2.6-4.7) Magnesium Level 2.3 mg/dL (1.8-2.4) Creatine Kinase 15 U/L (26-192) Albumin 2.4 g/dL (3.4-5.0) Microbiology 12/21/16 Gram Stain - Final, Complete Medications Current Medications Ondansetron HCl (Zofran) 4 mg PRN Q6HRS PRN IV NAUSEA/VOMITING (1st Choice) Last administered on 12/24/16 20:02; Start 12/20/16 at 14:45 Prochlorperazine Edisylate (Compazine) 10 mg PRN Q6HRS PRN IV NAUSEA/VOMITING ( 2nd Choice); Start 12/20/16 at 14:45 Prochlorperazine (Compazine) 25 mg PRN Q12HR PRN [place] NAUSEA/VOMITING; Start 01/24 at 14:45 Oxycodone HCl (Roxicodone) 5 mg PRN Q3HRS PRN PO BREAKTHROUGH PAIN Last administered on 12/24/16 20:02; Start 12/20/16 at 14:45 Morphine Sulfate 2 mg PRN Q2HR PRN IV MODERATE PAIN; Start 12/20/16 at 14:45 Acetaminophen (Tylenol) 650 mg PRN Q6HRS PRN PO Headaches, Temp > 101.5F Last administered on 12/22/16 00:03; Start 12/20/16 at 14:45 Docusate Sodium (Colace) 100 mg BID PO Last administered on 12/21/16 21:57; Start 12/20/16 at 21:00 Magnesium Hydroxide (Milk Of Magnesia) 2,400 mg PRN Q12HR PRN PO CONSTIPATION; Start 12/20/16 at 14:45 Bisacodyl (Dulcolax Supp) 10 mg PRN DAILY PRN [place] CONSTIPATION; Start 12/20/16 at 14:45 Ringer's Solution 1,000 ml @ 70 mls/hr [id number] IV Last administered on 03:44; Start 12/20/16 at 16:00; Stop 12/27/16 at 13:00; Status DC Piperacillin Sod/ Tazobactam Sod (Zosyn Per Pharmacy) 1 each PRN DAILY PRN MC SEE COMMENTS; Start 12/20/16 at 14:45 Fentanyl Citrate (Fentanyl 2ml Vial) 50 mcg PRN Q2HR PRN IV SEVERE PAIN Last administered on 12/22/16 22:52; Start 12/20/16 at 14:45 Acetaminophen (Tylenol) 325 mg PRN Q6HRS PRN NJ MILD PAIN / TEMP Last administered on 12/20/16 20:16; Start 12/20/16 at 14:45 Piperacillin Sod/ Tazobactam Sod (Zosyn) 3.375 gm Q6HRS IVP Last administered on 12/24/16 06:27; Start 12/20/16 at 18:00; Stop 12/24/16 at 09:25; Status DC Albuterol Sulfate (Ventolin Neb Soln) 2.5 mg PRN Q2HR PRN NEB SHORTNESS OF BREATH Last administered on 12/22/16 08:02; Start 12/21/16 at 00:45 Lidocaine/Sodium Bicarbonate (Buffered Lidocaine 1%) 20 ml STK-MED ONCE IJ ; Start 12/21/16 at 10:43; Stop 12/21/16 at 10:44; Status DC Fentanyl Citrate (Fentanyl 2ml Vial) 100 mcg STK-MED ONCE .ROUTE ; Start at 10:57; Stop 12/21/16 at 10:58; Status DC Midazolam HCl (Versed) 2 mg STK-MED ONCE .ROUTE ; Start 12/21/16 at 10:57; Stop 12/21/16 at 10:58; Status DC Lidocaine/Sodium Bicarbonate (Buffered Lidocaine 1%) 20 ml 1X ONCE IJ Last administered on 12/21/16 11:44; Start 12/21/16 at 11:15; Stop 12/21/16 at 11 :16; Status DC Midazolam HCl (Versed) 2 mg 1X ONCE IV Last administered on 12/21/16 11:44; Start 12/21/16 at 11:15; Stop 12/21/16 at 11:16; Status DC Fentanyl Citrate (Fentanyl 2ml Vial) 100 mcg 1X ONCE IV Last administered on 12/21/16 11:45; Start 12/21/16 at 11:15; Stop 12/21/16 at 11:16; Status DC Sodium Phosphate 20 mmol/Dextrose 256.6667 ml @ 64.167 m... 1X ONCE IV Last administered on 12/21/16 12:00; Start 12/21/16 at 12:00; Stop 12/21/16 at 15 :59; Status DC Alprazolam (Xanax) 0.25 mg PRN BID PRN PO ANXIETY / AGITATION Last administered on 12/28/16 21:07; Start 12/21/16 at 15:00 Citalopram Hydrobromide (CeleXA) 20 mg DAILY PO Last administered on 08:20; Start 12/21/16 at 16:00 Levothyroxine Sodium (Synthroid) 25 mcg DAILY07 PO Last administered on 05:52; Start 12/21/16 at 16:00 Atorvastatin Calcium (Lipitor) 10 mg QHS PO ; Start 12/21/16 at 21:00; Stop at 22:04; Status DC Vancomycin HCl 2 gm/Dextrose 500 ml @ 250 mls/hr Q12H IV ; Start 12/21/16 at 15:00; Status UNV Vancomycin HCl (Vanco Per Pharmacy) 1 each PRN DAILY PRN MC SEE COMMENTS Last administered on 12/21/16 18:45; Start 12/21/16 at 15:00; Stop 12/23/16 at 09 :45; Status DC Heparin Sodium (Porcine) (Heparin Sq) 5,000 unit Q8HRS SQ Last administered on 12/22/16 14:40; Start 12/21/16 at 22:00 Vancomycin HCl 2 gm/Dextrose 500 ml @ 250 mls/hr 1X ONCE IV Last administered on 12/21/16 17:15; Start 12/21/16 at 16:00; Stop 12/21/16 at 17 :59; Status DC Vancomycin HCl 2 gm/Dextrose 500 ml @ 250 mls/hr Q12H IV Last administered on 12/22/16 20:10; Start 12/22/16 at 05:00; Stop 12/23/16 at 09:45; Status DC Vancomycin HCl 1 each 1X ONCE MC ; Start 12/23/16 at 09:30; Stop 12/23/16 at 09:31; Status DC Potassium Phosphate 10 mmol/ Sodium Chloride 103.3333 ml @ 51.667 m... Q2H IV Last administered on 12/22/16 14:30; Start 12/22/16 at 09:00; Stop 12/22/16 at 12:59; Status DC Potassium Chloride (Klor-Con) 40 meq 1X ONCE PO Last administered on 08:44; Start 12/23/16 at 08:30; Stop 12/23/16 at 08:31; Status DC Linezolid 300 ml @ 300 mls/hr Q12HR IV Last administered on 12/23/16 22:12; Start 12/23/16 at 10:00; Stop 12/24/16 at 09:25; Status DC Potassium Chloride (Klor-Con) 40 meq 1X ONCE PO Last administered on 10:13; Start 12/24/16 at 08:15; Stop 12/24/16 at 08:41; Status DC Piperacillin Sod/ Tazobactam Sod 2.25 gm/Dextrose 50 ml @ 100 mls/hr Q6HRS IV ; Start 12/24/16 at 12:00; Stop 12/24/16 at 12:00; Status DC Piperacillin Sod/ Tazobactam Sod (Zosyn) 2.25 gm Q6HRS IVP Last administered on 12/29/16 05:52; Start 12/24/16 at 12:00 Lactobacillus Rhamnosus (Culturelle) 1 cap BID PO Last administered on 21:07; Start 12/24/16 at 21:00 Amino Acids/ Glycerin/ Electrolytes 1,000 ml @ 80 mls/hr [id number] IV Last administered on 12/27/16 12:34; Start 12/26/16 at 11:45; Stop 12/27/16 at 15 :41; Status DC Magnesium Sulfate/ Dextrose 50 ml @ 25 mls/hr PRN DAILY PRN IV for Mag < 1.7 on am labs; Start 12/26/16 at 11:45 Potassium Chloride (Klor-Con) 40 meq 1X ONCE PO Last administered on 12:21; Start 12/26/16 at 12:30; Stop 12/26/16 at 12:31; Status DC Nystatin 5 ml [id number] Last administered on 12/28/16 08:20; Start at 13:00 Nystatin (Nystop) 1 tierra BID TP Last administered on 12/27/16 12:32; Start at 12:00; Stop 12/27/16 at 17:03; Status DC Labetalol HCl (Normodyne) 20 mg PRN Q2HR PRN IVP HYPERTENSION, SEE COMMENTS Last administered on 12/28/16 08:22; Start 12/27/16 at 11:00 Nystatin (Nystop) 1 tierra PRN BID PRN TP RASH; Start 12/28/16 at 12:00 Iohexol (Omnipaque 240 Mg/ml) 30 ml 1X ONCE PO Last administered on 11:19; Start 12/29/16 at 09:45; Stop 12/29/16 at 09:46; Status DC Info (Do NOT chart on this entry -- for MONITORING) 1 each PRN DAILY PRN MC SEE COMMENTS; Start 12/29/16 at 09:45; Stop 12/31/16 at 09:44 Active Scripts Active Reported Pravastatin Sodium 40 Mg Tablet 1 Tab PO QHS Celebrex (Celecoxib) 200 Mg Capsule 1 Cap PO DAILY Furosemide 40 Mg Tablet 1 Tab PO DAILY Levothyroxine Sodium 25 Mcg Tablet 1 Tab PO DAILY Triamterene-Hctz 37.5-25 Mg Tb (Triamterene/Hydrochlorothiazid) 1 Each Tablet 1 Tab PO DAILY Potassium Chloride 20 Meq Tablet.er 20 Meq PO DAILY Citalopram Hbr (Citalopram Hydrobromide) 20 Mg Tablet 1 Tab PO DAILY Calcium Acetate 667 Mg Tablet 667 Mg PO DAILY Xanax (Alprazolam) 0.25 Mg Tablet 1 Tab PO PRN BID PRN Vitals/I & O Vital Sign - Last 24 Hours 12/28/16 12/28/16 12/28/16 12/28/16 15:00 19:00 20:00 23:00 Temp 98.9 98.1 98.3 98.9 98.1 98.3 Pulse 71 71 76 Resp 18 18 18 B/P (MAP) 169/90 (116) 157/85 (109) 151/96 (114) Pulse Ox 95 96 96 O2 Delivery Room Air Room Air Room Air Room Air 12/29/16 12/29/16 12/29/16 03:00 07:00 11:00 Temp 97.9 97.9 97.5 97.9 97.9 97.5 Pulse 66 56 65 Resp 20 18 18 B/P (MAP) 158/89 (112) 166/81 (109) 167/86 (113) Pulse Ox 94 93 94 O2 Delivery Room Air Room Air Room Air Intake and Output 12/28/16 12/28/16 12/29/16 15:00 23:00 07:00 Intake Total 2400 ml 1150 ml Output Total 1900 ml 1500 ml 2330 ml Balance -1900 ml 900 ml -1180 ml ROSALINA SULLIVAN MD Dec 29, 2016 13:12
[2016-12-29 15:00] VITALS: BP 179/81
--- NOTE | 2016-12-29 16:44 | RAD ---
CT of the abdomen and pelvis without contrast 12/29/2016 Indication: Follow-up diverticulitis was. Diverticulitis the perirectal abscess. Status post percutaneous drainage. Comparison study: CT-guided drainage of diverticular abscess December 21, 2016 Technique: Multidetector CT imaging of the abdomen and pelvis was performed without the administration of intravenous contrast. Findings: The visualized lung bases demonstrate minimal atelectasis. Otherwise grossly unremarkable. Solid viscera of the abdomen have a grossly unremarkable noncontrast enhanced appearance. The gallbladder is predominantly decompressed. There is no bowel obstruction. Oral contrast was administered prior exam is predominantly within stomach and small bowel. Small amount of contrast is noted in the ascending colon. The colon is relatively decompressed. There is a pigtail drainage catheter in the pelvis adjacent to the rectum. The previously seen abscess is essentially resolved. Correlate with drain output. Distal sigmoid colon diverticulosis is again noted. No evidence of acute worsening diverticulitis is seen. No free fluid or free air is seen in the abdomen or pelvis. The bladder is grossly unremarkable. No acute osseous changes are appreciated. Impression: 1. Perirectal drainage catheter remains in place. The previously seen diverticular abscess is essentially resolved on CT. Correlate with drain output. 2. No other acute intra-abdominal abnormality is identified PQRS Compliance Statement: One or more of the following individualized dose reduction techniques were utilized for this examination: 1. Automated exposure control 2. Adjustment of the mA and/or kV according to patient size 3. Use of iterative reconstruction technique
[2016-12-29 19:00] VITALS: BP 165/95
[2016-12-29] MEDS: ALPRAZolam 0.25 MG TABLET PO PRN (21:52)
[2016-12-29 23:00] VITALS: BP 169/83
[2016-12-30] MEDS: PIPERACILLIN/TAZO IV Push 2.25 GM VIAL. IVP SCH ×2 (00:54→06:37)
[2016-12-30 03:00] VITALS: BP 152/94
[2016-12-30 05:49] LABS: ALBUMIN 2.5 g/dL (3.4-5.0); CALCIUM 9.6 mg/dL (8.5-10.1); CREATININE 3.4 mg/dL (0.6-1.0); GFR 13.8; MAGNESIUM 2.6 mg/dL (1.8-2.4); PHOSPHORUS 4.5 mg/dL (2.6-4.7); POTASSIUM 3.1 mmol/L (3.5-5.1)
[2016-12-30] MEDS: HEPARIN PF for SUB-Q USE 5,000 UNIT/0.5 ML VIAL. SQ SCH (06:00)
[2016-12-30 07:00] VITALS: BP 160/96
[2016-12-30] MEDS: LEVOTHYROXINE 25 MCG TABLET. PO SCH (07:00)
--- NOTE | 2016-12-30 08:34 | PDOC3 ---
Discharge Summary Visit Information Date of Admission: Dec 20, 2016 Date of Discharge: Dec 30, 2016 Admitting Diagnosis Comment: Acute renal failure 1. Sigmoid diverticultuis with perforation with [address] post abscess drain on 12/21 2. sepsis 3. Leukocytosis 4. Obesity, morbid BMI 47 5. HTN 6. hypophophatemia 7. hypokalemia 8. MARVEL, acute renal failure, w. ATN s/p IV contrast, vanco Brief Hospital Course Allergies Allergies Coded Allergies Type Severity Reaction Last Updated Verified atorvastatin Allergy Intermediate 12/21/16 Yes Vital Signs Vital Signs Date Time Temp Pulse Resp B/P (MAP) Pulse Ox O2 Delivery O2 Flow Rate FiO2 12/30/16 07:00 98.1 76 20 160/96 (117) 95 Room Air 98.1 Lab Results Laboratory Tests Test 12/29/16 04:50 12/30/16 04:55 Sodium Level 145 mmol/L (136-145) 147 mmol/L (136-145) Potassium Level 3.2 mmol/L (3.5-5.1) 3.1 mmol/L (3.5-5.1) Chloride Level 108 mmol/L (98-107) 108 mmol/L (98-107) Carbon Dioxide Level 29 mmol/L (21-32) 29 mmol/L (21-32) Anion Gap 8 (6-14) 10 (6-14) Blood Urea Nitrogen 21 mg/dL (7-20) 20 mg/dL (7-20) Creatinine 3.6 mg/dL (0.6-1.0) 3.4 mg/dL (0.6-1.0) Estimated GFR (Cockcroft-Gault) 12.9 13.8 Glucose Level 88 mg/dL (70-99) 93 mg/dL (70-99) Calcium Level 8.9 mg/dL (8.5-10.1) 9.6 mg/dL (8.5-10.1) Phosphorus Level 4.8 mg/dL (2.6-4.7) 4.5 mg/dL (2.6-4.7) Magnesium Level 2.3 mg/dL (1.8-2.4) 2.6 mg/dL (1.8-2.4) Creatine Kinase 15 U/L (26-192) 23 U/L (26-192) Albumin 2.4 g/dL (3.4-5.0) 2.5 g/dL (3.4-5.0) Laboratory Tests Test 12/30/16 04:55 Sodium Level 147 mmol/L (136-145) Potassium Level 3.1 mmol/L (3.5-5.1) Chloride Level 108 mmol/L (98-107) Carbon Dioxide Level 29 mmol/L (21-32) Anion Gap 10 (6-14) Blood Urea Nitrogen 20 mg/dL (7-20) Creatinine 3.4 mg/dL (0.6-1.0) Estimated GFR (Cockcroft-Gault) 13.8 Glucose Level 93 mg/dL (70-99) Calcium Level 9.6 mg/dL (8.5-10.1) Phosphorus Level 4.5 mg/dL (2.6-4.7) Magnesium Level 2.6 mg/dL (1.8-2.4) Creatine Kinase 23 U/L (26-192) Albumin 2.5 g/dL (3.4-5.0) Brief Hospital Course Ms. Kay is a 61 old female admitted for sigmoid diverticulitis with microperf underwent sx with indwelling GURVINDER drain that is about to be taken out now prior to dc. BUt course remarkable for MARVEL on CKD stage 3 needing renal , got iVF. CReat stable at 3,5. Advised to stop home LASIX, Triamterene-HCTZ and celebrex, SHe understands Seen and examined MAR done Ff up renal 2-4 weeks COnsults; GS and nephro Proc: abd sx Discharge Information Condition at Discharge: Improved, Stable Follow Up: Weeks (2- 4weeks renal) Disposition/Orders: D/C to Home Scheduled Calcium Acetate (Calcium Acetate), 667 MG PO DAILY, (Reported) Celecoxib (Celebrex), 1 CAP PO DAILY, (Reported) Citalopram Hydrobromide (Citalopram Hbr), 1 TAB PO DAILY, (Reported) Furosemide (Furosemide), 1 TAB PO DAILY, (Reported) Levothyroxine Sodium (Levothyroxine Sodium), 1 TAB PO DAILY, (Reported) Potassium Chloride (Potassium Chloride), 20 MEQ PO DAILY, (Reported) Pravastatin Sodium (Pravastatin Sodium), 1 TAB PO QHS, (Reported) Triamterene/Hydrochlorothiazid (Triamterene-Hctz 37.5-25 Mg Tb), 1 TAB PO DAILY, (Reported) Scheduled PRN Alprazolam (Xanax), 1 TAB PO PRN BID PRN for ANXIETY / AGITATION, (Reported) ROSALINA SULLIVAN MD Dec 30, 2016 08:34
[2016-12-30] MEDS: DOCUSATE SODIUM 100 MG CAPSULE. PO SCH (09:06)
[2016-12-30] MEDS: LACTOBACILLUS RHAMNOSUS GG 1 CAPSULE. PO SCH ×2 (09:06→09:55)
--- NOTE | 2016-12-30 09:07 | PDOC ---
Infectious Disease Note Subjective Subjective Tolerating regular diet, feeling good, swelling of legs is the only complaint Denies pain, N/V/D ROS ROS GEN: Denies fevers, chills, sweats HEENT: Denies blurred vision, sore throat CV: Denies chest pain RESP: Denies shortness of air, cough GI: Denies n/v/d NEURO: Denies confusion, dizziness MSK: Denies weakness, joint pain/swelling Vital Sign Vital Signs Vital Signs Date Time Temp Pulse Resp B/P (MAP) Pulse Ox O2 Delivery O2 Flow Rate FiO2 12/30/16 07:00 98.1 76 20 160/96 (117) 95 Room Air 98.1 Physical Exam PHYSICAL EXAM GENERAL: NAD, Alert HEENT: PERRL, OC/OP NECK: Supple, no JVD, no LN LUNGS: Clear HEART: S1S2, no gallop, no murmur ABD: Soft, NT, no organomegaly, no rebound EXT: No edema, no cyanosis INTEGRATED SPECIALIST: Alert, 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, no focal neurologic deficit SKIN: No rash IV: ok Labs Lab Laboratory Tests Test 12/30/16 04:55 Sodium Level 147 mmol/L (136-145) Potassium Level 3.1 mmol/L (3.5-5.1) Chloride Level 108 mmol/L (98-107) Carbon Dioxide Level 29 mmol/L (21-32) Anion Gap 10 (6-14) Blood Urea Nitrogen 20 mg/dL (7-20) Creatinine 3.4 mg/dL (0.6-1.0) Estimated GFR (Cockcroft-Gault) 13.8 Glucose Level 93 mg/dL (70-99) Calcium Level 9.6 mg/dL (8.5-10.1) Phosphorus Level 4.5 mg/dL (2.6-4.7) Magnesium Level 2.6 mg/dL (1.8-2.4) Creatine Kinase 23 U/L (26-192) Albumin 2.5 g/dL (3.4-5.0) Objective Assessment Abd abscess s/p drain 12/20 Enterococcus Avium - amp/Vanc sens; bacteroides Leukocytosis -better MARVEL - worse Plan Plan of Care change Zosyn to po augmentin F/u labs Supportive care leg elevation pt/ot ct noted ok to d/c from ID stand point, f/u with us in 2 wks HERNANDEZ,VAHID R MD Dec 30, 2016 09:07
[2016-12-30] MEDS ORDERED: AMOXICILLIN/K CLAV 500/125MG TABLET. PO SCH (09:30)
[2016-12-30] MEDS: CITALOPRAM 20 MG TABLET. PO SCH (09:55)
[2016-12-30] MEDS: NYSTATIN 100,000 UNITS/ML 5 ML ORAL.SUSP. SWSW SCH (09:57)
--- NOTE | 2016-12-30 10:35 | PDOC ---
SURGICAL PROGRESS NOTE Subjective doing well anxious to get home drain is out Vital Signs Vital Signs Date Time Temp Pulse Resp B/P (MAP) Pulse Ox O2 Delivery O2 Flow Rate FiO2 12/30/16 07:45 Room Air 12/30/16 07:00 98.1 76 20 160/96 (117) 95 98.1 I&O Intake and Output 12/30/16 07:00 Intake Total 60 ml Output Total 5050 ml Balance -4990 ml Intake Oral 60 ml Output Urine Total 5050 ml Drainage Total 0 ml PATIENT HAS A MONK: No General: Alert, Oriented X3, Cooperative, No acute distress Abdomen: Soft, No tenderness Labs Laboratory Tests Test 12/29/16 04:50 12/30/16 04:55 Sodium Level 145 mmol/L (136-145) 147 mmol/L (136-145) Potassium Level 3.2 mmol/L (3.5-5.1) 3.1 mmol/L (3.5-5.1) Chloride Level 108 mmol/L (98-107) 108 mmol/L (98-107) Carbon Dioxide Level 29 mmol/L (21-32) 29 mmol/L (21-32) Anion Gap 8 (6-14) 10 (6-14) Blood Urea Nitrogen 21 mg/dL (7-20) 20 mg/dL (7-20) Creatinine 3.6 mg/dL (0.6-1.0) 3.4 mg/dL (0.6-1.0) Estimated GFR (Cockcroft-Gault) 12.9 13.8 Glucose Level 88 mg/dL (70-99) 93 mg/dL (70-99) Calcium Level 8.9 mg/dL (8.5-10.1) 9.6 mg/dL (8.5-10.1) Phosphorus Level 4.8 mg/dL (2.6-4.7) 4.5 mg/dL (2.6-4.7) Magnesium Level 2.3 mg/dL (1.8-2.4) 2.6 mg/dL (1.8-2.4) Creatine Kinase 15 U/L (26-192) 23 U/L (26-192) Albumin 2.4 g/dL (3.4-5.0) 2.5 g/dL (3.4-5.0) Laboratory Tests Test 12/30/16 04:55 Sodium Level 147 mmol/L (136-145) Potassium Level 3.1 mmol/L (3.5-5.1) Chloride Level 108 mmol/L (98-107) Carbon Dioxide Level 29 mmol/L (21-32) Anion Gap 10 (6-14) Blood Urea Nitrogen 20 mg/dL (7-20) Creatinine 3.4 mg/dL (0.6-1.0) Estimated GFR (Cockcroft-Gault) 13.8 Glucose Level 93 mg/dL (70-99) Calcium Level 9.6 mg/dL (8.5-10.1) Phosphorus Level 4.5 mg/dL (2.6-4.7) Magnesium Level 2.6 mg/dL (1.8-2.4) Creatine Kinase 23 U/L (26-192) Albumin 2.5 g/dL (3.4-5.0) Assessment/Plan perforated sigmoid diverticulitis s/p perc drainage ARF drain is out home on po abx when renal oks it f/u in [place] office, two weeks Problems: BRISEIDA CANSECO MD Dec 30, 2016 10:35
--- NOTE | 2016-12-30 10:45 | PDOC ---
Subjective: Subjective: Possible DC today, feeling good. Objective: Vital Signs: Vital Signs Date Time Temp Pulse Resp B/P (MAP) Pulse Ox O2 Delivery O2 Flow Rate FiO2 12/30/16 07:45 Room Air 12/30/16 07:00 98.1 76 20 160/96 (117) 95 98.1 Labs: Laboratory Tests Test 12/30/16 04:55 Sodium Level 147 mmol/L Potassium Level 3.1 mmol/L Chloride Level 108 mmol/L Carbon Dioxide Level 29 mmol/L Anion Gap 10 Blood Urea Nitrogen 20 mg/dL Creatinine 3.4 mg/dL Estimated GFR (Cockcroft-Gault) 13.8 Glucose Level 93 mg/dL Calcium Level 9.6 mg/dL Phosphorus Level 4.5 mg/dL Magnesium Level 2.6 mg/dL Creatine Kinase 23 U/L Albumin 2.5 g/dL Imaging: CT A/P Impression: 1. Perirectal drainage catheter remains in place. The previously seen diverticular abscess is essentially resolved on CT. Correlate with drain output. 2. No other acute intra-abdominal abnormality is identified PE: GEN: NAD, up to chair LUNGS: CTAB HEART: RRR ABD: non-tender NEURO/PSYCH: A & O 3 A/P: Diverticular abscess - resolved -on PO atbx, drain removed MARVEL -- DC per primary/renal. Follow-up for screening colonoscopy. PACHECO JORGENSEN Dec 30, 2016 10:45
[2016-12-30 11:00] VITALS: BP 171/94
[2016-12-30] MEDS ORDERED: AMOX1TAB61 PO (11:25)
--- NOTE | 2016-12-30 11:41 | PDOC ---
SUBJECTIVE ROS MARVEL/ ATN Ready to go ho me, has not felt bad CVS: no Orthopnea, no CP RESP: no SOB, on LEACH GI: no Nausea, no Vomiting : no Dysuria, no Urgency OBJECTIVE Vital Signs Vital Signs Date Time Temp Pulse Resp B/P (MAP) Pulse Ox O2 Delivery O2 Flow Rate FiO2 12/30/16 11:00 98.0 61 20 171/94 (119) 93 Room Air 98.0 I & 0 Intake and Output 12/30/16 06:59 Intake Total 60 ml Output Total 5050 ml Balance -4990 ml Intake Oral 60 ml Output Urine Total 5050 ml Drainage Total 0 ml PHYSICAL EXAM Physical Exam GEN: Awake, Oriented x 3, In no distress EYES: Vision Unchanged, Conjunctiva Normal EN: No EN Drainage, Mucous Membranes moist NECK: no JVD, no JVP, Supple, no Thyromegaly CVS: S1S2, no Murmur, No Gallop, No Rub,no pitting Edema RESP: no Rales, no Rhonchi,no Acc. Muscle Use GI: BS + ve, NO Bruit, Non Tender, Non Distended : n CVA tenderness, calli Suprapubic Tenderness DIAGNOSIS/ASSESSMENT Assessment & Plan MARVEL/ ATN: Creat is a little better today. Current fluid and E-lyte status does not necessitate emergent need for dialysis. Will re-evaluate for dialysis in the am. Feels well polyuria - ? from recovering ATN - plenty of PO fluids encouraged ^ed Na - better after ^ free water intake as encouraged Low k - Remains on replacement . will be cautious with rising creat; mag is OK Pt is eager to go home for Thanksgiving and so f/up is setup for 1 week and 3 weeks with us with labs as ordered. COMMENT/RELEVANT DATA Meds Current Medications Medications (Trade) Dose Ordered Sig/Evert Start Time Stop Time Status Last Admin Dose Admin Acetaminophen (Tylenol) 325 mg PRN Q6HRS PRN 12/20/16 14:45 12/20/16 20:16 325 MG Albuterol Sulfate (Ventolin Neb Soln) 2.5 mg PRN Q2HR PRN 12/21/16 00:45 12/22/16 08:02 2.5 MG Alprazolam (Xanax) 0.25 mg PRN BID PRN 12/21/16 15:00 12/29/16 21:52 0.25 MG Amino Acids/ Glycerin/ Electrolytes 1,000 ml @ 80 mls/hr [id number] 12/26/16 11:45 12/27/16 15:41 DC 12/27/16 12:34 80 MLS/HR Amoxicillin/ Clavulanate Potassium (Augmentin 500/ 125mg) 1 tab BID 12/30/16 09:30 12/30/16 09:55 1 TAB Atorvastatin Calcium (Lipitor) 10 mg QHS 12/21/16 21:00 12/21/16 22:04 DC Bisacodyl (Dulcolax Supp) 10 mg PRN DAILY PRN 12/20/16 14:45 Citalopram Hydrobromide (CeleXA) 20 mg DAILY 12/21/16 16:00 12/30/16 09:55 20 MG Docusate Sodium (Colace) 100 mg BID 12/20/16 21:00 12/21/16 21:57 100 MG Fentanyl Citrate (Fentanyl 2ml Vial) 100 mcg 1X ONCE 12/21/16 11:15 12/21/16 11:16 DC 12/21/16 11:45 100 MCG Heparin Sodium (Porcine) (Heparin Sq) 5,000 unit Q8HRS 12/21/16 22:00 12/29/16 15:56 5,000 UNIT Info (Do NOT chart on this entry -- for MONITORING) 1 each PRN DAILY PRN 12/29/16 09:45 12/31/16 09:44 Iohexol (Omnipaque 240 Mg/ml) 30 ml 1X ONCE 12/29/16 09:45 12/29/16 09:46 DC 12/29/16 11:19 30 ML Labetalol HCl (Normodyne) 20 mg PRN Q2HR PRN 12/27/16 11:00 12/28/16 08:22 20 MG Lactobacillus Rhamnosus (Culturelle) 1 cap BID 12/24/16 21:00 12/30/16 09:55 1 CAP Levothyroxine Sodium (Synthroid) 25 mcg DAILY07 12/21/16 16:00 12/29/16 05:52 25 MCG Lidocaine/Sodium Bicarbonate (Buffered Lidocaine 1%) 20 ml 1X ONCE 12/21/16 11:15 12/21/16 11:16 DC 12/21/16 11:44 20 ML Linezolid 300 ml @ 300 mls/hr Q12HR 12/23/16 10:00 12/24/16 09:25 DC 12/23/16 22:12 300 MLS/HR Magnesium Hydroxide (Milk Of Magnesia) 2,400 mg PRN Q12HR PRN 12/20/16 14:45 Magnesium Sulfate/ Dextrose 50 ml @ 25 mls/hr PRN DAILY PRN 12/26/16 11:45 Midazolam HCl (Versed) 2 mg 1X ONCE 12/21/16 11:15 12/21/16 11:16 DC 12/21/16 11:44 2 MG Morphine Sulfate 2 mg PRN Q2HR PRN 12/20/16 14:45 Nystatin (Nystop) 1 tierra PRN BID PRN 12/28/16 12:00 Ondansetron HCl (Zofran) 4 mg PRN Q6HRS PRN 12/20/16 14:45 12/24/16 20:02 4 MG Oxycodone HCl (Roxicodone) 5 mg PRN Q3HRS PRN 12/20/16 14:45 12/24/16 20:02 5 MG Piperacillin Sod/ Tazobactam Sod (Zosyn Per Pharmacy) 1 each PRN DAILY PRN 12/20/16 14:45 Piperacillin Sod/ Tazobactam Sod (Zosyn) 2.25 gm Q6HRS 12/24/16 12:00 12/30/16 09:08 DC 12/30/16 06:37 2.25 GM Piperacillin Sod/ Tazobactam Sod 2.25 gm/Dextrose 50 ml @ 100 mls/hr Q6HRS 12/24/16 12:00 12/24/16 12:00 DC Potassium Phosphate 10 mmol/ Sodium Chloride 103.3333 ml @ 51.667 m... Q2H 12/22/16 09:00 12/22/16 12:59 DC 12/22/16 14:30 51.667 MLS/HR Potassium Chloride (Klor-Con) 40 meq 1X ONCE 12/26/16 12:30 12/26/16 12:31 DC 12/26/16 12:21 40 MEQ Prochlorperazine (Compazine) 25 mg PRN Q12HR PRN 12/20/16 14:45 Prochlorperazine Edisylate (Compazine) 10 mg PRN Q6HRS PRN 12/20/16 14:45 Ringer's Solution 1,000 ml @ 70 mls/hr [id number] 12/20/16 16:00 12/27/16 13:00 DC 12/26/16 03:44 100 MLS/HR Sodium Phosphate 20 mmol/Dextrose 256.6667 ml @ 64.167 m... 1X ONCE 12/21/16 12:00 12/21/16 15:59 DC 12/21/16 12:00 64.167 MLS/HR Vancomycin HCl 1 each 1X ONCE 12/23/16 09:30 12/23/16 09:31 DC Vancomycin HCl (Vanco Per Pharmacy) 1 each PRN DAILY PRN 12/21/16 15:00 12/23/16 09:45 DC 12/21/16 18:45 1 EACH Vancomycin HCl 2 gm/Dextrose 500 ml @ 250 mls/hr Q12H 12/22/16 05:00 12/23/16 09:45 DC 12/22/16 20:10 250 MLS/HR Lab Laboratory Tests Test 12/30/16 04:55 Sodium Level 147 mmol/L (136-145) Potassium Level 3.1 mmol/L (3.5-5.1) Chloride Level 108 mmol/L (98-107) Carbon Dioxide Level 29 mmol/L (21-32) Anion Gap 10 (6-14) Blood Urea Nitrogen 20 mg/dL (7-20) Creatinine 3.4 mg/dL (0.6-1.0) Estimated GFR (Cockcroft-Gault) 13.8 Glucose Level 93 mg/dL (70-99) Calcium Level 9.6 mg/dL (8.5-10.1) Phosphorus Level 4.5 mg/dL (2.6-4.7) Magnesium Level 2.6 mg/dL (1.8-2.4) Creatine Kinase 23 U/L (26-192) Albumin 2.5 g/dL (3.4-5.0) JOSIE HERNANDEZ MD Dec 30, 2016 11:41
[2016-12-30] MEDS ORDERED: POTA20TA82 PO ×2 (11:46→11:47)
[2016-12-30] MEDS ORDERED: POTASSIUM CHLORIDE 20 MEQ TABLET.ER. PO ONE (12:00)
== END 2016-12-30 12:15 | disposition home or self-care (01) | DRG 871 ==
LOC: 4 NORTH 13:44
PROVIDERS: ADMIT Internal Medicine; ATTEND Internal Medicine
PROC: 0D9P30Z Drainage of Rectum with Drainage Device, Percutaneous Approach (ICD-10-PCS; principal; 2016-12-21)
DX: A41.9 Sepsis, unspecified organism (principal); N17.0 Acute kidney failure with tubular necrosis; E66.01 Morbid (severe) obesity due to excess calories; K57.20 Diverticulitis of large intestine with perforation and abscess without bleeding; Z68.42 Body mass index [BMI] 45.0-49.9, adult; K61.1 Rectal abscess; N18.3 Chronic kidney disease, stage 3 (moderate); E86.0 Dehydration; E87.6 Hypokalemia; F41.9 Anxiety disorder, unspecified; I12.9 Hypertensive chronic kidney disease with stage 1 through stage 4 chronic kidney disease, or unspecified chronic kidney disease; Z83.3 Family history of diabetes mellitus; Z82.49 Family history of ischemic heart disease and other diseases of the circulatory system
CPT/HCPCS: 36415; 49406; 74176; 76770; 80048; 80069; 81001; 82550; 83735; 84100; 85007; 85018; 85025; 85610; 87071; 87075; 87186; 87205; 87324; 93306; 94250; 94640; 94760; 99152; 99153; C1729; C1769; C1894; J2020; J2250; J2405; J2543; J3010; J3370; J3490; J7120; J7613; Q9966; 97116; 97530; 97535

== ENCOUNTER 2018-06-20 13:10 | Inpatient (IN) | payer BC ==
[~2018-06-20] VITALS: Ht 157.5 cm; Wt 105.5 kg
[2018-06-20] VITALS (12 sets, daily range): BP systolic 129–156; BP diastolic 59–106
[~2018-06-20 13:10] MED LIST changes: -HYDR-2761 PO; -SENN-22 PO
[2018-06-20] MEDS ORDERED: MORPHINE SULFATE 2 MG/ML VIAL. IV PRN (13:45)
[2018-06-20] MEDS ORDERED: ZOLPIDEM 5 MG TABLET. PO PRN (13:45)
[2018-06-20] MEDS ORDERED: ONDANSETRON PF 4 MG/2 ML VIAL. IV PRN (13:45)
[2018-06-20] MEDS ORDERED: MAGNESIUM HYDROXIDE 2,400 MG/30 ML ORAL.SUSP. PO PRN (13:45)
[2018-06-20] MEDS ORDERED: IBUPROFEN 400 MG TABLET. PO PRN (13:45)
[2018-06-20] MEDS ORDERED: ACETAMINOPHEN 325 MG TABLET. PO PRN (13:45)
--- NOTE | 2018-06-20 13:49 | PDOC1 ---
History and Physical Date of Admission Date of Admission DATE: 06/20/18 TIME: 13:47 Identification/Chief Complaint Chief Complaint Respiratory distress Source Source: Chart review, Patient History of Present Illness History of Present Illness Ms Kay is a 62yo F w/ PMHx previous diverticulitis, depression, morbid obesity, hypertension who was seen in office for pulmonary consult for shortness of breath, was noted on CXR to have left large pleural effusion with mediastinal shifting. Called for direct admission. Over the course of the past 2 weeks was experiencing chest congestion, shortness of breath and occasional pulse oximetry less than 88% at work at the [employer] ([employer] [facility]) where she works as an [employer]. She has been given 2 courses of steroids and inhalers by her PCP with no improvement, no chest imaging at that time. On further ROS she notes she has been wearing compression hose for progressive bilateral LE edema over the past year. Cancer screenings not UTD. Last mammogram over 2 years ago and has yet to have screening colonoscopy. History of lung cancer in father and paternal aunt. Non- smoker Past Medical History Cardiovascular: HTN Pulmonary: No pertinent hx GI: Constipation Heme/Onc: No pertinent hx Hepatobiliary: No pertinent hx Psych: No pertinent hx Rheumatologic: No pertinent hx Infectious disease: No pertinent hx Renal/: No pertinent hx Endocrine: No pertinent hx Past Surgical History Past Surgical History: No pertinent history Family History Family History: No Significant Family History: Parent (Father - lung cancer) Social History Smoke: No ALCOHOL: occassional Drugs: None Current Medications Current Medications Active Scripts Active Augmentin 875-125 Tablet (Amoxicillin/Potassium Clav) 1 Each Tablet 1 Tab PO BID Reported Potassium Chloride 20 Meq Tablet.er 40 Meq PO DAILY Potassium Chloride 20 Meq Tablet.er 20 Meq PO DAILY Pravastatin Sodium 40 Mg Tablet 1 Tab PO QHS Levothyroxine Sodium 25 Mcg Tablet 1 Tab PO DAILY Potassium Chloride 20 Meq Tablet.er 20 Meq PO DAILY Citalopram Hbr (Citalopram Hydrobromide) 20 Mg Tablet 1 Tab PO DAILY Calcium Acetate 667 Mg Tablet 667 Mg PO DAILY Xanax (Alprazolam) 0.25 Mg Tablet 1 Tab PO PRN BID PRN Allergies Allergies: Coded Allergies: atorvastatin (Verified Allergy, Intermediate, 12/21/16) Pt refused. Give terrible body aches and cramps ROS General: YES: Fatigue, Malaise; No: Chills, Night Sweats, Appetite, Other PSYCHOLOGICAL ROS: No: Anxiety, Behavioral Disorder, Concentration difficultie, Decreased libido, Depression, Disorientation, Hallucinations, Hostility, Irritablity, Memory difficulties, Mood Swings, Obsessive thoughts, Physical abuse, Sexual abuse, Sleep disturbances, Suicidal ideation, Other Eyes: No Blurry vision, No Decreased vision, No Double vision, No Dry eyes, No Excessive tearing, No Eye Pain, No Itchy Eyes, No Loss of vision, No Photophobia, No Scotomata, No Uses contacts, No Uses glasses, No Other HEENT: No: Heacaches, Visual Changes, Hearing change, Nasal congestion, Nasal discharge, Oral lesions, Sinus pain, Sore Throat, Epistaxis, Sneezing, Snoring, Tinnitus, Vertigo, Vocal changes, Other ALLERGY AND IMMUNOLOGY: No: Hives, Insect Bite Sensitivity, Itchy/Watery Eyes, Nasal Congestion, Post Nasal Drip, Seasonal Allergies, Other Hematological and Lymphatic: No: Bleeding Problems, Blood Clots, Blood Transfusions, Brusing, Night Sweats, Pallor, Swollen Lymph Nodes, Other ENDOCRINE: No: Breast Changes, Galactorrhea, Hair Pattern Changes, Hot Flashes, Malaise/lethargy, Mood Swings, Palpitations, Polydipsia/polyuria, Skin Changes, Temperature Intolerance, Unexpected Weight Changes, Other Breast: No New/Changing Breast Lumps, No Nipple changes, No Nipple discharge, No Other Respiratory: YES: Orthopnea, Shortness of breath, Tachypnea; No: Cough, Hemoptysis, Pleuritic Pain, SOB with excertion, Sputum Changes, Stridor, Wheezing, Other Cardiovascular: yes Edema; No Chest Pain, No Palpitations, No Orthopnea, No Paroxysmal Noc. Dyspnea, No Lt Headedness, No Other Gastrointestinal: No Nausea, No Vomiting, No Abdominal Pain, No Diarrhea, No Constipation, No Melena, No Hematochezia, No Other Genitourinary: No Dysuria, No Frequency, No Incontinence, No Hematuria, No Retention, No Discharge, No Urgency, No Pain, No Flank Pain, No Other, No , No , No , No , No , No , No Musculoskeletal: No Gait Disturbance, No Joint Pain, No Joint Stiffness, No Joint Swelling, No Muscle Pain, No Muscular Weakness, No Pain In:, No Swelling In:, No Other Neurological: No Behavorial Changes, No Bowel/Bladder ControlChng, No Confusion, No Dizziness, No Gait Disturbance, No Headaches, No Impaired Coord/balance, No Memory Loss, No Numbness/Tingling, No Seizures, No Speech Problems, No Tremors, No Visual Changes, No Weakness, No Other Skin: No Dry Skin, No Eczema, No Hair Changes, No Lumps, No Mole Changes, No Mottling, No Nail Changes, No Pruritus, No Rash, No Skin Lesion Changes, No Other, No Acne Physical Exam General: Alert, Oriented X3, Cooperative, No acute distress HEENT: Atraumatic, PERRLA, EOMI, Mucous membr. moist/pink Lungs: Clear to auscultation, Other (No audible air movement on left) Heart: S1S2, RRR, no gallops, no murmurs Abdomen: Normal bowel sounds, Soft, No tenderness, No hepatosplenomegaly, No masses Rectal Exam: not examined Extremities: No clubbing, No cyanosis, Normal pulses, No tenderness/swelling, Other (1+ pitting edema) Skin: No rashes, No breakdown, No significant lesion Neuro: Normal gait, Normal speech, Strength at 5/5 X4 ext, Normal tone, Sensation intact, Cranial nerves 3-12 NL, Reflexes 2+ Psych/Mental Status: Mental status NL, Mood NL Images Images CXR - 1. Subtotal opacification of the left hemithorax with mediastinal shift to the right. Although this most likely represents a large pleural effusion with associated lobar collapse, an underlying mass cannot be excluded. VTE Prophylaxis Ordered VTE Prophylaxis Devices: No VTE Pharmacological Prophylaxi: Yes Assessment/Plan Assessment/Plan A/P: Left pleural effusion - concerning with mediastinal crowding, complete left lung collapse. Less likely infectious given her lack of symptoms, will need to assess whether this is 2/2 CHF or cancer. IR to see for thoracentesis and likely chest tube placement. Will need to check cytology, LDH, culture. After drainage is near complete she needs urgent CT scan with contrast to assess for possible malignancy Shortness of breath - check O2 requirements, nebs. Consult pulm LE edema - will check BNP to r/o CHF. No cardiac history Morbid obesity - counseled on weight loss Depression - cont home meds HTN - cont home meds FEN - General diet PPX - lovenox after procedure FULL CODE Inpatient for new left pleural effusion causing respiratory distress, likely 2 midnights YOMI PASTOR MD June 20, 2018 13:49
--- NOTE | 2018-06-20 14:23 | NUR ---
pt admitted to room 506. oriented to room and call light. pt made aware of NPO status pending IR procedure this afternoon
[2018-06-20 14:55] LABS: ALBUMIN 3.5 g/dL (3.4-5.0); ALBUMIN/GLOBULIN RATIO 0.9 (1.0-1.7); CALCIUM 9.6 mg/dL (8.5-10.1); GFR 56.4; POTASSIUM 4.1 mmol/L (3.5-5.1); TOTAL BILIRUBIN 0.8 mg/dL (0.2-1.0); TOTAL PROTEIN 7.4 g/dL (6.4-8.2)
[2018-06-20] MEDS: IPRATRPIUM/ALBUTEROL 0.5/2.5MG 3 ML NEBU. NEB SCH ×2 (15:06→19:50)
[2018-06-20] MEDS: HYDROcodone/APAP 5/325MG 1 TAB TABLET PO PRN ×2 (15:52→20:43)
[2018-06-20] MEDS: ENOXAPARIN 40 MG/0.4 ML SYRINGE. SQ SCH (20:31)
[2018-06-20] MEDS ORDERED: NON FORMULARY ITEM (Pravastatin Sodium 1 TAB) PO SCH (21:00)
[2018-06-20] MEDS: SENNOSIDES/DOCUSATE 8.6/50MG TABLET. PO SCH (21:00)
[2018-06-21 03:00] VITALS: BP 128/92
[2018-06-21] MEDS: HYDROcodone/APAP 5/325MG 1 TAB TABLET PO PRN ×3 (03:27→22:51)
[2018-06-21 04:40] LABS: BASO % 0 % (0-3); EOS % 0 % (0-3); HEMATOCRIT 43.7 % (36.0-47.0); HEMOGLOBIN 14.1 g/dL (12.0-15.5); LYMPH # 1.2 x10^3/uL (1.0-4.8); LYMPH % 14 % (24-48); MEAN CORPUSCULAR HEMOGLOBIN 30 pg (25-35); MEAN CORPUSCULAR HGB CONC 32 g/dL (31-37); MEAN CORPUSCULAR VOLUME 94 fL (79-100); MONO # 0.6 x10^3/uL (0.0-1.1); MONO % 8 % (0-9); NEUT # 6.5 x10^3uL (1.8-7.7); NEUT % 78 % (31-73); PLATELET COUNT 270 x10^3/uL (140-400); RED BLOOD COUNT 4.65 x10^6/uL (3.50-5.40); RED CELL DISTRIBUTION WIDTH 14.8 % (11.5-14.5); WHITE BLOOD COUNT 8.4 x10^3/uL (4.0-11.0)
[2018-06-21 05:39] LABS: CREATININE 0.9 mg/dL (0.6-1.0); GFR 63.7; POTASSIUM 4.1 mmol/L (3.5-5.1)
[2018-06-21] MEDS: LEVOTHYROXINE 25 MCG TABLET. PO SCH (06:22)
[2018-06-21 07:00] VITALS: BP 149/101
[2018-06-21] MEDS: IPRATRPIUM/ALBUTEROL 0.5/2.5MG 3 ML NEBU. NEB SCH ×4 (07:43→20:45)
--- NOTE | 2018-06-21 08:03 | RAD ---
Ultrasound-guided left thoracostomy tube placement 06/21/2018 Indication: Large left pleural effusion, unknown etiology, with associated mediastinal shift. Discussion: The risks and benefits of the procedure were discussed the patient. Informed consent was obtained. Ultrasound evaluation demonstrates a large left pleural effusion similar to prior imaging studies. The left posterior thorax prepped and draped using sterile barrier technique. All elements of maximal sterile barrier technique including the use of a cap, mask, sterile gown, sterile gloves, sterile sheet, appropriate hand hygiene, and 2% chlorhexidine for cutaneous antisepsis (or acceptable alternative antiseptic per current guidelines) were followed for this procedure. 1% lidocaine without epinephrine was administered for local anesthesia. Real-time ultrasonographic guidance was used in passing a 5 E[place] Mohive catheter into the left pleural space. Guidewire was advanced into the pleural space over which following dilatation a 10 Eritrean pigtail drainage catheter was placed. Serous fluid was freely aspirated. Samples of fluid were sent to the lab for further evaluation per ordering physician request. The catheter was connected to a Pleur-evac device at -20 cm of water. A sterile dressing was applied. No immediate complications were identified. The patient tolerated the procedure well. Impression: Left thoracostomy tube placement as described.
--- NOTE | 2018-06-21 08:42 | RAD ---
Single view chest dated 06/21/2018. Comparison made to 06/20/2018. Clinical indication: Follow-up chest tube. FINDINGS: Single upright portable exam performed. Interval placement of smallbore chest tube at the left base with significant reduction in size of left pleural effusion. There is some persistent blunting of the costophrenic sulcus consistent with residual pleural fluid. There is airspace disease throughout the left lung with asymmetric fullness of the left hilum and associated left-sided volume loss. The right lung remains clear. No pneumothorax. IMPRESSION: 1. Interval reduction in size of left pleural effusion status post chest tube placement. 2. Left-sided airspace disease, reexpansion edema versus pneumonia. 3. Asymmetric fullness at the left hilum which could represent an underlying mass or lymphadenopathy. Continued follow-up imaging to ensure resolution. Alternatively, a CT with contrast may provide additional information. Electronically signed by: Desmond Godfrey MD (06/21/2018 8:39 AM) [id number]
[2018-06-21] MEDS: CITALOPRAM 20 MG TABLET. PO SCH (08:47)
[2018-06-21] MEDS: POTASSIUM CHLORIDE 20 MEQ TABLET.ER. PO SCH (08:47)
[2018-06-21] MEDS: SENNOSIDES/DOCUSATE 8.6/50MG TABLET. PO SCH ×2 (08:47→20:53)
[2018-06-21] MEDS: ENOXAPARIN 40 MG/0.4 ML SYRINGE. SQ SCH ×2 (08:48→20:54)
[2018-06-21 09:44] LABS: BF CLARITY CLEAR; BF COLOR YELLOW; BF SOURCE PLEURAL
[2018-06-21 09:45] LABS: BF MON % 93 %; BF OTHER % 5 %; BF PMN % 2 %
[2018-06-21 11:00] VITALS: BP 120/82
--- NOTE | 2018-06-21 12:19 | PDOC ---
PROGRESS NOTES Chief Complaint Chief Complaint Left pleural effusion to IR for eval, drain, has chest tube Shortness of breath - check O2 requirements, nebs. Consult pulm LE edema - will check BNP to r/o CHF. No cardiac history Morbid obesity - counseled on weight loss Depression - History of Present Illness History of Present Illness chest tube management per Pulmonary she feels much improved requests her home lasix dose to be restarted Vitals Vitals Vital Signs Date Time Temp Pulse Resp B/P (MAP) Pulse Ox O2 Delivery O2 Flow Rate FiO2 06/21/18 11:40 Room Air 06/21/18 11:00 98.3 91 17 120/82 (95) 91 98.3 Physical Exam General: Alert, Oriented X3, Cooperative, No acute distress Heart: Regular rate, No murmurs Lungs: Clear Abdomen: Normal bowel sounds, Soft, No tenderness, No hepatosplenomegaly, No masses Extremities: No clubbing, No cyanosis, Normal pulses, No tenderness/swelling, Other (1+ pitting edema) Skin: No rashes, No breakdown, No significant lesion Labs LABS Laboratory Tests Test 06/20/18 14:35 06/20/18 15:05 06/21/18 04:30 Prothrombin Time 13.0 SEC (11.7-14.0) Prothromb Time International Ratio 1.0 (0.8-1.1) Sodium Level 140 mmol/L (136-145) 142 mmol/L (136-145) Potassium Level 4.1 mmol/L (3.5-5.1) 4.1 mmol/L (3.5-5.1) Chloride Level 102 mmol/L (98-107) 105 mmol/L (98-107) Carbon Dioxide Level 28 mmol/L (21-32) 28 mmol/L (21-32) Anion Gap 10 (6-14) 9 (6-14) Blood Urea Nitrogen 24 mg/dL (7-20) 23 mg/dL (7-20) Creatinine 1.0 mg/dL (0.6-1.0) 0.9 mg/dL (0.6-1.0) Estimated GFR (Cockcroft-Gault) 56.4 63.7 BUN/Creatinine Ratio 24 (6-20) Glucose Level 124 mg/dL (70-99) 96 mg/dL (70-99) Calcium Level 9.6 mg/dL (8.5-10.1) 9.0 mg/dL (8.5-10.1) Total Bilirubin 0.8 mg/dL (0.2-1.0) Aspartate Amino Transf (AST/SGOT) 19 U/L (15-37) Alanine Aminotransferase (ALT/SGPT) 45 U/L (14-59) Alkaline Phosphatase 236 U/L (46-116) SX-Kcd-O-Type Natriuretic Peptide 118 pg/mL (0-124) Total Protein 7.4 g/dL (6.4-8.2) Albumin 3.5 g/dL (3.4-5.0) Albumin/Globulin Ratio 0.9 (1.0-1.7) Body Fluid Source Pleural Body Fluid Color Yellow Body Fluid Clarity Clear Body Fluid Nucleated Cells /cmm (Not Established) Body Fluid Mononuclear WBCs (%) 93 % Body Fluid Polymorphonuclear Cells 2 % Body Fluid Total RBCs Counted /cmm (Not Established) Body Fluid Other Cells (%) 5 % White Blood Count 8.4 x10^3/uL (4.0-11.0) Red Blood Count 4.65 x10^6/uL (3.50-5.40) Hemoglobin 14.1 g/dL (12.0-15.5) Hematocrit 43.7 % (36.0-47.0) Mean Corpuscular Volume 94 fL (79-100) Mean Corpuscular Hemoglobin 30 pg (25-35) Mean Corpuscular Hemoglobin Concent 32 g/dL (31-37) Red Cell Distribution Width 14.8 % (11.5-14.5) Platelet Count 270 x10^3/uL (140-400) Neutrophils (%) (Auto) 78 % (31-73) Lymphocytes (%) (Auto) 14 % (24-48) Monocytes (%) (Auto) 8 % (0-9) Eosinophils (%) (Auto) 0 % (0-3) Basophils (%) (Auto) 0 % (0-3) Neutrophils # (Auto) 6.5 x10^3uL (1.8-7.7) Lymphocytes # (Auto) 1.2 x10^3/uL (1.0-4.8) Monocytes # (Auto) 0.6 x10^3/uL (0.0-1.1) Eosinophils # (Auto) 0.0 x10^3/uL (0.0-0.7) Basophils # (Auto) 0.0 x10^3/uL (0.0-0.2) Review of Systems Review of Systems pleuritic pain with deep breaths, dyspnea, feels much improved, Comment Review of Relevant I have reviewed the following items kevin (where applicable) has been applied. Labs Laboratory Tests Test 06/20/18 14:35 06/20/18 15:05 06/21/18 04:30 Prothrombin Time 13.0 SEC (11.7-14.0) Prothromb Time International Ratio 1.0 (0.8-1.1) Sodium Level 140 mmol/L (136-145) 142 mmol/L (136-145) Potassium Level 4.1 mmol/L (3.5-5.1) 4.1 mmol/L (3.5-5.1) Chloride Level 102 mmol/L (98-107) 105 mmol/L (98-107) Carbon Dioxide Level 28 mmol/L (21-32) 28 mmol/L (21-32) Anion Gap 10 (6-14) 9 (6-14) Blood Urea Nitrogen 24 mg/dL (7-20) 23 mg/dL (7-20) Creatinine 1.0 mg/dL (0.6-1.0) 0.9 mg/dL (0.6-1.0) Estimated GFR (Cockcroft-Gault) 56.4 63.7 BUN/Creatinine Ratio 24 (6-20) Glucose Level 124 mg/dL (70-99) 96 mg/dL (70-99) Calcium Level 9.6 mg/dL (8.5-10.1) 9.0 mg/dL (8.5-10.1) Total Bilirubin 0.8 mg/dL (0.2-1.0) Aspartate Amino Transf (AST/SGOT) 19 U/L (15-37) Alanine Aminotransferase (ALT/SGPT) 45 U/L (14-59) Alkaline Phosphatase 236 U/L (46-116) VE-Ozl-M-Type Natriuretic Peptide 118 pg/mL (0-124) Total Protein 7.4 g/dL (6.4-8.2) Albumin 3.5 g/dL (3.4-5.0) Albumin/Globulin Ratio 0.9 (1.0-1.7) Body Fluid Source Pleural Body Fluid Color Yellow Body Fluid Clarity Clear Body Fluid Nucleated Cells /cmm (Not Established) Body Fluid Mononuclear WBCs (%) 93 % Body Fluid Polymorphonuclear Cells 2 % Body Fluid Total RBCs Counted /cmm (Not Established) Body Fluid Other Cells (%) 5 % White Blood Count 8.4 x10^3/uL (4.0-11.0) Red Blood Count 4.65 x10^6/uL (3.50-5.40) Hemoglobin 14.1 g/dL (12.0-15.5) Hematocrit 43.7 % (36.0-47.0) Mean Corpuscular Volume 94 fL (79-100) Mean Corpuscular Hemoglobin 30 pg (25-35) Mean Corpuscular Hemoglobin Concent 32 g/dL (31-37) Red Cell Distribution Width 14.8 % (11.5-14.5) Platelet Count 270 x10^3/uL (140-400) Neutrophils (%) (Auto) 78 % (31-73) Lymphocytes (%) (Auto) 14 % (24-48) Monocytes (%) (Auto) 8 % (0-9) Eosinophils (%) (Auto) 0 % (0-3) Basophils (%) (Auto) 0 % (0-3) Neutrophils # (Auto) 6.5 x10^3uL (1.8-7.7) Lymphocytes # (Auto) 1.2 x10^3/uL (1.0-4.8) Monocytes # (Auto) 0.6 x10^3/uL (0.0-1.1) Eosinophils # (Auto) 0.0 x10^3/uL (0.0-0.7) Basophils # (Auto) 0.0 x10^3/uL (0.0-0.2) Laboratory Tests Test 06/20/18 14:35 06/20/18 15:05 06/21/18 04:30 Prothrombin Time 13.0 SEC (11.7-14.0) Prothromb Time International Ratio 1.0 (0.8-1.1) Sodium Level 140 mmol/L (136-145) 142 mmol/L (136-145) Potassium Level 4.1 mmol/L (3.5-5.1) 4.1 mmol/L (3.5-5.1) Chloride Level 102 mmol/L (98-107) 105 mmol/L (98-107) Carbon Dioxide Level 28 mmol/L (21-32) 28 mmol/L (21-32) Anion Gap 10 (6-14) 9 (6-14) Blood Urea Nitrogen 24 mg/dL (7-20) 23 mg/dL (7-20) Creatinine 1.0 mg/dL (0.6-1.0) 0.9 mg/dL (0.6-1.0) Estimated GFR (Cockcroft-Gault) 56.4 63.7 BUN/Creatinine Ratio 24 (6-20) Glucose Level 124 mg/dL (70-99) 96 mg/dL (70-99) Calcium Level 9.6 mg/dL (8.5-10.1) 9.0 mg/dL (8.5-10.1) Total Bilirubin 0.8 mg/dL (0.2-1.0) Aspartate Amino Transf (AST/SGOT) 19 U/L (15-37) Alanine Aminotransferase (ALT/SGPT) 45 U/L (14-59) Alkaline Phosphatase 236 U/L (46-116) VP-Mcc-O-Type Natriuretic Peptide 118 pg/mL (0-124) Total Protein 7.4 g/dL (6.4-8.2) Albumin 3.5 g/dL (3.4-5.0) Albumin/Globulin Ratio 0.9 (1.0-1.7) Body Fluid Source Pleural Body Fluid Color Yellow Body Fluid Clarity Clear Body Fluid Nucleated Cells /cmm (Not Established) Body Fluid Mononuclear WBCs (%) 93 % Body Fluid Polymorphonuclear Cells 2 % Body Fluid Total RBCs Counted /cmm (Not Established) Body Fluid Other Cells (%) 5 % White Blood Count 8.4 x10^3/uL (4.0-11.0) Red Blood Count 4.65 x10^6/uL (3.50-5.40) Hemoglobin 14.1 g/dL (12.0-15.5) Hematocrit 43.7 % (36.0-47.0) Mean Corpuscular Volume 94 fL (79-100) Mean Corpuscular Hemoglobin 30 pg (25-35) Mean Corpuscular Hemoglobin Concent 32 g/dL (31-37) Red Cell Distribution Width 14.8 % (11.5-14.5) Platelet Count 270 x10^3/uL (140-400) Neutrophils (%) (Auto) 78 % (31-73) Lymphocytes (%) (Auto) 14 % (24-48) Monocytes (%) (Auto) 8 % (0-9) Eosinophils (%) (Auto) 0 % (0-3) Basophils (%) (Auto) 0 % (0-3) Neutrophils # (Auto) 6.5 x10^3uL (1.8-7.7) Lymphocytes # (Auto) 1.2 x10^3/uL (1.0-4.8) Monocytes # (Auto) 0.6 x10^3/uL (0.0-1.1) Eosinophils # (Auto) 0.0 x10^3/uL (0.0-0.7) Basophils # (Auto) 0.0 x10^3/uL (0.0-0.2) Medications Current Medications Ondansetron HCl (Zofran) 4 mg PRN Q6HRS PRN IV NAUSEA/VOMITING; Start 06/20/18 at 13:45 Zolpidem Tartrate (Ambien) 5 mg PRN QHS PRN PO INSOMNIA, MAY REPEAT IN 1HR; Start 06/20/18 at 13:45 Morphine Sulfate (Morphine Sulfate) 1 mg PRN Q1HR PRN IV PAIN Last administered on 06/20/18at 15:52; Start 06/20/18 at 13:45 Acetaminophen/ Hydrocodone Bitart (Lortab 5/325) 1 tab PRN Q4HRS PRN PO MODERATE PAIN, SEVERE PAIN Last administered on 06/21/18at 11:40; Start 06/20/18 at 13:45 Acetaminophen (Tylenol) 650 mg PRN Q6HRS PRN PO Headaches, Temp > 101.5F; Start 06/20/18 at 13:45 Ibuprofen (Motrin) 400 mg PRN Q6HRS PRN PO MILD PAIN; Start 06/20/18 at 13:45 Senna/Docusate Sodium (Senna Plus) 1 tab BID PO Last administered on 06/21/18at 08:47; Start 06/20/18 at 21:00 Magnesium Hydroxide (Milk Of Magnesia) 2,400 mg PRN Q12HR PRN PO CONSTIPATION; Start 06/20/18 at 13:45 Alprazolam (Xanax) 0.25 mg PRN BID PRN PO ANXIETY / AGITATION; Start 06/20/18 at 13:45 Citalopram Hydrobromide (CeleXA) 20 mg DAILY PO Last administered on 06/21/18at 08:47; Start 06/21/18 at 09:00 Levothyroxine Sodium (Synthroid) 25 mcg DAILY06 PO Last administered on 06/21/18at 06:22; Start 06/21/18 at 06:00 Potassium Chloride (Klor-Con) 20 meq [id number] PO Last administered on at 08:47; Start 06/21/18 at 08:00 Non-Formulary Medication (Pravastatin Sodium ) 1 tab QHS PO ; Start 06/20/18 at 21:00; Status UNV Albuterol/ Ipratropium (Duoneb) 3 ml RTQID NEB Last administered on 06/21/18at 07:43; Start 06/20/18 at 16:00 Enoxaparin Sodium (Lovenox 40mg Syringe) 40 mg Q12HR SQ Last administered on 06/21/18at 08:48; Start 06/20/18 at 21:00 Active Scripts Active Augmentin 875-125 Tablet (Amoxicillin/Potassium Clav) 1 Each Tablet 1 Tab PO BID Reported Potassium Chloride 20 Meq Tablet.er 40 Meq PO DAILY Potassium Chloride 20 Meq Tablet.er 20 Meq PO DAILY Pravastatin Sodium 40 Mg Tablet 1 Tab PO QHS Levothyroxine Sodium 25 Mcg Tablet 1 Tab PO DAILY Potassium Chloride 20 Meq Tablet.er 20 Meq PO DAILY Citalopram Hbr (Citalopram Hydrobromide) 20 Mg Tablet 1 Tab PO DAILY Calcium Acetate 667 Mg Tablet 667 Mg PO DAILY Xanax (Alprazolam) 0.25 Mg Tablet 1 Tab PO PRN BID PRN Vitals/I & O Vital Sign - Last 24 Hours 06/20/18 06/20/18 06/20/18 06/20/18 15:01 15:06 15:09 15:09 Pulse 94 94 94 Resp 24 24 24 B/P (MAP) 156/96 (116) 150/91 (110) 150/87 (108) Pulse Ox 92 91 91 O2 Delivery Room Air Room Air Room Air Room Air 06/20/18 06/20/18 06/20/18 06/20/18 15:25 15:40 15:45 16:00 Pulse 90 91 93 B/P (MAP) 149/105 (120) 137/59 (85) 149/101 (117) 151/95 (113) Pulse Ox 92 93 92 O2 Delivery Room Air Room Air Room Air Room Air 06/20/18 06/20/18 06/20/18 06/20/18 16:15 16:30 17:00 19:00 Temp 98.1 98.1 Pulse 102 108 108 96 Resp 16 B/P (MAP) 139/106 (117) 138/94 (109) 129/92 (104) 142/88 (106) Pulse Ox 91 91 93 93 O2 Delivery Room Air Room Air Room Air Room Air 06/20/18 06/20/18 06/20/18 06/20/18 19:50 20:00 20:43 23:00 Temp 98.1 98.1 Pulse 85 Resp 20 16 B/P (MAP) 131/86 (101) Pulse Ox 94 92 O2 Delivery Room Air Room Air Room Air Room Air 06/21/18 06/21/18 06/21/18 06/21/18 03:00 03:27 04:27 07:00 Temp 98.4 98.6 98.4 98.6 Pulse 81 99 Resp 14 20 20 18 B/P (MAP) 128/92 (104) 149/101 (117) Pulse Ox 90 94 O2 Delivery Room Air Room Air Room Air Room Air 06/21/18 06/21/18 06/21/18 06/21/18 07:43 08:00 11:00 11:40 Temp 98.3 98.3 Pulse 91 Resp 17 B/P (MAP) 120/82 (95) Pulse Ox 91 O2 Delivery Room Air Room Air Room Air Room Air Intake and Output 06/20/18 06/20/18 06/21/18 15:00 23:00 07:00 Intake Total 200 ml 420 ml Output Total 2675 ml Balance -2475 ml 420 ml YAZMIN OCONNOR MD June 21, 2018 12:19
[2018-06-21] MEDS: FUROSEMIDE 20 MG TABLET PO SCH (13:58)
[2018-06-21] MEDS: cefTRIAXone IV Push 1 GM VIAL. IVP SCH (14:57)
[2018-06-21 15:00] VITALS: BP 140/82
--- NOTE | 2018-06-21 15:01 | CONS ---
DATE OF CONSULTATION: ATTENDING PHYSICIAN: Dr. Orozco. REASON FOR CONSULTATION: Pleural effusion, dyspnea. HISTORY OF PRESENT ILLNESS: The patient is a 62-year-old obese patient with a BMI of 42. She was seen by my partner, Dr. Manuel, in the office for cough and chest congestion. She was given antibiotics and prednisone, which did not improve the symptoms. A chest x-ray revealed a large left-sided pleural effusion. As a result, she was hospitalized. The patient also had mediastinal shift contralaterally from the effusion. She denies any weight loss. Denies any history of known cancers. She had a mammogram done last 2 years ago and was negative and also had a Pap smear in the past, which is negative. She is yet to have a screening colonoscopy. She has history of lung cancer in the father and paternal aunt. She underwent a chest tube placement and 700 mL of fluid so far has come out since yesterday. The fluid analysis is pending. Chest x-ray has shown improved aeration post-thoracentesis. However, there appears to be a left hilar fullness. There is some parenchymal opacity, which could be related to reexpansion edema. PAST MEDICAL HISTORY: Significant for hypertension. No significant history of tobacco use. PAST SURGICAL HISTORY: No recent surgery. ALLERGIES: ATORVASTATIN. MEDICATIONS: Reviewed as listed in the MRAD including bronchodilators. REVIEW OF SYSTEMS: Twelve-point system obtained. Pertinent positives discussed in my history of present illness, otherwise noncontributory. All systems that were negative were reviewed as well. SOCIAL HISTORY: Nonsmoker. FAMILY HISTORY: Father had lung cancer. PHYSICAL EXAMINATION: VITAL SIGNS: Reviewed. She is afebrile, pulse ox is 92% on room air. NECK: Supple. LUNGS: With decreased aeration left base. CARDIOVASCULAR: Regular rate and rhythm. ABDOMEN: Soft, obese. EXTREMITIES: With no pitting edema. LABORATORY DATA: Reviewed. White cell count 8.4, hemoglobin 14.1, platelets are 270. BUN and creatinine 23 and 0.9. IMPRESSION: Dyspnea for the last 2 weeks due to large left-sided pleural effusion. Etiology could be multifactorial, and at this point, malignancy is a major concern. Pneumonia with parapneumonic effusion would be another possibility. She has no weight loss. She has no known malignancies. She had mammogram and Pap smear done in the past, but not had any screening colonoscopy recently. Her chest x-ray does show some left hilar fullness and CT chest. needs to be done to rule out any malignancy. No significant history of tobacco use. RECOMMENDATIONS: 1. Follow the pleural fluid analysis including cytology and C and S. 2. Obtain contrast CT chest to better assess for lung mass. 3. Follow chest x-rays daily. 4. Monitor the output of the chest tube. 5. Add empiric antibiotic. 6. Further recommendations to follow after review of the CT chest. complex decision making regarding etiology of effusion. ANITA GAYTAN MD DR: JOHN/charanjit JOB#: [id number] / [id number] MUMTAZ
[2018-06-21 19:00] VITALS: BP 127/94
[2018-06-21] MEDS: LACTOBACILLUS RHAMNOSUS GG 1 CAPSULE. PO SCH (20:53)
[2018-06-21 21:14] LABS: BILIRUBIN,URINE NEGATIVE (NEG); CLARITY,URINE CLEAR; COLOR,URINE YELLOW; NITRITE,URINE NEGATIVE (NEG); PROTEIN,URINE NEGATIVE (NEG-TRACE); UROBILINOGEN,URINE 0.2 mg/dL (0.2 mg/dL)
[2018-06-21 21:21] LABS: RBC,URINE 20-40 /HPF (0-2)
[2018-06-21 21:22] LABS: BACTERIA,URINE FEW /HPF (0-FEW)
[2018-06-21 21:25] LABS: SQUAMOUS EPITHELIAL CELL,UR MOD /LPF
[2018-06-21] MEDS: ALPRAZolam 0.25 MG TABLET PO PRN (22:51)
[2018-06-21 23:00] VITALS: BP 130/85
[2018-06-22 03:00] VITALS: BP 108/61
[2018-06-22 04:26] LABS: BASO % 0 % (0-3); EOS # 0.1 x10^3/uL (0.0-0.7); EOS % 2 % (0-3); LYMPH # 1.1 x10^3/uL (1.0-4.8); LYMPH % 14 % (24-48); MEAN CORPUSCULAR HEMOGLOBIN 31 pg (25-35); MEAN CORPUSCULAR HGB CONC 33 g/dL (31-37); MEAN CORPUSCULAR VOLUME 94 fL (79-100); MONO # 0.6 x10^3/uL (0.0-1.1); MONO % 7 % (0-9); NEUT # 6.4 x10^3uL (1.8-7.7); NEUT % 77 % (31-73); PLATELET COUNT 230 x10^3/uL (140-400); RED BLOOD COUNT 4.57 x10^6/uL (3.50-5.40); RED CELL DISTRIBUTION WIDTH 14.7 % (11.5-14.5); WHITE BLOOD COUNT 8.3 x10^3/uL (4.0-11.0)
[2018-06-22 04:39] LABS: CREATININE 0.9 mg/dL (0.6-1.0); GFR 63.7; POTASSIUM 4.1 mmol/L (3.5-5.1)
[2018-06-22] MEDS: LEVOTHYROXINE 25 MCG TABLET. PO SCH (05:48)
[2018-06-22 07:00] VITALS: BP 146/91
[2018-06-22] MEDS: IPRATRPIUM/ALBUTEROL 0.5/2.5MG 3 ML NEBU. NEB SCH ×4 (07:43→19:45)
--- NOTE | 2018-06-22 08:21 | RAD ---
PORTABLE CHEST 1V History: Effusion Comparison: June 21, 2018 Findings: Single view of the chest is submitted. There is again small caliber left chest tube. There is likely at least small residual left pleural effusion with some tracking along the left lateral hemithorax. There is prominent airspace opacity left hemithorax as seen previously including the left perihilar region and left lung base although somewhat improved aeration of the mid to superior left hemithorax. No pneumothorax is identified. Heart size is similar. There is mild interstitial opacity of the right hemithorax, unchanged. Impression: 1. There is again some residual left pleural fluid and small caliber left chest tube, again diffuse opacity of the left hemithorax although slightly improved aeration of the mid to superior left hemithorax. Electronically signed by: Kehinde Morales MD (06/22/2018 8:18 AM) [id number]
[2018-06-22] MEDS: POTASSIUM CHLORIDE 20 MEQ TABLET.ER. PO SCH (08:25)
[2018-06-22] MEDS: LACTOBACILLUS RHAMNOSUS GG 1 CAPSULE. PO SCH ×2 (08:25→20:56)
[2018-06-22] MEDS: ENOXAPARIN 40 MG/0.4 ML SYRINGE. SQ SCH ×2 (08:25→20:56)
[2018-06-22] MEDS: SENNOSIDES/DOCUSATE 8.6/50MG TABLET. PO SCH ×2 (08:25→20:56)
[2018-06-22] MEDS: FUROSEMIDE 20 MG TABLET PO SCH (08:25)
[2018-06-22] MEDS: CITALOPRAM 20 MG TABLET. PO SCH (08:25)
--- NOTE | 2018-06-22 08:51 | PDOC ---
PROGRESS NOTES Chief Complaint Chief Complaint Left pleural effusion to IR for eval, drain, has chest tube Shortness of breath - check O2 requirements, nebs. Consulted pulm LE edema - BNP r/o CHF. No cardiac history Morbid obesity - counseled on weight loss Depression - cont meds Left sided lung mass - likely malignancy, d/w pulm Bony lesions - concerning for blastic process, likely a metastatic malignancy. Needs urgent pathologic diagnosis History of Present Illness History of Present Illness Ms Kay is a 62yo F w/ PMHx previous diverticulitis, depression, morbid obesity, hypertension who was seen in office for pulmonary consult for shortness of breath, was noted on CXR to have left large pleural effusion with mediastinal shifting. Called for direct admission. Over the course of the past 2 weeks was experiencing chest congestion, shortness of breath and occasional pulse oximetry less than 88% at work at the [employer] ([place]) where she works as an [employer]. She has been given 2 courses of steroids and inhalers by her PCP with no improvement, no chest imaging at that time. On further ROS she notes she has been wearing compression hose for progressive bilateral LE edema over the past year. Cancer screenings not UTD. Last mammogram over 2 years ago and has yet to have screening colonoscopy. History of lung cancer in father and paternal aunt. Non- smoker She underwent chest tube placement with IR with 700cc out on 06/20/18, still with drainage. Some signs of ex-vacuo or edema with some lung aeration improvement on CXR. To CT today with concerning left upper and lower lobe masses, possible lymphagitic spread and multiple tiny nodules as well as concerning possible blastic lesions in the spine. I have shared the findings and need for urgent pathologic diagnosis, particularly if the pleural fluid analysis in cytology is negative for malignancy. Plan: chest tube management per Pulmonary she feels improved, dejected about likely cancer diagnosis Likely has metastatic disease given her lung and spine findings, whether this is lung or different primary this is likely malignancy and she needs pathologic diagnosis quickly Continue diuresis F/u with cytology on pleural fluid Case management has informed me her insurance does not allow care at [facility] and she must be transferred to [facility]. I have placed called to [facility] transfer center in anticipation this is true. Vitals Vitals Vital Signs Date Time Temp Pulse Resp B/P (MAP) Pulse Ox O2 Delivery O2 Flow Rate FiO2 06/22/18 07:44 93 Room Air 06/22/18 07:00 98.4 104 18 146/91 (109) 98.4 06/21/18 22:51 2.0 Physical Exam General: Alert, Oriented X3, Cooperative, No acute distress Heart: Regular rate, No murmurs Lungs: Clear Abdomen: Normal bowel sounds, Soft, No tenderness, No hepatosplenomegaly, No masses Extremities: No clubbing, No cyanosis, Normal pulses, No tenderness/swelling, Other (1+ pitting edema) Skin: No rashes, No breakdown, No significant lesion Labs LABS Laboratory Tests Test 06/21/18 20:15 06/22/18 03:10 Urine Collection Type Unknown Urine Color Yellow Urine Clarity Clear Urine pH 6.0 Urine Specific [place] 1.025 Urine Protein Negative mg/dL (NEG-TRACE) Urine Glucose (UA) Negative mg/dL (NEG) Urine Ketones (Stick) Negative mg/dL (NEG) Urine Blood Large (NEG) Urine Nitrite Negative (NEG) Urine Bilirubin Negative (NEG) Urine Urobilinogen Dipstick 0.2 mg/dL (0.2 mg/dL) Urine Leukocyte Esterase Moderate (NEG) Urine RBC 20-40 /HPF (0-2) Urine WBC 11-20 /HPF (0-4) Urine Squamous Epithelial Cells Mod /LPF Urine Bacteria Few /HPF (0-FEW) Urine Mucus Mod /LPF White Blood Count 8.3 x10^3/uL (4.0-11.0) Red Blood Count 4.57 x10^6/uL (3.50-5.40) Hemoglobin 14.0 g/dL (12.0-15.5) Hematocrit 43.0 % (36.0-47.0) Mean Corpuscular Volume 94 fL (79-100) Mean Corpuscular Hemoglobin 31 pg (25-35) Mean Corpuscular Hemoglobin Concent 33 g/dL (31-37) Red Cell Distribution Width 14.7 % (11.5-14.5) Platelet Count 230 x10^3/uL (140-400) Neutrophils (%) (Auto) 77 % (31-73) Lymphocytes (%) (Auto) 14 % (24-48) Monocytes (%) (Auto) 7 % (0-9) Eosinophils (%) (Auto) 2 % (0-3) Basophils (%) (Auto) 0 % (0-3) Neutrophils # (Auto) 6.4 x10^3uL (1.8-7.7) Lymphocytes # (Auto) 1.1 x10^3/uL (1.0-4.8) Monocytes # (Auto) 0.6 x10^3/uL (0.0-1.1) Eosinophils # (Auto) 0.1 x10^3/uL (0.0-0.7) Basophils # (Auto) 0.0 x10^3/uL (0.0-0.2) Sodium Level 141 mmol/L (136-145) Potassium Level 4.1 mmol/L (3.5-5.1) Chloride Level 105 mmol/L (98-107) Carbon Dioxide Level 30 mmol/L (21-32) Anion Gap 6 (6-14) Blood Urea Nitrogen 19 mg/dL (7-20) Creatinine 0.9 mg/dL (0.6-1.0) Estimated GFR (Cockcroft-Gault) 63.7 Glucose Level 83 mg/dL (70-99) Calcium Level 9.0 mg/dL (8.5-10.1) Comment Review of Relevant I have reviewed the following items kevin (where applicable) has been applied. Labs Laboratory Tests Test 06/20/18 14:35 06/20/18 15:05 06/21/18 04:30 06/21/18 20:15 Prothrombin Time 13.0 SEC (11.7-14.0) Prothromb Time International Ratio 1.0 (0.8-1.1) Sodium Level 140 mmol/L (136-145) 142 mmol/L (136-145) Potassium Level 4.1 mmol/L (3.5-5.1) 4.1 mmol/L (3.5-5.1) Chloride Level 102 mmol/L (98-107) 105 mmol/L (98-107) Carbon Dioxide Level 28 mmol/L (21-32) 28 mmol/L (21-32) Anion Gap 10 (6-14) 9 (6-14) Blood Urea Nitrogen 24 mg/dL (7-20) 23 mg/dL (7-20) Creatinine 1.0 mg/dL (0.6-1.0) 0.9 mg/dL (0.6-1.0) Estimated GFR (Cockcroft-Gault) 56.4 63.7 BUN/Creatinine Ratio 24 (6-20) Glucose Level 124 mg/dL (70-99) 96 mg/dL (70-99) Calcium Level 9.6 mg/dL (8.5-10.1) 9.0 mg/dL (8.5-10.1) Total Bilirubin 0.8 mg/dL (0.2-1.0) Aspartate Amino Transf (AST/SGOT) 19 U/L (15-37) Alanine Aminotransferase (ALT/SGPT) 45 U/L (14-59) Alkaline Phosphatase 236 U/L (46-116) FD-Zte-C-Type Natriuretic Peptide 118 pg/mL (0-124) Total Protein 7.4 g/dL (6.4-8.2) Albumin 3.5 g/dL (3.4-5.0) Albumin/Globulin Ratio 0.9 (1.0-1.7) Body Fluid Source Pleural Body Fluid Color Yellow Body Fluid Clarity Clear Body Fluid Nucleated Cells /cmm (Not Established) Body Fluid Mononuclear WBCs (%) 93 % Body Fluid Polymorphonuclear Cells 2 % Body Fluid Total RBCs Counted /cmm (Not Established) Body Fluid Other Cells (%) 5 % White Blood Count 8.4 x10^3/uL (4.0-11.0) Red Blood Count 4.65 x10^6/uL (3.50-5.40) Hemoglobin 14.1 g/dL (12.0-15.5) Hematocrit 43.7 % (36.0-47.0) Mean Corpuscular Volume 94 fL (79-100) Mean Corpuscular Hemoglobin 30 pg (25-35) Mean Corpuscular Hemoglobin Concent 32 g/dL (31-37) Red Cell Distribution Width 14.8 % (11.5-14.5) Platelet Count 270 x10^3/uL (140-400) Neutrophils (%) (Auto) 78 % (31-73) Lymphocytes (%) (Auto) 14 % (24-48) Monocytes (%) (Auto) 8 % (0-9) Eosinophils (%) (Auto) 0 % (0-3) Basophils (%) (Auto) 0 % (0-3) Neutrophils # (Auto) 6.5 x10^3uL (1.8-7.7) Lymphocytes # (Auto) 1.2 x10^3/uL (1.0-4.8) Monocytes # (Auto) 0.6 x10^3/uL (0.0-1.1) Eosinophils # (Auto) 0.0 x10^3/uL (0.0-0.7) Basophils # (Auto) 0.0 x10^3/uL (0.0-0.2) Urine Collection Type Unknown Urine Color Yellow Urine Clarity Clear Urine pH 6.0 Urine Specific [place] 1.025 Urine Protein Negative mg/dL (NEG-TRACE) Urine Glucose (UA) Negative mg/dL (NEG) Urine Ketones (Stick) Negative mg/dL (NEG) Urine Blood Large (NEG) Urine Nitrite Negative (NEG) Urine Bilirubin Negative (NEG) Urine Urobilinogen Dipstick 0.2 mg/dL (0.2 mg/dL) Urine Leukocyte Esterase Moderate (NEG) Urine RBC 20-40 /HPF (0-2) Urine WBC 11-20 /HPF (0-4) Urine Squamous Epithelial Cells Mod /LPF Urine Bacteria Few /HPF (0-FEW) Urine Mucus Mod /LPF Test 06/22/18 03:10 White Blood Count 8.3 x10^3/uL (4.0-11.0) Red Blood Count 4.57 x10^6/uL (3.50-5.40) Hemoglobin 14.0 g/dL (12.0-15.5) Hematocrit 43.0 % (36.0-47.0) Mean Corpuscular Volume 94 fL (79-100) Mean Corpuscular Hemoglobin 31 pg (25-35) Mean Corpuscular Hemoglobin Concent 33 g/dL (31-37) Red Cell Distribution Width 14.7 % (11.5-14.5) Platelet Count 230 x10^3/uL (140-400) Neutrophils (%) (Auto) 77 % (31-73) Lymphocytes (%) (Auto) 14 % (24-48) Monocytes (%) (Auto) 7 % (0-9) Eosinophils (%) (Auto) 2 % (0-3) Basophils (%) (Auto) 0 % (0-3) Neutrophils # (Auto) 6.4 x10^3uL (1.8-7.7) Lymphocytes # (Auto) 1.1 x10^3/uL (1.0-4.8) Monocytes # (Auto) 0.6 x10^3/uL (0.0-1.1) Eosinophils # (Auto) 0.1 x10^3/uL (0.0-0.7) Basophils # (Auto) 0.0 x10^3/uL (0.0-0.2) Sodium Level 141 mmol/L (136-145) Potassium Level 4.1 mmol/L (3.5-5.1) Chloride Level 105 mmol/L (98-107) Carbon Dioxide Level 30 mmol/L (21-32) Anion Gap 6 (6-14) Blood Urea Nitrogen 19 mg/dL (7-20) Creatinine 0.9 mg/dL (0.6-1.0) Estimated GFR (Cockcroft-Gault) 63.7 Glucose Level 83 mg/dL (70-99) Calcium Level 9.0 mg/dL (8.5-10.1) Laboratory Tests Test 06/21/18 20:15 06/22/18 03:10 Urine Collection Type Unknown Urine Color Yellow Urine Clarity Clear Urine pH 6.0 Urine Specific [place] 1.025 Urine Protein Negative mg/dL (NEG-TRACE) Urine Glucose (UA) Negative mg/dL (NEG) Urine Ketones (Stick) Negative mg/dL (NEG) Urine Blood Large (NEG) Urine Nitrite Negative (NEG) Urine Bilirubin Negative (NEG) Urine Urobilinogen Dipstick 0.2 mg/dL (0.2 mg/dL) Urine Leukocyte Esterase Moderate (NEG) Urine RBC 20-40 /HPF (0-2) Urine WBC 11-20 /HPF (0-4) Urine Squamous Epithelial Cells Mod /LPF Urine Bacteria Few /HPF (0-FEW) Urine Mucus Mod /LPF White Blood Count 8.3 x10^3/uL (4.0-11.0) Red Blood Count 4.57 x10^6/uL (3.50-5.40) Hemoglobin 14.0 g/dL (12.0-15.5) Hematocrit 43.0 % (36.0-47.0) Mean Corpuscular Volume 94 fL (79-100) Mean Corpuscular Hemoglobin 31 pg (25-35) Mean Corpuscular Hemoglobin Concent 33 g/dL (31-37) Red Cell Distribution Width 14.7 % (11.5-14.5) Platelet Count 230 x10^3/uL (140-400) Neutrophils (%) (Auto) 77 % (31-73) Lymphocytes (%) (Auto) 14 % (24-48) Monocytes (%) (Auto) 7 % (0-9) Eosinophils (%) (Auto) 2 % (0-3) Basophils (%) (Auto) 0 % (0-3) Neutrophils # (Auto) 6.4 x10^3uL (1.8-7.7) Lymphocytes # (Auto) 1.1 x10^3/uL (1.0-4.8) Monocytes # (Auto) 0.6 x10^3/uL (0.0-1.1) Eosinophils # (Auto) 0.1 x10^3/uL (0.0-0.7) Basophils # (Auto) 0.0 x10^3/uL (0.0-0.2) Sodium Level 141 mmol/L (136-145) Potassium Level 4.1 mmol/L (3.5-5.1) Chloride Level 105 mmol/L (98-107) Carbon Dioxide Level 30 mmol/L (21-32) Anion Gap 6 (6-14) Blood Urea Nitrogen 19 mg/dL (7-20) Creatinine 0.9 mg/dL (0.6-1.0) Estimated GFR (Cockcroft-Gault) 63.7 Glucose Level 83 mg/dL (70-99) Calcium Level 9.0 mg/dL (8.5-10.1) Microbiology 06/20/18 Anaerobic/Aerobic Culture, Resulted Pending 06/20/18 Anaerobic Culture Result 1 (EMANUEL), Resulted Pending 06/20/18 Aerobic Culture, Resulted Pending 06/20/18 Aerobic Culture Result 1 (EMANUEL), Resulted Pending 06/20/18 Gram Stain - Final, Resulted 06/20/18 Gram Stain Result 1 (EMANUEL) - Final, Resulted 06/20/18 Gram Stain Result 2 (EMANUEL) - Final, Resulted Medications Current Medications Ondansetron HCl (Zofran) 4 mg PRN Q6HRS PRN IV NAUSEA/VOMITING; Start 06/20/18 at 13:45 Zolpidem Tartrate (Ambien) 5 mg PRN QHS PRN PO INSOMNIA, MAY REPEAT IN 1HR; Start 06/20/18 at 13:45 Morphine Sulfate (Morphine Sulfate) 1 mg PRN Q1HR PRN IV PAIN Last administered on 06/20/18at 15:52; Start 06/20/18 at 13:45 Acetaminophen/ Hydrocodone Bitart (Lortab 5/325) 1 tab PRN Q4HRS PRN PO MODERATE PAIN, SEVERE PAIN Last administered on 06/21/18at 22:51; Start 06/20/18 at 13:45 Acetaminophen (Tylenol) 650 mg PRN Q6HRS PRN PO Headaches, Temp > 101.5F; Start 06/20/18 at 13:45 Ibuprofen (Motrin) 400 mg PRN Q6HRS PRN PO MILD PAIN; Start 06/20/18 at 13:45 Senna/Docusate Sodium (Senna Plus) 1 tab BID PO Last administered on 06/22/18at 08:25; Start 06/20/18 at 21:00 Magnesium Hydroxide (Milk Of Magnesia) 2,400 mg PRN Q12HR PRN PO CONSTIPATION; Start 06/20/18 at 13:45 Alprazolam (Xanax) 0.25 mg PRN BID PRN PO ANXIETY / AGITATION Last administered on 06/21/18at 22:51; Start 06/20/18 at 13:45 Citalopram Hydrobromide (CeleXA) 20 mg DAILY PO Last administered on 06/22/18 08:25; Start 06/21/18 at 09:00 Levothyroxine Sodium (Synthroid) 25 mcg DAILY06 PO Last administered on 06/22/18 05:48; Start 06/21/18 at 06:00 Potassium Chloride (Klor-Con) 20 meq [id number] PO Last administered on 06/22/18at 08:25; Start 06/21/18 at 08:00 Non-Formulary Medication (Pravastatin Sodium ) 1 tab QHS PO ; Start 06/20/18 at 21:00; Status UNV Albuterol/ Ipratropium (Duoneb) 3 ml RTQID NEB Last administered on 06/22/18at 07:43; Start 06/20/18 at 16:00 Enoxaparin Sodium (Lovenox 40mg Syringe) 40 mg Q12HR SQ Last administered on 06/22/18 08:25; Start 06/20/18 at 21:00 Furosemide (Lasix) 20 mg DAILY PO Last administered on 06/22/18 08:25; Start 06/21/18 at 14:00 Ceftriaxone Sodium (Rocephin) 1 gm Q24H IVP Last administered on 06/21/18at 14:57; Start 06/21/18 at 14:30 Lactobacillus Rhamnosus (Culturelle) 1 cap BID PO Last administered on 06/22/18 08:25; Start 06/21/18 at 21:00 Active Scripts Active Augmentin 875-125 Tablet (Amoxicillin/Potassium Clav) 1 Each Tablet 1 Tab PO BID Reported Potassium Chloride 20 Meq Tablet.er 40 Meq PO DAILY Potassium Chloride 20 Meq Tablet.er 20 Meq PO DAILY Pravastatin Sodium 40 Mg Tablet 1 Tab PO QHS Levothyroxine Sodium 25 Mcg Tablet 1 Tab PO DAILY Potassium Chloride 20 Meq Tablet.er 20 Meq PO DAILY Citalopram Hbr (Citalopram Hydrobromide) 20 Mg Tablet 1 Tab PO DAILY Calcium Acetate 667 Mg Tablet 667 Mg PO DAILY Xanax (Alprazolam) 0.25 Mg Tablet 1 Tab PO PRN BID PRN Vitals/I & O Vital Sign - Last 24 Hours 06/21/18 06/21/18 06/21/18 06/21/18 11:00 11:40 12:42 15:00 Temp 98.3 98.4 98.3 98.4 Pulse 91 94 Resp 17 17 B/P (MAP) 120/82 (95) 140/82 (101) Pulse Ox 91 92 91 O2 Delivery Room Air Room Air Room Air Room Air 06/21/18 06/21/18 06/21/18 06/21/18 16:23 19:00 20:00 20:45 Temp 99.1 99.1 Pulse 108 Resp 20 B/P (MAP) 127/94 (105) Pulse Ox 90 93 88 O2 Delivery Room Air Room Air Room Air Room Air 06/21/18 06/21/18 06/21/18 06/22/18 22:51 23:00 23:51 03:00 Temp 98.1 98.2 98.1 98.2 Pulse 103 94 Resp 20 20 B/P (MAP) 130/85 (100) 108/61 (77) Pulse Ox 93 92 O2 Delivery Nasal Cannula Room Air Room Air Room Air O2 Flow Rate 2.0 06/22/18 06/22/18 07:00 07:44 Temp 98.4 98.4 Pulse 104 Resp 18 B/P (MAP) 146/91 (109) Pulse Ox 93 93 O2 Delivery Room Air Room Air Intake and Output 06/21/18 06/21/18 06/22/18 14:59 22:59 06:59 Intake Total 180 ml 200 ml 300 ml Balance 180 ml 200 ml [address] Chest - 1. Innumerable tiny bilateral pulmonary nodules suggesting metastatic disease. An infectious process is less likely. 2. Interlobular septal thickening and patchy groundglass opacities in the lungs suggesting pulmonary edema versus lymphangitic metastatic disease. 4. Patchy dense consolidation in the left upper and lower lobes. Underlying neoplasm cannot be excluded. 5. Moderate sized residual left pleural effusion containing tiny air bubbles related to recent drain placement. 6. Patchy sclerotic changes in the bones suggesting blastic metastatic disease. YOMI PASTOR MD June 22, 2018 08:51
[2018-06-22] MEDS: HYDROcodone/APAP 5/325MG 1 TAB TABLET PO PRN ×2 (09:39→20:58)
--- NOTE | 2018-06-22 10:06 | NUR ---
SW following pt for anticipated dc needs. Chart reviewed. Pt lives at home with spouse and currently has chest tube. Pt might benefit from PT/OT when appropriate. ELAYNE MURILLO.
--- NOTE | 2018-06-22 10:12 | PDOC ---
PULMONARY PROGRESS NOTES Subjective NO SOA NO FURTHER DRAINAGE Vitals Vital Signs Date Time Temp Pulse Resp B/P (MAP) Pulse Ox O2 Delivery O2 Flow Rate FiO2 06/22/18 08:00 Room Air 06/22/18 07:44 93 06/22/18 07:00 98.4 104 18 146/91 (109) 98.4 06/21/18 22:51 2.0 General: Alert, No acute distress Lungs: Other (decrease bs left) Cardiovascular: S1, S2 Abdomen: Soft Neuro Exam: Alert Extremities: No Edema Skin: Warm Labs Laboratory Tests Test 06/20/18 14:35 06/20/18 15:05 06/21/18 04:30 06/21/18 20:15 Prothrombin Time 13.0 SEC (11.7-14.0) Prothromb Time International Ratio 1.0 (0.8-1.1) Sodium Level 140 mmol/L (136-145) 142 mmol/L (136-145) Potassium Level 4.1 mmol/L (3.5-5.1) 4.1 mmol/L (3.5-5.1) Chloride Level 102 mmol/L (98-107) 105 mmol/L (98-107) Carbon Dioxide Level 28 mmol/L (21-32) 28 mmol/L (21-32) Anion Gap 10 (6-14) 9 (6-14) Blood Urea Nitrogen 24 mg/dL (7-20) 23 mg/dL (7-20) Creatinine 1.0 mg/dL (0.6-1.0) 0.9 mg/dL (0.6-1.0) Estimated GFR (Cockcroft-Gault) 56.4 63.7 BUN/Creatinine Ratio 24 (6-20) Glucose Level 124 mg/dL (70-99) 96 mg/dL (70-99) Calcium Level 9.6 mg/dL (8.5-10.1) 9.0 mg/dL (8.5-10.1) Total Bilirubin 0.8 mg/dL (0.2-1.0) Aspartate Amino Transf (AST/SGOT) 19 U/L (15-37) Alanine Aminotransferase (ALT/SGPT) 45 U/L (14-59) Alkaline Phosphatase 236 U/L (46-116) GZ-Emf-T-Type Natriuretic Peptide 118 pg/mL (0-124) Total Protein 7.4 g/dL (6.4-8.2) Albumin 3.5 g/dL (3.4-5.0) Albumin/Globulin Ratio 0.9 (1.0-1.7) Body Fluid Source Pleural Body Fluid Color Yellow Body Fluid Clarity Clear Body Fluid Nucleated Cells /cmm (Not Established) Body Fluid Mononuclear WBCs (%) 93 % Body Fluid Polymorphonuclear Cells 2 % Body Fluid Total RBCs Counted /cmm (Not Established) Body Fluid Other Cells (%) 5 % White Blood Count 8.4 x10^3/uL (4.0-11.0) Red Blood Count 4.65 x10^6/uL (3.50-5.40) Hemoglobin 14.1 g/dL (12.0-15.5) Hematocrit 43.7 % (36.0-47.0) Mean Corpuscular Volume 94 fL (79-100) Mean Corpuscular Hemoglobin 30 pg (25-35) Mean Corpuscular Hemoglobin Concent 32 g/dL (31-37) Red Cell Distribution Width 14.8 % (11.5-14.5) Platelet Count 270 x10^3/uL (140-400) Neutrophils (%) (Auto) 78 % (31-73) Lymphocytes (%) (Auto) 14 % (24-48) Monocytes (%) (Auto) 8 % (0-9) Eosinophils (%) (Auto) 0 % (0-3) Basophils (%) (Auto) 0 % (0-3) Neutrophils # (Auto) 6.5 x10^3uL (1.8-7.7) Lymphocytes # (Auto) 1.2 x10^3/uL (1.0-4.8) Monocytes # (Auto) 0.6 x10^3/uL (0.0-1.1) Eosinophils # (Auto) 0.0 x10^3/uL (0.0-0.7) Basophils # (Auto) 0.0 x10^3/uL (0.0-0.2) Urine Collection Type Unknown Urine Color Yellow Urine Clarity Clear Urine pH 6.0 Urine Specific [place] 1.025 Urine Protein Negative mg/dL (NEG-TRACE) Urine Glucose (UA) Negative mg/dL (NEG) Urine Ketones (Stick) Negative mg/dL (NEG) Urine Blood Large (NEG) Urine Nitrite Negative (NEG) Urine Bilirubin Negative (NEG) Urine Urobilinogen Dipstick 0.2 mg/dL (0.2 mg/dL) Urine Leukocyte Esterase Moderate (NEG) Urine RBC 20-40 /HPF (0-2) Urine WBC 11-20 /HPF (0-4) Urine Squamous Epithelial Cells Mod /LPF Urine Bacteria Few /HPF (0-FEW) Urine Mucus Mod /LPF Test 06/22/18 03:10 White Blood Count 8.3 x10^3/uL (4.0-11.0) Red Blood Count 4.57 x10^6/uL (3.50-5.40) Hemoglobin 14.0 g/dL (12.0-15.5) Hematocrit 43.0 % (36.0-47.0) Mean Corpuscular Volume 94 fL (79-100) Mean Corpuscular Hemoglobin 31 pg (25-35) Mean Corpuscular Hemoglobin Concent 33 g/dL (31-37) Red Cell Distribution Width 14.7 % (11.5-14.5) Platelet Count 230 x10^3/uL (140-400) Neutrophils (%) (Auto) 77 % (31-73) Lymphocytes (%) (Auto) 14 % (24-48) Monocytes (%) (Auto) 7 % (0-9) Eosinophils (%) (Auto) 2 % (0-3) Basophils (%) (Auto) 0 % (0-3) Neutrophils # (Auto) 6.4 x10^3uL (1.8-7.7) Lymphocytes # (Auto) 1.1 x10^3/uL (1.0-4.8) Monocytes # (Auto) 0.6 x10^3/uL (0.0-1.1) Eosinophils # (Auto) 0.1 x10^3/uL (0.0-0.7) Basophils # (Auto) 0.0 x10^3/uL (0.0-0.2) Sodium Level 141 mmol/L (136-145) Potassium Level 4.1 mmol/L (3.5-5.1) Chloride Level 105 mmol/L (98-107) Carbon Dioxide Level 30 mmol/L (21-32) Anion Gap 6 (6-14) Blood Urea Nitrogen 19 mg/dL (7-20) Creatinine 0.9 mg/dL (0.6-1.0) Estimated GFR (Cockcroft-Gault) 63.7 Glucose Level 83 mg/dL (70-99) Calcium Level 9.0 mg/dL (8.5-10.1) Laboratory Tests Test 06/21/18 20:15 06/22/18 03:10 Urine Collection Type Unknown Urine Color Yellow Urine Clarity Clear Urine pH 6.0 Urine Specific [place] 1.025 Urine Protein Negative mg/dL (NEG-TRACE) Urine Glucose (UA) Negative mg/dL (NEG) Urine Ketones (Stick) Negative mg/dL (NEG) Urine Blood Large (NEG) Urine Nitrite Negative (NEG) Urine Bilirubin Negative (NEG) Urine Urobilinogen Dipstick 0.2 mg/dL (0.2 mg/dL) Urine Leukocyte Esterase Moderate (NEG) Urine RBC 20-40 /HPF (0-2) Urine WBC 11-20 /HPF (0-4) Urine Squamous Epithelial Cells Mod /LPF Urine Bacteria Few /HPF (0-FEW) Urine Mucus Mod /LPF White Blood Count 8.3 x10^3/uL (4.0-11.0) Red Blood Count 4.57 x10^6/uL (3.50-5.40) Hemoglobin 14.0 g/dL (12.0-15.5) Hematocrit 43.0 % (36.0-47.0) Mean Corpuscular Volume 94 fL (79-100) Mean Corpuscular Hemoglobin 31 pg (25-35) Mean Corpuscular Hemoglobin Concent 33 g/dL (31-37) Red Cell Distribution Width 14.7 % (11.5-14.5) Platelet Count 230 x10^3/uL (140-400) Neutrophils (%) (Auto) 77 % (31-73) Lymphocytes (%) (Auto) 14 % (24-48) Monocytes (%) (Auto) 7 % (0-9) Eosinophils (%) (Auto) 2 % (0-3) Basophils (%) (Auto) 0 % (0-3) Neutrophils # (Auto) 6.4 x10^3uL (1.8-7.7) Lymphocytes # (Auto) 1.1 x10^3/uL (1.0-4.8) Monocytes # (Auto) 0.6 x10^3/uL (0.0-1.1) Eosinophils # (Auto) 0.1 x10^3/uL (0.0-0.7) Basophils # (Auto) 0.0 x10^3/uL (0.0-0.2) Sodium Level 141 mmol/L (136-145) Potassium Level 4.1 mmol/L (3.5-5.1) Chloride Level 105 mmol/L (98-107) Carbon Dioxide Level 30 mmol/L (21-32) Anion Gap 6 (6-14) Blood Urea Nitrogen 19 mg/dL (7-20) Creatinine 0.9 mg/dL (0.6-1.0) Estimated GFR (Cockcroft-Gault) 63.7 Glucose Level 83 mg/dL (70-99) Calcium Level 9.0 mg/dL (8.5-10.1) Medications Active Scripts Medications Dose Route/Sig Max Daily Dose Days Date Category Potassium Chloride 20 Meq Tablet.er 40 Meq PO DAILY 12/30/16 Reported Potassium Chloride 20 Meq Tablet.er 20 Meq PO DAILY 12/30/16 Reported Augmentin 875-125 Tablet (Amoxicillin/Potassium Clav) 1 Each Tablet 1 Tab PO BID 12/30/16 Rx Pravastatin Sodium 40 Mg Tablet 1 Tab PO QHS 12/20/16 Reported Levothyroxine Sodium 25 Mcg Tablet 1 Tab PO DAILY 12/20/16 Reported Potassium Chloride 20 Meq Tablet.er 20 Meq PO DAILY 12/20/16 Reported Citalopram Hbr (Citalopram Hydrobromide) 20 Mg Tablet 1 Tab PO DAILY 12/20/16 Reported Calcium Acetate 667 Mg Tablet 667 Mg PO DAILY 12/20/16 Reported Xanax (Alprazolam) 0.25 Mg Tablet 1 Tab PO PRN BID PRN 12/20/16 Reported Impression . IMPRESSION: 1. Dyspnea for the last 2 weeks due to large left-sided pleural effusion. Etiology could be multifactorial, and at this point, malignancy is a major concern. Pneumonia with parapneumonic effusion would be another possibility. She has no weight loss. She has no known malignancies. She had mammogram and Pap smear done in the past, but not had any screening colonoscopy recently. Her chest x-ray does show some left hilar fullness and CT chest. needs to be done to rule out any malignancy. No significant history of tobacco use. Plan . 1. Follow the pleural fluid analysis including cytology and C and S. GS neg so far 2. Obtain contrast CT chest to better assess for lung mass. 3. Follow chest x-rays daily. 4. Monitor the output of the chest tube. May dc once etiology is obvious 5. empiric antibiotic. 6. Further recommendations to follow after review of the CT chest. complex decision making regarding etiology of effusion. d/w ANITA Cotter MD June 22, 2018 10:12
[2018-06-22] MEDS ORDERED: IOHEXOL 300 MG/ML 100ML VIAL. IV ONE (10:15)
[2018-06-22] MEDS ORDERED: CONTRAST GIVEN. MC PRN (10:15)
[2018-06-22 11:00] VITALS: BP 133/70
--- NOTE | 2018-06-22 12:43 | RAD ---
CT of the chest with contrast, 06/22/2018: HISTORY: Hilar mass, respiratory distress Multidetector CT imaging was performed following an IV bolus injection of iodinated contrast material. Multiplanar reconstructions were produced. There are numerous tiny nodules in both lungs. There is moderate interlobular septal thickening in both lungs. Mild scattered groundglass opacities are present, more so on the left. Patchy areas of more dense consolidation are present in the left lower lobe and medially in the left upper lobe. This left upper lobe density abuts the pleura. There is a moderate sized left pleural effusion. A pigtail pleural drain is in place inferolaterally on the left. Several tiny associated bubbles of gas are noted within the left pleural effusion. There is mild chest wall emphysema posterolaterally on the left in the region of the pleural drain. No right-sided pleural fluid is evident. The thoracic aorta is of normal caliber. No mediastinal or hilar adenopathy is evident. There are scattered degenerative changes in the spine. There are patchy sclerotic foci within multiple thoracic and upper lumbar vertebral bodies there is a sclerotic focus within the right side of the manubrium of the sternum. The findings suggest osseous metastatic disease. IMPRESSION: 1. Innumerable tiny bilateral pulmonary nodules suggesting metastatic disease. An infectious process is less likely. 2. Interlobular septal thickening and patchy groundglass opacities in the lungs suggesting pulmonary edema versus lymphangitic metastatic disease. 4. Patchy dense consolidation in the left upper and lower lobes. Underlying neoplasm cannot be excluded. 5. Moderate sized residual left pleural effusion containing tiny air bubbles related to recent drain placement. 6. Patchy sclerotic changes in the bones suggesting blastic metastatic disease. PQRS Compliance Statement: One or more of the following individualized dose reduction techniques were utilized for this examination: 1. Automated exposure control 2. Adjustment of the mA and/or kV according to patient size 3. Use of iterative reconstruction technique Electronically signed by: Antonio Higgins MD (06/22/2018 12:41 PM) [facility]
[2018-06-22 13:14] LABS: HEMOGLOBIN A1C 5.6 % (4.8-5.6)
--- NOTE | 2018-06-22 14:58 | NUR ---
ANGIE following Pt. Physician initiated inpatient transfer request to . ANGIE spoke with receiving tellerMandy at and faxed clinicals. Pt acceptance and admission pending. Will continue to follow.
[2018-06-22 15:00] VITALS: BP 121/80
[2018-06-22] MEDS: ALPRAZolam 0.25 MG TABLET PO PRN (15:58)
[2018-06-22] MEDS: cefTRIAXone IV Push 1 GM VIAL. IVP SCH (17:43)
[2018-06-22 19:00] VITALS: BP 130/87
[2018-06-22 23:00] VITALS: BP 127/77
[2018-06-23 03:00] VITALS: BP 132/93
[2018-06-23] MEDS: LEVOTHYROXINE 25 MCG TABLET. PO SCH (06:17)
[2018-06-23] MEDS: ALPRAZolam 0.25 MG TABLET PO PRN (06:18)
[2018-06-23 07:00] VITALS: BP 132/89
[2018-06-23] MEDS: IPRATRPIUM/ALBUTEROL 0.5/2.5MG 3 ML NEBU. NEB SCH ×2 (07:45→11:43)
--- NOTE | 2018-06-23 08:28 | NUR ---
Nursing note: Pt c/o blood in urine. Woke up this morning and had a moderate amount of bright red blood on her underwear. Bimanual exam, small amount of bright red blood in vaginal canal. Will relay information to provider.
--- NOTE | 2018-06-23 08:50 | RAD ---
Portable chest, 06/23/2018: HISTORY: Pleural effusion Comparison is made yesterday study. The pigtail pleural drain on the left is unchanged. There is increasing pleural thickening laterally in the left compatible with increasing pleural fluid. The heart size is unchanged. The pulmonary vascularity appears congested with loss of vascular margination. Patchy left parahilar infiltrates persist. There are faint nodular opacities in both lungs, better demonstrated on the current CT exam. No right-sided pleural fluid is evident. There is no evidence of pneumothorax. IMPRESSION: 1. Ongoing moderate patchy left lung infiltrates with increasing moderate-sized left pleural effusion. 2. Vascular congestion. 3. Bilateral pulmonary nodules. Electronically signed by: Antonio Higgins MD (06/23/2018 8:46 AM) [facility]
[2018-06-23] MEDS: ENOXAPARIN 40 MG/0.4 ML SYRINGE. SQ SCH (09:00)
[2018-06-23] MEDS: SENNOSIDES/DOCUSATE 8.6/50MG TABLET. PO SCH (09:00)
[2018-06-23] MEDS: POTASSIUM CHLORIDE 20 MEQ TABLET.ER. PO SCH (09:19)
[2018-06-23] MEDS: LACTOBACILLUS RHAMNOSUS GG 1 CAPSULE. PO SCH (09:19)
[2018-06-23] MEDS: CITALOPRAM 20 MG TABLET. PO SCH (09:19)
[2018-06-23] MEDS: FUROSEMIDE 20 MG TABLET PO SCH (09:19)
[2018-06-23] MEDS: HYDROcodone/APAP 5/325MG 1 TAB TABLET PO PRN (09:40)
[2018-06-23 11:07] VITALS: BP 124/85
--- NOTE | 2018-06-23 12:31 | PDOC ---
PULMONARY PROGRESS NOTES Subjective NO SOA PT WANTS CHEST TUBE OUT NO SIG DRAINAGE CT WAS LEFT CLAMP AFTER RETURN FOR XRAY Vitals Vital Signs Date Time Temp Pulse Resp B/P (MAP) Pulse Ox O2 Delivery O2 Flow Rate FiO2 06/23/18 11:43 Room Air 06/23/18 11:07 98.1 100 14 124/85 (98) 94 98.1 06/23/18 10:40 2.0 General: Alert, No acute distress Lungs: Other (decrease bs left) Cardiovascular: S1, S2 Abdomen: Soft Neuro Exam: Alert Extremities: No Edema Skin: Warm Labs Laboratory Tests Test 06/21/18 20:15 06/22/18 03:10 Urine Collection Type Unknown Urine Color Yellow Urine Clarity Clear Urine pH 6.0 Urine Specific [place] 1.025 Urine Protein Negative mg/dL (NEG-TRACE) Urine Glucose (UA) Negative mg/dL (NEG) Urine Ketones (Stick) Negative mg/dL (NEG) Urine Blood Large (NEG) Urine Nitrite Negative (NEG) Urine Bilirubin Negative (NEG) Urine Urobilinogen Dipstick 0.2 mg/dL (0.2 mg/dL) Urine Leukocyte Esterase Moderate (NEG) Urine RBC 20-40 /HPF (0-2) Urine WBC 11-20 /HPF (0-4) Urine Squamous Epithelial Cells Mod /LPF Urine Bacteria Few /HPF (0-FEW) Urine Mucus Mod /LPF White Blood Count 8.3 x10^3/uL (4.0-11.0) Red Blood Count 4.57 x10^6/uL (3.50-5.40) Hemoglobin 14.0 g/dL (12.0-15.5) Hematocrit 43.0 % (36.0-47.0) Mean Corpuscular Volume 94 fL (79-100) Mean Corpuscular Hemoglobin 31 pg (25-35) Mean Corpuscular Hemoglobin Concent 33 g/dL (31-37) Red Cell Distribution Width 14.7 % (11.5-14.5) Platelet Count 230 x10^3/uL (140-400) Neutrophils (%) (Auto) 77 % (31-73) Lymphocytes (%) (Auto) 14 % (24-48) Monocytes (%) (Auto) 7 % (0-9) Eosinophils (%) (Auto) 2 % (0-3) Basophils (%) (Auto) 0 % (0-3) Neutrophils # (Auto) 6.4 x10^3uL (1.8-7.7) Lymphocytes # (Auto) 1.1 x10^3/uL (1.0-4.8) Monocytes # (Auto) 0.6 x10^3/uL (0.0-1.1) Eosinophils # (Auto) 0.1 x10^3/uL (0.0-0.7) Basophils # (Auto) 0.0 x10^3/uL (0.0-0.2) Sodium Level 141 mmol/L (136-145) Potassium Level 4.1 mmol/L (3.5-5.1) Chloride Level 105 mmol/L (98-107) Carbon Dioxide Level 30 mmol/L (21-32) Anion Gap 6 (6-14) Blood Urea Nitrogen 19 mg/dL (7-20) Creatinine 0.9 mg/dL (0.6-1.0) Estimated GFR (Cockcroft-Gault) 63.7 Glucose Level 83 mg/dL (70-99) Calcium Level 9.0 mg/dL (8.5-10.1) Medications Active Scripts Medications Dose Route/Sig Max Daily Dose Days Date Category Potassium Chloride 20 Meq Tablet.er 40 Meq PO DAILY 12/30/16 Reported Potassium Chloride 20 Meq Tablet.er 20 Meq PO DAILY 12/30/16 Reported Augmentin 875-125 Tablet (Amoxicillin/Potassium Clav) 1 Each Tablet 1 Tab PO BID 12/30/16 Rx Pravastatin Sodium 40 Mg Tablet 1 Tab PO QHS 12/20/16 Reported Levothyroxine Sodium 25 Mcg Tablet 1 Tab PO DAILY 12/20/16 Reported Potassium Chloride 20 Meq Tablet.er 20 Meq PO DAILY 12/20/16 Reported Citalopram Hbr (Citalopram Hydrobromide) 20 Mg Tablet 1 Tab PO DAILY 12/20/16 Reported Calcium Acetate 667 Mg Tablet 667 Mg PO DAILY 12/20/16 Reported Xanax (Alprazolam) 0.25 Mg Tablet 1 Tab PO PRN BID PRN 12/20/16 Reported Comments CXR 03/26 INCREASE LOCULATED LEFT EFFUSION ct chest 1. Innumerable tiny bilateral pulmonary nodules suggesting metastatic disease. An infectious process is less likely. 2. Interlobular septal thickening and patchy groundglass opacities in the lungs suggesting pulmonary edema versus lymphangitic metastatic disease. 4. Patchy dense consolidation in the left upper and lower lobes. Underlying neoplasm cannot be excluded. 5. Moderate sized residual left pleural effusion containing tiny air bubbles related to recent drain placement. 6. Patchy sclerotic changes in the bones suggesting blastic metastatic disease. Impression . IMPRESSION: 1. Dyspnea for the last 2 weeks due to large left-sided malignant pleural effusion. s/p left chest tube, no sig drainage, all free fluid removed, now only organized fluid, increased today. 2. No h/o tobacco use Plan . 1. pleural fluid cytology c/w adenocarcinoma 2. CT chest with blastic bony lesions, multiple tiny lung nodules, mass like consolidation LLL. organized left effusion. Findings favoring metastatic adeno.? breast primary, ? primary lung 3. I have removed the chest tube as it was not draining anymore. 4. she will need PleurX catheter once fluid re-accumulates 5. empiric antibiotic. 6. Dr Maher consulted. May need bone bx for additional tissue d/w ANITA PRIDE MD June 23, 2018 12:31
[2018-06-23] MEDS ORDERED: SENN-22 PO (13:48)
[2018-06-23] MEDS ORDERED: HYDR-2761 PO (13:48)
--- NOTE | 2018-06-23 13:57 | PDOC3 ---
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 loculated pleural effusion Brief Hospital Course Allergies Allergies Coded Allergies Type Severity Reaction Last Updated Verified atorvastatin Allergy Intermediate 12/21/16 Yes Vital Signs Vital Signs Date Time Temp Pulse Resp B/P (MAP) Pulse Ox O2 Delivery O2 Flow Rate FiO2 06/23/18 11:43 Room Air 06/23/18 11:07 98.1 100 14 124/85 (98) 94 98.1 06/23/18 10:40 2.0 Lab Results Laboratory Tests Test 06/21/18 20:15 06/22/18 03:10 Urine Collection Type Unknown Urine Color Yellow Urine Clarity Clear Urine pH 6.0 Urine Specific [place] 1.025 Urine Protein Negative mg/dL (NEG-TRACE) Urine Glucose (UA) Negative mg/dL (NEG) Urine Ketones (Stick) Negative mg/dL (NEG) Urine Blood Large (NEG) Urine Nitrite Negative (NEG) Urine Bilirubin Negative (NEG) Urine Urobilinogen Dipstick 0.2 mg/dL (0.2 mg/dL) Urine Leukocyte Esterase Moderate (NEG) Urine RBC 20-40 /HPF (0-2) Urine WBC 11-20 /HPF (0-4) Urine Squamous Epithelial Cells Mod /LPF Urine Bacteria Few /HPF (0-FEW) Urine Mucus Mod /LPF White Blood Count 8.3 x10^3/uL (4.0-11.0) Red Blood Count 4.57 x10^6/uL (3.50-5.40) Hemoglobin 14.0 g/dL (12.0-15.5) Hematocrit 43.0 % (36.0-47.0) Mean Corpuscular Volume 94 fL (79-100) Mean Corpuscular Hemoglobin 31 pg (25-35) Mean Corpuscular Hemoglobin Concent 33 g/dL (31-37) Red Cell Distribution Width 14.7 % (11.5-14.5) Platelet Count 230 x10^3/uL (140-400) Neutrophils (%) (Auto) 77 % (31-73) Lymphocytes (%) (Auto) 14 % (24-48) Monocytes (%) (Auto) 7 % (0-9) Eosinophils (%) (Auto) 2 % (0-3) Basophils (%) (Auto) 0 % (0-3) Neutrophils # (Auto) 6.4 x10^3uL (1.8-7.7) Lymphocytes # (Auto) 1.1 x10^3/uL (1.0-4.8) Monocytes # (Auto) 0.6 x10^3/uL (0.0-1.1) Eosinophils # (Auto) 0.1 x10^3/uL (0.0-0.7) Basophils # (Auto) 0.0 x10^3/uL (0.0-0.2) Sodium Level 141 mmol/L (136-145) Potassium Level 4.1 mmol/L (3.5-5.1) Chloride Level 105 mmol/L (98-107) Carbon Dioxide Level 30 mmol/L (21-32) Anion Gap 6 (6-14) Blood Urea Nitrogen 19 mg/dL (7-20) Creatinine 0.9 mg/dL (0.6-1.0) Estimated GFR (Cockcroft-Gault) 63.7 Glucose Level 83 mg/dL (70-99) Calcium Level 9.0 mg/dL (8.5-10.1) Brief Hospital Course Ms Kay is a 62yo F w/ PMHx previous diverticulitis, depression, morbid obesity, hypertension who was seen in office for pulmonary consult for shortness of breath, was noted on CXR to have left large pleural effusion with mediastinal shifting. Called for direct admission. 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 She has been given 2 courses of steroids and inhalers by her PCP with no improvement, no chest imaging at that time. On further ROS she notes she has been wearing compression hose for progressive bilateral LE edema over the past year. Cancer screenings not UTD. Last mammogram over 2 years ago and has yet to have screening colonoscopy. History of lung cancer in father and paternal aunt. Breast cancer in sister. Non-smoker She underwent chest tube placement with IR with 700cc out on 06/20/18, still with drainage. Some signs of ex-vacuo or edema with some lung aeration improvement on CXR. To CT today with concerning left upper and lower lobe masses, possible lymphagitic spread and multiple tiny nodules as well as concerning possible blastic lesions in the spine. I have shared the findings and need for urgent pathologic diagnosis, particularly as the pleural fluid analysis in cytology is positive for malignancy - ADENOCARCINOMA - I have d/w pulmonology and oncology this is likely breast but also possibly lung. Her chest tube was removed with no problems. She did have some spontaneous vaginal bleeding as well that resolved on its own, she will have urgent earth science technical officer referral. She simply wishes to return to work and have outpatient port placed, f/u with oncology and have mammogram and repeat lung, spine biopsy to further specify primary cancer location. Case management has informed me her insurance does not allow care at [facility] and she must be transferred to [facility]. I have placed called to [facility] transfer center in anticipation this is true. Vital Signs - Stable General: Alert, Oriented X3, Cooperative, No acute distress Heart: Regular rate, No murmurs Lungs: Clear Abdomen: Normal bowel sounds, Soft, No tenderness, No hepatosplenomegaly, No masses Extremities: No clubbing, No cyanosis, Normal pulses, No tenderness/swelling, Other (1+ pitting edema) Skin: No rashes, No breakdown, No significant lesion Greater than 30 minutes spent on discharge. Discharge Information Condition at Discharge: Improved Follow Up: Weeks (2) Disposition/Orders: D/C to Home Scheduled Amoxicillin/Potassium Clav (Augmentin 875-125 Tablet) 1 Each Tablet, 1 TAB PO BID, #14 Prescribed by: ROSALINA SULLIVAN on 12/30/16 1125 Calcium Acetate (Calcium Acetate) 667 Mg Tablet, 667 MG PO DAILY for DIALYSIS PATIENTS, (Reported) Entered as Reported by: RONALD EVANS on 12/20/16 1625 Last Taken: Unknown Dose on 06/19/18 Last Action: Last Taken Edited on 06/20/18 1436 by ALEXIS OSORIO Citalopram Hydrobromide (Citalopram Hbr) 20 Mg Tablet, 1 TAB PO DAILY, #30 Ref 5 (Reported) Entered as Reported by: RONALD EVANS on 12/20/16 1625 Last Taken: Unknown Dose on 06/19/18 Last Action: Last Taken Edited on 06/20/18 1436 by ALEXIS OSORIO Levothyroxine Sodium (Levothyroxine Sodium) 25 Mcg Tablet, 1 TAB PO DAILY, #30 Ref 5 (Reported) Entered as Reported by: RONALD EVANS on 12/20/16 1648 Last Taken: Unknown Dose on 06/20/18 Last Action: Last Taken Edited on 06/20/18 1436 by ALEXIS OSORIO Potassium Chloride (Potassium Chloride) 20 Meq Tablet.er, 20 MEQ PO DAILY, (Reported) Entered as Reported by: RONALD EVANS on 12/20/16 1625 Potassium Chloride (Potassium Chloride) 20 Meq Tablet.er, 20 MEQ PO DAILY, (Reported) Entered as Reported by: FRANK LOBO on 12/30/16 1146 Last Taken: Unknown Dose on 06/19/18 Last Action: Last Taken Edited on 06/20/18 1436 by ALEXIS OSORIO Potassium Chloride (Potassium Chloride) 20 Meq Tablet.er, 40 MEQ PO DAILY, (Reported) Entered as Reported by: FRANK LOBO on 12/30/16 1147 Pravastatin Sodium (Pravastatin Sodium) 40 Mg Tablet, 1 TAB PO QHS, #90 Ref 1 (Reported) Entered as Reported by: RONALD EVANS on 12/20/16 1650 Last Taken: Unknown Dose on 06/19/18 Last Action: Last Taken Edited on 06/20/18 1436 by ALEXIS OSORIO Sennosides/Docusate Sodium (Senna-Time S Tablet) 1 Each Tablet, 1 TAB PO BID for Constipation for 30 Days, #60 Prescribed by: YOMI PASTOR MD on 06/23/18 1348 Scheduled PRN Alprazolam (Xanax) 0.25 Mg Tablet, 1 TAB PO PRN BID PRN for ANXIETY / AGITATION, #30 (Reported) Entered as Reported by: RONALD EVANS on 12/20/16 1625 Last Taken: Unknown Dose on 06/19/18 Last Action: Last Taken Edited on 06/20/18 143 by ALEXIS OSORIO Hydrocodone Bit/Acetaminophen (Hydrocodone-Apap 5-325 ) 1 Tab Tablet, 1 TAB PO PRN Q6HRS PRN for MODERATE PAIN, SEVERE PAIN for 6 Days, #36 Prescribed by: YOMI PASTOR MD on 06/23/18 1348 YOMI PASTOR MD June 23, 2018 13:57
--- NOTE | 2018-06-23 14:35 | NUR ---
Discharge Note: KAMILLA RODRIGUEZ SANIBEL Discharge instructions and discharge home medications reviewed with Patient and a copy given. All questions have been answered and understanding verbalized. Discontinued lines and drains: peripheral iv. Patient discharged to Home or Self Care with Spouse via Ambulated
--- NOTE | 2018-06-23 17:07 | PATHOLOGY ---
Note [facility] Accession Number: [id number] TESTS RESULT FLAG UNITS REF RANGE LAB Clinician Provided Cytology Information No. of containers..01 Other (Miscellaneous) Source: [A] 01 LT PLEURAL FLUID DIAGNOSIS: [A] 02 LT PLEURAL FLUID POSITVE FOR MALIGNANT CELLS. THERE ARE ATYPICAL CELLS, PRESENT SINGLY AND IN CLUSTERS, WHICH ARE BerEP4 POSITIVE AND CALRETININ NEGATIVE. WE FAVOR A DIAGNOSIS OF ADENOCARCINOMA. CASE IS ALSO EXAMINED BY DR. GO, CYTOPATHOLOGIST, WHN CONCURS WITH THE DIAGNOSIS. THIS INTERPRETATION INCLUDES EVALUATION OF A CELL BLOCK. Signed out by: Anshul See MD, Pathologist NPI- [id number] Performed by: Carmella Ferro, Wellness Rn ([facility]) Gross description: 01 30ML, ORANGE, CLOUDY /LCS FLAG LEGEND: L-Low Normal,H-High Normal,LL-Alert Low,HH-Alert High <-Panic Low,>-Panic High,A-Abnormal,AA-Critical Abnormal Performed at: [facility] [address] [place] [address] Augustine Cloud MD, [address] [facility] [address] [place] [address] Anshul See MD, Specimen Comment: A courtesy copy of this report has been sent to Specimen Comment: [phone], , . Specimen Comment: Report sent to ,DR SCHULTZ / DR DO Performed at: [address], [place], [place] [id number] MD Augustine Cloud MD Phone: [phone]
--- NOTE | 2018-06-24 04:04 | CONS ---
DATE OF CONSULTATION: 06/23/2018 REQUESTING PHYSICIAN: Dr. Miles Orozco. REASON FOR CONSULTATION: Left-sided pleural effusion, bilateral lung metastasis and bone metastasis. HISTORY OF PRESENT ILLNESS: The patient is a 62-year-old female who was admitted to [facility] on 06/20/2018 with complaints of dyspnea. She was seen by Pulmonary Medicine for cough and chest congestion. She was given antibiotics and prednisone, which did not improve her symptoms. Hence, further workup was done with a chest x-ray that revealed a left-sided pleural effusion. She denies any loss of weight or loss of appetite. No fevers, chills or night sweats. No hemoptysis. She has had a mammogram in 2017 and was negative and she has also had a Pap smear in the past that was negative and at the time of admission to [facility], she has never had a screening colonoscopy. Her father had lung cancer, but he was a heavy smoker. She underwent a CT scan of the chest on 06/22/2018, which revealed innumerable bilateral tiny pulmonary nodules suggestive of metastatic disease. Ground-glass opacities in the lung suggest pulmonary edema versus lymphangitic metastatic disease. Patchy dense consolidation in the left upper lobe and the left lower lobe is noted. Moderate size left-sided pleural effusion. Patchy sclerotic changes in the bones suggestive of blastic metastatic disease. She underwent diagnostic and therapeutic thoracentesis on 06/20/2018 and a left thoracostomy tube was placed. Serous fluid was aspirated and sent to cytology, which revealed adenocarcinoma. Hence, I was consulted for further evaluation. PAST MEDICAL HISTORY: Diverticular abscess, hypertension. FAMILY HISTORY: Father had lung cancer. SOCIAL HISTORY: She is a never smoker. She is . Her is also present during my discussion. REVIEW OF SYSTEMS: A 12-point review of system was performed. Pertinent positives are mentioned in the history of present illness. Rest of the system review is negative. PHYSICAL EXAMINATION: GENERAL APPEARANCE: The patient is a 62-year-old female who is in no acute cardiorespiratory distress. VITAL SIGNS: Blood pressure 124/85, temperature 98.1. HEENT: Head: Atraumatic, normocephalic. Eyes: No icterus. NECK: Supple. CHEST: Bilaterally symmetrical. No crepitations or rhonchi heard. HEART: S1, S2 normal. ABDOMEN: Soft, nontender. CENTRAL NERVOUS SYSTEM: No focal deficits. LYMPHATICS: No lymphadenopathy. SKIN: No rashes. PSYCHOLOGIC: Mood and affect are appropriate. PAST SURGICAL HISTORY: WBC 8.3, hemoglobin 14, platelet count 230. Creatinine 0.9, total bilirubin 0.8, calcium 9.0. AST 19, ALT 45, alkaline phosphatase 236. IMPRESSION AND PLAN: 1. Adenocarcinoma diagnosed by cytology of the pleural effusion on 06/20/2018 when the left-sided pleural effusion was drained. I discussed with the pathologist who mentioned that it is an adenocarcinoma, but unable to distinguish between breast or lung without further tissue. I discussed with Dr. Gerry Kebede from Pulmonary Medicine. I discussed in detail with the patient and her that I would recommend a bone biopsy for further evaluation. CT scan revealed bilateral lung mets and bone metastasis. She would like to get all the workup done as an outpatient as she is anxious to go home today. I will consult Interventional Radiology for bone biopsy and I will also obtain a PET scan as an outpatient. 2. Bone metastasis. Plan to start Xgeva as an outpatient. 3. Pleural effusion on the left side. Continue to monitor. Appreciate pulmonary consultation. 4. The patient has had a mammogram in 2017. I have recommended a followup mammogram. SNEHAL KUMAR MD DR: FATOUMATA/charanjit JOB#: [id number] / [id number] MUMTAZ
== END 2018-06-23 14:40 | disposition home or self-care (01) | DRG 181 ==
LOC: 5 NORTH 13:25
PROVIDERS: ADMIT Internal Medicine; ATTEND Internal Medicine
PROC: 0W9B30Z Drainage of Left Pleural Cavity with Drainage Device, Percutaneous Approach (ICD-10-PCS; principal; 2018-06-21)
DX: C38.4 Malignant neoplasm of pleura (principal); J90 Pleural effusion, not elsewhere classified; Z68.41 Body mass index [BMI] 40.0-44.9, adult; J98.19 Other pulmonary collapse; C78.02 Secondary malignant neoplasm of left lung; C78.01 Secondary malignant neoplasm of right lung; C79.51 Secondary malignant neoplasm of bone; F32.9 Major depressive disorder, single episode, unspecified; I10 Essential (primary) hypertension; R93.89 Abnormal findings on diagnostic imaging of other specified body structures; E66.01 Morbid (severe) obesity due to excess calories; Z88.8 Allergy status to other drugs, medicaments and biological substances; Z71.89 Other specified counseling; Z80.3 Family history of malignant neoplasm of breast; Z80.1 Family history of malignant neoplasm of trachea, bronchus and lung
CPT/HCPCS: 32557; 36415; 71045; 71260; 80048; 80053; 81001; 82945; 83036; 83615; 83880; 84157; 85025; 85610; 87071; 87075; 87086; 88112; 88305; 89050; 94640; 94760; A4215; C1729; C1894; J0696; J1650; J2270; J7620; Q9967

== ENCOUNTER → 2018-06-20 | Outpatient (CLI) | payer BC ==
[~2018-06-20] MED LIST: ALPR0.25 PO; AMOX1TAB61 PO; CALC667T4 PO; CELE100C PO; CELE200C PO; CITA20TA6 PO; FURO-69 PO; FURO40TA4 PO; HYDR-2761 PO; IBUP-1060 PO; LEVO100T5 PO; LEVO25TA4 PO; MONT10TA9 PO; POTA20TA82 PO; PRAV10TA2 PO; PRAV40TA2 PO; SENN-22 PO; TRIA1TAB3 PO
--- NOTE | 2018-06-20 12:12 | RAD ---
Two-view chest dated 06/20/2018. No comparison available. CLINICAL INDICATION: Shortness of breath. FINDINGS: PA and lateral views obtained. Subtotal opacification of the left hemithorax with rightward shift of the tracheal air column and heart. Air-fluid interface at the left apex consistent with pleural fluid. Right lung is clear. No apparent pneumothorax or right-sided pleural effusion. IMPRESSION: 1. Subtotal opacification of the left hemithorax with mediastinal shift to the right. Although this most likely represents a large pleural effusion with associated lobar collapse, an underlying mass cannot be excluded. Electronically signed by: Desmond Godfrey MD (06/20/2018 12:09 PM) [facility]
== END | disposition home or self-care (01) ==
LOC: EDBD → RAD 11:42
PROVIDERS: ATTEND Internal Medicine Pulmonary Disease
DX: J98.59 Other diseases of mediastinum, not elsewhere classified (principal); R91.8 Other nonspecific abnormal finding of lung field
CPT/HCPCS: 71046